=== PATIENT | female | born 1945 | race Caucasian/White ===

== ENCOUNTER 2021-05-04 21:17 | Emergency (ER) | payer OTHER ==
[2021-05-04 22:09] LABS: Urine Blood Negative (Negative); Urine Glucose Negative (Negative); Urine Protein Negative (Negative); Urine Specific Gravity 1.025 (1.005-1.030); Urine pH 5.5 (5.0-7.0)
--- NOTE | 2021-05-04 22:09 | RAD REPORT ---
EXAM DESCRIPTION: RAD - Chest Single View - 05/04/2021 9:58 pm CLINICAL HISTORY: hypotension Chest pain. COMPARISON: Chest Pa And Lat (2 Views) dated 09/18/2018; Chest Pa And Lat (2 Views) dated 12/10/2017; Ch est Pa And Lat (2 Views) dated 11/22/2015; CHEST SINGLE VIEW dated 12/13/2012 FINDINGS: Portable technique limits examination quality. The lungs are grossly clear. The heart is normal in size. Dual lead pacer/ defibrillator device is pr esent.Right axillary surgical clips. IMPRESSION: No acute intrathoracic process suspected.
[2021-05-04] MEDS ORDERED: NA CHLORIDE 0.9% 500 ML ONE (22:11)
[2021-05-04 22:16] LABS: Absolute Lymphocytes (CBC) 0.8 K/uL (0.7-4.9); Basophils % 1.3 % (0-1.3); Hematocrit 36.7 % (36.0-45.0); Lymphocytes % 21.1 % (15.3-44.8); MPV 7.4 fL (7.6-11.3); RBC Red Blood Cell Count 3.63 M/uL (3.86-4.86)
[2021-05-04 22:17] LABS: Protime INR 1.02
[2021-05-04 22:50] LABS: ALT/SGPT 47 U/L (12-78); AST/SGOT 40 U/L (15-37); Albumin 3.5 g/dL (3.4-5.0); Alkaline Phosphatase 71 U/L (45-117); BUN Blood Urea Nitrogen 16 mg/dL (7-18); Bicarbonate 20 mmol/L (21-32); Bilirubin Direct < 0.1 mg/dL (0-0.2); Bilirubin Total 0.2 mg/dL (0.2-1.0); Glucose Level 92 mg/dL (74-106); Magnesium 1.6 mg/dL (1.8-2.4); NT PRO-BNP 124 pg/mL (<450); Potassium 4.6 mmol/L (3.5-5.1); Protein, Total 6.2 g/dL (6.4-8.2); Sodium Level 130 mmol/L (136-145); Troponin (Emerg Dept Use Only) < 0.02 ng/mL (0.0-0.045)
[2021-05-04 22:53] LABS: Urine Bacteria <20 /HPF (<20); Urine RBC NONE SEEN /HPF (NONE SEEN)
[2021-05-05] MEDS ORDERED: MAGNESIUM SULFATE 1 gm IVPB 1 GM/100 ML BAG IV ONE (00:52)
[2021-05-05] MEDS ORDERED: NA CHLORIDE 0.9% 500 ML ONE (00:52)
--- NOTE | 2021-05-05 02:08 | ER ---
Nurse's Notes [facility] Name: Radha Boyer Age: 76 yrs Sex: Female : 1945 Arrival Date: 05/04/2021 Time: 21:24 Bed 18 Private MD: Diagnosis: Volume depletion, unspecified;Fall (on) (from) unspecified stairs and steps Presentation: 05/04 21:20 Chief complaint: Patient states: Arrived via EMS per stretcher; AA\T\Ox4; TREVINO equally; cc4 reports loosing footing on first step of stairs striking posterior head on tile floor; scant bleeding controlled noted of intact deanna x approx 22 deanna to prior laceration of scalp \T\ crown of head x 1 week ago; denies any pain; denies vertigo prior to fall; small abrasions noted right elbow; hypotensive; denies chest pain; reports taking coreg 25mg this am; left pupil distorted in shape/hazy/nonreative to light; 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 21:20 Acuity: JEREMY 3 cc4 21:20 Coronavirus screen: Vaccine status: Patient reports receiving the 2nd dose of the covid cc4 vaccine. At this time, the client does not indicate any symptoms associated with coronavirus-19. Pfizer vaccine Sep-October 2020. Ebola Screen: Patient negative for fever greater than or equal to 101.5 degrees Fahrenheit, and additional compatible Ebola Virus Disease symptoms Patient denies exposure to infectious person. Patient denies travel to an Ebola-affected area in the 21 days before illness onset. No symptoms or risks identified at this time. Initial Sepsis Screen: Does the patient meet any 2 criteria? Systolic BP < 90 mmHg. Mean Arterial Pressure (MAP) < 65. Yes. Risk Assessment: Do you want to hurt yourself or someone else? Patient reports no desire to harm self or others. 21:20 Method Of Arrival: EMS: [facility] cc4 21:20 Onset of symptoms was May 04, 2021 at 21:00. cc4 23:48 Note EMS reports pt fell \T\ approx 2100 \T\ found lying partially on right side on tile cc 4 floor. Triage Assessment: 21:20 General: Appears in no apparent distress. Behavior is calm, cooperative. Pain: Denies cc4 pain. 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 Cardiovascular: Reports h/o pacemaker/defibrillator placement 2018; reports h/o right breast CA with lymph node removal. Respiratory: No deficits noted. GI: No deficits noted. No signs and/or symptoms were reported involving the gastrointestinal system. : No deficits noted. No signs and/or symptoms were reported regarding the genitourinary system. Derm: Approximately 22 deanna noted of prior scalp laceration with scant controlled bleeding noted \T\ crown of head; reports loosing footing 1 week ago with fall causing laceration; small abrasions noted right elbow. Musculoskeletal: No deficits noted. No signs and/or symptoms reported regarding the musculoskeletal system. Injury Description: Abrasion sustained to scalp and right arm Laceration sustained to scalp is Approximately 22 sutures noted intact crown of head scalp laceration with scant controlled bleeding noted; reports prior fall last week. - Immunization history:: Adult Immunizations up to date, Client reports receiving the 2nd dose of the Covid vaccine, Date received: October 04, 2020 x2. - Social history:: Patient/guardian denies using alcohol, street drugs, IV drugs, caffeine, over the counter diet medications, tobacco products, Smoking status: Patient denies any tobacco usage or history of. - Family history:: not pertinent. - Code Status:: Full code. Screenin:20 Abuse screen: Denies threats or abuse. Nutritional screening: No deficits noted. cc4 Tuberculosis screening: No symptoms or risk factors identified. Fall Risk Fall in past 12 months (25 points). Assessment: 22:00 Reassessment: Patient appears in no apparent distress at this time. BP improving; BP cc4 93/44; denies any discomfort.. 23:46 Reassessment: Pt co being very cold even with 3 blankets. Temp check 97.7 , additional dc2 blanket provided to patient. 05/05 01:15 Reassessment: Patient appears in no apparent distress at this time. Patient denies pain cc4 at this time. Awakened from sleep with bld drawn from left wrist saline lock \T\ sent to lab for repeat LA; denies any complaints; ventricular paced rhythm noted of CM with no ectopy; VR 60's; BP improving; BP 109/51.. 02:45 Reassessment: Patient appears in no apparent distress at this time. Discharge order cc4 received; attempted to reach via telephone with no answer; message left; informed of inability to reach at present time \T\ will con't to try \T\ reach with v/u;; voices no complaints.. 04:00 Reassessment: Patient appears in no apparent distress at this time. Sleeping; VSS; cc4 con't to phone 's cell phone with no answer; message left.. 05:27 GI: Awake \T\ vomiting approx. 100 ml pink colored emesis; Dr Duron notified with order cc4 to administer Zofran 4 mg; cleaned with gown changed; Zofran 4 mg given IVP; VSS; repositioned on stretcher; denies any c/o pain; awake/alert/oriented x 3; will con't to monitor; attempted to reach via telephone to no avail; message left. 06:00 Reassessment: Patient appears in no apparent distress at this time. Awakened from cc4 sleep; reports relief of nausea; newell catheter emptied of 1400 ml clear yellow urine; attempted to reach via telephone with no answer; message left on phone recorder.. 07:53 General: pt gave me number to call to pick her up, called [phone] left tc5 message for , to call back.. Vital Signs: 05/04 21:20 BP 85 / 41; Pulse 85; Resp 22; Temp 98.5(O); Pulse Ox 98% on R/A; cc4 22:00 BP 93 / 44; Pulse 79; Resp 18; Pulse Ox 97% on R/A; cc4 22:30 BP 100 / 45; Pulse 50; Resp 18; Pulse Ox 98% on R/A; cc4 23:43 Temp 97.72; dc2 23:56 BP 98 / 47; Pulse 76; Resp 18; Temp 97.2(O); Pulse Ox 99% on R/A; cc4 05/05 02:45 BP 104 / 51; Pulse 70; Resp 18; Pulse Ox 97% on R/A; cc4 04:00 BP 130 / 60; Pulse 73; Resp 18; Pulse Ox 97% on R/A; cc4 05:27 BP 149 / 66; Pulse 75; Resp 22; Temp 98.7(O); Pulse Ox 98% on R/A; cc4 06:00 BP 131 / 66; Pulse 74; Resp 18; Pulse Ox 97% on R/A; cc4 07:47 BP 129 / 52; Pulse 70; Resp 16; Temp 98.8; Pulse Ox 95% ; Pain 0/10; tc5 ED Course: 05/04 21:20 Inserted saline lock: 22 gauge in left wrist, using aseptic technique. cc4 21:20 Arm band placed on. cc4 21:24 Patient arrived in ED. em 21:34 Claire Jasmine, FRAN is Primary Nurse. cc4 21:39 Danilo Morales PA is PHCP. cp 21:39 Nain Duron MD is Attending Physician. cp 21:57 XRAY Chest (1 view) In Process Unspecified. EDMS 22:11 Urine Microscopic Only Sent. kc4 22:20 Labs ordered per protocol. Drawn by ED staff. cc4 22:30 EKG completed in triage. Results shown to MD. cc4 22:31 Lactate Sent. cc4 22:31 Procalcitonin Sent. cc4 22:32 Basic Metabolic Panel Sent. cc4 22:32 LFT's Sent. cc4 22:32 Magnesium Sent. cc4 22:32 NT PRO-BNP Sent. cc4 22:32 Troponin (emerg Dept Use Only) Sent. cc4 22:58 Inserted saline lock: 20 gauge in left antecubital area, using aseptic technique. Blood oe collected. 23:[address] dc2 23:00 Warm blanket given. dc2 23:[address] via stretcher. cc4 23:14 CT Traumagram (Head C Spine CAP W Con) In Process Unspecified. EDMS 23:22 Patient moved back from CT. dc2 23:30 Triage completed. cc4 23:32 Fall risk band placed. Bed in low position. Call light in reach. Side rails up X 1. Red dc2 sleeve placed to right arm. 05/05 01:15 Labs ordered per protocol. Drawn by ED staff. cc4 Administered Medications: 05/04 21:45 Drug: NS 0.9% 500 ml Route: IV; Rate: bolus; Site: left wrist; cc4 05/05 00:21 CANCELLED (Physician Discretion): Magnesium Sulfate 2 grams IVPB once over 2 hrs cp 00:30 Drug: NS 0.9% 500 ml Route: IV; Rate: bolus; Infused Over: 1 hrs; Site: left wrist; dc2 Delivery: Primary tubing; 07:55 Follow up: IV Status: Completed infusion tc5 00:40 Drug: Magnesium Sulfate 1 grams Route: IVPB; Infused Over: 1 hrs; Site: left dc2 antecubital; 02:45 Follow up: Response: No adverse reaction cc4 05:41 Drug: Zofran (Ondansetron) 4 mg Route: IVP; Site: left wrist; cc4 07:55 Follow up: Response: No adverse reaction tc5 Outcome: 05/04 23:48 Condition: Hypotensive. cc4 05/05 02:07 Discharge ordered by . cp 09:08 Patient left the ED. tc5 Signatures: Dispatcher [employer] EDMS Wilfrido Beckman RN RN Danilo Jung PA PA cp Mani Moreno Kourtney kc4 Claire Jasmine RN RN [facility] Lorna Rose RN RN dc2 Shannon Irby RN RN tc5 Corrections: (The following items were deleted from the chart) 05/04 23:26 23:[address] via stretcher. [place] [id number] 05/05 03:26 01:23 LACTATE+C.LAB.BRZ drawn and sent. [facility] EDKY
--- NOTE | 2021-05-05 02:08 | EDPHYS ---
Physician Documentation [facility] Name: Radha Boyer Age: 76 yrs Sex: Female : 1945 Arrival Date: 05/04/2021 Time: 21:24 Bed 18 Private MD: ED Physician Nain Duron HPI: 05/04 21:55 This 76 yrs old Female presents to ER via EMS with complaints of Fall. cp 21:55 Details of fall: The patient fell from an upright position, while walking, and struck a cp tile surface. 21:55 Onset: The symptoms/episode began/occurred just prior to arrival. Associated injuries: cp The patient sustained injury to the head. 21:55 Patient reports she lost her balance while on stairs causing her to strike back of her cp head. No reported LOC. 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 - Immunization history:: Adult Immunizations up to date, Client reports receiving the 2nd dose of the Covid vaccine, Date received: October 04, 2020 x2. - Social history:: Patient/guardian denies using alcohol, street drugs, IV drugs, caffeine, over the counter diet medications, tobacco products, Smoking status: Patient denies any tobacco usage or history of. - Family history:: not pertinent. - Code Status:: Full code. ROS: 22:00 Constitutional: Negative for body aches, chills, fever, poor PO intake. cp 22:00 Cardiovascular: Negative for chest pain. cp 22:00 Respiratory: Negative for cough, shortness of breath, wheezing. 22:00 Abdomen/GI: Negative for abdominal pain, vomiting, diarrhea, constipation, black/tarry stool, rectal bleeding. 22:00 Back: Negative for pain at rest, pain with movement. cp 22:00 MS/extremity: Negative for injury or acute deformity, decreased range of motion. cp 22:00 Neuro: Negative for altered mental status, headache, loss of consciousness, syncope, weakness. 22:00 All other systems are negative. Exam: 22:05 Constitutional: The patient appears in no acute distress, alert, awake, comfortable, cp non-diaphoretic, non-toxic, well developed, well nourished. 22:05 Head/face: Exam is negative for acute changes. cp 22:05 Eyes: Periorbital structures: appear normal, Pupils: equal, round, and reactive to light and accomodation, Extraocular movements: intact throughout, Conjunctiva: normal, no exudate, no injection, Sclera: no appreciated abnormality, Lids and lashes: appear normal, bilaterally. 22:05 ENT: External ear(s): are unremarkable, Ear canal(s): are normal, clear, TM's: dullness, bilaterally, Nose: is normal, Mouth: Lips: dry, Oral mucosa: moist, Posterior pharynx: Airway: no evidence of obstruction, patent. 22:05 Neck: C-spine: vertebral tenderness, is not appreciated, crepitus, is not appreciated, ROM/movement: pain, is not appreciated, limited range of motion, is not appreciated, nuchal rigidity, is not appreciated. 22:05 Chest/axilla: Inspection: normal, Palpation: is normal, no crepitus, no tenderness. 22:05 Cardiovascular: Rate: normal, Rhythm: regular, Edema: is not appreciated, JVD: is not appreciated. 22:05 Respiratory: the patient does not display signs of respiratory distress, Respirations: normal, no use of accessory muscles, no retractions, labored breathing, is not present, Breath sounds: are clear throughout, no decreased breath sounds, no stridor, no wheezing. 22:05 Abdomen/GI: Inspection: abdomen appears normal, Palpation: abdomen is soft and non-tender, in all quadrants. 22:05 Back: pain, is absent, vertebral tenderness, is not appreciated. 22:05 Musculoskeletal/extremity: Exam is negative for decreased range of motion, deformity, injury. 22:05 Skin: Wound recheck: Staple laceration closure: the wound is healing well, the edges are well approximated, no evidence of dehiscence, no drainage, no erythema, no swelling, repaired posterior scalp laceration. 22:05 Neuro: Orientation: to person, place \T\ time. Mentation: is normal, Motor: moves all fours, general weakness with no focal deficits, Sensation: no obvious gross deficits. 22:28 ECG was reviewed by the Attending Physician. cp Vital Signs: 21:20 BP 85 / 41; Pulse 85; Resp 22; Temp 98.5(O); Pulse Ox 98% on R/A; cc4 22:00 BP 93 / 44; Pulse 79; Resp 18; Pulse Ox 97% on R/A; cc4 22:30 BP 100 / 45; Pulse 50; Resp 18; Pulse Ox 98% on R/A; cc4 23:43 Temp 97.72; dc2 23:56 BP 98 / 47; Pulse 76; Resp 18; Temp 97.2(O); Pulse Ox 99% on R/A; cc4 05/05 02:45 BP 104 / 51; Pulse 70; Resp 18; Pulse Ox 97% on R/A; cc4 04:00 BP 130 / 60; Pulse 73; Resp 18; Pulse Ox 97% on R/A; cc4 05:27 BP 149 / 66; Pulse 75; Resp 22; Temp 98.7(O); Pulse Ox 98% on R/A; cc4 06:00 BP 131 / 66; Pulse 74; Resp 18; Pulse Ox 97% on R/A; cc4 07:47 BP 129 / 52; Pulse 70; Resp 16; Temp 98.8; Pulse Ox 95% ; Pain 0/10; tc5 MDM: 05/04 21:44 Patient medically screened. cp 22:00 Differential diagnosis: closed head injury, contusion, fracture, laceration, multiple cp trauma. 05/05 02:05 Data reviewed: vital signs, nurses notes, lab test result(s), EKG, radiologic studies, cp CT scan, plain films. 02:05 Test interpretation: by ED physician or midlevel provider: ECG, plain radiologic cp studies. Counseling: I had a detailed discussion with the patient and/or guardian regarding: the historical points, exam findings, and any diagnostic results supporting the discharge/admit diagnosis, lab results, radiology results, to return to the emergency department if symptoms worsen or persist or if there are any questions or concerns that arise at home. Response to treatment: the patient's symptoms have markedly improved after treatment, patient is well hydrated. and as a result, I will discharge patient. ED course: VSS. Hypotension resolved with IV fluids. Patient reports symptoms improved. Will discharge to home for continued monitoring. 05/04 21:46 Order name: Basic Metabolic Panel; Complete Time: 23:09 cp 05/04 23:09 Interpretation: Normal except: NA 130; CO2 20; GFR 52. cp 05/04 21:46 Order name: CBC with Diff; Complete Time: 22:39 cp 05/04 22:39 Interpretation: Normal except: WBC 3.70; RBC 3.63; MCV 101.0; MCH 33.8; MPV 7.4; MN% cp 14.8. 05/04 21:46 Order name: LFT's; Complete Time: 23:09 05/04 23:10 Interpretation: Normal except: TP 6.2; AST 40. 05/04 21:46 Order name: Magnesium; Complete Time: 23:09 05/04 23:10 Interpretation: Abnormal: MG 1.6. cp 05/04 21:46 Order name: NT PRO-BNP; Complete Time: 23:09 05/04 21:46 Order name: PT-INR; Complete Time: 22:39 05/04 21:46 Order name: Troponin (emerg Dept Use Only); Complete Time: 23:09 05/04 21:46 Order name: Urine Microscopic Only; Complete Time: 23:09 05/04 21:46 Order name: Lactate; Complete Time: 23:09 05/04 21:46 Order name: Procalcitonin; Complete Time: 23:09 05/04 21:46 Order name: Blood Culture Adult (2) 05/04 22:09 Order name: Urine Dipstick-Ancillary; Complete Time: 22:39 EDSC 05/05 01:48 Order name: Lactate Sepsis 2 HR Follow-up; Complete Time: 02:02 EDMS 05/05 02:02 Interpretation: LACTATE SEPSIS 1.9; Reviewed. 05/04 21:46 Order name: XRAY Chest (1 view); Complete Time: 22:39 05/04 22:40 Interpretation: Report review. 05/04 21:46 Order name: EKG; Complete Time: 21:47 05/04 21:46 Order name: Cardiac monitoring; Complete Time: 22:30 05/04 21:46 Order name: EKG - Nurse/Tech; Complete Time: 22:30 05/04 21:46 Order name: IV Saline Lock; Complete Time: 22:32 05/04 21:46 Order name: Labs collected and sent; Complete Time: 22:32 05/04 21:46 Order name: O2 Per Protocol 05/04 21:46 Order name: O2 Sat Monitoring; Complete Time: 22:32 05/04 21:46 Order name: Urine Dipstick-Ancillary (obtain specimen); Complete Time: 22:11 cp 05/04 21:46 Order name: Dennison; Complete Time: 23:33 cp 05/04 21:46 Order name: CT Traumagram (Head C Spine CAP W Con) cp EC/23 22:28 Rate is 75 beats/min. Rhythm is regular, Paced. QRS interval is prolonged at 154 msec. cp QT interval is normal. T waves are Inverted in leads aVR, V2. Interpreted by me. Reviewed by me. Administered Medications: 21:45 Drug: NS 0.9% 500 ml Route: IV; Rate: bolus; Site: left wrist; cc4 05/05 00:21 CANCELLED (Physician Discretion): Magnesium Sulfate 2 grams IVPB once over 2 hrs cp 00:30 Drug: NS 0.9% 500 ml Route: IV; Rate: bolus; Infused Over: 1 hrs; Site: left wrist; dc2 Delivery: Primary tubing; 07:55 Follow up: IV Status: Completed infusion tc5 00:40 Drug: Magnesium Sulfate 1 grams Route: IVPB; Infused Over: 1 hrs; Site: left dc2 antecubital; 02:45 Follow up: Response: No adverse reaction cc4 05:41 Drug: Zofran (Ondansetron) 4 mg Route: IVP; Site: left wrist; cc4 07:55 Follow up: Response: No adverse reaction tc5 Disposition: 02:15 Chart complete. cp 20:23 Co-signature as Attending Physician, Nain Duron MD. 7 Disposition Summary: 05/05/21 02:07 Discharge Ordered Location: Home cp Problem: new cp Symptoms: have improved cp Condition: Stable cp Diagnosis - Volume depletion, unspecified cp - Fall (on) (from) unspecified stairs and steps cp Followup: cp - With: Private Physician - When: 1 - 2 days - Reason: Recheck today's complaints Discharge Instructions: - Discharge Summary Sheet cp - Dehydration, Elderly cp - Fall Prevention in the Home, Adult cp Forms: - Medication Reconciliation Form cp - Thank You Letter cp - Antibiotic Education cp - Prescription Opioid Use cp Signatures: Dispatcher [employer] EDMS Danilo Morales PA PA cp Holmes, Maurice, MD MD 7 Claire Jasmine RN RN 4 Lorna Rose RN RN md2 Shannon Irby RN tc5 Corrections: (The following items were deleted from the chart) 00:21 00:21 Magnesium Sulfate 2 grams IVPB once over 2 hrs ordered. cp cp 03:26 01:17 LACTATE+C.LAB.BRZ ordered. EDMS EDMS
[2021-05-05] MEDS ORDERED: ONDANSETRON 4 MG/2 ML VIAL ONE (05:58)
[2021-05-05 09:48] VITALS: BP 129/52; TEMP 98.8; O2SAT 95
--- NOTE | 2021-05-05 18:05 | RAD REPORT ---
EXAM DESCRIPTION: CT - Head C Spine Cap Tiffanie Henderson - 05/05/2021 6:44 am CLINICAL HISTORY: Fall COMPARISON: 04/26/2021 TECHNIQUE: Axial CT of the head obtained from the skull apex to the skull base without contrast. Axi al CT images of the cervical spine obtained from the skull base through the thoracic inlet. Sagittal and coronal reformatted images available. CT of the chest, abdomen, and pelvis obtained following the uncomplicated intravenous administration of iodinated contrast. This exam was performed according to our departmental dose-optimization program, which includes automated exposure control, adjustment of the mA and/or kV according to patient size and/or use of iterative reconstruction technique. FINDINGS: CT head: No acute intracranial hemorrhage identified. No mass, mass effect, shift of the midline, abnormal ext ra-axial fluid collection or CT evidence of acute ischemic change identified. Was in the ventricular system and sulcal spaces compatible with cerebral atrophy. Scattered areas of hypodensity throughou t the supratentorial white matter are nonspecific and may represent sequela of chronic small vessel i schemic change. The visualized paranasal sinuses and the mastoids are clear. No skull fracture identified. Stable appearance of the globes. Postoperative change of the left globe. Subcutaneous deanna in the superi or scalp soft tissues. Cervical CT: Alignment of the cervical spine is maintained without evidence of subluxation. The atlantoaxial, at lantodental, and occipitoatlantal intervals are preserved. No fracture identified. Vertebral body h eight preserved. Prevertebral soft tissues are unremarkable. Mild to moderate multilevel loss of intervertebral disc height with endplate spondylosis, uncovertebr al spurring, and facet arthropathy. Visualized skull base is intact. No fracture of the visualized facial bones. Visualized mastoid air c ells and paranasal sinuses are well aerated. No cervical lymphadenopathy. No pneumothorax in the visualized lung apices. Chest: Thyroid: No abnormalities of the visualized thyroid. Great Vessels: Great vessels have normal anatomic configuration. Thoracic Aorta: Atherosclerotic calcification of the thoracic aorta. Pulmonary arteries: No central filling defects. Heart: Coronary artery atherosclerosis. No cardiomegaly or significant pericardial effusion. Left von st wall multilead generator. Lymph Nodes: No enlarged mediastinal lymph nodes identified. Esophagus: Small hiatal hernia. Other: In the right breast there is a 3.9 cm fluid collection at the site surgical clips. Postoperati ve change in the right axillary region. Lungs: No confluent airspace consolidation. Minimal bilateral dependent atelectasis. Pleura: No pleural effusion or pneumothorax. Trachea/Airways: No abnormalities of the visualized trachea or airways. Abdomen: Liver: The liver has normal size and decreased density. No intrahepatic mass or biliary dilatation. Gallbladder: No calcified gallstones. Spleen, Pancreas, and Adrenal Glands: The spleen, pancreas, and adrenal glands are unremarkable. Kidneys: The kidneys have normal size and contour without evidence of solid mass or hydronephrosis. Left renal cyst. Vasculature: Aortoiliac atherosclerosis. IVC is unremarkable. The portal vein is patent. The proxim al visceral and renal arteries are patent. Stomach: The stomach and duodenum have normal course. Other: No free intraperitoneal air. No free fluid or lymphadenopathy. Tiny fat-containing umbilic al hernia. Pelvis: Bladder: Dennison catheter in place. Mild wall thickening of the urinary bladder. Bowel: No dilated loops of large or small bowel. Appendix: Normal appendix. Pelvis: Uterus is not enlarged. Bones: Remote healed fractures of the lateral right seventh and 10th ribs. Remote healed fracture of the left posterior 12th rib. Multilevel endplate spondylosis, facet arthropathy, disc height narrowin g throughout the visualized spine. IMPRESSION: 1. No acute intracranial abnormality identified. 2. No acute fracture or subluxation of the cervical spine. 3. In the right breast there is a 3.9 cm fluid collection at the site of surgical clips. This may r epresent a seroma. Correlation for infectious or traumatic changes at this location recommended. 4. Mild wall thickening of the urinary bladder. This could be seen with cystitis. Correlation with urinalysis recommended. 5. Hepatic steatosis. Electronically signed by: Wilfred Zhu 05/04/2021 11:51 PM CDT Due to temporary technical issues with the PACS/Fluency reporting system, reports are being signed by the in house radiologists without review as a courtesy to insure prompt reporting. The interpreting radiologist is fully responsible for the content of the report.
== END 2021-05-05 09:08 | disposition home or self-care (01) ==
LOC: ER 21:17
DX: E86.9 Volume depletion, unspecified (principal); W10.8XXA Fall (on) (from) other stairs and steps, initial encounter; Z95.810 Presence of automatic (implantable) cardiac defibrillator; Z85.3 Personal history of malignant neoplasm of breast
CPT/HCPCS: 93005; 87040 ×2; 85025; 80048; 36415; 83735; 85610; 80076; 83605 ×2; 84484; 84145; 83880; 70450; 72125; 71260; 74177; 71045; 99284; Q9967; J3475; J7040 ×2; J2405; 81003; 81015

== ENCOUNTER 2021-05-07 13:49 | Emergency (ER) | payer OTHER ==
[2021-05-07 14:54] LABS: Absolute Lymphocytes (CBC) 0.5 K/uL (0.7-4.9); Basophils % 1.2 % (0-1.3); Hematocrit 39.7 % (36.0-45.0); Lymphocytes % 11.7 % (15.3-44.8); MPV 7.2 fL (7.6-11.3); RBC Red Blood Cell Count 3.94 M/uL (3.86-4.86)
[2021-05-07] MEDS ORDERED: FENTANYL CITR 100 MCG/2 ML ONE (15:06)
[2021-05-07] MEDS ORDERED: ONDANSETRON 4 MG/2 ML VIAL ONE ×2 (15:06→16:35)
[2021-05-07 15:08] LABS: Potassium 4.6 mmol/L (3.5-5.1)
--- NOTE | 2021-05-07 15:13 | RAD REPORT ---
EXAM DESCRIPTION: CT - Head Brain Wo Cont - 05/07/2021 2:42 pm CLINICAL HISTORY: HEADACHEand nausea following fall 4 days earlier COMPARISON: HEAD BRAIN W O CONTRAST dated 12/13/2012 TECHNIQUE: Axial 5 mm thick images of the head were obtained without IV contrast. All CT scans are performed using dose optimization technique as appropriate and may include automated exposure control or mA/KV adjustment according to patient size. FINDINGS: No intracranial hemorrhage, mass, edema or shift of mid-line structures. No acute cortical based infarction. No cortical edema or sulcal effacement. Atrophy changes are advanced for age. Vent ricles do appear to be in proportion. Chronic ischemic changes are present to a less degree of severi ty. No abnormal extra-axial fluid collections. Arterial tree calcifications are present. Mastoid air cells and visualized portions of the paranasal sinuses are clear. No acute bony findings. Nonfunctioning hyperdense left globe. IMPRESSION: Advanced for age atrophy with ventricles in proportion. No hemorrhage, cerebral edema or other acute intracranial finding.
[2021-05-07] MEDS ORDERED: NA CHLORIDE 0.9% 0 ML ONE (15:18)
[2021-05-07] MEDS ORDERED: NA CHLORIDE 0.9% 500 ML ONE (15:20)
--- NOTE | 2021-05-07 15:42 | ER ---
Nurse's Notes [facility] Name: Radha Boyer Age: 76 yrs Sex: Female : 1945 Arrival Date: 05/07/2021 Time: 13:52 Bed 16 Private MD: Anastacio Spann V Diagnosis: Headache;Nausea with vomiting, unspecified Presentation: 05/07 13:57 Chief complaint: Patient states: Nausea vomiting since last night. Pt stated, "I fell kg and hit my head on 05/03 and came in here and got stitches. Not sure if its related to the fall or not.". Coronavirus screen: Vaccine status: Patient reports receiving the 2nd dose of the covid vaccine. [facility] Patient reports receiving the 1st dose of the Covid vaccine. [facility] nausea, vomiting. Client presents with at least one sign or symptom that may indicate coronavirus-19. Standard/surgical mask placed on the client. Provider contacted for isolation considerations. Coronavirus screen: Vaccine status: Patient reports receiving the 2nd dose of the covid vaccine. Date October 05, 2020 [facility] Patient reports receiving the 1st dose of the Covid vaccine. Date September 14, 2020. Ebola Screen: Patient negative for fever greater than or equal to 101.5 degrees Fahrenheit, and additional compatible Ebola Virus Disease symptoms Patient denies exposure to infectious person. Patient denies travel to an Ebola-affected area in the 21 days before illness onset. Initial Sepsis Screen: Does the patient meet any 2 criteria? No. Patient's initial sepsis screen is negative. Does the patient have a suspected source of infection? No. Patient's initial sepsis screen is negative. Risk Assessment: Do you want to hurt yourself or someone else? Patient reports no desire to harm self or others. Onset of symptoms was May 06, 2021. 13:57 Method Of Arrival: Wheelchair kg 13:57 Acuity: JEREMY 3 kg Triage Assessment: 14:01 General: Appears in no apparent distress. Behavior is calm, cooperative, appropriate kg for age, quiet. Pain: Denies pain. GI: Reports nausea, vomiting. Historical: - Allergies: 14:01 PENICILLINS; kg 14:01 Robaxin; kg - Home Meds: 14:01 carvedilol oral [Active]; letrozole 2.5 mg oral tab [Active]; trazodone Oral [Active]; kg - PMHx: 14:01 Hypertensive disorder; Breast CA; insomnia; kg - PSHx: 14:01 Right mastectomy; Several eye sx; kg - Immunization history:: Adult Immunizations not up to date, Client reports receiving the 2nd dose of the Covid vaccine, Date received: October 05, 2020 [employer] Client reports receiving the 1st dose of the Covid vaccine, September 14, 2020 [employer]. - Social history:: Smoking status: Patient denies any tobacco usage or history of. Screenin:04 Abuse screen: Denies threats or abuse. Denies injuries from another. Nutritional kg screening: No deficits noted. Tuberculosis screening: No symptoms or risk factors identified. Fall Risk Fall in past 12 months (25 points). No secondary diagnosis (0 pts). No IV (0 pts). Ambulatory Aid- Crutches/Cane/Walker (15 pts). Gait- Weak (10 pts.). Mental Status- Oriented to own ability (0 pts). Total Aguilar Fall Scale indicates Low Risk Score (25-44 pts). Fall prevention measures have been instituted. Side Rails Up X 2 Placed close to Nursing Station Frequent Obs/Assesments occuring Family Present and informed to notify staff if they need to leave bedside As available Patient and Family Educated on Fall Prevention Program and strategies. Assessment: 14:14 GI: Abdomen is non-distended, obese. aj2 15:01 Reassessment: Patient appears in no apparent distress at this time. Patient and/or aj2 family updated on plan of care and expected duration. Pain level reassessed. Patient is alert, oriented x 3, equal unlabored respirations, skin warm/dry/pink. 15:17 Reassessment: Patient appears in no apparent distress at this time. Patient and/or aj2 family updated on plan of care and expected duration. Pain level reassessed. Patient is alert, oriented x 3, equal unlabored respirations, skin warm/dry/pink. 16:29 Reassessment: Per Jeremy (CELINE), apply lidocaine 4% patch to back of the neck. Lidocaine aj2 5% patch unavailable. Medication given per verbal order.. Vital Signs: 13:57 BP 152 / 87; Pulse 76; Resp 20; Temp 96.8(TE); Pulse Ox 99% on R/A; Weight 72.57 kg kg (R); Height 5 ft. 3 in. (160.02 cm) (R); Pain 8/10; 14:14 BP 142 / 77; Pulse 77; Resp 18; Temp 96.8; Pulse Ox 100% ; aj2 16:29 BP 159 / 69; Pulse 62; Resp 16; Temp 96.8; Pulse Ox 99% ; aj2 13:57 Body Mass Index 28.34 (72.57 kg, 160.02 cm) kg ED Course: 13:52 Patient arrived in ED. mr 13:52 Anastacio Spann MD is Private Physician. mr 14:01 Triage completed. kg 14:07 Dieudonne Bhakta is Primary Nurse. aj2 14:14 Jeremy Lucas NP is PHCP. pm1 14:14 Savanah Cespedes MD is Attending Physician. pm1 14:14 No apparent distress. Resting quietly. aj2 14:14 Patient has correct armband on for positive identification. aj2 14:14 No provider procedures requiring assistance completed. Patient did not have IV access aj2 during this emergency room visit. 14:42 CT Head Brain wo Cont In Process Unspecified. EDMS 14:47 BMP Sent. aj2 14:47 CBC with Diff Sent. aj2 15:01 No apparent distress. Resting quietly. aj2 15:01 Inserted saline lock: 20 gauge in left antecubital area, using aseptic technique. aj2 15:17 No apparent distress. Appears to be sleeping. aj2 15:17 IV is patent, is intact. aj2 Administered Medications: 14:46 Drug: Zofran (Ondansetron) 4 mg Route: IVP; Site: left antecubital; aj2 14:46 Drug: fentaNYL (PF) 25 mcg Route: IVP; Site: left antecubital; aj2 14:47 Drug: NS 0.9% 500 ml Route: IV; Rate: bolus; Site: left antecubital; aj2 16:27 Drug: Lidoderm Patch 5 % (700 mg/patch) 1 patches Route: Topical; Site: affected area; aj2 16:28 Drug: Zofran (Ondansetron) 4 mg Route: IVP; Site: left antecubital; aj2 Outcome: 15:41 Discharge ordered by . pm1 17:20 Discharged to home via wheelchair. aj2 17:20 Condition: stable 17:20 Discharge instructions given to patient, Instructed on discharge instructions, follow up and referral plans. Demonstrated understanding of instructions, follow-up care, medications, Prescriptions given X 2. 17:21 Patient left the ED. aj2 Signatures: Dispatcher [employer] CHERRI RenatoOrquidea mr Lucas Jeremy, MUSIC LIBRARIAN MUSIC LIBRARIAN pm1 Nany Andrew, RN RN kg Dieudonne Bhakta aj2 Corrections: (The following items were deleted from the chart) 14:03 14:01 Allergies: No Known Allergies; kg kg
--- NOTE | 2021-05-07 15:42 | EDPHYS ---
Physician Documentation [facility] Name: Radha Boyer Age: 76 yrs Sex: Female : 1945 Arrival Date: 05/07/2021 Time: 13:52 Bed 16 Private MD: Anastacio Spann V ED Physician Savanah Cespedes HPI: 05/07 14:39 This 76 yrs old Female presents to ER via Wheelchair with complaints of pm1 Vomiting. 14:39 The patient presents to the emergency department with nausea, vomiting. Onset: The pm1 symptoms/episode began/occurred yesterday. Possible causes: Possibly from fall injury a few days ago. The symptoms are alleviated by nothing. Associated signs and symptoms: Pertinent positives: Headache. Severity of symptoms: in the emergency department the symptoms are unchanged. The patient has been recently seen by a physician: The patient has been recently seen at the [facility] Emergency Department, last week, Fall injury to back of head resulting in multiple deanna from a large laceration. Historical: - Allergies: 14:01 PENICILLINS; kg 14:01 Robaxin; kg - Home Meds: 14:01 carvedilol oral [Active]; letrozole 2.5 mg oral tab [Active]; trazodone Oral [Active]; kg - PMHx: 14:01 Hypertensive disorder; Breast CA; insomnia; kg - PSHx: 14:01 Right mastectomy; Several eye sx; kg - Immunization history:: Adult Immunizations not up to date, Client reports receiving the 2nd dose of the Covid vaccine, Date received: October 05, 2020 [employer] Client reports receiving the 1st dose of the Covid vaccine, September 14, 2020 [employer]. - Social history:: Smoking status: Patient denies any tobacco usage or history of. ROS: 14:39 Constitutional: Negative for fever, chills, and weight loss. pm1 14:39 Cardiovascular: Negative for chest pain, palpitations, and edema, Respiratory: Negative for shortness of breath, cough, wheezing, and pleuritic chest pain. 14:39 Back: Negative for injury and pain, MS/Extremity: Negative for injury and deformity, Skin: Negative for injury, rash, and discoloration. 14:39 Neck: Positive for pain with movement, Negative for bony tenderness. 14:39 Abdomen/GI: Positive for nausea and vomiting, Negative for abdominal pain, diarrhea, constipation. 14:39 Neuro: Positive for headache, Negative for numbness, tingling, weakness. 14:39 All other systems are negative. Exam: 14:39 Constitutional: This is a well developed, well nourished patient who is awake, alert, pm1 and in no acute distress. Head/Face: Normocephalic, atraumatic. 14:39 Back: No spinal tenderness. No costovertebral tenderness. Full range of motion. Skin: Warm, dry with normal turgor. Normal color with no rashes, no lesions, and no evidence of cellulitis. MS/ Extremity: Pulses equal, no cyanosis. Neurovascular intact. Full, normal range of motion. 14:39 Head/face: Noted is no obvious of injury or deformity except tenderness, that is mild, of the Back of scalp. No signs of infection dehiscence drainage or redness from laceration repair. 14:39 Eyes: Exam is negative for acute changes, Extraocular movements: intact throughout. 14:39 ENT: Exam is negative for acute changes, Mouth: Lips: normal, moist, Oral mucosa: normal, pink and intact, moist. 14:39 Neck: C-spine: vertebral tenderness, is not appreciated, Muscle spasm present to trapezius bilaterally at occipital area. 14:39 Cardiovascular: Rate: normal, Rhythm: regular, Pulses: no pulse deficits are appreciated. 14:39 Respiratory: Exam negative for acute changes, respiratory distress, shortness of breath. 14:39 Abdomen/GI: Inspection: abdomen appears normal, Palpation: abdomen is soft and non-tender, in all quadrants. 14:39 Neuro: Orientation: is normal, Mentation: is normal, Motor: is normal, moves all fours, Sensation: is normal, no obvious gross deficits. Vital Signs: 13:57 BP 152 / 87; Pulse 76; Resp 20; Temp 96.8(TE); Pulse Ox 99% on R/A; Weight 72.57 kg kg (R); Height 5 ft. 3 in. (160.02 cm) (R); Pain 8/10; 14:14 BP 142 / 77; Pulse 77; Resp 18; Temp 96.8; Pulse Ox 100% ; aj2 16:29 BP 159 / 69; Pulse 62; Resp 16; Temp 96.8; Pulse Ox 99% ; aj2 13:57 Body Mass Index 28.34 (72.57 kg, 160.02 cm) kg MDM: 14:15 Patient medically screened. pm1 15:41 Data reviewed: vital signs. Data interpreted: Pulse oximetry: on room air is 100 %. pm1 Interpretation: normal. Counseling: I had a detailed discussion with the patient and/or guardian regarding: the historical points, exam findings, and any diagnostic results supporting the discharge/admit diagnosis, lab results, radiology results, the need for outpatient follow up, to return to the emergency department if symptoms worsen or persist or if there are any questions or concerns that arise at home. 17:05 ED course: Patient's with significant improvement in pain with Lidoderm patch applied pm1 to sore area of neck. 05/07 14:26 Order name: CBC with Diff; Complete Time: 15:27 pm1 05/07 14:26 Order name: BMP; Complete Time: 15:27 pm1 05/07 14:26 Order name: CT Head Brain wo Cont; Complete Time: 15:27 pm1 05/07 14:26 Order name: IV Saline Lock; Complete Time: 14:47 pm1 Administered Medications: 14:46 Drug: Zofran (Ondansetron) 4 mg Route: IVP; Site: left antecubital; aj2 14:46 Drug: fentaNYL (PF) 25 mcg Route: IVP; Site: left antecubital; aj2 14:47 Drug: NS 0.9% 500 ml Route: IV; Rate: bolus; Site: left antecubital; aj2 16:27 Drug: Lidoderm Patch 5 % (700 mg/patch) 1 patches Route: Topical; Site: affected area; aj2 16:28 Drug: Zofran (Ondansetron) 4 mg Route: IVP; Site: left antecubital; aj2 Disposition Summary: 05/07/21 15:41 Discharge Ordered Location: Home pm1 Problem: new pm1 Symptoms: have improved pm1 Condition: Stable pm1 Diagnosis - Headache pm1 - Nausea with vomiting, unspecified pm1 Followup: pm1 - With: Emergency Department - When: As needed - Reason: Worsening of condition Followup: pm1 - With: Private Physician - When: 2 - 3 days - Reason: Recheck today's complaints, Continuance of care, Re-evaluation by your physician Discharge Instructions: - Discharge Summary Sheet pm1 - General Headache Without Cause pm1 - Nausea and Vomiting, Adult pm1 - Post-Concussion Syndrome pm1 Forms: - Medication Reconciliation Form pm1 - Thank You Letter pm1 - Antibiotic Education pm1 - Prescription Opioid Use pm1 Prescriptions: - Lidoderm 5 % Topical adhesive patch,medicated - apply 1 patch by TRANSDERMAL route once daily As needed 12 hours on and 12 pm1 hours off in a 24-hour period; 10 patch; Refills: 0, Product Selection Permitted - ondansetron 4 mg Oral tablet,disintegrating - take 1 tablet by ORAL route every 8 hours As needed; 20 tablet; Refills: 0, pm1 Product Selection Permitted Addendum: 05/12/2021 04:36 Co-signature as Attending Physician, Savanah mckinney a2 Signatures: Dispatcher [employer] Jeremy Young NP ANALYST SALES pm1 Savanah Cespedes MD MD ma2 Nany Andrew, RN RN kg Dieudonne Bhakta2 Corrections: (The following items were deleted from the chart) 05/07 14:03 14:01 Allergies: No Known Allergies; kg kg
[2021-05-07] MEDS ORDERED: LIDOCAINE 4% PATCH ONE (16:39)
[2021-05-07 18:19] VITALS: TEMP 96.8
[2021-05-07 18:22] VITALS: BP 159/69; O2SAT 99
== END 2021-05-07 17:21 | disposition home or self-care (01) ==
LOC: ER 13:49
DX: R51.9 Headache, unspecified (principal); I10 Essential (primary) hypertension; Z88.0 Allergy status to penicillin; Z88.8 Allergy status to other drugs, medicaments and biological substances
CPT/HCPCS: 85025; 80048; 36415; 82565; 70450; 96375; 96374; 99284; J3010; J7040; J2405 ×2; J7030

== ENCOUNTER 2021-06-02 14:48 | Emergency (ER) | payer OTHER ==
[2021-06-02 16:05] LABS: Absolute Lymphocytes (CBC) 0.8 K/uL (0.7-4.9); Basophils % 1.2 % (0-1.3); Hematocrit 34.1 % (36.0-45.0); MPV 6.7 fL (7.6-11.3); RBC Red Blood Cell Count 3.41 M/uL (3.86-4.86)
--- NOTE | 2021-06-02 16:19 | RAD REPORT ---
EXAM DESCRIPTION: CT - CTHCSPWOC - 06/02/2021 4:02 pm CLINICAL HISTORY: Trauma, head and neck injury. fall, weakness COMPARISON: CT HEAD CSPINE MPR WO CONTRAST dated 05/10/2015; Head C Spine Cap W Con dated 05/04/2021; Head Brain Wo Cont dated 05/07/2021 TECHNIQUE: Axial 5 mm thick images of the head were obtained. Axial 2 mm thick images of the cervical spine were obtained with sagittal and coronal reconstruction images generated and reviewed. All CT scans are performed using dose optimization technique as appropriate and may include automated exposure control or mA/KV adjustment according to patient size. FINDINGS: CT HEAD WITHOUT CONTRAST: No acute hemorrhage, hydrocephalus or extra-axial collection is identified.Moderate diffuse brain atr ophy is present.No areas of brain edema or midline shift. The paranasal sinuses and mastoids are clear.Vertebral atherosclerosis.The calvarium is intact. Hyper dense left vitreous again seen. CT CERVICAL SPINE WITHOUT CONTRAST: No fracture or subluxation.Mild lower cervical degenerative changes are present.No prevertebral soft tissues swelling is identified. IMPRESSION: No acute intracranial or cervical spine findings. Mild lower cervical degenerative changes.
--- NOTE | 2021-06-02 16:23 | RAD REPORT ---
EXAM DESCRIPTION: RAD - Chest Single View - 06/02/2021 4:15 pm CLINICAL HISTORY: weakness Chest pain. COMPARISON: Chest Single View dated 05/04/2021; Chest Pa And Lat (2 Views) dated 09/18/2018; Chest Pa A nd Lat (2 Views) dated 12/10/2017; Chest Pa And Lat (2 Views) dated 11/22/2015 FINDINGS: Portable technique limits examination quality. The lungs are grossly clear. The heart is normal in size. No displaced fractures.Multi lead pacer/def ibrillator device is present. IMPRESSION: No acute intrathoracic process suspected.
[2021-06-02 17:06] LABS: ALT/SGPT 34 U/L (12-78); AST/SGOT 25 U/L (15-37); Albumin 3.2 g/dL (3.4-5.0); Alkaline Phosphatase 66 U/L (45-117); BUN Blood Urea Nitrogen 9 mg/dL (7-18); Bicarbonate 22 mmol/L (21-32); Bilirubin Direct 0.1 mg/dL (0-0.2); Bilirubin Total 0.4 mg/dL (0.2-1.0); Glucose Level 92 mg/dL (74-106); NT PRO-BNP 291 pg/mL (<450); Potassium 4.6 mmol/L (3.5-5.1); Protein, Total 6.1 g/dL (6.4-8.2); Sodium Level 136 mmol/L (136-145); Troponin (Emerg Dept Use Only) < 0.02 ng/mL (0.0-0.045)
[2021-06-02 17:42] LABS: Urine Blood Negative (Negative); Urine Glucose Negative (Negative); Urine Protein Negative (Negative); Urine pH 5.5 (5.0-7.0)
[2021-06-02 17:47] LABS: Magnesium 1.9 mg/dL (1.8-2.4)
--- NOTE | 2021-06-02 18:19 | ER ---
Nurse's Notes [facility] Name: Radha Boyer Age: 76 yrs Sex: Female : 1945 Arrival Date: 06/02/2021 Time: 14:57 Bed External Waiting Private MD: Diagnosis: Fall on same level from slipping, tripping and stumbling without subsequent striking against object;Weakness-general Presentation: 06/02 14:58 Chief complaint: EMS states: Presents via EMS with c/o Syncope - patient unaware of sl2 falling, denies pain, headache or any injuries. EMS reports that patient was walking to her car in her driveway, saw her on the ground but did not witness the fall, attempted to get her up for approximately 90 minutes but was unsuccessful thus EMS was called. Coronavirus screen: Vaccine status: Patient reports receiving the 2nd dose of the covid vaccine. 14:58 Method Of Arrival: EMS: [place] [id number] 14:58 Ebola Screen: No symptoms or risks identified at this time. sl2 15:00 Initial Sepsis Screen: Does the patient have a suspected source of infection? No. sl2 Patient's initial sepsis screen is negative. Initial Sepsis Screen: Does the patient meet any 2 criteria? No. Patient's initial sepsis screen is negative. Risk Assessment: Do you want to hurt yourself or someone else? Patient reports no desire to harm self or others. Note Patient AAO X 3, denies pain or injury, fell at home, however states unaware of falling - states remember walking to her car in the driveway then woke up to find herself on the ground. Communicates effectively, follows commands. Onset of symptoms was June 02, 2021. Mechanism of Injury: Fall fell on flat pavement while walking. Transition of care: came from home. 15:00 Acuity: JEREMY 2 sl2 Historical: - Allergies: 15:09 PENICILLINS; sl2 15:09 Robaxin; sl2 - PMHx: 15:09 BREAST CA; Hypertensive disorder; insomnia; sl2 - PSHx: 15:09 right mastectomy; Several eye sx; sl2 - Immunization history:: Client reports receiving the 2nd dose of the Covid vaccine, Date received: October 05, 2020 3rd dose 05/12/21. - Social history:: Smoking status: Patient denies any tobacco usage or history of. Screenin:50 Abuse screen: Denies threats or abuse. Nutritional screening: No deficits noted. sl2 Tuberculosis screening: No symptoms or risk factors identified. Fall Risk Fall in past 12 months (25 points). No secondary diagnosis (0 pts). IV access (20 points). Ambulatory Aid- None/Bed Rest/Nurse Assist (0 pts). Gait- Normal/Bed Rest/Wheelchair (0 pts) Mental Status- Oriented to own ability (0 pts). Total Aguilar Fall Scale indicates. Sepsis Screening: . Infection: Patient has no suspected or documented infection. SIRS - Systemic Inflammatory Response Syndrome: 2 or more indicates positive screen:. Assessment: 15:43 General: Appears in no apparent distress. comfortable, Behavior is calm, cooperative, sl2 Denies fever, feeling ill, fatigue. Pain: Denies pain. Neuro: No deficits noted. Cardiovascular: Reports syncope. Cardiovascular: Rhythm is ventricular pacer. Respiratory: No deficits noted. GI: No deficits noted. : No deficits noted. EENT: No deficits noted. Derm: No deficits noted. Musculoskeletal: No deficits noted. 15:55 Reassessment: Patient transported to radiology dept for CAT scan - portable CXR sl2 completed - awaiting results. 17:00 Reassessment: Patient appears in no apparent distress at this time. No changes from ld1 previously documented assessment. Patient and/or family updated on plan of care and expected duration. Pain level reassessed. 17:00 Reassessment: Patient appears in no apparent distress at this time. Patient and/or ld1 family updated on plan of care and expected duration. Pain level reassessed. Patient is alert, oriented x 3, equal unlabored respirations, skin warm/dry/pink. Vital Signs: 15:00 BP 107 / 50; Pulse 102; Resp 20; Temp 98.7; Pulse Ox 98% ; Weight 72.12 kg; Height 5 sl2 ft. 3 in. (160.02 cm); 15:30 BP 110 / 58; Pulse 78; Resp 18; Temp 98.7; Pulse Ox 96% ; sl2 16:30 BP 118 / 64; Pulse 80; Resp 20; Temp 98.6; Pulse Ox 97% ; sl2 17:30 BP 141 / 77; Pulse 78; Resp 18; Temp 98.7; Pulse Ox 100% ; sl2 17:48 BP 135 / 73; Pulse 80; Resp 18; Temp 98.7; Pulse Ox 100% ; sl2 18:30 BP 149 / 75; Pulse 73; Resp 20; Pulse Ox 100% on R/A; ld1 15:00 Body Mass Index 28.17 (72.12 kg, 160.02 cm) sl2 Vitals: 15:30 Cardiac Rhythm Assessment Paced. sl2 ED Course: 14:57 Patient arrived in ED. ds1 14:58 Scarlett Acevedo, RN is Primary Nurse. sl2 15:02 Danilo Morales PA is PHCP. cp 15:02 Danilo Arellano MD is Attending Physician. cp 15:09 Triage completed. sl2 15:16 Arm band placed on right wrist. sl2 15:43 Inserted saline lock: 20 gauge in left antecubital area, using aseptic technique. Blood ld1 collected. 16:02 CT Head C Spine In Process Unspecified. EDMS 16:15 XRAY Chest (1 view) In Process Unspecified. EDMS 18:50 Patient has correct armband on for positive identification. Placed in gown. Bed in low ld1 position. Call light in reach. Side rails up X2. bacteriologist soil on. Pulse ox on. NIBP on. Door closed. Noise minimized. Warm blanket given. 18:50 No provider procedures requiring assistance completed. IV discontinued, intact, ld1 bleeding controlled, No redness/swelling at site. Administered Medications: 18:10 Drug: NS 0.9% 500 ml Route: IV; Rate: 500 bolus; Site: left hand; sl2 18:59 Follow up: IV Status: Completed infusion sl2 Outcome: 18:19 Discharge ordered by . cp 18:50 Discharged to home ambulatory, with family. ld1 18:50 Condition: stable 18:50 Discharge instructions given to patient, family, Instructed on discharge instructions, follow up and referral plans. Demonstrated understanding of instructions, follow-up care, medications. 06/03 00:08 Patient left the ED. sol Signatures: Dispatcher [employer] EDWA Rosalva Tong ds1 Danilo Morales PA PA cp Dibbern, Lauren, FRAN RN ld1 Juan Lopez RN wg Landell, Sophia, FRAN PETERS sl2
--- NOTE | 2021-06-02 18:20 | EDPHYS ---
Physician Documentation [facility] Name: Radha Boyer Age: 76 yrs Sex: Female : 1945 Arrival Date: 06/02/2021 Time: 14:57 Bed External Waiting Private MD: ED Physician Danilo Arellano HPI: 06/02 15:20 This 76 yrs old Female presents to ER via EMS with complaints of Fall Injury. cp 15:20 Details of fall: The patient fell from an upright position, while standing. cp 15:20 Onset: The symptoms/episode began/occurred 1-2 hours ago. cp 15:20 Associated injuries: The patient sustained no obvious injury. Severity of symptoms: in cp the emergency department the symptoms have improved, mildly. Patient reports she was walking to car when her legs became weak causing her to fall to ground. reports to observing fall and attempted for 1 and 1/2 hours to assist patient to her feet. reports he was unable to assist patient up from the ground so he called EMS. Patient and deny LOC and/or syncope. Historical: - Allergies: 15:09 PENICILLINS; sl2 15:09 Robaxin; sl2 - PMHx: 15:09 BREAST CA; Hypertensive disorder; insomnia; sl2 - PSHx: 15:09 right mastectomy; Several eye sx; sl2 - Immunization history:: Client reports receiving the 2nd dose of the Covid vaccine, Date received: October 05, 2020 3rd dose 05/12/21. - Social history:: Smoking status: Patient denies any tobacco usage or history of. ROS: 15:25 Constitutional: Negative for body aches, chills, fever, poor PO intake. cp 15:25 Eyes: Negative for injury, pain, redness, and discharge. cp 15:25 ENT: Negative for ear pain, sore throat, difficulty swallowing, difficulty handling cp secretions. 15:25 Cardiovascular: Negative for chest pain, edema, palpitations. 15:25 Respiratory: Negative for cough, shortness of breath, wheezing. 15:25 Abdomen/GI: Negative for abdominal pain, nausea, vomiting, and diarrhea, constipation, cp black/tarry stool, rectal bleeding. 15:25 Back: Negative for pain at rest, pain with movement. 15:25 Neuro: Positive for weakness, Negative for altered mental status, headache, loss of consciousness, numbness, syncope. 15:25 All other systems are negative. Exam: 15:30 Constitutional: The patient appears in no acute distress, alert, awake, cp non-diaphoretic, non-toxic, well developed, well nourished. 15:30 Head/Face: Normocephalic, atraumatic. cp 15:30 Eyes: Periorbital structures: appear normal, Pupils: equal, round, and reactive to light and accomodation, Extraocular movements: intact throughout, Conjunctiva: normal, no exudate, no injection, Sclera: no appreciated abnormality, Lids and lashes: appear normal, bilaterally. 15:30 ENT: External ear(s): are unremarkable, Nose: is normal, Mouth: Lips: moist, Oral mucosa: moist, Posterior pharynx: Airway: no evidence of obstruction, patent. 15:30 Neck: C-spine: vertebral tenderness, is not appreciated, crepitus, is not appreciated, ROM/movement: is normal, is supple, without pain, no range of motions limitations. 15:30 Chest/axilla: Inspection: normal, Palpation: is normal, no crepitus, no tenderness. 15:30 Cardiovascular: Rate: tachycardic, Rhythm: regular, Edema: is not appreciated, JVD: is not appreciated. 15:30 Respiratory: the patient does not display signs of respiratory distress, Respirations: normal, no use of accessory muscles, no retractions, labored breathing, is not present, Breath sounds: are clear throughout, no decreased breath sounds, no stridor, no wheezing. 15:30 Abdomen/GI: Inspection: abdomen appears normal, Palpation: abdomen is soft and non-tender, in all quadrants. 15:30 Back: pain, is absent, ROM is normal. 15:30 Neuro: Orientation: to person, place \T\ time. Mentation: is normal, Motor: moves all fours, strength is normal, Sensation: is normal. 15:39 ECG was reviewed by the Attending Physician. cp Vital Signs: 15:00 BP 107 / 50; Pulse 102; Resp 20; Temp 98.7; Pulse Ox 98% ; Weight 72.12 kg; Height 5 sl2 ft. 3 in. (160.02 cm); 15:30 BP 110 / 58; Pulse 78; Resp 18; Temp 98.7; Pulse Ox 96% ; sl2 16:30 BP 118 / 64; Pulse 80; Resp 20; Temp 98.6; Pulse Ox 97% ; sl2 17:30 BP 141 / 77; Pulse 78; Resp 18; Temp 98.7; Pulse Ox 100% ; sl2 17:48 BP 135 / 73; Pulse 80; Resp 18; Temp 98.7; Pulse Ox 100% ; sl2 18:30 BP 149 / 75; Pulse 73; Resp 20; Pulse Ox 100% on R/A; ld1 15:00 Body Mass Index 28.17 (72.12 kg, 160.02 cm) sl2 MDM: 15:08 Patient medically screened. brown 18:14 Data reviewed: vital signs, nurses notes, lab test result(s), EKG, radiologic studies. ED course: Vital signs stable. Discussed results of labs EKG and CT result. Reviewed nursing notes reported syncopal episode. Discussed this with patient, who is adamant that she did not lose consciousness or have a syncopal episode. 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 Patient reports she has a walker at home which I recommend she use and she can return here if symptoms worsen.. 06/02 15:15 Order name: Basic Metabolic Panel 06/02 15:15 Order name: CBC with Diff; Complete Time: 16:43 06/02 16:43 Interpretation: Normal except: RBC 3.41; HGB 11.4; HCT 34.1; MPV 6.7; LYM% 14.0. 06/02 15:15 Order name: LFT's; Complete Time: 17:54 06/02 17:14 Interpretation: Normal except: TP 6.1; ALB 3.2. 06/02 15:15 Order name: Magnesium; Complete Time: 17:54 06/02 17:55 Interpretation: Within normal limits: MG 1.9. 06/02 15:15 Order name: NT PRO-BNP; Complete Time: 17:54 06/02 17:55 Interpretation: Within normal limits: NT PRO-BNP 291. 06/02 15:15 Order name: PT-INR; Complete Time: 16:43 06/02 15:15 Order name: Troponin (emerg Dept Use Only); Complete Time: 17:54 cp 06/02 17:54 Interpretation: Reviewed. cp 06/02 15:15 Order name: XRAY Chest (1 view); Complete Time: 16:43 cp 06/02 15:15 Order name: Basic Metabolic Panel; Complete Time: 17:54 EDMS 06/02 17:15 Interpretation: Normal except: GFR 68. cp 06/02 15:32 Order name: CT Head C Spine; Complete Time: 16:43 cp 06/02 17:54 Interpretation: Reviewed report. cp 06/02 17:16 Order name: Urine Microscopic Only cp 06/02 17:42 Order name: Urine Dipstick-Ancillary; Complete Time: 17:54 EDMS 06/02 15:15 Order name: Cardiac monitoring; Complete Time: 15:44 cp 06/02 15:15 Order name: EKG - Nurse/Tech; Complete Time: 15:38 cp 06/02 15:15 Order name: IV Saline Lock; Complete Time: 15:44 cp 06/02 15:15 Order name: Labs collected and sent; Complete Time: 15:44 cp 06/02 15:15 Order name: O2 Per Protocol; Complete Time: 15:44 cp 06/02 15:15 Order name: O2 Sat Monitoring; Complete Time: 15:44 cp 06/02 17:16 Order name: Urine Dipstick-Ancillary (obtain specimen); Complete Time: 17:52 cp 06/02 17:56 Order name: Misc. Order: ambulate patient; Complete Time: 17:58 cp EC:39 Rate is 127 beats/min. NM interval is normal at 136 msec. QRS interval is normal. QT cp interval is normal. Interpreted by me. Reviewed by me. Administered Medications: 18:10 Drug: NS 0.9% 500 ml Route: IV; Rate: 500 bolus; Site: left hand; sl2 18:59 Follow up: IV Status: Completed infusion sl2 Disposition Summary: 06/02/21 18:19 Discharge Ordered Location: Home cp Problem: new cp Symptoms: have improved cp Condition: Stable cp Diagnosis - Fall on same level from slipping, tripping and stumbling without subsequent cp striking against object - Weakness - general cp Followup: cp - With: Emergency Department - When: As needed - Reason: Worsening of condition Discharge Instructions: - Discharge Summary Sheet cp - Fall Prevention in the Home, Adult cp - Weakness cp Forms: - Medication Reconciliation Form cp - Thank You Letter cp - Antibiotic Education cp - Prescription Opioid Use cp Addendum: 06/05/2021 10:28 Co-signature as Attending Physician, Danilo Arellano MD I agree with the assessment and c sousa plan of care. Signatures: Dispatcher [employer] EDDanilo Carlson MD MD cha Page, Corey, PA PA Scarlett Yepez, RN RN sl2 Corrections: (The following items were deleted from the chart) 06/02 18:59 17:16 Jesi ordered. cp sl2
[2021-06-02] MEDS ORDERED: NA CHLORIDE 0.9% 500 ML ONE (18:29)
[2021-06-02 18:50] LABS: Urine Bacteria <20 /HPF (<20); Urine RBC NONE SEEN /HPF (NONE SEEN)
[2021-06-03 00:49] VITALS: TEMP 98.7; O2SAT 100
[2021-06-03 00:51] VITALS: BP 149/75
== END 2021-06-03 00:08 | disposition home or self-care (01) ==
LOC: ER 14:48
DX: R53.1 Weakness (principal); W01.0XXA Fall on same level from slipping, tripping and stumbling without subsequent striking against object, initial encounter; I10 Essential (primary) hypertension; Z85.3 Personal history of malignant neoplasm of breast; Z88.0 Allergy status to penicillin; Z88.8 Allergy status to other drugs, medicaments and biological substances; Z90.11 Acquired absence of right breast and nipple
CPT/HCPCS: 93005; 85025; 80048; 36415; 83735; 85610; 80076; 84484; 83880; 70450; 72125; 71045; 96360; 99284; J7040; 81003; 81015

== ENCOUNTER 2022-05-08 20:24 | Emergency (ER) | payer OTHER ==
--- OUTSIDE RECORDS SUMMARY | 2022-05-08 20:30 | XMS REPORT | Continuity of Care Document ---
:1945 Author Organization [facility] t Address [address] [place] [address] Care Team Providers Name Role Phone Sharpless Primary Care Physician AMMON BROCK Attending Clinician Unavailable Navid Lehman MD Attending Clinician Yessica Landry MA Attending Clinician Unavailable SHIKHA NICHOLOSN Attending Clinician Unavailable Rupinder Delaney Attending Clinician Unavailable KELSIE TORRES Attending Clinician Unavailable SUDHAKAR IBARRA Attending Clinician Unavailable Ammon Brock MD Attending Clinician [phone] Pasquale Nguyen MD Attending Clinician LALO SIDDIQI Attending Clinician Unavailable CARYN CUELLAR Attending Clinician Unavailable Rupinder Delaney Admitting Clinician Unavailable Physician, No Primary or Family Admitting Clinician UnavailLALO Jack Admitting Clinician Unavailable CARYN CUELLAR Admitting Clinician Unavailable Payers Payer Name Policy Type Policy Number Effective Date Expiration Date S rebeca MEDICARE PLAN PPO [id number] - AETNA MEDICARE PART B - [id number] MEDICARE AETNA MEDICARE PPO [id number] 2013 00:00:00 Problems Condition Condition Condition Status Onset Resolution Last Treating Co mments Source Name Details Category Date Date Treatment Clinician Date 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 02-14 due to due to 00:00: Hospita chemothera chemothera 00 l py py ICD ICD Disease Active [facility] 01-04 [facility] le le 00:00: Medical cardiovert cardiovert 00 Ce nter er-defibri er-defibri llator) llator) battery battery depletion depletion No known No known Disease [facility] active active College problems problems of Medicin e Allergies, Adverse Reactions, Alerts Allergy Allergy Status Severity Reaction(s) Onset Inactive Treating Comm ents Source Name Type Date Date Clinician Anastroz Propensi Active [facility] ole ty to 5-10 College adverse 00:00: of reaction 00 Medicin s to e drug Penicill Propensi Active [facility] ins ty to 5-10 College adverse 00:00: of reaction 00 Medicin s to e drug Methocar Propensi Active [facility] bamol ty to 5-10 College adverse 00:00: of reaction 00 Medicin s to e drug Penicill DA Active [facility] BREATHING 01-25 [place] 00:00: d [facility] [place] methocar DA Active [facility] bamol 01-25 [place] 00:00: d [facility] [place] anastroz DA Active [facility] ole 01-25 [place] 00:00: d [facility] [place] Penicill DA Active [facility] ins 01-25 00:00: [place] 00 [facility] methocar DA Active [facility] bamol 01-25 00:00: [place] 00 [facility] anastroz DA Active [facility] ole 01-25 00:00: [place] 00 Medical [place] Anastroz Propensi Active [facility] 12-31 [facility] adverse [facility]: Medical reaction 00 Center s Penicill Propensi Active Anaphylaxis [facility] ins ty to 12-31 [facility] adverse 00:[facility]: Medical reaction 00 Center s Methocar Propensi Active [facility] bamol ty to 12-31 [facility] adverse 00:00: Medical reaction 00 Center s Anastroz Propensi Active [facility] ole ty to 12-31 [facility] adverse 00:00: Hospita reaction 00 l s to drug Methocar Propensi Active Method i bamol ty to 5-22 st adverse 00:00: Hospita reaction 00 l s to drug Anastroz Propensi Active [facility] ole ty to 3-10 [facility] adverse 00:00: reaction 00 s Penicill Propensi Active Anaphylaxis M ethodi ins ty to 2-12 st adverse 00:00: Hospita reaction 00 l s to drug Methocar Propensi Active [facility] bamol ty to 2-12 Health adverse 00:00: reaction 00 s Penicill Propensi Active Anaphylaxis U T ins ty to 2-12 Health adverse 00:00: reaction 00 s ANASTROZ Allergy Active [facility] OLE PENICILL Allergy Active [facility] INS METHOCAR Allergy Active [facility] BAMOL Social History Social Habit Start Date Stop Date Quantity Comments Source Exposure to Not sure [facility] SARS-CoV-2 (event) History SDOH [facility] Alcohol Binge Medical [facility] [facility] History SDOH [facility] Dr[facility] Alcohol intake 2022-03-20 2022-03-20 Current drinker of [facility] 00:00:00 00:00:00 alcohol (finding) Hospita l History SDOH 2019-10-19 2019-10-[address] [facility] Alcohol Frequency 00:00:00 00:00:00 [facility] Alcohol Comment 2017-04-24 2017-04-24 occacionaly Methodis t 00:00:00 00:00:00 Hospital Tobacco use and 2017-01-04 2017-01-[address] [facility] [address] [facility] exposure 00:00:00 00:00:00 [facility] Sex Assigned At [birth year] [facility] 00:00:00 00:00:00 [facility] Smoking Status Start Date Stop Date Source Never smoked tobacco [facility] Medications Ordered Filled Start Stop Current Ordering Indication Dosage Frequency Signature Comments Components Source Medication Medication Date Date Medication? Clinician (SIG) Name Name aspirin 81mg Take 81 mg Met hodi (ECOTRIN) 03-[address] 81 MG 13:56: 00:00 Hospita enteric 50 :00 l coated tablet Folbee Yes TAKE 1 [facility] 2.5-25-1 mg 6-[address] tablet 00:00: MOUTH+ Hospita 00 EVERY DAY. l DULoxetine Yes [id number] TAKE 1 M ethodi (CYMBALTA) 6-[address] 60 MG 00:00: MOUTH Hospita capsule 00 DAILY l gabapentin 2021- No 100mg QD Take 100 M ethodi (NEURONTIN) 08-30-[address] 100 mg 14:09: 00:00 mouth Hospita capsule 25 :00 daily. l Patient states she takes 1-2 tablets in the AM furosemide No 20mg Take 20 mg [facility] (LASIX) 20 08-[address] mg tablet 13:25: 00:00 Hospita 54 :00 l gabapentin Yes 100mg QD Take 1 Meth tory (NEURONTIN) 08-[address] 100 mg 00:00: (100 mg Hospita capsule 00 total) by l mouth daily. Patient states she takes 1-2 tablets in the AM gabapentin Yes [id number] 300mg QD Take 1 [facility] (NEURONTIN) 08-[address] 300 mg 00:00: (300 mg Hospita capsule 00 total) by l mouth nightly. DULoxetine 2022- No [id number] 30mg QD Take 1 [facility] (Cymbalta) 08-30- capsule st 30 MG 00:00: 05:59 (30 mg Hospita capsule 00 :00 total) by l mouth daily. folic 2021- No 1{tbl} QD Take 1 [facility] acid-vit 08-[address] B6-vit B12 00:00: 00:00 mouth Hospi ta (Folbee) 00 :00 daily. l 2.5-25-1 mg tablet DULoxetine No [id number] 60mg QD Take 1 [facility] (CYMBALTA) 08-30- capsule st 60 MG 00:00: 00:00 (60 mg Hospita capsule 00 :00 total) by l mouth daily. aspirin 81 0 Yes 81mg QD Take 81 mg U T MG EC 04-12 by mouth 1 Health tablet 15:42: (one) time 52 each day. aspirin 81 2020-0 Yes 81mg QD Take 81 mg U T MG EC 04-12 by mouth 1 Health tablet 15:42: (one) time 52 each day. Folic Acid 2021-0 Yes Take by UT 0.8 MG 04-12 mouth. Health capsule 15:41: 38 gabapentin 2020-0 Yes Take by [facility] (Neurontin) 04-12 mouth. Health 100 MG 15:41: capsule 38 Folic Acid 2020-0 Yes Take by UT 0.8 MG 04-12 mouth. Health capsule 15:41: 38 gabapentin 2020-0 Yes Take by [facility] (Neurontin) 04-12 mouth. Health 100 MG 15:41: capsule 38 atorvastati 2020-0 Yes UT n (Lipitor) 8-30 Health 10 MG 00:00: tablet 00 atorvastati 2020-0 Yes UT n (Lipitor) 8-30 Health 10 MG 00:00: tablet 00 furosemide Yes TAKE 1 [facility] (Lasix) 20 7-25 TABLET BY Heal th MG tablet 00:00: MOUTH 00 EVERY DAY NEEDED SWELLING furosemide 0 Yes TAKE 1 [facility] (Lasix) 20 7-25 TABLET BY Heal th MG tablet 00:00: MOUTH 00 EVERY DAY NEEDED SWELLING letrozole 0 Yes UT (Femara) 6-30 Health 2.5 MG 00:00: chemo 00 tablet letrozole 2020-0 Yes [facility] (Femara) 6-30 Health 2.5 MG 00:00: chemo 00 tablet carvedilol 0 Yes TAKE 1 UT (Coreg) 25 6-07 TABLET BY Heal th MG tablet 00:00: MOUTH 00 TWICE DAILY. STOP TAKING BYSTOLIC carvedilol 0 Yes TAKE 1 UT (Coreg) 25 6-07 TABLET BY Heal th MG tablet 00:00: MOUTH 00 TWICE DAILY. STOP TAKING BYSTOLIC FOLIC Yes Take by [facility] ACID/MULTIV 5-[address] IT-MIN/LUTE 12:43: Hospit a IN (CENTRUM 46 l SILVER ORAL) carvediloL 2020-0 Yes 25mg Q.5D Take 25 mg M ethodi (COREG) 25 5-[address] MG tablet 12:43: (two) Hospita 46 times a l day with meals. sacubitriL- 2020-0 Yes Q.5D Take by Met hodi valsartan 5-[address] (Entresto) 12:43: (two) Hospit a 24-26 mg 46 times a l tablet per day. tablet DULoxetine 2021- No [id number] 30mg QD Take 1 [facility] (Cymbalta) 12-[address] 30 MG 00:00: 00:00 (30 mg Hospita capsule 00 :00 total) by l mouth daily. DULoxetine 2021- No [id number] 60mg QD Take 1 [facility] (CYMBALTA) 12-[address] 60 MG 00:00: 00:00 (60 mg Hospita capsule 00 :00 total) by l mouth daily. folic 2021- No 1{tbl} QD Take 1 [facility] acid-vit 12-[address] B6-vit B12 00:00: 00:00 mouth Hospi ta (Folbee) 00 :00 daily. l 2.5-25-1 mg tablet gabapentin 2021- No [id number] TAKE 1 [facility] (NEURONTIN) 11-21 CAPSULE(30 s t 300 mg 00:00: 00:00 0 MG) BY Hospit a capsule 00 :00 MOUTH l TWICE DAILY DULoxetine Yes [facility] (Cymbalta) 3-[address] 00:00: capsule 00 DULoxetine Yes [facility] (Cymbalta) 3-[address] 00:00: capsule 00 DULoxetine Yes [facility] (Cymbalta) 3-[address] 00:00: capsule 00 DULoxetine Yes [facility] (Cymbalta) 3-[address] 00:00: capsule 00 levothyroxi 2019-08 Yes TK 1 T PO U T ne 1-20 QAM [facility] (Synthroid, 00:00: Levoxyl) 25 00 MCG tablet levothyroxi 2019-08 Yes TK 1 T PO U T ne 1-20 QAM [facility] (Synthroid, 00:00: Levoxyl) 25 00 MCG tablet aspirin EC Yes 81mg Take 81 mg [facility] 81 MG 9-30 by mouth. College tablet 18:55: of 51 Medicin e furosemide 2019-0 Yes furosemide [facility] (LASIX) 20 9-30 20 mg College MG tablet 18:55: tablet TK of 51 1 T PO QD Medicin PRN e SWELLING triamcinolo Yes triamcinol [facility] ne 05-11 one [place] ([facility]) 18:55: acetonide of 0.1 % cream 51 0.1 % Medicin topical e cream APPLY AA BID FOR 7 TO 14 DAYS PRN RASH Multiple 2020-0 Yes Take by [facility] mouth. [facility] e nerals 18:55: of (CENTRUM 51 Medicin SILVER) e TABS alclomethas 2020-0 Yes alclometas Sou[place] one 05-11 one 0.05 % [place] (ACLOVATE) 18:55: topical of 0.05 % 51 cream Medicin cream e aspirin EC 2020-0 Yes 81mg Take 81 mg [facility] 81 MG 8-31 by mouth. [place] tablet 20:34: of 27 Medicin e furosemide 2020-0 Yes furosemide [facility] (LASIX) 20 8-31 20 mg College MG tablet 20:34: tablet TK of 27 1 T PO QD Medicin PRN e SWELLING triamcinolo 2020-0 Yes triamcinol [facility] ne 04-11 one [place] ([facility]) 20:34: acetonide of 0.1 % cream 27 0.1 % Medicin topical e cream APPLY AA BID FOR 7 TO 14 DAYS PRN RASH Multiple 2020-0 Yes Take by [facility] 8- mouth. Colleg e nerals 20:34: of (CENTRUM 27 Medicin SILVER) e TABS alclomethas 2020-0 Yes alclometas [facility] one 04-11 one 0.05 % [place] (ACLOVATE) 20:34: topical of 0.05 % 27 cream Medicin cream e aspirin EC 2020-0 Yes 81mg Take 81 mg [facility] 81 MG 8- by mouth. [place] tablet 20:34: of 27 Medicin e furosemide 2020-0 Yes furosemide [facility] (LASIX) 20 8-31 20 mg College MG tablet 20:34: tablet TK of 27 1 T PO QD Medicin PRN e SWELLING triamcinolo 2020-0 Yes triamcinol [facility] ne 04-11 one [place] ([facility]) 20:34: acetonide of 0.1 % cream 27 0.1 % Medicin topical e cream APPLY AA BID FOR 7 TO 14 DAYS PRN RASH Multiple 2020-0 Yes Take by [facility] 8- mouth. Colleg e nerals 20:34: of (CENTRUM 27 Medicin SILVER) e TABS alclomethas 2020-0 Yes alclometas [place] one 8-31 one 0.05 % [place] (ACLOVATE) 20:34: topical of 0.05 % 27 cream Medicin cream e aspirin EC 2020-0 Yes 81mg Take 81 mg [facility] 81 MG 7-08 by mouth. College tablet 19:55: of 29 Medicin e furosemide 2020-0 Yes furosemide [facility] (LASIX) 20 7-08 20 mg College MG tablet 19:55: tablet TK of 29 1 T PO QD Medicin PRN e SWELLING triamcinolo 2020-0 Yes triamcinol [facility] ne 7-08 one [place] (KENALOG) 19:55: acetonide of 0.1 % cream 29 0.1 % Medicin topical e cream APPLY AA BID FOR 7 TO 14 DAYS PRN RASH Multiple 2020-0 Yes Take by [facility] Vitamins-Mi 7- mouth. Colleg e nerals 19:55: of (CENTRUM 29 Medicin SILVER) e TABS alclomethas 2020-0 Yes alclometas [place] one 7- one 0.05 % [place] (ACLOVATE) 19:55: topical of 0.05 % 29 cream Medicin cream e aspirin 81 2020-0 2020- No 81mg Take 81 mg [facility] MG tablet 02-16 07-08 by mouth. [facility] 19:53: 00:00 of 34 :00 Medicin e ALPHAGAN P 2020-0 Yes INT 1 GTT Ba ylor 0.1 % 6-30 IN OS BID [place] ophthalmic 00:00: PRN of solution 00 Medicin e ALPHAGAN P 2020-0 Yes INT 1 GTT Ba ylor 0.1 % 6-30 IN OS BID [place] ophthalmic 00:00: PRN of solution 00 Medicin e ALPHAGAN P 2020-0 Yes INT 1 GTT Ba ylor 0.1 % 6-30 IN OS BID [place] ophthalmic 00:00: PRN of solution 00 Medicin e ALPHAGAN P 2020-0 Yes INT 1 GTT Ba ylor 0.1 % 6-30 IN OS BID [place] ophthalmic 00:00: PRN of solution 00 Medicin e timolol 2020-0 Yes INSTILL 1 [facility] maleate 6-02 GTT IN TO [place] (TIMOPTIC) 00:00: LEFT EYE of 0.5 % 00 BID UTD Medicin ophthalmic e solution timolol 2020-0 Yes INSTILL 1 [facility] maleate 6-02 GTT IN TO [place] (TIMOPTIC) 00:00: LEFT EYE of 0.5 % 00 BID UTD Medicin ophthalmic e solution timolol 2020-0 Yes INSTILL 1 [facility] maleate 6-02 GTT IN TO [place] (TIMOPTIC) 00:00: LEFT EYE of 0.5 % 00 BID UTD Medicin ophthalmic e solution timolol 2020-0 Yes INSTILL 1 [facility] maleate 6-02 GTT IN TO [place] (TIMOPTIC) 00:00: LEFT EYE of 0.5 % 00 BID UTD Medicin ophthalmic e solution Levocetiriz 2020-0 Yes TK 1 T PO [facility] 5[facility] 5 MG 00 Medicin TABS e Levocetiriz 2020-0 Yes TK 1 T PO B [facility] ine 5-24 D [facility] 00:00: of ride 5 MG 00 Medicin TABS e Levocetiriz 2020-0 Yes TK 1 T PO B aylor ine 5-24 D [place] [facility]: of ride 5 MG 00 Medicin TABS e Levocetiriz 2020-0 Yes TK 1 T PO [facility] ine 5-24 [facility] 5 MG 00 Medicin TABS e atorvastati 2020-0 Yes TK 1 T PO [facility] n (LIPITOR) 5-20 D [place] 10 MG 00:00: of tablet 00 Medicin e atorvastati 2020-0 Yes TK 1 T PO [facility] n (LIPITOR) 5-20 D College 10 MG 00:00: of tablet 00 Medicin e atorvastati 2020-0 Yes TK 1 T PO [facility] n (LIPITOR) 5-20 D [facility] 10 MG 00:00: of tablet 00 Medicin e atorvastati 2020-0 Yes TK 1 T PO [facility] n (LIPITOR) 5-20 D [place] 10 MG 00:00: of tablet 00 Medicin e FOLBEE 2020-0 Yes TK 1 T PO [place] 2.5-25-1 MG 5-18 D College TABS 00:00: of 00 Medicin e FOLBEE 2020-0 Yes TK 1 T PO [place] 2.5-25-1 MG 5-18 D College TABS 00:00: of 00 Medicin e FOLBEE 2020-0 Yes TK 1 T PO [facility] 2.5-25-1 MG 5-18 D College TABS 00:00: of 00 Medicin e FOLBEE 2020-0 Yes TK 1 T PO [facility] 2.5-25-1 MG 5-18 D College TABS 00:00: of 00 Medicin e moxifloxaci 2020-0 Yes 1[drp] Place 1 [facility] n (VIGAMOX) 4-15 Drop into Col lege 0.5 % 00:00: the left of ophthalmic 00 eye 3 Medicin solution times e daily. PRED FORTE 2020-0 Yes Per [facility] 1 % 4-15 [facility] ophthalmic 00:00: n sheet of suspension 00 Medicin e moxifloxaci 2020-0 Yes 1[drp] Place 1 [facility] n (VIGAMOX) 4-15 Drop into Col lege 0.5 % 00:00: the left of ophthalmic 00 eye 3 Medicin solution times e daily. PRED FORTE 2020-0 Yes Per [facility] 1 % 4-15 [facility] ophthalmic 00:00: n sheet of suspension 00 Medicin e moxifloxaci 2020-0 Yes 1[drp] Place 1 [facility] n (VIGAMOX) 4-15 Drop into Col lege 0.5 % 00:00: the left of ophthalmic 00 eye 3 Medicin solution times e daily. PRED FORTE 2020-0 Yes Per [facility] 1 % 4-15 [facility] ophthalmic 00:00: n sheet of suspension 00 Medicin e moxifloxaci 2020-0 Yes 1[drp] Place 1 [facility] n (VIGAMOX) 4-15 Drop into Col lege 0.5 % 00:00: the left of ophthalmic 00 eye 3 Medicin solution times e daily. PRED FORTE 2020-0 Yes Per [facility] 1 % 4-15 [facility] ophthalmic 00:00: n sheet of suspension 00 Medicin e moxifloxaci 2020-0 Yes 1[drp] Place 1 [facility] n (VIGAMOX) 4-15 Drop into Col lege 0.5 % 00:00: the left of ophthalmic 00 eye 3 Medicin solution times e daily. PRED FORTE 2020-0 Yes Per [facility] 1 % 4-15 [facility] ophthalmic 00:00: n sheet of suspension 00 Medicin e moxifloxaci 2020-0 Yes 1[drp] Place 1 [facility] n (VIGAMOX) 4-15 Drop into Col lege 0.5 % 00:00: the left of ophthalmic 00 eye 3 Medicin solution times e daily. PRED FORTE 2020-0 Yes Per [facility] 1 % 4-15 [facility] ophthalmic 00:00: n sheet of suspension 00 Medicin e trimethopri 2020-0 Yes 1[drp] Place 1 [facility] m-polymyxin 3-11 Drop into Col lege b 00:00: the left of (POLYTRIM) 00 eye 3 Medicin ophthalmic times e solution daily. prednisoLON 2020-0 Yes 1[drp] Place 1 [facility] E acetate 3-11 Drop into Colle ge (PRED 00:00: the left of FORTE) 1 % 00 eye four Medic in ophthalmic times e suspension daily. Shake well before instillati on trimethopri 2020-0 Yes 1[drp] Place 1 [facility] m-polymyxin 3-11 Drop into Col lege b 00:00: the left of (POLYTRIM) 00 eye 3 Medicin ophthalmic times e solution daily. prednisoLON 2020-0 Yes 1[drp] Place 1 [facility] E acetate 3-11 Drop into Colle ge (PRED 00:00: the left of FORTE) 1 % 00 eye four Medic in ophthalmic times e suspension daily. Shake well before instillati on trimethopri 2020-0 Yes 1[drp] Place 1 [facility] m-polymyxin 3-11 Drop into Col lege b 00:00: the left of (POLYTRIM) 00 eye 3 Medicin ophthalmic times e solution daily. prednisoLON 2020-0 Yes 1[drp] Place 1 [facility] E acetate 3-11 Drop into Colle ge (PRED 00:00: the left of FORTE) 1 % 00 eye four Medic in ophthalmic times e suspension daily. Shake well before instillati on trimethopri 2020-0 Yes 1[drp] Place 1 [facility] m-polymyxin 3-11 Drop into Col lege b 00:00: the left of (POLYTRIM) 00 eye 3 Medicin ophthalmic times e solution daily. trimethopri 2020-0 Yes 1[drp] Place 1 [facility] m-polymyxin 3-11 Drop into Col lege b 00:00: the left of (POLYTRIM) 00 eye 3 Medicin ophthalmic times e solution daily. trimethopri 2020-0 Yes 1[drp] Place 1 [facility] m-polymyxin 3-11 Drop into Col lege b 00:00: the left of (POLYTRIM) 00 eye 3 Medicin ophthalmic times e solution daily. trimethopri 2020-0 Yes 1[drp] Place 1 [facility] m-polymyxin 3-11 Drop into Col lege b 00:00: the left of (POLYTRIM) 00 eye 3 Medicin ophthalmic times e solution daily. trimethopri 2020-0 Yes 1[drp] Place 1 [facility] m-polymyxin 3-11 Drop into Col lege b 00:00: the left of (POLYTRIM) 00 eye 3 Medicin ophthalmic times e solution daily. prednisoLON 2020-0 Yes 1[drp] Place 1 [facility] E acetate 3-11 Drop into Colle ge (PRED 00:00: the left of FORTE) 1 % 00 eye four Medic in ophthalmic times e suspension daily. Shake well before instillati on prednisoLON 2020-0 2020- No 1[drp] Place 1 [facility] E acetate 3-11 07-08 Drop into [facility] (PRED 00:00: 00:00 the left of FORTE) 1 % 00 :00 eye four Medic in ophthalmic times e suspension daily. Shake well before instillati on carvedilol 2020-0 Yes 37.5mg Take 37.[address] (COREG) 25 3-10 mg by [facility] MG tablet 14:15: mouth 2 Medic al 34 (two) Center times daily with breakfast and dinner. letrozole 2020-0 Yes 2.5mg QD Take 2.[address] (FEMARA) 3-10 mg by [facility] 2.5 mg 14:15: mouth Medical tablet 34 daily. Center furosemide 2020-0 Yes 20mg Q.5D Take [address] (LASIX) 20 3-10 by mouth 2 [place] es MG tablet 14:15: (two) Medical 34 times Center daily. gabapentin 2020-0 Yes 300mg [id number] Take [address] (NEURONTIN) 3-10 [id number] mg by L ukes 300 MG 14:15: 3D mouth 3 Medical capsule 34 (three) Center times daily. QUINACRINE 2020-0 Yes 100mg Take [address] HCL 3-10 mg by [facility] (QUINACRINE 14:15: mouth Medic al , BULK, 34 once. Center MISC) FOLIC 2020-0 Yes Take by [facility] ACID/MULTIV 3-10 mouth. [facility] IT-MIN/LUTE 14:15: Medica l IN (CENTRUM 34 Center SILVER ORAL) Missing or 2020-[address] Non-Formula 3-10 [facility] ry 14:15: Medical Medication 34 Center Multiple 2020-0 Yes Take by [facility] Vitamins-Mi 3-02 mouth. Colleg e nerals 21:03: of (CENTRUM 37 Medicin SILVER) e TABS alclomethas 2020-0 Yes alclometas [place] one -02 one 0.05 % [place] (ACLOVATE) 21:03: topical of 0.05 % 37 cream Medicin cream e aspirin EC 2020-0 Yes 81mg Take 81 mg [facility] 81 MG 3-02 by mouth. College tablet 21:03: of 37 Medicin e furosemide 2020-0 Yes furosemide [facility] (LASIX) 20 3-02 20 mg College MG tablet 21:03: tablet TK of 37 1 T PO QD Medicin PRN e SWELLING aspirin 81 2020-0 Yes 81mg Take 81 mg [facility] MG tablet 3-02 by mouth. Colle ge 21:03: of 37 Medicin e triamcinolo 2020-0 Yes triamcinol [facility] ne 3-02 one [place] (KENALOG) 21:03: acetonide of 0.1 % cream 37 0.1 % Medicin topical e cream APPLY AA BID FOR 7 TO 14 DAYS PRN RASH Multiple 2020-0 Yes Take by [facility] Vitamins-Mi 3-02 mouth. Colleg e nerals 21:03: of (CENTRUM 37 Medicin SILVER) e TABS alclomethas 2020-0 Yes alclometas [place] one 3-02 one 0.05 % College (ACLOVATE) 21:03: topical of 0.05 % 37 cream Medicin cream e aspirin EC 2020-0 Yes 81mg Take 81 mg [facility] 81 MG 3-02 by mouth. [place] tablet 21:03: of 37 Medicin e furosemide 2020-0 Yes furosemide [facility] (LASIX) 20 3-02 20 mg College MG tablet 21:03: tablet TK of 37 1 T PO QD Medicin PRN e SWELLING aspirin 81 2020-0 Yes 81mg Take 81 mg [facility] MG tablet 3-02 by mouth. Colle ge 21:03: of 37 Medicin e triamcinolo 2020-0 Yes triamcinol [facility] ne 3-02 one [place] ([facility]) 21:03: acetonide of 0.1 % cream 37 0.1 % Medicin topical e cream APPLY AA BID FOR 7 TO 14 DAYS PRN RASH Multiple 2020-0 Yes Take by [facility] Vitamins-Fl 3-02 mouth. Colleg e nerals 21:03: of (CENTRUM 37 Medicin SILVER) e TABS alclomethas 2020-0 Yes alclometas [facility] one 3- one 0.05 % [place] (ACLOVATE) 21:03: topical of 0.05 % 37 cream Medicin cream e aspirin EC 2020-0 Yes 81mg Take 81 mg [facility] 81 MG 3-02 by mouth. [place] tablet 21:03: of 37 Medicin e furosemide 2020-0 Yes furosemide [facility] (LASIX) 20 3-02 20 mg College MG tablet 21:03: tablet TK of 37 1 T PO QD Medicin PRN e SWELLING aspirin 81 2020-0 Yes 81mg Take 81 mg [facility] MG tablet 3-02 by mouth. Colle ge 21:03: of 37 Medicin e triamcinolo 2020-0 Yes triamcinol [facility] ne 3- one [place] ([facility]) 21:03: acetonide of 0.1 % cream 37 0.1 % Medicin topical e cream APPLY AA BID FOR 7 TO 14 DAYS PRN RASH Multiple 2020-0 Yes Take by [facility] Vitamins-Mi 3-02 mouth. Colleg e nerals 21:03: of (CENTRUM 37 Medicin SILVER) e TABS alclomethas 2020-0 Yes alclometas [facility] one 3-02 one 0.05 % [place] (ACLOVATE) 21:03: topical of 0.05 % 37 cream Medicin cream e aspirin EC 2020-0 Yes 81mg Take 81 mg [facility] 81 MG 3-02 by mouth. [place] tablet 21:03: of 37 Medicin e furosemide 2020-0 Yes furosemide [facility] (LASIX) 20 3-02 20 mg College MG tablet 21:03: tablet TK of 37 1 T PO QD Medicin PRN e SWELLING aspirin 81 2020-0 Yes 81mg Take 81 mg [facility] MG tablet 10-11 by mouth. Colle ge 21:03: of 37 Medicin e triamcinolo 2020-0 Yes triamcinol [facility] ne - one [place] (KENALOG) 21:03: acetonide of 0.1 % cream 37 0.1 % Medicin topical e cream APPLY AA BID FOR 7 TO 14 DAYS PRN RASH Multiple 2020-0 Yes Take by [facility] Vitamins-Mi 3- mouth. Colleg e nerals 21:03: of (CENTRUM 37 Medicin SILVER) e TABS alclomethas 2020-0 Yes alclometas [facility] 10-11 one 0.05 % [place] (ACLOVATE) 21:03: topical of 0.05 % 37 cream Medicin cream e aspirin EC 2020-0 Yes 81mg Take 81 mg [facility] 81 MG 10-11 by mouth. College tablet 21:03: of 37 Medicin e furosemide 2020-0 Yes furosemide [facility] (LASIX) 20 - 20 mg College MG tablet 21:03: tablet TK of 37 1 T PO QD Medicin PRN e SWELLING aspirin 81 2020-0 Yes 81mg Take 81 mg [facility] MG tablet 10-11 by mouth. Colle ge 21:03: of 37 Medicin e triamcinolo 2020-0 Yes triamcinol [facility] ne 10-11 one [place] (KENALOG) 21:03: acetonide of 0.1 % cream 37 0.1 % Medicin topical e cream APPLY AA BID FOR 7 TO 14 DAYS PRN RASH gabapentin 2018-08 Yes TK 1 C PO [facility] (NEURONTIN) 08-25 [facility] 300 MG 00:00: of capsule 00 Medicin e gabapentin 2018-08 Yes TK 1 C PO [facility] (NEURONTIN) 08-25 [facility] 300 MG 00:00: of capsule 00 Medicin e gabapentin 2018-08 Yes TK 1 C PO [facility] (NEURONTIN) 08-25 [facility] 300 MG 00:00: of capsule 00 Medicin e gabapentin 2018-08 Yes TK 1 C PO [facility] (NEURONTIN) 08-25 [facility] 300 MG 00:00: of capsule 00 Medicin e gabapentin 2018-08 Yes TK 1 C PO [facility] (NEURONTIN) 1-14 [facility] 300 MG 00:00: of capsule 00 Medicin e gabapentin 2018-08 Yes TK 1 C PO [facility] (NEURONTIN) 1-14 [facility] 300 MG 00:00: of capsule 00 Medicin e gabapentin 2018-08 Yes TK 1 C PO [facility] (NEURONTIN) 1-14 [facility] 300 MG 00:00: of capsule 00 Medicin e gabapentin 2018-08 Yes TK 1 C PO [facility] (NEURONTIN) 1-14 [facility] 300 MG 00:00: of capsule 00 Medicin e gabapentin 2018-08 Yes TK 1 C PO [facility] (NEURONTIN) 1-14 [facility] 300 MG 00:00: of capsule 00 Medicin e ENTRESTO 2018-08 Yes TK 1 T PO [facility] 24-26 MG 1-13 BID [facility] TABS 00:00: of 00 Medicin e ENTRESTO 2018-08 Yes TK 1 T PO [facility] 24-26 MG 1-13 BID [facility] TABS 00:00: of 00 Medicin e ENTRESTO 2018-08 Yes TK 1 T PO [facility] 24-26 MG 1-13 BID [facility] TABS 00:00: of 00 Medicin e ENTRESTO 2018-08 Yes TK 1 T PO [facility] 24-26 MG 1-13 BID [facility] TABS 00:00: of 00 Medicin e ENTRESTO 2018-08 Yes TK 1 T PO [facility] 24-26 MG 1-13 BID [facility] TABS 00:00: of 00 Medicin e ENTRESTO 2018-08 Yes TK 1 T PO [facility] 24-26 MG 1-13 BID [facility] TABS 00:00: of 00 Medicin e ENTRESTO 2018-08 Yes TK 1 T PO [facility] 24-26 MG 1-13 BID [facility] TABS 00:00: of 00 Medicin e ENTRESTO 2018-08 Yes TK 1 T PO [facility] 24-26 MG 1-13 BID [facility] TABS 00:00: of 00 Medicin e ENTRESTO 2018-08 Yes TK 1 T PO [facility] 24-26 MG 1-13 BID College TABS 00:00: of 00 Medicin e carvedilol 2018-08 Yes TK 1 T PO [facility] (COREG) 25 1-11 BID. STOP [facility] MG tablet 00:00: TAKING of 00 BYSTOLIC Medicin e carvedilol 2018-08 Yes TK 1 T PO [facility] (COREG) 25 08-22 BID. STOP [facility] MG tablet 00:00: TAKING of 00 BYSTOLIC Medicin e carvedilol 2018-08 Yes TK 1 T PO [facility] (COREG) 25 08-22 BID. STOP [facility] MG tablet 00:00: TAKING of BYSTOLIC Medicin e carvedilol 2018-08 Yes TK 1 T PO [facility] (COREG) 25 08-22 BID. STOP [facility] MG tablet 00:00: TAKING of 00 BYSTOLIC Medicin e carvedilol 2018-08 Yes TK 1 T PO [facility] (COREG) 25 08-22 BID. STOP [facility] MG tablet 00:00: TAKING of BYSTOLIC Medicin e carvedilol 2018-08 Yes TK 1 T PO [facility] (COREG) 25 08-22 BID. STOP [facility] MG tablet 00:00: TAKING of BYSTOLIC Medicin e carvedilol 2018-08 Yes TK 1 T PO [facility] (COREG) 25 08-22 BID. STOP [facility] MG tablet 00:00: TAKING of BYSTOLIC Medicin e carvedilol 2018-08 Yes TK 1 T PO [facility] (COREG) 25 08-22 BID. STOP [facility] MG tablet 00:00: TAKING of BYSTOLIC Medicin e carvedilol 2018-08 Yes TK 1 T PO [facility] (COREG) 25 08-22 BID. STOP [facility] MG tablet 00:00: TAKING of 00 BYSTOLIC Medicin e mometasone 2018-08 Yes APPLY AA [facility] (ELOCON) 0-30 BID PRN College 0.1 % cream 00:00: of 00 Medicin e mometasone 2018-08 Yes APPLY AA [facility] (ELOCON) 0-30 BID PRN College 0.1 % cream 00:00: of 00 Medicin e mometasone 2018-08 Yes APPLY AA [facility] (ELOCON) 0-30 BID PRN College 0.1 % cream 00:00: of 00 Medicin e mometasone 2018-08 Yes APPLY AA [facility] (ELOCON) 0-30 BID PRN [facility] 0.1 % cream 00:00: of 00 Medicin e mometasone 2018-08 Yes APPLY AA [facility] (ELOCON) 0-30 BID PRN [facility] 0.1 % cream 00:00: of 00 Medicin e mometasone 2018-08 Yes APPLY AA [facility] (ELOCON) 0-30 BID PRN [facility] 0.1 % cream 00:00: of Medicin e mometasone 2018-08 Yes APPLY AA [facility] (ELOCON) 0-30 BID PRN College 0.1 % cream 00:00: of Medicin e mometasone 2018-08 Yes APPLY AA [facility] (ELOCON) 0-30 BID PRN [facility] 0.1 % cream 00:00: of Medicin e mometasone 2018-08 Yes APPLY AA [facility] (ELOCON) 0-30 BID PRN College 0.1 % cream 00:00: of Medicin e clobetasol 2018-08 Yes GENNY TO [facility] (TEMOVATE) 0-02 SCALP BID [facility] 0.05 % 00:00: PRF RASH of external 00 Medicin solution e clobetasol 2018-08 Yes GENNY TO [facility] (TEMOVATE) 0-02 SCALP BID [facility] 0.05 % 00:00: PRF RASH of external 00 Medicin solution e clobetasol 2018-08 Yes GENNY TO [facility] (TEMOVATE) 0-02 SCALP BID [facility] 0.05 % 00:00: PRF RASH of external 00 Medicin solution e clobetasol 2018-08 Yes GENNY TO [facility] (TEMOVATE) 0-02 SCALP BID [facility] 0.05 % 00:00: PRF RASH of external 00 Medicin solution e clobetasol 2018-08 Yes GENNY TO [facility] (TEMOVATE) 0-02 SCALP BID [facility] 0.05 % 00:00: PRF RASH of external 00 Medicin solution e clobetasol 2018-08 Yes GENNY TO [facility] (TEMOVATE) 0-02 SCALP BID [facility] 0.05 % 00:00: PRF RASH of external 00 Medicin solution e clobetasol 2018-08 Yes GENNY TO [facility] (TEMOVATE) 0-02 SCALP BID [facility] 0.05 % 00:00: PRF RASH of external 00 Medicin solution e clobetasol 2018-08 Yes GENNY TO [facility] (TEMOVATE) 0-02 SCALP BID [facility] 0.05 % 00:00: PRF RASH of external 00 Medicin solution e clobetasol 2019- Yes GENNY TO [facility] (TEMOVATE) 0-02 SCALP BID [facility] 0.05 % 00:00: PRF RASH of external 00 Medicin solution e duloxetine 2018- Yes TK ONE C [facility] (CYMBALTA) 9-29 PO QD. TK [facility] 30 MG 00:00: WITH of capsule 00 CYMBALTA Medicin 60 MG QD e duloxetine 2018-0 Yes TK ONE C [facility] (CYMBALTA) 9-29 PO QD. TK [facility] 30 MG 00:00: WITH of capsule 00 CYMBALTA Medicin 60 MG QD e duloxetine 2018-0 Yes TK ONE C [facility] (CYMBALTA) 9-29 PO QD. TK [facility] 30 MG 00:00: WITH of capsule 00 CYMBALTA Medicin 60 MG QD e duloxetine 2018-0 Yes TK ONE C [facility] (CYMBALTA) 9-29 PO QD. TK [facility] 30 MG 00:00: WITH of capsule 00 CYMBALTA Medicin 60 MG QD e duloxetine 2018-0 Yes TK ONE C [facility] (CYMBALTA) 9-29 PO QD. TK [facility] 30 MG 00:00: WITH of capsule 00 CYMBALTA Medicin 60 MG QD e duloxetine 2018-0 Yes TK ONE C [facility] (CYMBALTA) 9-29 PO QD. TK [facility] 30 MG 00:00: WITH of capsule 00 CYMBALTA Medicin 60 MG QD e duloxetine 2019-0 Yes TK ONE C [facility] (CYMBALTA) 9-29 PO QD. TK [facility] 30 MG 00:00: WITH of capsule 00 CYMBALTA Medicin 60 MG QD e duloxetine 2019-0 Yes TK ONE C [facility] (CYMBALTA) 9-29 PO QD. TK [facility] 30 MG 00:00: WITH of capsule 00 CYMBALTA Medicin 60 MG QD e duloxetine 2018-0 Yes TK ONE C [facility] (CYMBALTA) 9-29 PO QD. TK [facility] 30 MG 00:00: WITH of capsule 00 CYMBALTA Medicin 60 MG QD e diflupredna 2019-0 Yes 1[drp] Place 1 [facility] 5-29 [facility] (DUREZOL) 00:00: the left of 0.05 % 00 eye four Medicin ophthalmic times e emulsion daily. diflupredna 2018-0 Yes 1[drp] Place 1 [facility] 5-29 [facility] (DUREZOL) 00:00: the left of 0.05 % 00 eye four Medicin ophthalmic times e emulsion daily. diflupredna Yes 1[drp] Place 1 B [facility] 5-29 [facility] (DUREZOL) 00:00: the left of 0.05 % 00 eye four Medicin ophthalmic times e emulsion daily. diflupredna 2018-0 Yes 1[drp] Place 1 B [facility] 5-29 [facility] (DUREZOL) 00:00: the left of 0.05 % 00 eye four Medicin ophthalmic times e emulsion daily. diflupredna 2018- Yes 1[drp] Place 1 B [facility] 5-29 [facility] (DUREZOL) 00:00: the left of 0.05 % 00 eye four Medicin ophthalmic times e emulsion daily. diflupredna 2018-0 Yes 1[drp] Place 1 B [facility] 5-29 [facility] (DUREZOL) 00:00: the left of 0.05 % 00 eye four Medicin ophthalmic times e emulsion daily. diflupredna 2018-0 Yes 1[drp] Place 1 B [facility] 5-29 [facility] (DUREZOL) 00:00: the left of 0.05 % 00 eye four Medicin ophthalmic times e emulsion daily. diflupredna Yes 1[drp] Place 1 B [facility] 5-29 [facility] (DUREZOL) 00:00: the left of 0.05 % 00 eye four Medicin ophthalmic times e emulsion daily. diflupredna 2018-0 Yes 1[drp] Place 1 B [facility] te 5-29 [facility] (DUREZOL) 00:00: the left of 0.05 % 00 eye four Medicin ophthalmic times e emulsion daily. losartan Yes [facility] (COZAAR) 12-18 [facility] 100 MG 00:00: of tablet 00 Medicin e furosemide Yes [facility] (LASIX) 20 5-09 College MG tablet 00:00: of 00 Medicin e losartan 2019-0 Yes [facility] (COZAAR) 5-09 [facility] 100 MG 00:00: of tablet 00 Medicin e furosemide 2019-0 Yes [facility] (LASIX) 20 5-09 College MG tablet 00:00: of 00 Medicin e losartan 2019-0 Yes [facility] (COZAAR) 5-09 [facility] 100 MG 00:00: of tablet 00 Medicin e furosemide 2019-0 Yes [facility] (LASIX) 20 5-09 College MG tablet 00:00: of 00 Medicin e losartan 2019-0 Yes [facility] (COZAAR) 5-09 [facility] 100 MG 00:00: of tablet 00 Medicin e losartan 2019-0 Yes [facility] (COZAAR) 5-09 [facility] 100 MG 00:00: of tablet 00 Medicin e losartan 2019-0 Yes [facility] (COZAAR) 5-09 [facility] 100 MG 00:00: of tablet 00 Medicin e losartan 2019-0 Yes [facility] (COZAAR) 5-09 [facility] 100 MG 00:00: of tablet 00 Medicin e losartan 2019-0 Yes [facility] (COZAAR) 5-09 [facility] 100 MG 00:00: of tablet 00 Medicin e furosemide 2019-0 Yes [facility] (LASIX) 20 5-09 College MG tablet 00:00: of 00 Medicin e losartan 2019-0 Yes [facility] (COZAAR) 5-09 [facility] 100 MG 00:00: of tablet 00 Medicin e furosemide 2019-0 Yes [facility] (LASIX) 20 5-09 College MG tablet 00:00: of 00 Medicin e furosemide 2019-0 2020- No [facility] (LASIX) 20 5-09 07-08 College MG tablet 00:00: 00:00 of 00 :00 Medicin e levothyroxi 2019-0 Yes TK 1 T [facility] [place] [facility] [place]:[facility]: of 25 MCG 00 Medicin tablet e levothyroxi 2019-0 Yes TK 1 T PO [facility] [place] [facility] [place] 00:00: of 25 MCG 00 Medicin tablet e levothyroxi 2019-0 Yes TK 1 T PO [facility] [facility] [place] [facility] [place] 00:00: of 25 MCG 00 Medicin tablet e levothyroxi 2019-0 Yes TK 1 T PO [place] 11-13 [facility] 00:00: of 25 MCG 00 Medicin tablet e levothyroxi 2019- Yes TK 1 T PO [facility] [place] [place] 11-13 [facility] [place] 00:00: of 25 MCG 00 Medicin tablet e levothyroxi 2019- 2020- No TK 1 T PO [facility] [place] 11-13 07- [facility] 00:00: 00:00 of 25 MCG 00 :00 Medicin tablet e BYSTOLIC 10 Yes TK 1 T PO [facility] MG TABS 3-14 QD College 00:00: of 00 Medicin e BYSTOLIC 10 Yes TK 1 T PO [facility] MG TABS 3-14 QD College 00:00: of 00 Medicin e BYSTOLIC 10 Yes TK 1 T PO [facility] MG TABS 3-14 QD College 00:00: of 00 Medicin e BYSTOLIC 10 Yes TK 1 T PO [facility] MG TABS 3-14 QD College 00:00: of 00 Medicin e BYSTOLIC 10 0 Yes TK 1 T PO [facility] MG TABS 3-14 QD College 00:00: of 00 Medicin e BYSTOLIC 10 Yes TK 1 T PO [facility] MG TABS 3-14 QD College 00:00: of 00 Medicin e BYSTOLIC 10 2018-0 Yes TK 1 T PO [facility] MG TABS 3-14 QD College 00:00: of 00 Medicin e BYSTOLIC 10 2018-0 Yes TK 1 T PO [facility] MG TABS 3-14 QD College 00:00: of 00 Medicin e BYSTOLIC 10 0 Yes TK 1 T PO [facility] MG TABS 3-14 QD College 00:00: of 00 Medicin e Letrozole 2019-0 Yes [facility] 2.5 MG TABS 3-05 College 00:00: of 00 Medicin e Letrozole 2019-0 Yes [facility] 2.5 MG TABS 3-05 College 00:00: of 00 Medicin e Letrozole 2019-0 Yes [facility] 2.5 MG TABS 3-05 College 00:00: of 00 Medicin e Letrozole 2019-0 Yes [facility] 2.5 MG TABS 3-05 College 00:00: of 00 Medicin e Letrozole 2019-0 Yes [facility] 2.5 MG TABS 3-05 College 00:00: of Medicin e Letrozole 2019-0 2020- No [facility] 2.5 MG TABS 3-05 - [place] 00:00: 00:00 of 00 :00 Medicin e L-Methylfol 2019-0 Yes TK 1 C PO B [facility] ate-Algae-B -18 [facility] College 12-B6 00:00: of (METANX) 00 Medicin 3-90.314-2- e 35 MG CAPS L-Methylfol 2019-0 Yes TK 1 C PO B [facility] ate-Algae-B 18 BID College 12-B6 00:00: of (METANX) 00 Medicin 3-90.314-2- e 35 MG CAPS L-Methylfol 2019-0 Yes TK 1 C PO [facility] ate-Algae-B -18 [facility] College 12-B6 00:00: of (METANX) 00 Medicin 3-90.314-2- e 35 MG CAPS L-Methylfol 2019-0 Yes TK 1 C PO B [facility] ate-Algae-B -18 BID College 12-B6 00:00: of (METANX) 00 Medicin 3-90.314-2- e 35 MG CAPS L-Methylfol 2019-0 Yes TK 1 C PO [facility] ate-Algae-B -18 BID [facility] 12-B6 00:00: of (METANX) 00 Medicin 3-90.314-2- e 35 MG CAPS L-Methylfol 2019-0 Yes TK 1 C PO [facility] ate-Algae-B 1-18 BID [facility] 12-B6 00:00: of (METANX) 00 Medicin 3-90.314-2- e 35 MG CAPS L-Methylfol 2019-0 Yes TK 1 C PO B [facility] ate-Algae-B -18 BID [facility] 12-B6 00:00: of (METANX) 00 Medicin 3-90.314-2- e 35 MG CAPS L-Methylfol 2019-0 Yes TK 1 C PO B [facility] ate-Algae-B 1-18 BID [facility] 12-B6 00:00: of (METANX) 00 Medicin 3-90.314-2- e 35 MG CAPS L-Methylfol 2019-0 Yes TK 1 C PO [facility] ate-Algae-B 1-18 BID [facility] 12-B6 00:00: of (METANX) 00 Medicin 3-90.314-2- e 35 MG CAPS duloxetine 2017-0 Yes duloxetine [facility] (CYMBALTA) 9-17 60 mg College 60 MG 00:00: capsule,de of capsule 00 layed Medicin release TK e 1 C PO D WF duloxetine 2017-0 Yes duloxetine [facility] (CYMBALTA) 9-17 60 mg College 60 MG 00:00: capsule,de of capsule 00 layed Medicin release TK e 1 C PO D WF duloxetine 2017-0 Yes duloxetine [facility] (CYMBALTA) 9-17 60 mg College 60 MG 00:00: capsule,de of capsule 00 layed Medicin release TK e 1 C PO D WF duloxetine 2017-0 Yes duloxetine [facility] (CYMBALTA) 9-17 60 mg College 60 MG 00:00: capsule,de of capsule 00 layed Medicin release TK e 1 C PO D WF duloxetine 2017-0 Yes duloxetine [facility] (CYMBALTA) 9-17 60 mg College 60 MG 00:00: capsule,de of capsule 00 layed Medicin release TK e 1 C PO D WF duloxetine 2017-0 Yes duloxetine [facility] (CYMBALTA) 9-17 60 mg [facility] 60 MG 00:00: capsule,de of capsule 00 layed Medicin release TK e 1 C PO D WF duloxetine 2017-0 Yes duloxetine [facility] (CYMBALTA) 9-17 60 mg College 60 MG 00:00: capsule,de of capsule 00 layed Medicin release TK e 1 C PO D WF duloxetine 2017-0 Yes duloxetine [facility] (CYMBALTA) 9-17 60 mg College 60 MG 00:00: capsule,de of capsule 00 layed Medicin release TK e 1 C PO D WF duloxetine 2017-0 Yes duloxetine [facility] (CYMBALTA) 9-17 60 mg College 60 MG 00:00: capsule,de of capsule 00 layed Medicin release TK e 1 C PO D WF levothyroxi 2017-0 Yes levothyrox [facility] 7-20 ine 25 mcg College (SYNTHROID) 00:00: tablet of 25 MCG 00 Medicin tablet e levothyroxi 2018-0 Yes levothyrox [facility] 7-20 ine 25 mcg [place] (SYNTHROID) 00:00: tablet of 25 MCG 00 Medicin tablet e levothyroxi 2018-0 Yes levothyrox [facility] ne 7-20 ine 25 mcg [place] (SYNTHROID) 00:00: tablet of 25 MCG 00 Medicin tablet e levothyroxi 2018-0 Yes levothyrox [facility] ne 7-20 ine 25 mcg [place] (SYNTHROID) 00:00: tablet of 25 MCG 00 Medicin tablet e levothyroxi 2018-0 Yes levothyrox [facility] ne 7-20 ine 25 mcg [place] (SYNTHROID) 00:00: tablet of 25 MCG 00 Medicin tablet e levothyroxi 2018-0 Yes levothyrox [facility] 7-20 ine 25 mcg [place] (SYNTHROID) 00:00: tablet of 25 MCG 00 Medicin tablet e levothyroxi 2018-0 Yes levothyrox [facility] ne 7-20 ine 25 mcg [place] (SYNTHROID) 00:00: tablet of 25 MCG 00 Medicin tablet e levothyroxi 2018-0 Yes levothyrox [facility] 7-20 ine 25 mcg [place] (SYNTHROID) 00:00: tablet of 25 MCG 00 Medicin tablet e levothyroxi 2018-0 Yes levothyrox [facility] 7-20 ine 25 mcg [place] (SYNTHROID) 00:00: tablet of 25 MCG 00 Medicin tablet e levothyroxi 2018-0 Yes [facility] (SYNTHROID, [facility]:00: Hospit a LEVOXYL) 25 00 l mcg tablet Letrozole Yes letrozole [facility] 2.5 MG TABS 1-28 2.5 mg Colleg e 00:00: tablet of 00 Medicin e Letrozole Yes letrozole [facility] 2.5 MG TABS 1-28 2.5 mg Colleg e 00:00: tablet of 00 Medicin e Letrozole 2014- Yes letrozole [facility] 2.5 MG TABS 1-28 2.5 mg Colleg e 00:00: tablet of 00 Medicin e Letrozole 2014- Yes letrozole [facility] 2.5 MG TABS 1-28 2.5 mg Colleg e 00:00: tablet of 00 Medicin e Letrozole Yes letrozole [facility] 2.5 MG TABS 1-28 2.5 mg [facility] e 00:00: tablet of 00 Medicin e Letrozole 2014- Yes letrozole [facility] 2.5 MG TABS 1-28 2.5 mg [facility] e 00:00: tablet of 00 Medicin e Letrozole 2014- Yes letrozole [facility] 2.5 MG TABS 1-28 2.5 mg [facility] e 00:00: tablet of 00 Medicin e Letrozole Yes letrozole [facility] 2.5 MG TABS 1-28 2.5 mg [facility] e 00:00: tablet of 00 Medicin e Letrozole Yes letrozole [facility] 2.5 MG TABS 1-28 2.5 mg Colleg e 00:00: tablet of 00 Medicin e letrozole Yes 1{tbl} QD Take 1 Meth tory (FEMARA) 1-[address] 2.5 mg 00:00[facility] 00 daily. l tablet Immunizations Ordered Immunization Filled Immunization Date Status Commen ts Source Name Name Impressto COVID-19 MRNA 2021-05-12 Completed [facility] VACCINATION 00:00:00 [facility] PFIZER COVID-19 MRNA 2020-10-05 Completed [facility] VACCINATION 00:00:00 [facility] PFIZER COVID-19 MRNA 2020-09-14 Completed [facility] VACCINATION 00:00:00 [facility] Vital Signs Vital Name Observation Time Observation Value Comments Source Systolic blood 2022-03-20 18:28:00 118 mm[Hg] [facility] pressure Diastolic blood 2022-03-20 18:28:00 78 mm[Hg] [facility] pressure Heart rate 2022-03-20 18:28:00 77 /min [facility] Body height 2022-03-20 18:28:00 160 cm [facility] Body weight 2022-03-20 18:28:00 70.308 kg [facility] BMI 2022-03-20 18:28:00 27.46 kg/m2 [facility] Body temperature 2021-08-30 19:26:00 35.94 Lexie Meth odist [facility] Procedures Procedure Date / Time Performed Performing Clinician Sour e ZAMUDIO VISUAL FIELD 2022-01-10 13:20:20 [facility] [employer] [facility] - OU - BOTH EYES Medicine AUTOMATED VISUAL 2021-04-12 16:42:57 [facility], EXTENDED - OU - BOTH EYES AUTOMATED VISUAL 2021-04-12 16:42:57 [facility], EXTENDED - OU - BOTH EYES Plan of Care Planned Activity Planned Date Details Comments Source Future Scheduled 2022-04-27 HEPATITIS B VACCINES Met [facility] Test 00:29:28 (1 of 3 - 3-dose series) [code = HEPATITIS B VACCINES (1 of 3 - 3-dose series)] Future Scheduled 2022-04-27 Hepatitis C screening [facility] [place] [place] Test 00:29:28 (procedure) [code = [id number]] Future Scheduled 2022-04-27 SHINGLES VACCINES (1 Met [facility] Test 00:29:28 of 2) [code = SHINGLES VACCINES (1 of 2)] Future Scheduled 2022-04-27 65+ [facility]AL [facility] 00:29:28 VACCINE (1 - PCV) [code = 65+ PNEUMOCOCCAL VACCINE (1 - PCV)] Future Scheduled 2022-04-27 COVID-19 VACCINE (4 - [facility] [place] [place] Test 00:29:28 Booster for Pfizer series) [code = COVID-19 VACCINE (4 - Booster for Pfizer series)] Future Scheduled 2022-04-27 INFLUENZA VACCINE Method [facility] Test 00:29:28 [code = INFLUENZA VACCINE] Future Scheduled 2022-04-12 INFLUENZA VACCINE (#1) [facility] Test 00:00:00 [code = INFLUENZA Medical Ce nter VACCINE (#1)] Future Scheduled 2021-08-[address] [facility] Test 00:00:00 (12+) [code = Medical Center DEPRESSION SCREENING (12+)] Future Scheduled 2021-08-12 FALLS RISK SCREENING [facility] Test 00:00:00 [code = FALLS RISK Medical C enter SCREENING] Future Scheduled 2017-08-[address] [facility] Test 00:00:00 WELLNESS (YEAR 2 or Medical Center FIRST YEAR if no IPPE) [code = MEDICARE ANNUAL WELLNESS (YEAR 2 or FIRST YEAR if no IPPE)] Future Scheduled 2010 PNEUMOCOCCAL 65+ YRS [facility] Test 00:00:00 (1 - PCV) [code = Medical Ce nter PNEUMOCOCCAL 65+ YRS (1 - PCV)] Future Scheduled 1995 SHINGLES VACCINES ([address] [facility] Test 00:00:00 of 2) [code = SHINGLES Medic al Center VACCINES (1 of 2)] Future Scheduled 1964 DTAP/TDAP/TD VACCINES [facility] Test 00:00:00 (1 - Tdap) [code = Medical C enter DTAP/TDAP/TD VACCINES (1 - Tdap)] Future Scheduled 1963 HEPATITIS C SCREENING [facility] Test 00:00:00 [code = HEPATITIS C Medical Center SCREENING] Future Scheduled 1945 COVID-19 VACCINE (#1) [facility] Test 00:00:00 [code = COVID-[address] VACCINE (#1)] Future Scheduled 1945 DXA SCAN [code = DXA [facility] Test 00:00:00 SCAN] [facility] Future Scheduled COLON CANCER [facility] ege of Test SCREENING: COLONOSCOPY Medic ine [code = COLON CANCER SCREENING: COLONOSCOPY] Future Scheduled MAMMOGRAM ANNUAL [facility] Test = MAMMOGRAM ANNUAL] Medicine Future Scheduled TETANUS SHOT (ADULT) [facility] of Test [code = TETANUS SHOT Medicin e (ADULT)] Future Scheduled HEPATITIS C SCREENING [facility] [employer] [facility] Test [code = HEPATITIS C Medicine SCREENING] Future Scheduled FALL SCREEN [code = [facility] of Test FALL SCREEN] Medicine Future Scheduled OSTEOPOROSIS SCREENING B [facility] of Test [code = OSTEOPOROSIS Medicin e SCREENING] Future Scheduled PNEUMOVAX >=65 [facility] of Test (PPSV23) [code = Medicine PNEUMOVAX >=65 (PPSV23)] Future Scheduled PREVNAR >= 65 (PCV13) [facility] [employer] [facility] Test [code = PREVNAR >= 65 Medici ne (PCV13)] Future Scheduled [facility]ICARE AWV (Initial) [facility] Test [code = MEDICARE AWV Medicin e (Initial)] Future Scheduled FLU VACCINE > 6 MONTHS [facility] Test [code = FLU VACCINE > Medici ne 6 MONTHS] Future Scheduled COLON CANCER [facility] ege of Test SCREENING: COLONOSCOPY Medic ine [code = COLON CANCER SCREENING: COLONOSCOPY] Future Scheduled MAMMOGRAM ANNUAL [code [facility] Test = MAMMOGRAM ANNUAL] Medicine Future Scheduled TETANUS SHOT (ADULT) [facility] of Test [code = TETANUS SHOT Medicin e (ADULT)] Future Scheduled HEPATITIS C SCREENING [facility] of Test [code = HEPATITIS C Medicine SCREENING] Future Scheduled FALL SCREEN [code = [facility] Test FALL SCREEN] Medicine Future Scheduled OSTEOPOROSIS SCREENING B [facility] of Test [code = OSTEOPOROSIS Medicin e SCREENING] Future Scheduled PNEUMOVAX >=65 [facility] Test (PPSV23) [code = Medicine PNEUMOVAX >=65 (PPSV23)] Future Scheduled PREVNAR >= 65 (PCV13) Ba [facility] of Test [code = PREVNAR >= 65 Medici ne (PCV13)] Future Scheduled MEDICARE AWV (Initial) [facility] Test [code = MEDICARE AWV Medicin e (Initial)] Future Scheduled FLU VACCINE > 6 MONTHS B [facility] of Test [code = FLU VACCINE > Medici ne 6 MONTHS] Future Scheduled COLON CANCER [facility] [employer] [employer] [facility] [employer] SCREENING: COLONOSCOPY Medic ine [code = COLON CANCER SCREENING: COLONOSCOPY] Future Scheduled MAMMOGRAM ANNUAL [code B [facility] [employer] = MAMMOGRAM ANNUAL] Medicine Future Scheduled TETANUS SHOT (ADULT) [facility] [employer] [code = TETANUS SHOT Medicin e (ADULT)] Future Scheduled HEPATITIS C SCREENING [facility] [employer] [facility] [employer] [code = HEPATITIS C Medicine SCREENING] Future Scheduled FALL SCREEN [code = [facility] FALL SCREEN] Medicine Future Scheduled OSTEOPOROSIS SCREENING B [facility] [code = OSTEOPOROSIS Medicin e SCREENING] Future Scheduled PNEUMOVAX >=65 [facility] (PPSV23) [code = Medicine PNEUMOVAX >=65 (PPSV23)] Future Scheduled PREVNAR >= 65 (PCV13) [facility] [employer] [facility] [employer] [code = PREVNAR >= 65 Medici ne (PCV13)] Future Scheduled [facility] AWV (Initial[facility] [code = MEDICARE AWV Medicin e (Initial)] Future Scheduled FLU VACCINE > 6 MONTHS B [facility] [code = FLU VACCINE > Medici ne 6 MONTHS] Future Scheduled COLON CANCER [facility] [employer] [facility] [employer] SCREENING: COLONOSCOPY Medic ine [code = COLON CANCER SCREENING: COLONOSCOPY] Future Scheduled MAMMOGRAM ANNUAL [facility] = MAMMOGRAM ANNUAL] Medicine Future Scheduled TETANUS SHOT (ADULT) [facility] [employer] [code = TETANUS SHOT Medicin e (ADULT)] Future Scheduled HEPATITIS C SCREENING Ba [facility] of Test [code = HEPATITIS C Medicine SCREENING] Future Scheduled FALL SCREEN [code = [facility] FALL SCREEN] Medicine Future Scheduled OSTEOPOROSIS SCREENING B [facility] [code = OSTEOPOROSIS Medicin e SCREENING] Future Scheduled PNEUMOVAX >=65 [facility] (PPSV23) [code = Medicine PNEUMOVAX >=65 (PPSV23)] Future Scheduled MEDICARE AWV (Initial) B [facility] [code = MEDICARE AWV Medicin e (Initial)] Future Scheduled FLU VACCINE > 6 MONTHS B [facility] [code = FLU VACCINE > Medici ne 6 MONTHS] Future Scheduled COLON CANCER [facility] of Test SCREENING: COLONOSCOPY Medic ine [code = COLON CANCER SCREENING: COLONOSCOPY] Future Scheduled MAMMOGRAM ANNUAL [code B [facility] = MAMMOGRAM ANNUAL] Medicine Future Scheduled TETANUS SHOT (ADULT) [facility] Test [code = TETANUS SHOT Medicin e (ADULT)] Future Scheduled HEPATITIS C SCREENING [facility] Test [code = HEPATITIS C Medicine SCREENING] Future Scheduled ZOSTER VACCINE (1 of [facility] of Test 2) [code = ZOSTER Medicine VACCINE (1 of 2)] Future Scheduled OSTEOPOROSIS SCREENING B [facility] [code = OSTEOPOROSIS Medicin e SCREENING] Future Scheduled PNEUMOVAX >=65 [facility] (PPSV23) [code = Medicine PNEUMOVAX >=65 (PPSV23)] Future Scheduled MEDICARE AWV (Initial) B [facility] [code = MEDICARE AWV Medicin e (Initial)] Future Scheduled FLU VACCINE > 6 MONTHS B [facility] [code = FLU VACCINE > Medici ne 6 MONTHS] Future Scheduled FALL SCREEN [code = [facility] FALL SCREEN] Medicine Future Scheduled COLON CANCER [facility] of Test SCREENING: COLONOSCOPY Medic ine [code = COLON CANCER SCREENING: COLONOSCOPY] Future Scheduled MAMMOGRAM ANNUAL [code B [facility] = MAMMOGRAM ANNUAL] Medicine Future Scheduled TETANUS SHOT (ADULT) [facility] Test [code = TETANUS SHOT Medicin e (ADULT)] Future Scheduled HEPATITIS C SCREENING [facility] [code = HEPATITIS C Medicine SCREENING] Future Scheduled ZOSTER VACCINE (1 of [facility] Test 2) [code = ZOSTER Medicine VACCINE (1 of 2)] Future Scheduled OSTEOPOROSIS SCREENING B [facility] [code = OSTEOPOROSIS Medicin e SCREENING] Future Scheduled PNEUMOVAX >=65 [facility] (PPSV23) [code = Medicine PNEUMOVAX >=65 (PPSV23)] Future Scheduled MEDICARE AWV (Initial) B [facility] [code = MEDICARE AWV Medicin e (Initial)] Future Scheduled FLU VACCINE > 6 MONTHS B [facility] [code = FLU VACCINE > Medici ne 6 MONTHS] Future Scheduled FALL SCREEN [code = [facility] [employer] FALL SCREEN] Medicine Future Scheduled COLON CANCER [facility] of Test SCREENING: COLONOSCOPY Medic ine [code = COLON CANCER SCREENING: COLONOSCOPY] Future Scheduled COLON CANCER [facility] of Test SCREENING: COLONOSCOPY Medic ine [code = COLON CANCER SCREENING: COLONOSCOPY] Future Scheduled MAMMOGRAM ANNUAL [code B [facility] = MAMMOGRAM ANNUAL] Medicine Future Scheduled TETANUS SHOT (ADULT) [facility] [code = TETANUS SHOT Medicin e (ADULT)] Future Scheduled HEPATITIS C SCREENING [facility] [code = HEPATITIS C Medicine SCREENING] Future Scheduled ZOSTER VACCINE (1 of [facility] [employer] 2) [code = ZOSTER Medicine VACCINE (1 of 2)] Future Scheduled OSTEOPOROSIS SCREENING B [facility] [code = OSTEOPOROSIS Medicin e SCREENING] Future Scheduled PNEUMOVAX >=65 [facility] (PPSV23) [code = Medicine PNEUMOVAX >=65 (PPSV23)] Future Scheduled MEDICARE AWV (Initial) B [facility] [code = MEDICARE AWV Medicin e (Initial)] Future Scheduled FLU VACCINE > 6 MONTHS B [facility] [code = FLU VACCINE > Medici ne 6 MONTHS] Future Scheduled FALL SCREEN [code = [employer] FALL SCREEN] Medicine Future Scheduled MAMMOGRAM ANNUAL [code B [facility] [employer] = MAMMOGRAM ANNUAL] Medicine Future Scheduled TETANUS SHOT (ADULT) [facility] [code = TETANUS SHOT Medicin e (ADULT)] Future Scheduled HEPATITIS C SCREENING [facility] [code = HEPATITIS C Medicine SCREENING] Future Scheduled FALL SCREEN [code = [facility] [employer] FALL SCREEN] Medicine Future Scheduled OSTEOPOROSIS SCREENING B [facility] [code = OSTEOPOROSIS Medicin e SCREENING] Future Scheduled PNEUMOVAX >=65 [facility] (PPSV23) [code = Medicine PNEUMOVAX >=65 (PPSV23)] Future Scheduled PREVNAR >= 65 (PCV13) Ba [facility] Test [code = PREVNAR >= 65 Medici ne (PCV13)] Future Scheduled MEDICARE AWV (Initial) B [facility] [code = MEDICARE AWV Medicin e (Initial)] Future Scheduled FLU VACCINE > 6 MONTHS B [facility] [code = FLU VACCINE > Medici ne 6 MONTHS] Future Scheduled COLON CANCER [facility] of Test SCREENING: COLONOSCOPY Medic ine [code = COLON CANCER SCREENING: COLONOSCOPY] Future Scheduled [facility]AMMOGRAM ANNUAL [facility]] Medicine Future Scheduled TETANUS SHOT (ADULT) [facility] [code = TETANUS SHOT Medicin e (ADULT)] Future Scheduled HEPATITIS C SCREENING Ba [facility] [code = HEPATITIS C Medicine SCREENING] Future Scheduled FALL SCREEN [code = [facility] [employer] FALL SCREEN] Medicine Future Scheduled OSTEOPOROSIS SCREENING B [facility] [code = OSTEOPOROSIS Medicin e SCREENING] Future Scheduled PNEUMOVAX >=65 [facility] (PPSV23) [code = Medicine PNEUMOVAX >=65 (PPSV23)] Future Scheduled PREVNAR >= 65 (PCV13) Ba [facility] Test [code = PREVNAR >= 65 Medici ne (PCV13)] Future Scheduled MEDICARE AWV (Initial) B [facility] [code = MEDICARE AWV Medicin e (Initial)] Future Scheduled FLU VACCINE > 6 MONTHS B [facility] [code = FLU VACCINE > Medici ne 6 MONTHS] Encounters Start End Encounter Admission Attending Care Care Encounter Source Date/Time Date/Time Type Type Clinicians Facility Department ID 2021-12-14 Outpatient [facility] [id number] Common 09:27:02 [facility] 2022-03-21 2022-03-21 Outpatient JJ BROCK Sundar [id number] [facility] 08:56:39 10:31:50 AMMON Whitaker e of Medicin e 2022-03-20 2022-03-20 Office Navid Lehman 1.2.840.1 [id number] Methodi 13:45:00 14:14:[address] 3.430.2.7 Hospit a .3.018732 l .8 2022-03-20 2022-03-20 Outpatient NAVID LEHMAN [facility] [id number] [place] 00:00:00 00:00:[address] 2022-03-20 2022-03-20 Travel 1.2.840.1 1.2.632.013 0633 [id number] [facility] 00:00:00 00:00:[address] 3.430.2.7 0.2.7.3.698 Ho spita .3.554433 084.8 l .8 2022-02-04 2022-02-04 Refill Navid Lehman 1.2.840.1 [id number] 21 [id number] [facility] 00:00:00 00:00:[address] 3.430.2.7 Hospit a .3.817806 l .8 2022-01-22 2022-01-22 Outpatient DELMY [facility] [id number] [facility] 13:09:28 14:31:30 AMMON mckinnon of Medicin e 2022-01-15 2022-01-15 Refill Navid Lehman 1.2.840.1 [id number] 21 [id number] [facility] 00:00:00 00:00:[address] 3.430.2.7 Hospit a .3.310162 l .8 2022-01-12 2022-01-12 Jim Landry 1.2.840.1 [id number] [facility] 00:00:00 00:00:[address] 3.430.2.7 Hospit a .3.817718 l .8 2022-01-12 2022-01-12 Orders Fratnz 1.2.840.1 [id number] [facility]i 00:00:00 00:00:[address]1.[address] 3.430.2.7 Hospit a .3.059072 l .8 2022-01-10 2022-01-10 Outpatient LYN, [facility] [id number] [facility] 12:59:46 14:31:29 [facility] [employer] [facility] 2021-12-06 2021-12-06 Outpatient DELMY, [facility] [id number] [facility] 15:36:16 16:35:47 AMMON [employer] 2021-11-08 2021-11-08 Outpatient DELMY, [facility] [id number] [facility] 12:32:23 13:58:40 AMMON [employer] 2021-10-16 2021-10-16 Outpatient [facility] [place]0 [id number] [facility] 12:00:00 12:00:[address] [place] [address] 2021-09-25 2021-09-25 Outpatient DELMY [facility] [id number] [facility] 12:55:29 13:36:59 AMMON [employer] 2021-09-20 2021-09-20 Procedure Navdi Lehman 1.2.840.1 [id number] [facility] 15:00:00 15:45:[address] 3.430.2.7 Hospit a .3.069631 l .8 2021-09-20 2021-09-20 Outpatient NAVID LEHMAN [facility] [id number] [place] 00:00:00 00:00:[address] 2021-09-20 2021-09-20 Travel 1.2.840.1 1.2.291.067 0637 [id number] [facility] 00:00:00 00:00:[address] 3.430.2.7 0.2.7.3.698 spita .3.960814 084.8 l .8 2021-09-08 2021-09-08 Outpatient DELMY [facility] [id number] [facility] 14:42:14 15:43:42 AMMON [employer] 2021-09-06 2021-09-06 Outpatient LYN [facility] [id number] [facility] 13:51:24 16:54:19 [facility]IKHA [employer] 2021-08-30 2021-08-30 Office Navid Lehman 1.2.840.1 [id number] [facility] 12:55:00 15:06:[address] 3.430.2.7 Hospit a .3.932570 l .8 2021-08-30 2021-08-30 Outpatient NAVID LEHMAN [facility] [id number] [place] 00:00:00 00:00:[address] 2021-08-30 2021-08-30 Travel 1.2.840.1 1.2.505.776 0908 316790 [facility] 00:00:00 00:00:[address] 3.430.2.7 0.2.7.3.698 Ho spita .3.410486 084.8 l .8 2021-05-12 2021-05-12 Clinical 1.2.840.1 [id number] 26604 [facility] 11:25:00 12:19:[address] 3.430.2.7 Hospit a .3.261365 l .8 2021-05-12 2021-05-12 Outpatient [facility] [id number] [place] 00:00:00 00:00:[address] 2021-05-12 2021-05-12 Travel 1.2.840.1 1.2.475.156 6735 384512 [facility] 00:00:00 00:00:[address] 3.430.2.7 0.2.7.3.698 Ho spita .3.725523 084.8 l .8 2021-05-03 2021-05-03 Outpatient DELMY [facility] [id number] [facility] 13:51:15 15:35:54 AMMON [employer] 2021-05-03 2021-05-03 Outpatient LYN [facility] [id number] [facility] 12:42:15 15:25:35 SHIKHA [employer] 2021-04-12 2021-04-12 Office ENDER TORRES 6400 1.2.840.114 [id number] 0529 [place] 09:50:15 10:50:[address] 350.1.13.58 Health 9.2.7.2.686 701.8940662 4 2021-04-12 2021-04-12 Office ENDER Torres 6400 1.2.840.114 [id number] 0529 [place] 09:50:15 10:50:[address] 350.1.13.58 Health 9.2.7.2.686 [id number] 4 2021-02-08 2021-02-08 Outpatient DELMY, [facility] [id number] [facility] 13:21:26 14:12:33 AMMON [employer] 2021-02-08 2021-02-08 Outpatient LYN [facility] [id number] [facility] 10:53:28 13:16:24 SHIKHA [employer] 2020-12-27 2020-12-27 Outpatient NAVID LEHMAN [facility] [id number] [place] 00:00:00 00:00:00 621 Method i 2020-10-05 2020-10-05 Outpatient FRED [facility] [id number] [place] 00:00:00 00:00:00 SUDHAKAR 901 Dc thodi 2020-09-14 2020-09-14 Outpatient [facility] [id number] 499 [place] 00:00:00 00:00:[address] 2020-08-23 2020-08-23 Outpatient [facility] DEVON F45 [id number] [facility] 12:00:00 12:00:00 Rupinder [id number] [facility] 2020-05-11 2020-05-11 Office JJ Brock 1.2.840.114 [id number] 13:16:34 14:28:34 Visit Ammon S. AMBULATOR 350.1.13.21 Y 0.2.7.2.686 [id number] 300 2020-05-11 2020-05-11 Office Delmy, BCM 1.2.840.114 77 [id number] [facility] 13:16:34 14:28:34 Visit Ammon S. AMBULATOR 350.1.13.21 College Y 0.2.7.2.686 of 617.3529356 Medi yuliana 300 e 2020-04-20 2020-04-20 Office Delmy, BCM 1.2.840.114 77 [id number] 10:32:24 11:49:24 Visit Ammon S. AMBULATOR 350.1.13.21 Y 0.2.7.2.686 [id number] 300 2020-04-20 2020-04-20 Office Delmy, BCM 1.2.840.114 77 [id number] [facility] 10:32:24 11:49:24 Visit Ammon S. AMBULATOR 350.1.13.21 College Y 0.2.7.2.686 of [id number] Medi yuliana 300 e 2020-04-11 2020-04-11 Office Delmy, BCM 1.2.840.114 77 [id number] 15:14:36 15:44:36 Visit Ammon S. AMBULATOR 350.1.13.21 Y 0.2.7.2.686 [id number] 300 2020-04-11 2020-04-11 Office Delmy, BCM 1.2.840.114 77 [id number] [facility] 15:14:36 15:44:36 Visit Ammon S. AMBULATOR 350.1.13.21 College Y 0.2.7.2.686 of 514.5981146 Medi yuliana 300 e 2020-02-17 2020-02-17 Office Delmy, BCM 1.2.840.114 75 [id number] 14:27:49 15:39:40 Visit Ammon S. AMBULATOR 350.1.13.21 Y 0.2.7.2.686 [id number] 300 2020-02-17 2020-02-17 Office Delmy, BCM 1.2.840.114 75 [id number] [facility] 14:27:49 15:39:40 Visit Ammon S. AMBULATOR 350.1.13.21 College Y 0.2.7.2.686 of [id number] Medi yuliana 300 e 2019-12-28 2019-12-28 Outpatient NAVID LEHMAN [facility] [id number] [place] 00:00:00 00:00:[address] 2019-12-18 2019-12-18 Office JJ Brock 1.2.840.114 75 [id number] 09:24:19 09:57:43 Visit Ammon S. AMBULATOR 350.1.13.21 Y 0.2.7.2.686 [id number] [facility] 2019-12-18 2019-12-18 Office JJ Brock 1.2.840.114 75 [id number] [facility] 09:24:19 09:57:43 Visit Ammon S. AMBULATOR 350.1.13.21 College Y 0.2.7.2.686 of [id number] Medi yuliana 300 e 2019-11-25 2019-11-25 Office JJ Nguyen 1.2.840.114 [id number] 23 12:45:00 13:45:37 Visit Pasquale AMBULATOR 350.1.13.21 Y 0.2.7.2.686 602.1273589 300 2019-11-25 2019-11-25 Office JJ Nguyen 1.2.840.114 [id number] 23 [facility] 12:45:00 13:45:37 Visit Pasquale AMBULATOR 350.1.13.21 College Y 0.2.7.2.686 of [id number] Medi yuliana 300 e 2019-11-09 2019-11-09 Outpatient [facility] [id number] 781 [place] 00:00:00 00:00:00 LALO [address] 2019-10-28 2019-10-28 Office JJ Brock 1.2.840.114 74 [id number] 10:31:04 11:54:28 Visit Ammon S. AMBULATOR 350.1.13.21 Y 0.2.7.2.686 [id number] 300 2019-10-28 2019-10-28 Office JJ Brock 1.2.840.114 74 [id number] [facility] 10:31:04 11:54:28 Visit Ammon S. AMBULATOR 350.1.13.21 College Y 0.2.7.2.686 of 768.8432977 Medi yuliana 300 e 2019-10-21 2019-10-21 Office DelmyJJ 1.2.840.114 74 [id number] 09:10:20 11:15:40 Visit Ammon S. AMBULATOR 350.1.13.21 Y 0.2.7.2.686 [id number] 300 2019-10-21 2019-10-21 Office DelmyJJ 1.2.840.[id number] [place] [address] 09:10:20 11:15:40 Visit Ammon S. AMBULATOR 350.1.13.21 College Y 0.2.7.2.686 of [id number] [facility] yuliana 300 e 2019-10-20 2019-10-20 Outpatient [facility] [id number] 3-2 [facility] 09:55:00 09:55:00 [id number] 2019-10-19 2019-10-19 Outpatient [facility] [id number] 3-2 [facility] 00:00:00 00:00:00 [id number] 2019-10-12 2019-10-12 Office DelmyJJ 1.2.840.114 74 [id number] 14:44:27 16:45:19 Visit Ammon S. AMBULATOR 350.1.13.21 Y 0.2.7.2.686 [id number] 300 2019-10-12 2019-10-12 Office JJ Brock 1.2.840.114 [id number] [facility] 14:44:27 16:45:19 Visit Ammon S. AMBULATOR 350.1.13.21 College Y 0.2.7.2.686 of [id number] Medi yuliana 300 e 2019-07-28 2019-07-28 Outpatient [facility] DEVON F45 [id number] [facility] 12:00:00 12:00:00 Rupinder [id number] [facility] Results Test Description Test Time Test Comments Results Result Sour e Comments Automated Visual 2021-04-12 OD: fullOS: [facility] Extended - 16:42:57 generalized OU - Both Eyes constriction of peripheral field Adequate for driving Automated Visual 2021-04-12 OD: fullOS: [facility], Extended - 16:42:57 generalized OU - Both Eyes constriction of peripheral field Adequate for driving OVARY W/WO 2019-01-13 TUBE,NEOPLASTIC 13:10:00 ----RUN DATE: 01/15/19 [facility] PAGE 1 RUN TIME: 1227 Specimen Inquiry RUN USER: INTERFACE ----PATIENT: JEANNETTE BOYER [facility] #: [id number] AGE/SX: 73/F ROOM: [facility] RE01/08/19REG DR: Adrienne Andrade MD : 45 BED: A DIS: 01/09/19 STATUS: DIS Vira TLOC: ---- SPEC #: [id number] RECD: 01/08/19 STATUS: AUGUSTA SIMON #: [id number] CHUN: 01/08/19- SUBM DR: Adrienne Andrade MD ENTERED: 01/08/19 SP TYPE: OVAWWOTNEO OTHR DR: Lesly Rose MD ORDERED: LEVEL V SURGICA/2, FROZEN SECTION CODES: [id number] - OVARY, NOS COPIES TO: Lesly Rose MD [address] [place] [address] [email or web address] Adrienne Andrade MD [address] [place], [place] [id number] PROCEDURES: LEVEL V SURGICA (Incomplete) FROZEN SECTION (Incomplete) TISSUES: OVARY, NOS - LEFT AND RIGHT TUBE AND OVARY CLINICAL HISTORY 73 year old, breast cancer, vaginal prolapse, cystocele, rectocele, stress urinary incontinence (kr) FINAL DIAGNOSIS Left fallopian tube and ovary, salpingo-oophorectomy: - 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 for an expert opinion, see results in addendum report - ovary and fallopian tube with fibrous adhesions COMMENTS: A minute focus of mucinous-type glands are present in the right ovary. The significance of these glands is not certain. Therefore, the case will be sent to Mj Cisse M.D., at [facility] for an expert opinion, see results in Addendum Report. Permanent sections correlate with frozen section diagnosis. However, some of CONTINUED ON NEXT PAGE ----RUN DATE: 01/15/19 [facility] PAGE 2 RUN TIME: 1227 Specimen Inquiry RUN USER: INTERFACE ----SPEC #: [id number] PATIENT: JEANNETTE BOYER #[id number] (Continued) FINAL DIAGNOSIS (Continued) the cysts are lined by serous epithelium with tubal metaplasia. The following technical components [email or web address], [address] [place] [address], [address], [place] [address]. The interpretation is provided by [facility], [address] [place] [address]. Positive and/or negative controls [email or web address] stained appropriately. RESULTS: Cytokeratin 7 (block A4) - strongly and diffusely positive. Cytokeratin 20 (block A4) - negative. The results of the immunostains support ovarian origin. ADDENDUM PENDING, SPECIMEN IS BEING SENT TO DR. CISSE AT [facility] Tissue code 1 CPT code(s): 39160, 67187, 86094 pkg/kr dt: 01/13/19 pkg/gustavo 01/14/19 GROSS DESCRIPTION ANATOMIC SOURCE OF TISSUE (per Requisition): 1. Left tube and ovary (frozen) 2. Right tube and ovary Each specimen is labeled with the patient's name and medical record number. Specimen #1 received without fixative in a container labeled with the patient's name is designated "left tube and ovary". The specimen consists of a 4 x 3 x 2.7 cm multicystic ovary with an adhesed 4 x 0.5 x 0.6 cm segment of fallopian tube with fimbria. The ovary contains cysts ranging from 0.5 to 2.5 cm with off-white smooth and glistening internal linings, containing clear, thin and clear and slightly viscid fluid. Perinatal Instructor sections are submitted labeled FS and the remaining tissue is submitted in toto labeled A1 through A7. Specimen #2 is designated "right tube and ovary" and consists of a 1.7 x 1.0 x 0.8 cm ovary with an attached 5 x 0.4 x 0.4 cm segment of fallopian tube with fimbria. No gross lesions are noted. It is sectioned and submitted in toto labeled B1 through B3. delvin/alex 01/09/19 @ 0944 CONTINUED ON NEXT PAGE ----RUN DATE: 01/15/19 [facility] PAGE 3 RUN TIME: 1227 Specimen Inquiry RUN USER: INTERFACE ----SPEC #: [id number] PATIENT: OJJEANNETTEBRENTON GALLAGHER #[id number] (Continued) MICROSCOPIC DESCRIPTION Specimen #1 consists of multiloculated cystic ovarian parenchyma containing numerous cysts lined by intestinal-type mucinous and serous epithelium. The serous epithelium has areas of tubal metaplasia and minimal epithelial proliferation is present. No borderline tumor or malignancy is identified. Specimen #2 consists of an ovary containing a small focus of minute glands with mucinous features and luminal secretions. Fibrous adhesions are present between the ovary and fallopian tube. aureliano dt: 01/13/19 Signed Deanna New 01/13/19 1310 ---- END OF REPORT OVARY W/WO 2019-01-13 TUBE,NEOPLASTIC 13:10:00 ----RUN DATE: 01/20/19 [facility] PAGE 1 RUN TIME: 1529 Specimen Inquiry RUN USER: INTERFACE ----PATIENT: JEANNETTE BOYER [facility] [id number] AGE/SX: 73/F ROOM: [facility] RE01/08/19REG DR: Adrienne Andrade MD : 45 BED: A DIS: 01/09/19 STATUS: DIS Vira TLOC: ---- SPEC #: [id number] RECD: 01/08/19 STATUS: AUGUSTA RE #: [id number] CHUN: 01/08/19- SUBM DR: Adrienne Andrade MD ENTERED: 01/08/19 SP TYPE: OVAWWOTNEO BRAD DR: Lesly Rose MD ORDERED: LEVEL V SURGICA/2, FROZEN SECTION ADDENDUM FINDINGS Addendum #1 Entered: 01/20/191306 The following is the final extradepartmental consultation diagnosis received from Mj Cisse M.D., at [facility], [place], [place], on January 19, 2019. ADDENDUM FINAL DIAGNOSIS: Fourteen outside slides ([id number] FS, A1 - A7, IHC x 2, B1 L1 - L4, B2-B3) designated as follows: Left tube and ovary: - ovarian seromucinous cystadenoma - fallopian tube, no significant pathologic changes Right tube and ovary: - ovary and fallopian tube, no tumor present COMMENT: According to the gross description, the left ovary was multicystic and measures 4 x 3 x 2.7 cm. The cysts ranged from 0.5 to 2.5 cm with off-white, smooth and glistening internal linings. The right ovary measures 1.7 x 1.0 x 0.8 cm and no gross lesions were noted. The left ovarian cyst has a cuboidal to columnar epithelial lining with occasional cilia admixed with focal mucinous differentiation. There is mild epithelial proliferation, not diagnostic of a borderline tumor. In submitted slides, there is diffuse staining for CK7 and CK20 is negative. The right ovary contains mesonephric remnants (focally with luminal secretion), corpora albicantia, and serosal adhesions. I acknowledge the above findings. Deanna New M.D., Pathologist/wpd January 20, 2019 @ 1200 CONTINUED ON NEXT PAGE ----RUN DATE: 01/20/19 [facility] PAGE 2 RUN TIME: 1529 Specimen Inquiry RUN USER: INTERFACE ----SPEC #: [id number] PATIENT: JEANNETTE BOYER #[id number] (Continued) ADDENDUM FINDINGS (Continued) Addendum Signed VirgenDeanna 01/20/19 1529 (prelim) VirgenDeanna 01/20/19 1529 ---- CODES: [id number] - OVARY, NOS COPIES TO: Lesly Rose MD [address] [facility] [address] [place] [address] [email or web address] Adrienne Andrade MD [address] [place], [place] [id number] PROCEDURES: LEVEL V SURGICA (Incomplete) FROZEN SECTION (Incomplete) TISSUES: OVARY, NOS - LEFT AND RIGHT TUBE AND OVARY CLINICAL HISTORY 73 year old, breast cancer, vaginal prolapse, cystocele, rectocele, stress urinary incontinence (kr) FINAL DIAGNOSIS Left fallopian tube and ovary, salpingo-oophorectomy: - 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 for an expert opinion, see results in addendum report - ovary and fallopian tube with fibrous adhesions COMMENTS: A minute focus of mucinous-type glands are present in the right ovary. The significance of these glands is not certain. Therefore, the case will be sent to Mj Cisse M.D., at [facility] for an expert opinion, see results in Addendum Report. Permanent sections correlate with frozen section diagnosis. However, some of CONTINUED ON NEXT PAGE ----RUN DATE: 01/20/19 [facility] PAGE 3 RUN TIME: 1529 Specimen Inquiry RUN USER: INTERFACE ----SPEC #: [id number] PATIENT: JEANNETTE BOYER #[id number] (Continued) FINAL DIAGNOSIS (Continued) the cysts are lined by serous epithelium with tubal metaplasia. The following technical components were performed at [facility] [place], [address], [address], [place] [address]. The interpretation is provided by [facility], [address] [place] [address], [place] [address]. Positive and/or negative controls received from [facility] stained appropriately. RESULTS: Cytokeratin 7 (block A4) - strongly and diffusely positive. Cytokeratin 20 (block A4) - negative. The results of the immunostains support ovarian origin. ADDENDUM PENDING, SPECIMEN IS BEING SENT TO DR. CISSE AT [facility] Tissue code 1 CPT code(s): 31115, 74264, 95021 pkmorena/alex dt: 01/13/19 moni/gustavo 01/14/19 GROSS DESCRIPTION ANATOMIC SOURCE OF TISSUE (per Requisition): 1. Left tube and ovary (frozen) 2. Right tube and ovary Each specimen is labeled with the patient's name and medical record number. Specimen #1 received without fixative in a container labeled with the patient's name is designated "left tube and ovary". The specimen consists of a 4 x 3 x 2.7 cm multicystic ovary with an adhesed 4 x 0.5 x 0.6 cm segment of fallopian tube with fimbria. The ovary contains cysts ranging from 0.5 to 2.5 cm with off-white smooth and glistening internal linings, containing clear, thin and clear and slightly viscid fluid. Perinatal Instructor sections are submitted labeled FS and the remaining tissue is submitted in toto labeled A1 through A7. Specimen #2 is designated "right tube and ovary" and consists of a 1.7 x 1.0 x 0.8 cm ovary with an attached 5 x 0.4 x 0.4 cm segment of fallopian tube with fimbria. No gross lesions are noted. It is sectioned and submitted in toto labeled B1 through B3. delvin/alex 01/09/19 @ 0944 CONTINUED ON NEXT PAGE ----RUN DATE: 01/20/19 [facility] PAGE 4 RUN TIME: 1529 Specimen Inquiry RUN USER: INTERFACE ----SPEC #: [id number] PATIENT: JEANNETTE BOYER #[id number] (Continued) MICROSCOPIC DESCRIPTION Specimen #1 consists of multiloculated cystic ovarian parenchyma containing numerous cysts lined by intestinal-type mucinous and serous epithelium. The serous epithelium has areas of tubal metaplasia and minimal epithelial proliferation is present. No borderline tumor or malignancy is identified. Specimen #2 consists of an ovary containing a small focus of minute glands with mucinous features and luminal secretions. Fibrous adhesions are present between the ovary and fallopian tube. aureliano dt: 01/13/19 Signed Deanna New 01/13/19 1310 ---- END OF REPORT PELVIC WASHING 2019-01-13 12:51:00 ----RUN DATE: 01/13/19 [facility] PAGE 1 RUN TIME: 1707 Specimen Inquiry RUN USER: INTERFACE ----PATIENT: JEANNETTE BOYER LOC: [facility] U #: [id number] AGE/SX: 73/F ROOM: [facility] RE01/08/19REG DR: Adrienne Andrade MD : 45 BED: A DIS: 01/09/19 STATUS: DIS Vira TLOC: ---- SPEC #: [id number] RECD: 01/09/19-0 STATUS: AUGUSTA REFallon #: [id number] CHUN: 01/09/19- SUBM DR: Adrienne Andrade MD ENTERED: 01/09/19-1110 SP TYPE: PELVIC WAS OTHR DR: ORDERED: CYTOLOGY/SACCOM CODES: [id number] - PELVIC GENITAL PROCEDURES: CYTOLOGY/SACCOM (Incomplete) TISSUES: PELVIC GENITAL STRUCTURES, NOS - PELVIC WASHINGS CLINICAL HISTORY 73 year old, breast cancer, vaginal prolapse, cystocele, rectocele, stress urinary incontinence (kr) FINAL DIAGNOSIS Pelvic washings (cytospins): - no malignant cells identified Tissue code 1 CPT code(s): 84022 pkg/kr dt: 01/13/19 GROSS DESCRIPTION The specimen is received in a container, labeled with the patient's name and designated "pelvic washings" and consists of [id number] cc of light red fluid. Two cytospins are made. No cell block is prepared. hj/kr 01/09/19 @ 1127 MICROSCOPIC DESCRIPTION The specimen consists of a few sheets of reactive mesothelial cells and unremarkable hematopoietic cells. 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 for an expert opinion, see results in CONTINUED ON NEXT PAGE ----RUN DATE: 01/13/19 [facility] PAGE 2 RUN TIME: 1707 Specimen Inquiry RUN USER: INTERFACE ----SPEC #: [id number] PATIENT: JEANNETTE BOYER #[id number] (Continued) MICROSCOPIC DESCRIPTION (Continued) Addendum Report - ovary and fallopian tube with fibrous adhesion pkg/alex dt: 01/13/19 Signed Deanna New 01/13/19 1251 ---- END OF REPORT HGB HCT 2019-01-09 06:06:00 Test Item Value Reference Range Interpretation Comme nts HEMOGLOBIN (test code = HGB) 10.8 g/dL 10.7-13.9 N HEMATOCRIT (test code = HCT) 33.3 % 32.1-42.1 N URINALYSIS [id number] 16:40:00 Test Item Value Reference Range Interpretation Comments UA COLOR (test code = YELLOW YELLOW COLU) UA APPEARANCE (test code Slightly-Cloudy CLEAR = APPU) UA GLUCOSE DIPSTICK (test NEGATIVE NEG code = DGLUU) UA BILIRUBIN DIPSTICK NEGATIVE NEG (test code = BILU) UA KETONE DIPSTICK (test NEGATIVE NEG code = KETU) UA SPECIFIC GRAVITY (test 1.017 1.001-1.035 N code = SGU) UA BLOOD DIPSTICK (test 1+ NEG A code = LESLY) UA PH DIPSTICK (test code 6.0 5-9 = HERMANN) UA PROTEIN DIPSTICK (test 1+ NEG A code = PROU) UA UROBILINIOGEN DIPSTICK NEGATIVE mg/dL NEG (test code = URO) UA NITRITE DIPSTICK (test NEG NEG code = BROCK) UA LEUKOCYTE ESTERASE 3+ NEG A DIPSTICK (test code = LEUU) UA WBC (test code = WBCU) TOO NUMEROUS TO CNT NONE SEEN A #/hpf UA RBC (test code = RBCU) 3-5 #/hpf NONE SEEN A UA EPITHELIAL CELLS (test RARE #/HPF RARE-FEW code = EPIU) UA HYALINE CAST (test 3-5 #/hpf A code = HYALU) UA MUCUS (test code = RARE NONE SEEN MUCU) URINE SAMPLE: CLEAN CATCHCOMPREHENSIVE METABOLIC [id number] 16:15:00 Test Item Value Reference Range Interpretation Comments SODIUM (test code = NA) 132 mEq/L 135-145 L POTASSIUM (test code = K) 5.0 mEq/L 3.5-5.0 N CHLORIDE (test code = CL) 97 mEq/L 100-115 L CARBON DIOXIDE (test code = CO2) 26 mEq/L 22-31 N ANION GAP (test code = GAP) 14.20 10-20 N GLUCOSE (test code = GLU) 89 mg/dL 65-110 N BLOOD UREA NITROGEN (test code = 17 mg/dL 7-18 N BUN) GLOMERULAR FILTRATION RATE (test 70 ml/min >60 N code = GFR) CREATININE (test code = CREAT) 0.8 mg/dL 0.5-1.0 N TOTAL PROTEIN (test code = PROT) 6.1 gm/dL 6.3-8.2 L ALBUMIN (test code = ALB) 3.9 gm/dL 3.4-4.8 N CALCIUM (test code = CA) 9.0 mg/dL 8.4-10.2 N BILIRUBIN TOTAL (test code = BILT) 0.8 mg/dL 0.2-1.0 N SGOT/AST (test code = AST) 29 units/L 15-37 N SGPT/ALT (test code = ALT) 28 units/L 12-78 N ALKALINE PHOSPHATASE TOTAL (test 88 units/L 46-116 N code = ALKP) URINALYSIS [id number] 16:09:00 Test Item Value Reference Range Interpretation Comments UA COLOR (test code = YELLOW YELLOW COLU) UA APPEARANCE (test code Slightly-Cloudy CLEAR = APPU) UA GLUCOSE DIPSTICK (test NEGATIVE NEG code = DGLUU) UA BILIRUBIN DIPSTICK NEGATIVE NEG (test code = BILU) UA KETONE DIPSTICK (test NEGATIVE NEG code = KETU) UA SPECIFIC GRAVITY (test 1.017 1.001-1.035 N code = SGU) UA BLOOD DIPSTICK (test 1+ NEG A code = LESLY) UA PH DIPSTICK (test code 6.0 5-9 = HERMANN) UA PROTEIN DIPSTICK (test 1+ NEG A code = PROU) UA UROBILINIOGEN DIPSTICK NEGATIVE mg/dL NEG (test code = URO) UA NITRITE DIPSTICK (test NEG NEG code = BROCK) UA LEUKOCYTE ESTERASE 3+ NEG A DIPSTICK (test code = LEUU) UA WBC (test code = WBCU) TOO NUMEROUS TO CNT NONE SEEN A #/hpf UA RBC (test code = RBCU) 3-5 #/hpf NONE SEEN A UA EPITHELIAL CELLS (test RARE #/HPF RARE-FEW code = EPIU) UA HYALINE CAST (test 3-5 #/hpf A code = HYALU) UA MUCUS (test code = RARE NONE SEEN MUCU) UA YEAST (test code = #/hpf NONE SEEN YEASTU) URINE SAMPLE: CLEAN CATCHCBC W/AUTO [id number] 15:49:00 Test Item Value Reference Range Interpretation Comments WHITE BLOOD CELL (test code = WBC) 3.9 K/mm3 6.6-12.1 L RED BLOOD CELL (test code = RBC) 3.55 M/mm3 3.45-5.01 N HEMOGLOBIN (test code = HGB) 11.7 g/dL 10.7-13.9 N HEMATOCRIT (test code = HCT) 35.5 % 32.1-42.1 N MEAN CELL VOLUME (test code = MCV) 100 fL 84.1-94.8 H MEAN CELL HGB (test code = MCH) 33.0 pg 27-35 N MEAN CELL HGB CONCETRATION (test 33.0 gm/dL 32.2-34.1 N code = MCHC) RED CELL DISTRIBUTION WIDTH (test 12.4 % 12.4-16.5 N code = RDW) PLATELET COUNT (test code = PLT) 258 K/mm3 133-385 N IMMATURE PLATELET FRACTION (test 0.0 % 0.0-10.8 N code = IPF) MEAN PLATELET VOLUME (test code = 8.5 fl 9.1-12.7 L MPV) NEUTROPHIL % (test code = NT%) 63.4 % 56.5-79.4 N LYMPHOCYTE % (test code = LY%) 17.9 % 14.3-34.3 N MONOCYTE % (test code = MO%) 14.3 % 5.1-10.4 H EOSINOPHIL % (test code = EO%) 2.8 % 0.1-3.0 N BASOPHIL % (test code = BA%) 1.3 % 0.1-1.0 H NEUTROPHIL # (test code = NT#) 2.5 K/mm3 LYMPHOCYTE # (test code = LY#) 0.7 K/mm3 MONOCYTE # (test code = MO#) 0.6 K/mm3 EOSINOPHIL # (test code = EO#) 0.11 K/mm3 BASOPHIL # (test code = BA#) 0.1 K/mm3 RBC MORPHOLOGY REQUIRED (test code NORMAL NORMAL = RBCM) PLATELET MORPHOLOGY REQUIRED (test NORMAL NORMAL code = PLTMR) - US TRANSVAGINAL [id number] 16:09:00 Patient Name: JEANNETTE BOYER Unit No: [id number] EXAMS: CPT CODE: [id number] US TRANSVAGINALW/PELVIS 11570 PELVIC ULTRASOUND, 10/13/2018: COMPARISON: None CLINICAL HISTORY: PAIN TECHNIQUE: Transabdominal and endovaginal scanning was performed. FINDINGS: The uterus is surgically absent. The right ovary was not visualized. The left ovary measures 4.5 x 3.7 x 3.7 cm and contains a 4.2 x 3.4 x 4.0cm cyst which contains a small solid mural nodule and a small septation. The mural nodule is not vasc ular. Findings are consistent with a nonspecific small complex ovarian cyst. No free fluid is evident. CONCLUSION: 4.2 cm complex left ovarian cyst. Neoplastic process cannot be excluded. Nonvisualization of the right ovary. Prior hysterectomy. at 1609 Reported and signed by: Al Eisenberg MD CC: Wm Velasco MD Technologist: Millicent Watson [facility] Probe: [id number] Trnscrbd D/ (1609) [email or web address] Orig Print D/T: S: 10/13/2018 (1612) [facility] NAME[facility] Radiology Department PHYS: AZCURTIS Piaz KristaWm Hair Sundar [address] : 1945 AGE: 73 SEX: F [place] [address] LOC: RuslanRAD PHONE #: [phone] EXAM DATE: 10/13/2018 STATUS: REG CLI FAX #: [phone] RAD NO: [id number] Page 1 Signed Report Patient Name: JEANNETTE BOYER Unit No: [id number] EXAMS: CPT CODE: [id number] US TRANSVAGINAL W/PELVIS 95626 (Continued) [facility] NAME: JEANNETTE BOYER [facility] Radiology Department PHYS: CORuthieCALVIN Paiz Wm Velasco [address] : 1945 AGE: 73 SEX: F [place] [address] LOC: RuslanRAD PHONE #: [phone] EXAM DATE: 0 10/13/2018 STATUS: REG CLI FAX #: [phone] RAD NO: [id number] Page 2 Signed Report- US PELVIS [id number] 16:09:00 Patient Name: JEANNETTE BOYER Unit No: [id number] EXAMS: CPT CODE: [id number] US PELVIS COMPLETE 98108 PELVIC ULTRASOUND, 10/13/2018: COMPARISON: None CLINICAL HISTORY: PAIN TECHNIQUE: Transabdominal and endovaginal scanning was performed. FINDINGS: The uterus is surgically absent. The right ovarywas not visualized. The left ovary measures 4.5 x 3.7 x 3.7 cm and contains a 4.2 x 3.4 x 4.0 cm cyst which contains a small solid mural nodule and a small septation. The mural nodule is not vascular. F indings are consistent with a nonspecific small complex ovarian cyst. No free fluid is evident. CONCLUSION: 4.2 cm complex left ovarian cyst. Neoplastic process cannot be excluded. Nonvisualization of the right ovary. Prior hysterectomy. at 1609 Reported and signed by: Al Eisenberg MD CC: Wm Velasco MD Technologist: Millicent Watson RDMS Probe: Trnscrbd D/ (1609) [email or web address] Orig Print D/T: S: 10/13/2018 (1612) [facility] NAME: JEANNETTE BOYER Radiology Department PHYS: CYDNEYBangWm Amor [address] : 1945 AGE: 73 SEX: F [place] [address] LOC: Aleksandr.RAD PHONE #: [phone] EXAM DATE: 10/13/2018 STATUS: REG CLI FAX #: [phone] RAD NO: [id number] Page 1 Signed Report Patient Name: JEANNETTE BOYER Unit No: [id number] EXAMS: CPT CODE: [id number] US PELVIS COMPLETE 72947 (Continued) [facility] NAME: JEANNETTE BOYER ELLIOTT Radiology Department PHYS: Wm Smith [address] : 1945 AGE: 73 SEX: F [place] [address] LOC: F.RAD PHONE #: [phone] EXAM DATE: 10/13/2018 STATUS: REG CLI FAX #: [phone] RAD NO: [id number] Page 2 Signed ReportBASI METABOLIC [id number] 06:23:00 Test Item Value Reference Range Interpretation Comments SODIUM (BEAKER) 131 meq/L 136-145 L (test code = 381) POTASSIUM (BEAKER) 4.2 meq/L 3.5-5.1 (test code = 379) CHLORIDE (BEAKER) 97 meq/L 98-107 L (test code = 382) CO2 (BEAKER) (test 25 meq/L 22-29 code = 355) BLOOD UREA NITROGEN 15 mg/dL 7-21 (BEAKER) (test code = 354) CREATININE (BEAKER) 0.86 mg/dL 0.57-1.25 (test code = 358) GLUCOSE RANDOM 72 mg/dL 70-105 (BEAKER) (test code = 652) CALCIUM (BEAKER) 8.9 mg/dL 8.4-10.2 (test code = 697) EGFR (BEAKER) (test 65 mL/min/1.73 ESTIMA CORAL GFR IS code = 1092) sq m NOT ACCURATE CREATININE CLEARANCE IN PREDICTING GLOMERULAR FILTRATION RATE . ESTIMATED GFR I S NOT APPLICABLE FOR DIALYSIS PATIEN TS. PROTHROMBIN [id number] 06:05:00 Test Item Value Reference Range Interpretation Comments PROTIME (BEAKER) (test code = 13.0 seconds 11.7-14.7 759) INR (BEAKER) (test code = 370) 1.0 <=5.9 RECOMMENDED COUMADIN/WARFARIN INR THERAPY RANGESSTANDARD DOSE: 2.0 - 3.0 Includes: PROPHYLAXIS for venous thrombosis, systemic embolization; TREATMENT for venous thrombosis and/or pulmonary embolus.HIGH RISK: Target INR is 2.5-3.5 for patients with mechanical heart valves.CBC W/PLT COUNT & AUTO [id number] 05:56:00 Test Item Value Reference Range Interpretation Comments WHITE BLOOD CELL COUNT (BEAKER) 2.5 K/ L 4.0-10.0 L (test code = 775) RED BLOOD CELL COUNT (BEAKER) 3.73 M/ L 4.00-5.00 L (test code = 761) HEMOGLOBIN (BEAKER) (test code = 12.9 GM/DL 12.0-15.0 410) HEMATOCRIT (BEAKER) (test code = 38.5 % 36.0-45.0 411) MEAN CORPUSCULAR VOLUME (BEAKER) 103.0 fL 82.0-99.0 H (test code = 753) MEAN CORPUSCULAR HEMOGLOBIN 34.6 pg 27.0-33.0 H (BEAKER) (test code = 751) MEAN CORPUSCULAR HEMOGLOBIN CONC 33.5 GM/DL 32.0-36.0 (BEAKER) (test code = 752) RED CELL DISTRIBUTION WIDTH 13.1 % 10.3-14.2 (BEAKER) (test code = 412) PLATELET COUNT (BEAKER) (test 211 K/CU MM 150-430 code = 756) MEAN PLATELET VOLUME (BEAKER) 5.7 fL 6.5-10.5 L (test code = 754) NUCLEATED RED BLOOD CELLS 0 /100 WBC 0-0 (BEAKER) (test code = 413) NEUTROPHILS RELATIVE PERCENT 53 % (BEAKER) (test code = 429) LYMPHOCYTES RELATIVE PERCENT 26 % (BEAKER) (test code = 430) MONOCYTES RELATIVE PERCENT 18 % (BEAKER) (test code = 431) EOSINOPHILS RELATIVE PERCENT 3 % (BEAKER) (test code = 432) BASOPHILS RELATIVE PERCENT 0 % (BEAKER) (test code = 437) NEUTROPHILS ABSOLUTE COUNT 1.30 K/ L 1.80-8.00 L (BEAKER) (test code = 670) LYMPHOCYTES ABSOLUTE COUNT 0.64 K/ L 1.48-4.50 L (BEAKER) (test code = 414) MONOCYTES ABSOLUTE COUNT (BEAKER) 0.45 K/ L 0.00-1.30 (test code = 415) EOSINOPHILS ABSOLUTE COUNT 0.06 K/ L 0.00-0.50 (BEAKER) (test code = 416) BASOPHILS ABSOLUTE COUNT (BEAKER) 0.00 K/ L 0.00-0.20 (test code = 417) 0.00
--- NOTE | 2022-05-08 22:05 | RAD REPORT ---
EXAM DESCRIPTION: CT - Head C Spine Mpr Wo Con - 05/08/2022 9:43 pm CLINICAL HISTORY: Head and neck injury status post fall. Head and neck pain COMPARISON: None. TECHNIQUE: Computed axial tomography of the head and cervical spine was obtained. Sagittal and coronal reconstruction was performed. All CT scans are performed using dose optimization technique as appropriate and may include automated exposure control or mA/KV adjustment according to patient size. FINDINGS: An intracranial bleed is not seen. The ventricles are normal in caliber. An extra-axial fl uid collection is not noted.Fluid within the visualized sinuses and mastoids is not seen. Mild cerebr al atrophy A cervical fracture is not visualized. No dislocation is noted. IMPRESSION: No acute intracranial abnormality is seen. A cervical fracture is not visualized. If the patient continues to have symptoms to suggest intracra nial /spinal cord pathology then MRI would be recommended
--- NOTE | 2022-05-08 22:12 | RAD REPORT ---
EXAM DESCRIPTION: Mukesh Single View05/08/2022 9:27 pm CLINICAL HISTORY: Chest pain COMPARISON: 2020 FINDINGS: The lungs appear clear of acute infiltrate. The heart is mildly enlarged. Pacemaker leads are in place. IMPRESSION: No acute abnormalities displayed
[2022-05-08 22:33] LABS: Absolute Lymphocytes (CBC) 1.1 K/uL (0.7-4.9); Hematocrit 35.3 % (36.0-45.0); Lymphocytes % 23.3 % (15.3-44.8); MCV 102.1 fL (80-100); MPV 6.7 fL (7.6-11.3); RBC Red Blood Cell Count 3.46 M/uL (3.86-4.86)
[2022-05-08 22:41] LABS: Potassium 3.5 mmol/L (3.5-5.1); Troponin High Sensitivity 5.5 pg/mL (<58.9)
--- NOTE | 2022-05-08 23:09 | EDPHYS ---
Physician Documentation [facility] Name: Radha Boyer Age: 77 yrs Sex: Female : 1945 Arrival Date: 05/08/2022 Time: 20:32 Bed 20 Private MD: ED Physician Kristel Brock HPI: 05/08 20:46 This 77 yrs old Female presents to ER via Unassigned with complaints of ground level sp3 fall. 20:46 77-year-old female with a history of hypertension and prior breast cancer currently not sp3 on any chemotherapy presents via EMS for ground-level fall she sustained approximately 1 hour prior to arrival where she states "her legs gave out" and she slowly came to the ground. Her found her and activated EMS. EMS arrived to find patient still on the ground but also covered in feces secondary to her not being able to make it to the bathroom. Patient denies LOC or any pain related complaints whatsoever. She also denies that she passed out. Systems, there is no headache, neck pain, chest pain, shortness of breath, back pain, abdominal pain, joint pain, rash, bleeding, or any other findings at this time.. Historical: - Allergies: 21:17 PENICILLINS; kl 21:17 Robaxin; kl 21:17 Methocarbamol; kl - PMHx: 21:17 BREAST CA; Hypertensive disorder; insomnia; kl - PSHx: 21:17 right mastectomy; Several eye sx; kl 23:14 pacemaker; kl - Immunization history:: Adult Immunizations up to date. - Social history:: Smoking status: Patient denies any tobacco usage or history of. ROS: 20:48 Constitutional: Negative for fever, chills, and weight loss, Eyes: Negative for injury, sp3 pain, redness, and discharge, ENT: Negative for injury, pain, and discharge, Neck: Negative for injury, pain, and swelling, Cardiovascular: Negative for chest pain, palpitations, and edema, Respiratory: Negative for shortness of breath, cough, wheezing, and pleuritic chest pain, Abdomen/GI: Negative for abdominal pain, nausea, vomiting, diarrhea, and constipation, Back: Negative for injury and pain, MS/Extremity: Negative for injury and deformity, Skin: Negative for injury, rash, and discoloration, Neuro: Negative for headache, weakness, numbness, tingling, and seizure, Psych: Negative for depression, anxiety, suicide ideation, homicidal ideation, and hallucinations, Allergy/Immunology: Negative for hives, rash, and allergies, Endocrine: Negative for neck swelling, polydipsia, polyuria, polyphagia, and marked weight changes, Hematologic/Lymphatic: Negative for swollen nodes, abnormal bleeding, and unusual bruising. 20:48 All other systems are negative. Exam: 20:48 Constitutional: This is a well developed, well nourished patient who is awake, alert, sp3 and in no acute distress. Head/Face: Normocephalic, atraumatic. Eyes: Pupils equal round and reactive to light, extra-ocular motions intact. Lids and lashes normal. Conjunctiva and sclera are non-icteric and not injected. Cornea within normal limits. Periorbital areas with no swelling, redness, or edema. ENT: Nares patent. No nasal discharge, no septal abnormalities noted. External auditory canals are clear. Oropharynx with no redness, swelling, or masses, exudates, or evidence of obstruction, uvula midline. Mucous membranes moist. Neck: Trachea midline, no thyromegaly or masses palpated, and no cervical lymphadenopathy. Supple, full range of motion without nuchal rigidity, or vertebral point tenderness. No Meningismus. Chest/axilla: Normal chest wall appearance and motion. Nontender with no deformity. No lesions are appreciated. Cardiovascular: Regular rate and rhythm with a normal S1 and S2. No gallops, murmurs, or rubs. Normal PMI, no JVD. No pulse deficits. Respiratory: Lungs have equal breath sounds bilaterally, clear to auscultation and percussion. No rales, rhonchi or wheezes noted. No increased work of breathing, no retractions or nasal flaring. Abdomen/GI: Soft, non-tender, with normal bowel sounds. No distension or tympany. No guarding or rebound. No evidence of tenderness throughout. Back: No spinal tenderness. No costovertebral tenderness. Full range of motion. Skin: Warm, dry with normal turgor. Normal color with no rashes, no lesions, and no evidence of cellulitis. MS/ Extremity: Pulses equal, no cyanosis. Neurovascular intact. Full, normal range of motion. Neuro: Awake and alert, GCS 15, oriented to person, place, time, and situation. Cranial nerves II-XII grossly intact. Motor strength 5/5 in all extremities. Sensory grossly intact. Cerebellar exam normal. Normal gait. Psych: Awake, alert, with orientation to person, place and time. Behavior, mood, and affect are within normal limits. Vital Signs: 21:15 BP 132 / 70; Pulse 66; Resp 18; Temp 98.5(O); Pulse Ox 96% on R/A; Pain 0/10; kl 23:15 BP 130 / 75; Pulse 82; Resp 18; Pulse Ox 96% on R/A; kl 23:38 BP 116 / 47; Pulse 72; Resp 18; Pulse Ox 98% ; Pain 0/10; kl MDM: 20:35 Patient medically screened. sp3 20:48 Data reviewed: vital signs, nurses notes. ED course: 37-year-old female with apparent sp3 mechanical ground-level fall. Patient cannot provide a sound reason for falling other than generalized weakness and "her legs giving out". Will obtain work-up which will include laboratory values, EKG, chest x-ray, CT scan of the head and C-spine. If work-up is negative, will discharge home to PCP follow-up. Patient had a similar episode approximately 1 year ago and presented the exact same way.. 23:07 ED course: Workup negative including scans -- will d/c home. . 05/08 20:35 Order name: Basic Metabolic Panel; Complete Time: 23:07 05/08 20:35 Order name: CBC with Diff; Complete Time: 23:07 05/08 20:35 Order name: Troponin HS; Complete Time: 23:07 05/08 20:35 Order name: XRAY Chest (1 view); Complete Time: 22:26 05/08 20:35 Order name: EKG; Complete Time: 20:36 05/08 20:35 Order name: EKG - Nurse/Tech; Complete Time: 22:51 05/08 20:35 Order name: IV Saline Lock; Complete Time: 22:51 05/08 20:35 Order name: Labs collected and sent; Complete Time: 22:51 05/08 20:59 Order name: Head C Spine Mpr Wo Con; Complete Time: 22:26 EDMS Administered Medications: No medications were administered Disposition Summary: 05/08/22 23:08 Discharge Ordered Location: Home sp3 Condition: Stable sp3 Diagnosis - Fall on same level, unspecified sp3 Followup: sp3 - With: Private Physician - When: As needed - Reason: Recheck today's complaints, Continuance of care Discharge Instructions: - Discharge Summary Sheet sp3 - Fall Prevention in the Home, Adult sp3 Forms: - Medication Reconciliation Form sp3 - Thank You Letter sp3 - Antibiotic Education sp3 - Prescription Opioid Use sp3 Signatures: Dispatcher [employer] EDMS Khushi Cooney RN RN kl Patel, Setul, MD MD sp3 Corrections: (The following items were deleted from the chart) 20:58 20:57 Head Brain Wo Cont ordered. EDMS EDMS
--- NOTE | 2022-05-08 23:09 | ER ---
Nurse's Notes [facility] Name: Radha Boyer Age: 77 yrs Sex: Female : 1945 Arrival Date: 05/08/2022 Time: 20:32 Bed 20 Private MD: Diagnosis: Fall on same level, unspecified Presentation: 05/08 21:15 Chief complaint: EMS states: same level fall this afternoon has been unable to get up kl denies pain at this time. Coronavirus screen: Vaccine status: Patient reports receiving the 2nd dose of the covid vaccine. Ebola Screen: Patient negative for fever greater than or equal to 101.5 degrees Fahrenheit, and additional compatible Ebola Virus Disease symptoms. Initial Sepsis Screen: Does the patient meet any 2 criteria? No. Patient's initial sepsis screen is negative. Does the patient have a suspected source of infection? No. Patient's initial sepsis screen is negative. Risk Assessment: Do you want to hurt yourself or someone else? Patient reports no desire to harm self or others. Onset of symptoms was May 08, 2022 at 13:00. 21:15 Method Of Arrival: EMS: [facility] kl 21:15 Acuity: JEREMY 3 kl 21:19 Note pt cleaned of incontinence tolerated well. Triage Assessment: 21:17 General: Appears distressed, incontinent of stool and urine dried feced to bilateral kl upper and lower exrtremities and torso. Behavior is calm. 23:39 Pain: Denies pain. Historical: - Allergies: 21:17 PENICILLINS; kl 21:17 Robaxin; kl 21:17 Methocarbamol; kl - PMHx: 21:17 BREAST CA; Hypertensive disorder; insomnia; kl - PSHx: 21:17 right mastectomy; Several eye sx; kl 23:14 pacemaker; kl - Immunization history:: Adult Immunizations up to date. - Social history:: Smoking status: Patient denies any tobacco usage or history of. Screenin:16 Abuse screen: Denies threats or abuse. Nutritional screening: No deficits noted. Tuberculosis screening: No symptoms or risk factors identified. Fall Risk Fall in past 12 months (25 points). No secondary diagnosis (0 pts). IV access (20 points). Ambulatory Aid- None/Bed Rest/Nurse Assist (0 pts). Gait- Weak (10 pts.). Mental Status- Oriented to own ability (0 pts). Total Aguilar Fall Scale indicates High Risk Score (45 or more points). Fall prevention measures have been instituted. Side Rails Up X 2 Placed Close to Nursing Station Family Present and informed to notify staff if the need to leave the bedside. Assessment: 21:19 Musculoskeletal: Swelling present in right [place] hematoma noted abrasions noted to right kl elbow area cleaned with antimicrobial solution. Vital Signs: 21:15 BP 132 / 70; Pulse 66; Resp 18; Temp 98.5(O); Pulse Ox 96% on R/A; Pain 0/10; kl 23:15 BP 130 / 75; Pulse 82; Resp 18; Pulse Ox 96% on R/A; kl 23:38 BP 116 / 47; Pulse 72; Resp 18; Pulse Ox 98% ; Pain 0/10; kl ED Course: 20:32 Patient arrived in ED. mw2 20:34 Kristel Brock MD is Attending Physician. sp3 21:17 Triage completed. kl 21:28 XRAY Chest (1 view) In Process Unspecified. EDMS 21:45 Head C Spine Mpr Wo Con In Process Unspecified. EDMS 22:19 Inserted saline lock: 20 gauge in left antecubital area, using aseptic technique. Blood oe collected. 23:16 Patient has correct armband on for positive identification. kl 23:39 No provider procedures requiring assistance completed. IV discontinued, intact, kl bleeding controlled, No redness/swelling at site. Pressure dressing applied. 23:39 EKG completed in triage. Results shown to . marcia Administered Medications: No medications were administered Medication: 23:15 VIS not applicable for this client. Outcome: 23:08 Discharge ordered by . sp3 23:39 Discharged to home via wheelchair, with family. kl 23:39 Condition: stable 23:39 Discharge instructions given to patient, family, Instructed on discharge instructions, follow up and referral plans. Demonstrated understanding of instructions, follow-up care. 23:40 Patient left the ED. Signatures: Dispatcher [employer] Khushi Lundberg, FRAN RN Mani Smith MyKena mw2 Kristel Brock MD MD sp3
--- NOTE | 2022-05-09 13:05 | EKG ---
Test Date: 2022-05-08 Test Time: 22:17:41 Nuisance Wildlife Trapper: DAVID MEASUREMENT RESULTS: Intervals: Rate: 0 [place]: QRSD: 0 QT: 0 QTc: 0 [place]: P: [place]: QRS: 0 T: 0 INTERPRETIVE STATEMENTS: No QRS complexes found, no ECG analysis possible Electronically Signed On 05-09-22 13:04:31 CDT by Kyrie José
--- NOTE | 2022-05-09 13:05 | EKG ---
Test Date: 2022-05-08 Test Time: 22:19:51 Clinical Support Manager: DAVID MEASUREMENT RESULTS: Intervals: Rate: 66 [place]: 120 QRSD: 214 QT: 532 QTc: 557 [place]: P: 111 [place]: 120 QRS: -23 T: 137 INTERPRETIVE STATEMENTS: Electronic ventricular pacemaker Compared to ECG 05/08/2022 22:17:41 No significant changes Electronically Signed On 05-09-22 13:04:20 CDT by Kyrie José
== END 2022-05-08 23:40 | disposition home or self-care (01) ==
LOC: ER 20:24
DX: Z04.3 Encounter for examination and observation following other accident (principal); W18.30XA Fall on same level, unspecified, initial encounter; I10 Essential (primary) hypertension; Z90.11 Acquired absence of right breast and nipple; Z95.0 Presence of cardiac pacemaker; Z88.0 Allergy status to penicillin; Z88.8 Allergy status to other drugs, medicaments and biological substances
CPT/HCPCS: 36415; 70450; 71045; 72125; 80048; 84484; 85025; 93005; 99284

== ENCOUNTER 2022-07-04 20:29 | Emergency (ER) | payer OTHER ==
--- OUTSIDE RECORDS SUMMARY | 2022-07-04 20:37 | XMS REPORT | Continuity of Care Document ---
:1945 Author Organization [facility] t Address [address] [place] [address] Care Team Providers Name Role Phone Sharpless Primary Care Physician AMMON BROCK Attending Clinician Unavailable Navid Lehman MD Attending Clinician Yessica Landry MA Attending Clinician Unavailable SHIKHA NICHOLSON Attending Clinician Unavailable Rupinder Delaney Attending Clinician Unavailable Kelsie Torres OD Attending Clinician SUDHAKAR IBARRA Attending Clinician Unavailable Ammon Brock MD Attending Clinician [phone] Aj Nguyen MD, [facility] Attending Clinician LALO SIDDIQI Attending Clinician Unavailable CARYN CUELLAR Attending Clinician Unavailable Rupinder Delaney Admitting Clinician Unavailable Physician, No Primary or Family Admitting Clinician UnavailLALO Jack Admitting Clinician Unavailable CARYN CUELLAR Admitting Clinician Unavailable Payers Payer Name Policy Type Policy Number Effective Date Expiration Date Carisa jose MEDICARE PLAN PPO - [id number] [employer]ET[employer] MEDICARE PART B - [id number] MEDICARE Problems Condition Condition Condition Status Onset Resolution [...] depletion depletion No known No known Disease [facility] active active [place] problems problems of Medicin e Allergies, Adverse Reactions, Alerts Allergy Allergy Status Severity Reaction(s) Onset Inactive Treating Comm ents Source Name Type Date Date Clinician Anastroz Propensi Active [facility] ole ty to 510 College adverse 00:00: of reaction 00 Medicin s to e drug Penicill Propensi Active [facility] ins ty to 510 College adverse 00:00: of reaction 00 Medicin s to e drug Methocar Propensi Active [facility] bamol ty to 5 College adverse 00:00: of reaction 00 Medicin s to e drug Penicill DA Active [facility] ins BREATHING 01-25 [place] 00:00: d 00 [facility] [place] methocar DA Active [facility] bamol 01-25 [place] 00:00: d [facility] [place] anastroz DA Active [facility] 01-25 [place] [facility] Penicill DA Active [facility] ins 01-25 [facility]: [address] methocar DA Active [facility] bamol 01-25 00:00: [place] 00 [facility] anastroz DA Active [facility] ole 01-25 00:00: [place] 00 [facility] Anastroz Propensi Active [facility] ole ty [...] Propensi Active Method [facility] bamol ty to 12-31 st adverse 00:00: Hospita reaction 00 l s to drug Anastroz Propensi Active [facility] ole ty to 3-10 [facility] adverse 00:00: reaction 00 s Methocar Propensi Active [facility] bamol ty to 2-12 Health adverse 00:00: reaction 00 s Penicill Propensi Active Anaphylaxis [facility] ins ty to 2-12 Health adverse 00:00: reaction 00 s Penicill Propensi Active Anaphylaxis M ethodi ins ty to 2-12 st adverse 00:00: Hospita reaction 00 l s to drug ANASTROZ Allergy Active [facility] PENICILL Allergy Active [facility] METHOCAR Allergy Active [facility] Social History Social Habit Start Date Stop Date Quantity Comments Source Exposure to Not sure [facility] SARS-CoV-2 (event) History SDOH [facility] Alcohol Binge Medical [facility] History SDOH [facility] Dr[facility] Alcohol intake 2022-03-20 2022-03-20 Current drinker of [facility] 00:00:00 00:00:00 alcohol (finding) Hospita l History SDOH 2019-10-19 2019-10-[address] [facility] Alcohol Frequency 00:00:00 00:00:00 [facility] Alcohol Comment 2017-04-24 2017-04-24 occacionaly [facility] t 00:00:00 00:00:00 Hospital Tobacco use and 2017-01-04 2017-01-[address] [facility] [address] [facility] k[facility] exposure 00:00:00 00:00:00 [facility] Sex Ass[birth year] At [birth year] Y[facility]ani 00:00:00 00:00:00 Hospital Smoking Status Start Date Stop Date Source Never smoked tobacco [facility] Medications Ordered Filled Start Stop Current Ordering Indication Dosage Frequency Signature Comments Components Source Medication Medication Date Date Medication? Clinician (SIG) Name Name aspirin 2021- No 81mg Take 81 mg [facility] (ECOTRIN) 03-[address] 81 MG 13:56: 00:00 Hospita enteric 50 :00 l coated tablet aspirin No 81mg Take 81 mg [facility] (ECOTRIN) 03-[address] 81 MG 13:56: 00:00 Hospita enteric 50 :00 l coated tablet [place] Yes TAKE 1 [facility] 2.5-25-1 mg 6-[address] tablet 00:00: MOUTH+ Hospita 00 EVERY DAY. l [place] Yes TAKE 1 [facility] 2.5-25-1 mg 6-[address] tablet 00:00: MOUTH+ Hospita 00 EVERY DAY. l DULoxetine 2021- Yes [id number] TAKE 1 M ethodi (CYMBALTA) 6-[address] 60 MG 00:00: MOUTH Hospita capsule 00 DAILY l DULoxetine 2021- Yes [id number] TAKE 1 M [facility]i (CYMBALTA) 6-[address] 60 MG 00:00: MOUTH Hospita capsule 00 DAILY l gabapentin 2021-2021- No 100mg QD Take 100 M [facility]i (NEURONTIN) - 01-[address] 100 mg 14:09: 00:00 mouth Hospita capsule 25 :00 daily. l Patient states she takes 1-2 tablets in the AM gabapentin 2021-2021- No 100mg QD Take 100 M [facility]i (NEURONTIN) -19 01-[address] 100 mg 14:09: 00:00 mouth Hospita capsule 25 :00 daily. l Patient states she takes 1-2 tablets in the AM furosemide 2021-2021- No 20mg Take 20 mg [facility] (LASIX) 20 08-[address] mg tablet 13:25: 00:00 Hospita 54 :00 l furosemide 2021-2021- No 20mg Take 20 mg [facility] (LASIX) 20 08-[address] mg tablet 13:25: 00:00 Hospita 54 :00 l gabapentin 2021-0 Yes 100mg QD Take 1 Meth tory (NEURONTIN) 1-[address] 100 mg 00:00: (100 mg Hospita capsule 00 total) by l mouth daily. Patient states she takes 1-2 tablets in the AM gabapentin 2021-0 Yes [id number] 300mg QD Take 1 [facility] (NEURONTIN) 1-[address] 300 mg 00:00: (300 mg Hospita capsule 00 total) by l mouth nightly. gabapentin 2022-0 Yes 100mg QD Take 1 Meth tory (NEURONTIN) 08-[address] 100 mg 00:00: (100 mg Hospita capsule 00 total) by l mouth daily. Patient states she takes 1-2 tablets in the AM gabapentin Yes [id number] 300mg QD Take 1 [facility] (NEURONTIN) 08-[address] 300 mg 00:00: (300 mg Hospita capsule 00 total) by l mouth nightly. DULoxetine 2022- No [id number] 30mg QD Take 1 [facility] (Cymbalta) 08-[address] 30 MG 00:00: 05:59 (30 mg Hospita capsule 00 :00 total) by l mouth daily. DULoxetine 2022- No [id number] 30mg QD Take 1 [facility] (Cymbalta) 08-[address] 30 MG 00:00: 05:59 (30 mg Hospita capsule 00 :00 total) by l mouth daily. folic 2021- No 1{tbl} QD Take 1 [facility] acid-vit 08-[address] B6-vit B12 00:00: 00:00 mouth Hospi ta (Folbee) 00 :00 daily. l 2.5-25-1 mg tablet folic 2021- No 1{tbl} QD Take 1 [facility] acid-vit 08-[address] B6-vit B12 00:00: 00:00 mouth Hospi ta (Folbee) 00 :00 daily. l 2.5-25-1 mg tablet DULoxetine 2021- No [id number] 60mg QD Take 1 [facility] (CYMBALTA) 08-[address] 60 MG 00:00: 00:00 (60 mg Hospita capsule 00 :00 total) by l mouth daily. DULoxetine 2021- No [id number] 60mg QD Take 1 [facility] (CYMBALTA) 08-[address] 60 MG 00:00: 00:00 (60 mg Hospita capsule 00 :00 total) by l mouth daily. aspirin 81 Yes 81mg QD Take 81 mg U T MG EC 04-12 by mouth 1 Health tablet 15:42: (one) time 52 each day. aspirin 81 2021-0 Yes 81mg QD Take 81 mg U T MG EC 04-12 by mouth 1 Health tablet 15:42: (one) time 52 each day. Folic Acid 2020-0 Yes Take by UT 0.8 MG 04-12 mouth. Health capsule 15:41: 38 gabapentin 0 Yes Take by UT (Neurontin) 04-12 mouth. Health 100 MG 15:41: capsule 38 Folic Acid 0 Yes Take by UT 0.8 MG 04-12 mouth. Health capsule 15:41: 38 gabapentin 2020-0 Yes Take by [facility] (Neurontin) 04-12 mouth. Health 100 MG 15:41: capsule 38 atorvastati 0 Yes UT n (Lipitor) 8-30 Health 10 MG 00:00: tablet 00 atorvastati 2020-0 Yes UT n (Lipitor) 8-30 Health 10 MG 00:00: tablet 00 furosemide 2020-0 Yes TAKE 1 UT (Lasix) 20 7-25 TABLET BY Heal th MG tablet 00:00: MOUTH 00 EVERY DAY NEEDED SWELLING furosemide 0 Yes TAKE 1 UT (Lasix) 20 7-25 TABLET BY Heal th MG tablet 00:00: MOUTH 00 EVERY DAY NEEDED SWELLING letrozole 2020-0 Yes UT (Femara) 6-30 Health 2.5 MG 00:00: chemo 00 tablet letrozole 2020-0 Yes UT (Femara) 6-30 Health 2.5 MG 00:00: chemo 00 tablet carvedilol 2020-0 Yes TAKE 1 UT (Coreg) 25 6-07 TABLET BY Heal th MG tablet 00:00: MOUTH 00 TWICE DAILY. STOP TAKING BYSTOLIC carvedilol 2020-0 Yes TAKE 1 UT (Coreg) 25 6-07 TABLET BY Heal th MG tablet 00:00: MOUTH 00 TWICE DAILY. STOP TAKING BYSTOLIC FOLIC 2020-0 Yes Take by [facility] ACID/MULTIV 5-18 mouth. [...] times a l tablet per day. tablet FOLIC Yes Take by [facility] ACID/MULTIV 5-[address] IT-MIN/LUTE 12:43: Hospit a IN (CENTRUM 46 l SILVER ORAL) carvediloL Yes 25mg Q.5D Take 25 mg M ethodi (COREG) 25 5-[address] MG tablet 12:43: (two) Hospita 46 times a l day with meals. sacubitriL- 0 Yes Q.5D Take by Met hodi valsartan 5-[address] (Entresto) 12:43: (two) Hospit a 24-26 mg 46 times a l tablet per day. tablet DULoxetine 2021- No [id number] 30mg QD Take 1 [facility] (Cymbalta) 12-[address] 30 MG 00:00: 00:00 (30 mg Hospita capsule 00 :00 total) by l mouth daily. DULoxetine 2021- No [id number] 60mg QD Take 1 [facility] (CYMBALTA) 12-[address] 60 MG 00:00: 00:00 (60 mg Hospita capsule 00 :00 total) by l mouth daily. folic 2021- No 1{tbl} QD Take 1 [facility] acid-vit 12-[address] B6-vit B12 00:00: 00:00 mouth Hospi ta (Folbee) 00 :00 daily. l 2.5-25-1 mg tablet DULoxetine 2021- No [id number] 30mg QD Take 1 [facility] (Cymbalta) 12-[address] 30 MG 00:00: 00:00 (30 mg Hospita capsule 00 :00 total) by l mouth daily. DULoxetine 2021- No [id number] 60mg QD Take 1 [facility] (CYMBALTA) 12-[address] 60 MG 00:00: 00:00 (60 mg Hospita capsule 00 :00 total) by l mouth daily. folic 2021-0 2022- No 1{tbl} QD Take 1 [facility] acid-vit 5-18 08-[address] B6-vit B12 00:00: 00:00 mouth Hospi ta (F[place]bee) 00 :00 daily. l 2.5-25-1 mg tablet gabapentin 2021- No [id number] TAKE 1 [facility] (NEURONTIN) 11-21 CAPSULE(30 s t 300 mg 00:00: 00:00 0 MG) BY Hospit a capsule 00 :00 MOUTH l TWICE DAILY gabapentin 2021- No [id number] TAKE 1 [facility] (NEURONTIN) 11-21 CAPSULE(30 s [...] 1 T PO U T ne 1[facility] (Synthroid, 00:00: Levoxyl) 25 00 MCG tablet levothyroxi 2019-08 Yes TK 1 T PO U T ne 1-20 QA OES Health (Synthroid, 00:00: Levoxyl) 25 00 MCG tablet aspirin EC Yes 81mg Take 81 mg [facility] 81 MG 30 by mouth. College tablet 18:55: of 51 Medicin e furosemide 2019- Yes furosemide [facility] (LASIX) 20 30 20 mg College MG tablet 18:55: tablet TK of 51 1 T PO QD Medicin PRN e SWELLING triamcinolo Yes triamcinol [facility] ne 05-11 one College (KENALOG) 18:55: acetonide of 0.1 % cream 51 0.1 % Medicin topical e cream APPLY AA BID FOR 7 TO 14 DAYS PRN RASH Multiple 2019- Yes Take by [facility] Vitamins-Mi 05-11 mouth. Colleg e nerals 18:55: of (CENTRUM 51 Medicin SILVER) e TABS alclomethas 2020-0 Yes alclometas [place] one 9-30 one 0.05 % [place] (ACLOVATE) 18:55: topical of 0.05 % 51 cream Medicin cream e aspirin EC 2020-0 Yes 81mg Take 81 mg [facility] 81 MG 8-31 by mouth. [place] tablet 20:34: of 27 Medicin e furosemide 2020-0 Yes furosemide [facility] (LASIX) 20 8-31 20 mg College MG tablet 20:34: tablet TK of 27 1 T PO QD Medicin PRN e SWELLING triamcinolo 2020-0 Yes triamcinol [facility] ne 8 [facility] ([facility]) 20:34: acetonide of 0.1 % cream 27 0.1 % Medicin topical e cream APPLY AA BID FOR 7 TO 14 DAYS PRN RASH Multiple 2020-0 Yes Take by [facility] Vitamins-Ms 8- mouth. Colleg e nerals 20:34: of (CENTRUM 27 Medicin SILVER) e TABS alclomethas 2020-0 Yes alclometas [facility] one 8- one 0.05 % [place] (ACLOVATE) 20:34: topical of 0.05 % 27 cream Medicin cream e aspirin EC 2020-0 Yes 81mg Take 81 mg [facility] 81 MG 831 by mouth. [place] tablet 20:34: of 27 Medicin e furosemide 2020-0 Yes furosemide [facility] (LASIX) 20 8-31 20 mg College MG tablet 20:34: tablet TK of 27 1 T PO QD Medicin PRN e SWELLING triamcinolo 2020-0 Yes triamcinol [facility] ne 8 one [place] ([facility]) 20:34: acetonide of 0.1 % cream 27 0.1 % Medicin topical e cream APPLY AA BID FOR 7 TO 14 DAYS PRN RASH Multiple 2020-0 Yes Take by [facility] Vitamins-Mi 8-31 mouth. Colleg e nerals 20:34: of (CENTRUM 27 Medicin SILVER) e TABS alclomethas 2020-0 Yes alclometas [place] one 8-31 one 0.05 % [place] (ACLOVATE) 20:34: topical of 0.05 % 27 cream Medicin cream e aspirin EC 2020-0 Yes 81mg Take 81 mg [facility] 81 MG 7-08 by mouth. [place] tablet 19:55: of 29 Medicin e furosemide 2020-0 Yes furosemide [facility] (LASIX) 20 - 20 mg College MG tablet 19:55: tablet TK of 29 1 T PO QD Medicin PRN e SWELLING triamcinolo 2020-0 Yes triamcinol [facility] ne 02-16 one [place] (KENALOG) 19:55: acetonide of 0.1 % cream 29 0.1 % Medicin topical e cream APPLY AA BID FOR 7 TO 14 DAYS PRN RASH Multiple 2020-0 Yes Take by [facility] Vitamins-Mi 02-16 mouth. Colleg e nerals 19:55: of (CENTRUM 29 Medicin SILVER) e TABS alclomethas 2020-0 Yes alclometas [facility] one 02-16 one 0.05 % [place] (ACLOVATE) 19:55: topical of 0.05 % 29 cream Medicin cream e aspirin 81 2020-0 2020- No 81mg Take 81 mg [facility] MG tablet 02-16 by mouth. [place] 19:53: 00:00 of 34 :00 Medicin e ALPHAGAN P 2020-0 Yes INT 1 GTT [facility] 0.1 % 6-30 IN OS BID [place] ophthalmic 00:00: PRN of solution 00 Medicin e ALPHAGAN P 2020-0 Yes INT 1 GTT [facility] 0.1 % 6-30 IN OS BID [place] ophthalmic 00:00: PRN of solution 00 Medicin e ALPHAGAN P 2020-0 Yes INT 1 GTT [facility] 0.1 % 6-30 IN OS BID [place] ophthalmic 00:00: PRN of solution 00 Medicin e ALPHAGAN P 2020-0 Yes INT 1 GTT [facility] 0.1 % 6-30 IN OS BID [place] ophthalmic 00:00: PRN of solution 00 Medicin e timolol 2020-0 Yes INSTILL 1 [facility] maleate 6-02 GTT IN TO [place] (TIMOPTIC) 00:00: LEFT EYE of 0.5 % 00 BID UTD Medicin ophthalmic e solution timolol 2020-0 Yes INSTILL 1 [facility] maleate 6-02 GTT IN TO [place] (TIMOPTIC) 00:00: LEFT EYE of 0.5 % 00 BID UTD Medicin ophthalmic e solution timolol 2020-0 Yes INSTILL 1 [facility] maleate 6-02 GTT IN TO [place] (TIMOPTIC) 00:00: LEFT EYE of 0.5 % 00 BID UTD Medicin ophthalmic e solution timolol 2020-0 Yes INSTILL 1 Lydia r maleate 6- GTT IN TO [place] (TIMOPTIC) 00:00: LEFT EYE of 0.5 % 00 BID UTD Medicin ophthalmic e solution Levocetiriz 2020-0 Yes TK 1 T PO [facility] ine 5-24 D [place] Dihydrochlo 00:00: of ride 5 MG 00 Medicin TABS e Levocetiriz 2020-0 Yes TK 1 T PO [facility] ine 5-24 D [place] Dihydrochlo 00:00: of ride 5 MG 00 Medicin TABS e Levocetiriz 2020-0 Yes TK 1 T PO [facility] ine 5-24 D [place] Dihydrochlo 00:00: of ride 5 MG 00 Medicin TABS e Levocetiriz 2020-0 Yes TK 1 T PO [place] ine 5-24 D [place] Dihydrochlo 00:00: of ride 5 MG 00 Medicin [...] FOLBEE 2020-0 Yes TK 1 T PO [facility] 2.5-25-1 MG 5-18 D College TABS 00:00: of 00 Medicin e FOLBEE 2020-0 Yes TK 1 T PO [facility] 2.5-25-1 MG 5-18 D College TABS 00:00: of 00 Medicin e FOLBEE 2020-0 Yes TK 1 T PO [facility] 2.5-25-1 MG 5-18 D College TABS 00:00: of 00 Medicin e moxifloxaci 2020-0 Yes 1[drp] Place 1 [facility] (VIGAMOX) 4-15 Drop into Col lege 0.5 % 00:00: the left of ophthalmic 00 eye 3 Medicin solution times e daily. PRED FORTE 2020-0 Yes Per [facility] 1 % 4-15 [facility] ophthalmic 00:00: n sheet of suspension 00 Medicin e moxifloxaci 2020-0 Yes 1[drp] Place 1 [facility] n (VIGAMOX) 4-15 Drop into Col lege 0.5 % 00:00: the left of ophthalmic 00 eye 3 Medicin solution times e daily. PRED FORTE 2020-0 Yes Per [facility] 1 % 4-15 [facility] ophthalmic 00:00: n sheet of suspension 00 Medicin e moxifloxaci 2020-0 Yes 1[drp] Place 1 [facility] n (VIGAMOX) 4-15 Drop into Col lege 0.5 % 00:00: the left of ophthalmic 00 eye 3 Medicin solution times e daily. PRED FORTE 2020-0 Yes Per [facility] 1 % 4-15 [facility] ophthalmic 00:00: n sheet of suspension 00 Medicin e moxifloxaci 2020-0 Yes 1[drp] Place 1 [facility] n (VIGAMOX) 4-15 Drop into Col lege 0.5 % 00:00: the left of ophthalmic 00 eye 3 Medicin solution times e daily. PRED FORTE 2020-0 Yes Per [facility] 1 % 4-15 [facility] ophthalmic 00:00: n sheet of suspension 00 Medicin e moxifloxaci 2020-0 Yes 1[drp] Place 1 [facility] n (VIGAMOX) 4-15 Drop into Col lege 0.5 % 00:00: the left of ophthalmic 00 eye 3 Medicin solution times e daily. PRED FORTE 2020-0 Yes Per [facility] 1 % 4-15 [facility] ophthalmic 00:00: n sheet of suspension 00 Medicin e moxifloxaci 2020-0 Yes 1[drp] Place 1 [facility] n (VIGAMOX) 4-15 Drop into Col lege 0.5 % 00:00: the left of ophthalmic 00 eye 3 Medicin solution times e daily. PRED FORTE 2020-0 Yes Per [place] 1 % 4-15 [facility] ophthalmic 00:00: n sheet of suspension 00 [...] prednisoLON 2020-0 2020- No 1[drp] Place 1 [facility] E acetate 3-11 07-08 Drop into [...] times Center daily. gabapentin 2020-0 Yes 300mg [id number] Take [address] (NEURONTIN) 3-10 [id number] mg by L ukes 300 MG 14:15: 3D mouth 3 Medical capsule 34 (three) Center times daily. QUINACRINE 2020-0 Yes 100mg Take [address] HCL 3-10 mg by [facility] (QUINACRINE 14:15: mouth Medic al , BULK, 34 once. [facility]) FOLIC 2020-0 Yes Take by [facility] ACID/MULTIV 3-10 mouth. [facility] IT-MIN/LUTE 14:15: Medica l IN ([facility] 34 Center SILVER ORAL) Missing or 2020-[address] [facility] Non-Formula 3-10 [facility] ry 14:15: Medical Medication 34 [place] carvedilol 2020-0 Yes 37.5mg Take 37.5 [facility] [...] times Center daily. gabapentin 2020-0 Yes 300mg [id number] Take [address] (NEURONTIN) 3-10 [id number] mg by L ukes 300 MG 14:15: 3D mouth 3 Medical capsule 34 (three) Center times daily. QUINACRINE 2020-0 Yes 100mg Take [address] HCL 3-10 mg by [facility] (QUINACRINE 14:15: mouth Medic al , BULK, 34 once. [facility]) FOLIC 2020-0 Yes Take by [facility] ACID/MULTIV 3-10 mouth. [facility] IT-MIN/LUTE 14:15: Medica l IN ([facility] 34 Center SILVER ORAL) Missing or 2020-[address] [facility] Non-Formula 3-10 [facility] ry 14:15: Medical Medication [address] [place] [address] Multiple 2020-0 Yes Take by [facility] Vitamins-Mi 3-02 mouth. Colleg e nerals 21:03: of (CENTRUM 37 Medicin SILVER) e TABS alclomethas 2020-0 Yes alclometas [facility] one 3-02 one 0.05 % College (ACLOVATE) [...] 37 Medicin e triamcinolo 2020-0 Yes triamcinol [facility] ne 3- one [place] ([facility]) 21:03: acetonide of 0.1 % cream 37 0.1 % Medicin topical e cream APPLY AA BID FOR 7 TO 14 DAYS PRN RASH Multiple 2020-0 Yes Take by [facility] Vitamins-Ms 3-02 mouth. Colleg e nerals 21:03: of (CENTRUM 37 Medicin SILVER) e TABS alclomethas 2020-0 Yes alclometas [facility] one 3-02 one 0.05 % [place] (ACLOVATE) 21:03: topical of 0.05 % 37 cream Medicin cream e aspirin EC 2020-0 Yes 81mg Take 81 mg [facility] 81 MG 3- by mouth. [place] tablet 21:03: of 37 Medicin e furosemide 2020-0 Yes furosemide [facility] (LASIX) 20 3-02 20 mg College MG tablet 21:03: tablet TK of 37 1 T PO QD Medicin PRN e SWELLING aspirin 81 2020-0 Yes 81mg Take 81 mg [facility] MG tablet 3-02 by mouth. Colle ge 21:03: of 37 Medicin e triamcinolo 2020-0 Yes triamcinol [facility] ne 3- one [place] ([facility]) 21:03: acetonide of 0.1 % cream 37 0.1 % Medicin topical e cream APPLY AA BID FOR 7 TO 14 DAYS PRN RASH Multiple 2020-0 Yes Take by [facility] Vitamins-Mi 3-02 mouth. Colleg e nerals 21:03: of (CENTRUM 37 Medicin SILVER) e TABS alclomethas 2020-0 Yes alclometas [facility] one 3-02 one 0.05 % [place] (ACLOVATE) 21:03: topical of 0.05 % 37 cream Medicin cream e aspirin EC 2020-0 Yes 81mg Take 81 mg [facility] 81 MG 3-02 by mouth. [place] tablet 21:03: of 37 Medicin e furosemide 2020-0 Yes furosemide [facility] (LASIX) 20 3-02 20 mg College MG tablet 21:03: tablet TK of 37 1 T PO QD Medicin PRN e SWELLING aspirin 81 2020-0 Yes 81mg Take 81 mg [facility] MG tablet 3-02 by mouth. Colle ge 21:03: of 37 Medicin e triamcinolo 2020-0 Yes triamcinol [facility] ne 3-02 one [place] (KENALOG) 21:03: acetonide of 0.1 % cream 37 0.1 % Medicin topical e cream APPLY AA BID FOR 7 TO 14 DAYS PRN RASH Multiple 2020-0 Yes Take by [facility] Vitamins-Ms 3-02 mouth. Colleg e nerals 21:03: of (CENTRUM 37 Medicin SILVER) e TABS alclomethas 2020-0 Yes alclometas [facility] one 3-02 one 0.05 % [place] (ACLOVATE) 21:03: topical of 0.05 % 37 cream Medicin cream e aspirin EC 2020-0 Yes 81mg Take 81 mg [facility] 81 MG 3-02 by mouth. [place] tablet 21:03: of 37 Medicin e furosemide 2020-0 Yes furosemide [facility] (LASIX) 20 3-02 20 mg College MG tablet 21:03: tablet TK of 37 1 T PO QD Medicin PRN e SWELLING aspirin 81 2020-0 Yes 81mg Take 81 mg [facility] MG tablet 3-02 by mouth. Colle ge 21:03: of 37 Medicin e triamcinolo 2020-0 Yes triamcinol [facility] ne 3- one [place] (KENALOG) 21:03: acetonide of 0.1 % cream 37 0.1 % Medicin topical e cream APPLY AA BID FOR 7 TO 14 DAYS PRN RASH Multiple 2020-0 Yes Take by [facility]-Mi 3-02 mouth. Colleg e nerals 21:03: of (CENTRUM 37 Medicin SILVER) e TABS alclomethas 2020-0 Yes alclometas [facility] one 3-02 one 0.05 % [place] (ACLOVATE) 21:03: topical of 0.05 % 37 cream Medicin cream e aspirin EC 2020-0 Yes 81mg Take 81 mg [facility] 81 MG 3-02 by mouth. [place] tablet 21:03: of 37 Medicin e furosemide 2020-0 Yes furosemide [facility] (LASIX) 20 3-02 20 mg College MG tablet 21:03: tablet TK of 37 1 T PO QD Medicin PRN e SWELLING aspirin 81 2020-0 Yes 81mg Take 81 mg [facility] MG tablet 10-11 by mouth. Colle ge 21:03: of 37 Medicin e triamcinolo 2019- Yes triamcinol [facility] ne 3 one [facility] (KENALOG) 21:03: acetonide of 0.1 % cream 37 0.1 % Medicin topical e cream APPLY AA BID FOR 7 TO 14 DAYS PRN RASH gabapentin 2018-08 Yes TK 1 C PO [facility] (NEURONTIN) -14 [facility] 300 MG 00:00: of capsule 00 Medicin e gabapentin 2018-08 Yes TK 1 C PO [facility] (NEURONTIN) 14 [facility] 300 MG 00:00: of capsule 00 Medicin e gabapentin 2018-08 Yes TK 1 C PO [facility] (NEURONTIN) 14 [facility] 300 MG 00:00: of capsule 00 Medicin e gabapentin 2018-08 Yes TK 1 C PO [facility] (NEURONTIN) -14 [facility] 300 MG 00:00: of capsule 00 Medicin e gabapentin 2018-08 Yes TK 1 C PO [facility] (NEURONTIN) -14 [facility] 300 MG 00:00: of capsule 00 Medicin e gabapentin 2018-08 Yes TK 1 C PO [facility] (NEURONTIN) -14 [facility] 300 MG 00:00: of capsule 00 Medicin e gabapentin 2018-08 Yes TK 1 C PO [facility] (NEURONTIN) -14 [facility] 300 MG 00:00: of capsule 00 Medicin e gabapentin 2018- Yes TK 1 C PO [facility] (NEURONTIN) -14 [facility] 300 MG 00:00: of capsule 00 Medicin e gabapentin 2018- Yes TK 1 C PO [facility] (NEURONTIN) -14 [facility] 300 MG 00:00: of capsule 00 Medicin [...] 1 T PO [facility] (COREG) 25 - BID. STOP [facility] MG tablet 00:00: TAKING of BYSTOLIC Medicin e carvedilol 2018-08 Yes TK 1 T PO [facility] (COREG) 25 08-22 BID. STOP [facility] MG tablet 00:00: TAKING of 00 BYSTOLIC Medicin e mometasone 2018-08 Yes APPLY AA [place] [facility] (ELOCON) 0-30 BID PRN College 0.1 % cream 00:00: of 00 Medicin e mometasone 2018-08 Yes APPLY AA [place] [facility] (ELOCON) 0-30 BID PRN College 0.1 % cream 00:00: of 00 Medicin e mometasone 2018-08 Yes APPLY AA [place] [facility] (ELOCON) 0-30 BID PRN College 0.1 % cream 00:00: of 00 Medicin e mometasone 2018-08 Yes APPLY AA [place] [facility] (ELOCON) 0-30 BID PRN College 0.1 % cream 00:00: of 00 Medicin e mometasone 2018-08 Yes APPLY AA [place] [facility] (ELOCON) 0-30 BID PRN College 0.1 % cream 00:00: of 00 Medicin e mometasone 2018-08 Yes APPLY AA [place] [facility] (ELOCON) 0-30 BID PRN College 0.1 % cream 00:00: of 00 Medicin e mometasone 2018-08 Yes APPLY AA [place] [facility] (ELOCON) 0-30 BID PRN College 0.1 % cream 00:00: of 00 Medicin e mometasone 2018-08 Yes APPLY AA [place] [facility] (ELOCON) 0-30 BID PRN College 0.1 % cream 00:00: of 00 Medicin e mometasone 2018-08 Yes APPLY AA [place] [facility] (ELOCON) 0-30 BID PRN College 0.1 % cream 00:00: of 00 Medicin e clobetasol 2018-08 Yes GENNY TO [...] solution e clobetasol 2018-08 Yes GENNY TO [place] (TEMOVATE) 0-02 SCALP BID [facility] 0.05 % 00:00: PRF RASH of external 00 Medicin solution e clobetasol 2018-08 Yes GENNY TO [place] [facility] (TEMOVATE) 0-02 SCALP BID [facility] 0.05 % 00:00: PRF RASH of external 00 Medicin solution e clobetasol 2018-08 Yes GENNY TO [place] (TEMOVATE) 0-02 SCALP BID [facility] 0.05 % 00:00: PRF RASH of external 00 Medicin solution e duloxetine Yes TK ONE C [place] [facility] (CYMBALTA) 9-29 PO QD. TK [facility] 30 MG 00:00: WITH of capsule 00 CYMBALTA Medicin 60 MG QD e duloxetine Yes TK ONE C [place] [facility] (CYMBALTA) 9-29 PO QD. TK [facility] 30 MG 00:00: WITH of capsule 00 CYMBALTA Medicin 60 MG QD e duloxetine Yes TK ONE C [place] [facility] (CYMBALTA) 9-29 PO QD. TK [facility] 30 MG 00:00: WITH of capsule 00 CYMBALTA Medicin 60 MG QD e duloxetine Yes TK ONE C [place] [facility] (CYMBALTA) 9-29 PO QD. TK [facility] 30 MG 00:00: WITH of capsule 00 CYMBALTA Medicin 60 MG QD e duloxetine Yes TK ONE C [place] [facility] (CYMBALTA) 9-29 PO QD. TK [facility] 30 MG 00:00: WITH of capsule 00 CYMBALTA Medicin 60 MG QD e duloxetine 2019-0 Yes TK ONE C [place] [facility] (CYMBALTA) 9-29 PO QD. TK [facility] 30 MG 00:00: WITH of capsule 00 CYMBALTA Medicin 60 MG QD e duloxetine 2019-0 Yes TK ONE C [place] [facility] (CYMBALTA) 9-29 PO QD. TK [facility] 30 MG 00:00: WITH of capsule 00 CYMBALTA Medicin 60 MG QD e duloxetine 2018-0 Yes TK ONE C [place] [facility] (CYMBALTA) 9-29 PO QD. TK [facility] 30 MG 00:00: WITH of capsule 00 CYMBALTA Medicin 60 MG QD e duloxetine 2018-0 Yes TK ONE C [place] [facility] (CYMBALTA) 9-29 PO QD. TK [facility] 30 MG 00:00: WITH of capsule 00 CYMBALTA Medicin 60 MG QD e diflupredna 2019-0 Yes 1[drp] Place 1 B [facility] 5-29 [facility] (DUREZOL) 00:00: the left of 0.05 % 00 eye four Medicin ophthalmic times e emulsion daily. diflupredna 2019-0 Yes 1[drp] Place 1 B [facility] 5-29 [facility] (DUREZOL) 00:00: the left of 0.05 % 00 eye four Medicin ophthalmic times e emulsion daily. diflupredna 2019-0 Yes 1[drp] Place 1 B [facility] 5-29 [facility] into [facility] (DUREZOL) 00:00: the left of 0.05 % 00 eye four Medicin ophthalmic times e emulsion daily. diflupredna 2019-0 Yes 1[drp] Place 1 B [facility] 5-29 [facility] into [facility] (DUREZOL) 00:00: the left of 0.05 % 00 eye four Medicin ophthalmic times e emulsion daily. diflupredna 2019-0 Yes 1[drp] Place 1 B [facility] 5-29 [facility] into [facility] (DUREZOL) 00:00: the left of 0.05 % 00 eye four Medicin ophthalmic times e emulsion daily. diflupredna 2019-0 Yes 1[drp] Place 1 B [facility] 5-29 Drop into [place] (DUREZOL) 00:00: the left of 0.05 % 00 eye four Medicin ophthalmic times e emulsion daily. diflupredna 2019-0 Yes 1[drp] Place 1 B [facility] 5-29 [facility] (DUREZOL) 00:00: the left of 0.05 % 00 eye four Medicin ophthalmic times e emulsion daily. diflupredna 2019-0 Yes 1[drp] Place 1 B [facility] 5-29 [facility] into [facility] (DUREZOL) 00:00: the left of 0.05 % 00 eye four Medicin ophthalmic times e emulsion daily. diflupredna 2019-0 Yes 1[drp] Place 1 B [facility] 5-29 [facility] (DUREZOL) 00:00: the left of 0.05 % 00 eye four Medicin ophthalmic times e emulsion daily. losartan 2019-0 Yes [facility] (COZAAR) 5-09 College 100 MG 00:00: of tablet 00 Medicin e furosemide 2019-0 Yes [facility] (LASIX) 20 5-09 College MG tablet 00:00: of 00 Medicin e losartan 2019-0 Yes [facility] (COZAAR) 12-18 College 100 MG 00:00: of tablet 00 Medicin e furosemide 2019-0 Yes [facility] (LASIX) 20 5-09 College MG tablet 00:00: of 00 Medicin e losartan 2019-0 Yes [facility] (COZAAR) 12-18 College 100 MG 00:00: of tablet 00 Medicin e furosemide 2019-0 Yes [facility] (LASIX) 20 5-09 College MG tablet 00:00: of 00 Medicin e losartan 2019-0 Yes [facility] (COZAAR) 5-09 College 100 MG 00:00: of tablet 00 Medicin e losartan 2019-0 Yes [facility] (COZAAR) 509 College 100 MG 00:00: of tablet 00 Medicin e losartan 2019-0 Yes [facility] (COZAAR) 509 College 100 MG 00:00: of tablet 00 Medicin e losartan 2019-0 Yes [facility] (COZAAR) 5-09 College 100 MG 00:00: of tablet 00 Medicin e losartan 2019-0 Yes [facility] (COZAAR) 509 College 100 MG 00:00: of tablet 00 Medicin e furosemide 2019-0 Yes [facility] (LASIX) 20 5-09 College MG tablet 00:00: of 00 Medicin e losartan 2019-0 Yes [facility] (COZAAR) 5-09 College 100 MG 00:00: of tablet 00 Medicin e furosemide 2019-0 Yes [facility] (LASIX) 20 5-09 College MG tablet 00:00: of 00 Medicin e furosemide 2019-0 2020- No [facility] (LASIX) 20 5-09 07-08 College MG tablet 00:00: 00:00 of 00 :00 Medicin e levothyroxi 2019-0 Yes TK 1 T PO B [facility] [place] 11-13 [facility] (SYNTHROID) 00:00: of 25 MCG 00 Medicin tablet e levothyroxi 2019-0 Yes TK 1 T PO B [facility] [place] 11-13 [facility] (SYNTHROID) 00:00: of 25 MCG 00 Medicin tablet e levothyroxi 2019-0 Yes TK 1 T PO B [facility] 11-13 [facility] (SYNTHROID) 00:00: of 25 MCG 00 Medicin tablet e levothyroxi 2019-0 Yes TK 1 T PO B [facility] 11-13 [facility] (SYNTHROID) 00:00: of 25 MCG 00 Medicin tablet e levothyroxi 2019-0 Yes TK 1 T PO B [facility] 11-13 [facility] (SYNTHROID) 00:00: of 25 MCG 00 Medicin tablet e levothyroxi 2019-0 2020- No TK 1 T PO [facility] ne 11-13 [facility] (SYNTHROID) 00:00: 00:00 of 25 MCG 00 :00 Medicin tablet e BYSTOLIC Yes TK 1 T PO B [facility] MG TABS 3-14 QD College 00:00: of 00 Medicin e BYSTOLIC 10 Yes TK 1 T PO B [facility] MG TABS 3-14 QD College 00:00: of 00 Medicin e BYSTOLIC Yes TK 1 T PO [facility] MG TABS 3-14 QD College 00:00: of 00 Medicin e BYSTOLIC 10 Yes TK 1 T PO B [facility] MG TABS 3-14 QD College 00:00: of 00 Medicin e BYSTOLIC 10 Yes TK 1 T PO [facility] MG TABS 3-14 QD College 00:00: of 00 Medicin e BYSTOLIC 10 2019-0 Yes TK 1 T PO B [facility] MG TABS 3-14 QD College 00:00: of 00 Medicin e BYSTOLIC 10 2019-0 Yes TK 1 T PO B [facility] MG TABS 3-14 QD College 00:00: of 00 Medicin e BYSTOLIC 10 2019-0 Yes TK 1 T PO B [facility] MG TABS 3-14 QD College 00:00: of 00 Medicin e BYSTOLIC 10 2019-0 Yes TK 1 T PO B [facility] MG TABS 3-14 QD College 00:00: of 00 Medicin e Letrozole 2019-0 Yes [facility] 2.5 MG TABS 3-05 College 00:00: of 00 Medicin e Letrozole 2019-0 Yes [facility] 2.5 MG TABS 3-05 College 00:00: of 00 Medicin e Letrozole 2019-0 Yes [facility] 2.5 MG TABS 3-05 College 00:00: of 00 Medicin e Letrozole 2019-0 Yes [facility] 2.5 MG TABS 3-05 College 00:00: of 00 Medicin e Letrozole 2019-0 Yes [facility] 2.5 MG TABS 3-05 College 00:00: of 00 Medicin e Letrozole 2019-0 2020- No [facility] 2.5 MG TABS 3-05 -[address] [place] [address] 00:00: 00:00 of 00 :00 Medicin e [...] -18 BID College 12-B6 00:00: of (METANX) Medicin 3-90.314-2- e 35 MG CAPS L-Methylfol 2019-0 Yes TK 1 C PO B [facility] ate-Algae-B -18 BID College 12-B6 00:00: of (METANX) Medicin 3-90.314-2- e 35 MG CAPS L-Methylfol 2019-0 Yes TK 1 C PO B [facility] ate-Algae-B -18 BID College 12-B6 00:00: of (METANX) Medicin 3-90.314-2- e 35 MG CAPS L-Methylfol 2019-0 Yes TK 1 C PO B [facility] ate-Algae-B -18 BID College 12-B6 00:00: of (METANX) Medicin 3-90.314-2- e 35 MG CAPS duloxetine 2018-0 Yes duloxetine B [facility] (CYMBALTA) 9-17 60 mg College 60 MG 00:00: capsule,de of capsule 00 layed Medicin release TK e 1 C PO D WF duloxetine 2018-0 Yes duloxetine [facility] (CYMBALTA) 9-17 60 mg College 60 MG 00:00: capsule,de of capsule 00 layed Medicin release TK e 1 C PO D WF duloxetine 2018-0 Yes duloxetine [facility] (CYMBALTA) 9-17 60 mg College 60 MG 00:00: capsule,de of capsule 00 layed Medicin release TK e 1 C PO D WF duloxetine 2018-0 Yes duloxetine [facility] (CYMBALTA) 9-17 60 mg College 60 MG 00:00: capsule,de of capsule 00 layed Medicin release TK e 1 C PO D WF duloxetine 2018-0 Yes duloxetine [facility] (CYMBALTA) 9-17 60 [...] e 1 C PO D WF levothyroxi 2017- Yes [facility] (SYNTHROID, 00:00: Hospit a LEVOXYL) 25 00 l mcg tablet levothyroxi 0 Yes levothyrox [facility] ne 7-20 ine 25 mcg [place] (SYNTHROID) 00:00: tablet of 25 MCG 00 Medicin tablet e levothyroxi 0 Yes levothyrox [facility] ne 7-20 ine 25 mcg [place] (SYNTHROID) 00:00: tablet of 25 MCG 00 Medicin tablet e levothyroxi 2017-0 Yes levothyrox [facility] ne 7-20 ine 25 mcg [place] (SYNTHROID) 00:00: tablet of 25 MCG 00 Medicin tablet e levothyroxi 2017-0 Yes levothyrox [facility] ne 7-20 ine 25 mcg [place] (SYNTHROID) 00:00: tablet of 25 MCG 00 Medicin tablet e levothyroxi 2017-0 Yes levothyrox [facility] ne 7-20 ine 25 mcg [place] (SYNTHROID) 00:00: tablet of 25 MCG 00 Medicin tablet e levothyroxi 2017-0 Yes levothyrox [facility] ne 7-20 ine 25 mcg [place] (SYNTHROID) 00:00: tablet of 25 MCG 00 Medicin tablet e levothyroxi 2017-0 Yes levothyrox [facility] ne 7-20 ine 25 mcg [place] (SYNTHROID) 00:00: tablet of 25 MCG 00 Medicin tablet e levothyroxi 2017- Yes levothyrox [facility] ne 7-20 ine 25 mcg [place] (SYNTHROID) 00:00: tablet of 25 MCG 00 Medicin tablet e levothyroxi Yes levothyrox [facility] ne 7-20 ine 25 mcg [place] (SYNTHROID) 00:00: tablet of 25 MCG 00 Medicin tablet e levothyroxi Yes [facility] (SYNTHROID, 00:00: Hospit a LEVOXYL) 25 00 l mcg tablet letrozole Yes 1{tbl} QD Take 1 [facility] (FEMARA) 1-[address] 2.5 mg 00:00: [facility] chemo 00 daily. l tablet Letrozole Yes letrozole [place] [facility] 2.5 MG TABS 1-28 2.5 mg Colleg e 00:00: tablet of 00 Medicin e Letrozole 2014-0 Yes letrozole [place] [facility] 2.5 MG TABS 1-28 2.5 mg Colleg e 00:00: tablet of 00 Medicin e Letrozole 2014-0 Yes letrozole [place] [facility] 2.5 MG TABS 1-28 2.5 mg Colleg e 00:00: tablet of 00 Medicin e Letrozole 2014-0 Yes letrozole [place] [facility] 2.5 MG TABS 1-28 2.5 mg Colleg e 00:00: tablet of 00 Medicin e Letrozole 2014-0 Yes letrozole [place] [facility] 2.5 MG TABS 1-28 2.5 mg Colleg e 00:00: tablet of 00 Medicin e Letrozole 2014-0 Yes letrozole [place] [facility] 2.5 MG TABS 1-28 2.5 mg Colleg e 00:00: tablet of 00 Medicin e Letrozole 2014-0 Yes letrozole [place] [facility] 2.5 MG TABS 1-28 2.5 mg Colleg e 00:00: tablet of 00 Medicin e Letrozole 2014-0 Yes letrozole [place] [facility] 2.5 MG TABS 1-28 2.5 mg Colleg e 00:00: tablet of 00 Medicin e Letrozole 2014-0 Yes letrozole [place] [facility] 2.5 MG TABS 1-28 2.5 mg Colleg e 00:00: tablet of 00 Medicin e letrozole 2014-0 Yes 1{tbl} QD Take 1 [facility] (FEMARA) 1-[address] 2.5 mg 00:00: mouth [facility] chemo 00 daily. l tablet Immunizations Ordered Immunization Filled Immunization Date Status Commen ts Source Name Name ELIEL COVID-19 MRNA 2021-05-12 Completed [facility] VACCINATION 00:00:00 [facility] PFIZER COVID-19 MRNA 2021-05-12 Completed [facility] VACCINATION 00:00:00 [facility] PFIZER COVID-19 MRNA 2020-10-05 Completed [facility] VACCINATION 00:00:00 [facility] PFIZER COVID-19 MRNA 2020-10-05 Completed [facility] VACCINATION 00:00:00 [facility] PFIZER COVID-19 MRNA 2020-09-14 Completed [facility] VACCINATION 00:00:00 [facility] PFIZER COVID-19 MRNA 2020-09-14 Completed [facility] VACCINATION 00:00:00 Hospital Vital Signs Vital Name Observation Time Observation Value Comments Source Systolic blood 2022-03-20 18:28:00 118 mm[Hg] [facility] pressure Diastolic blood 2022-03-20 18:28:00 78 mm[Hg] [facility] pressure Heart rate 2022-03-20 18:28:00 77 /min [facility] Body height 2022-03-20 18:28:00 160 cm [facility] Body weight 2022-03-20 18:28:00 70.308 kg [facility] BMI 2022-03-20 18:28:00 27.46 kg/m2 [facility] Body temperature 2021-08-30 19:26:00 35.94 [facility] Procedures Procedure Date / Time Performed Performing Clinician [facility] e ZAMUDIO VISUAL FIELD 2022-01-10 13:20:20 [facility] OU - BOTH EYES Medicine AUTOMATED VISUAL 2021-04-12 16:42:57 Melissa Kelsie [facility], EXTENDED - OU - BOTH EYES AUTOMATED VISUAL 2021-04-12 16:42:57 Melissa Kelsie [facility], EXTENDED - OU - BOTH EYES Plan of Care Planned Activity Planned Date Details Comments Source Future Scheduled 2022-06-15 HEPATITIS B VACCINES Met [facility] Test 06:52:47 (1 of 3 - 3-dose series) [code = HEPATITIS B VACCINES (1 of 3 - 3-dose series)] Future Scheduled 2022-06-15 Hepatitis C screening Me [facility] Test 06:52:47 (procedure) [code = [id number]] Future Scheduled 2022-06-15 SHINGLES VACCINES (1 Met [facility] Test 06:52:47 of 2) [code = SHINGLES VACCINES (1 of 2)] Future Scheduled 2022-06-15 65+ [facility]OCOCCAL [facility] 06:52:47 VACCINE (1 - PCV) [code = 65+ PNEUMOCOCCAL VACCINE (1 - PCV)] Future Scheduled 2022-06-15 COVID-19 VACCINE (4 - [facility] Test 06:52:47 Booster for Pfizer series) [code = COVID-19 VACCINE (4 - Booster for Pfizer series)] Future Scheduled 2022-06-15 INFLUENZA VACCINE [facility] Test 06:52:47 [code = INFLUENZA VACCINE] Future Scheduled 2022-04-27 HEPATITIS B VACCINES Met [facility] Test 00:29:28 (1 of 3 - 3-dose series) [code = HEPATITIS B VACCINES (1 of 3 - 3-dose series)] Future Scheduled 2022-04-27 Hepatitis C screening [facility] Test 00:29:28 (procedure) [code = [id number]] Future Scheduled 2022-04-27 SHINGLES VACCINES (1 Met [facility] Test 00:29:28 of 2) [code = SHINGLES VACCINES (1 of 2)] Future Scheduled 2022-04-27 65+ [facility]OCOCCAL [facility] Test 00:29:28 VACCINE (1 - PCV) [code = 65+ PNEUMOCOCCAL VACCINE (1 - PCV)] Future Scheduled 2022-04-27 COVID-19 [facility]ACCINE ([facility] 00:29:28 Booster for Pfizer series) [code = COVID-19 VACCINE (4 - Booster for Pfizer series)] Future Scheduled 2022-04-27 INFLUENZA VACCINE [facility] Test 00:29:28 [code = INFLUENZA VACCINE] Future Scheduled 2022-04-12 INFLUENZA VACCINE (#1) [facility] Test 00:[facility]00 [code = INFLUENZA Medical Ce nter VACCINE (#1)] Future Scheduled 2022-04-12 INFLUENZA VACCINE (#1) [facility] Test 00:00:00 [code = INFLUENZA Medical Ce nter VACCINE (#1)] Future Scheduled 2021-08-[address] [facility] Test 00:00:00 (12+) [code = Medical Center DEPRESSION SCREENING (12+)] Future Scheduled 2021-08-12 FALLS RISK SCREENING [facility] Test 00:00:00 [code = FALLS RISK Medical C enter SCREENING] Future Scheduled 2021-08-[address] [...] FIRST YEAR if no IPPE)] Future Scheduled 2017-08-[address] [facility] Test 00:00:00 WELLNESS (YEAR 2 or Medical Center FIRST YEAR if no IPPE) [code = MEDICARE ANNUAL WELLNESS (YEAR 2 or FIRST YEAR if no IPPE)] Future Scheduled 2010 PNEUMOCOCCAL 65+ YRS [facility] Test 00:00:00 (1 - PCV) [code = Medical Ce nter PNEUMOCOCCAL 65+ YRS (1 - PCV)] Future Scheduled 2010 PNEUMOCOCCAL 65+ YRS [facility] Test 00:00:00 (1 - PCV) [code = Medical Ce nter PNEUMOCOCCAL 65+ YRS (1 - PCV)] Future Scheduled 1995 SHINGLES VACCINES ([address] [facility] Test 00:00:00 of 2) [code = SHINGLES Medic al Center VACCINES (1 of 2)] Future Scheduled 1995 SHINGLES VACCINES ([address] [facility] Test 00:00:00 of 2) [code = SHINGLES Medic al Center VACCINES (1 of 2)] Future Scheduled 1964 DTAP/TDAP/TD [facility]ACCINES [facility] Test 00:00:00 (1 - Tdap) [code = Medical C enter DTAP/TDAP/TD VACCINES (1 - Tdap)] Future Scheduled 1964 DTAP/TDAP/TD [facility]ACCINES [facility] Test 00:00:00 (1 - Tdap) [code = Medical C enter DTAP/TDAP/TD VACCINES (1 - Tdap)] Future Scheduled 1963 HE[facility]ITIS C [facility]CRE[facility] [code = HEPATITIS C Medical Center SCREENING] Future Scheduled 1963 [facility]ITIS C [facility] [code = HEPATITIS C Medical Center SCREENING] Future Scheduled [address] [facility] Test 00:00:00 Counseling and Medical Cente r Screening (12+) [code = Tobacco Cessation Counseling and Screening (12+)] Future Scheduled 1945 COVID-19 VACCINE (#1[facility] 00:[facility]:00 [code = COVID-[address] VACCINE (#1)] Future Scheduled 1945 COVID-19 VACCINE (#1[facility] 00:00:00 [code = COVID-[address] VACCINE (#1)] Future Scheduled 1945 DXA SCAN [code = DXA [facility] Test 00:00:00 SCAN] Medical Center Future Scheduled 1945 DXA SCAN [code = DXA [facility] Test 00:00:00 SCAN] Medical Center Future Scheduled [facility] SCREENING: COLONOSCOPY Medic ine [code = COLON CANCER SCREENING: COLONOSCOPY] Future Scheduled MAMMOGRAM ANNUAL [code B [facility] of Test = MAMMOGRAM ANNUAL] Medicine Future Scheduled TETANUS SHOT (ADULT) [facility] of Test [code = TETANUS SHOT Medicin e (ADULT)] Future Scheduled HEPATITIS C SCREENING [facility] of Test [code = HEPATITIS C Medicine SCREENING] Future Scheduled FALL SCREEN [code = [facility] of Test FALL SCREEN] Medicine Future Scheduled OSTEOPOROSIS SCREENING B [facility] of Test [code = OSTEOPOROSIS Medicin e SCREENING] Future Scheduled PNEUMOVAX >=65 [facility] of Test (PPSV23) [code = Medicine PNEUMOVAX >=65 (PPSV23)] Future Scheduled PREVNAR >= 65 (PCV13) Ba [facility] of Test [code = PREVNAR >= 65 Medici ne (PCV13)] Future Scheduled MEDICARE AWV (Initial) B [facility] of Test [code = MEDICARE AWV Medicin e (Initial)] Future Scheduled FLU VACCINE > 6 MONTHS B [facility] of Test [code = FLU VACCINE > Medici ne 6 MONTHS] Future Scheduled COLON CANCER [facility] ege of Test SCREENING: COLONOSCOPY Medic ine [code = COLON CANCER SCREENING: COLONOSCOPY] Future Scheduled MAMMOGRAM ANNUAL [code B [facility] of Test = MAMMOGRAM ANNUAL] Medicine Future Scheduled TETANUS SHOT (ADULT) [facility] of Test [code = TETANUS SHOT Medicin e (ADULT)] Future Scheduled HEPATITIS C SCREENING Ba [facility] of Test [code = HEPATITIS C Medicine SCREENING] Future Scheduled FALL SCREEN [code = [facility] of Test FALL SCREEN] Medicine Future Scheduled OSTEOPOROSIS SCREENING B [facility] of Test [code = OSTEOPOROSIS Medicin e SCREENING] Future Scheduled PNEUMOVAX >=65 [facility] l[facility] of Test (PPSV23) [code = Medicine PNEUMOVAX >=65 (PPSV23)] Future Scheduled PREVNAR >= 65 (PCV13) Ba [facility] of Test [code = PREVNAR >= 65 Medici ne (PCV13)] Future Scheduled MEDICARE AWV (Initial) B [facility] of Test [code = MEDICARE AWV Medicin e (Initial)] Future Scheduled FLU VACCINE > 6 MONTHS B [facility] of Test [code = FLU VACCINE > Medici ne 6 MONTHS] Future Scheduled COLON CANCER [facility] ege of Test SCREENING: COLONOSCOPY Medic ine [code = COLON CANCER SCREENING: COLONOSCOPY] Future Scheduled MAMMOGRAM ANNUAL [code B [facility] of Test = MAMMOGRAM ANNUAL] Medicine Future Scheduled TETANUS SHOT (ADULT) [facility] of Test [code = TETANUS SHOT Medicin e (ADULT)] Future Scheduled HEPATITIS C SCREENING Ba [facility] of Test [code = HEPATITIS C Medicine SCREENING] Future Scheduled FALL SCREEN [code = [facility] of Test FALL SCREEN] Medicine Future Scheduled OSTEOPOROSIS SCREENING B [facility] of Test [code = OSTEOPOROSIS Medicin e SCREENING] Future Scheduled PNEUMOVAX >=65 [facility] of Test (PPSV23) [code = Medicine PNEUMOVAX >=65 (PPSV23)] Future Scheduled PREVNAR >= 65 (PCV13) [facility] [employer] of Test [code = PREVNAR >= 65 Medici ne (PCV13)] Future Scheduled [facility]Initial[facility] [[facility] = [facility] AWV Medicin e (Initial)] Future Scheduled FLU VACCINE > 6 MONTHS B [facility] of Test [code = FLU VACCINE > Medici ne 6 MONTHS] Future Scheduled COLON CANCER [facility] of Test SCREENING: COLONOSCOPY Medic ine [code = COLON CANCER SCREENING: COLONOSCOPY] Future Scheduled [facility]] Medicine Future Scheduled TETANUS SHOT (ADULT) [place] [facility] of Test [code = TETANUS SHOT Medicin e (ADULT)] Future Scheduled HEPATITIS C SCREENING Ba [facility] of Test [code = HEPATITIS C Medicine SCREENING] Future Scheduled FALL SCREEN [code = [employer] of Test FALL SCREEN] Medicine Future Scheduled OSTEOPOROSIS SCREENING B [facility] of Test [code = OSTEOPOROSIS Medicin e SCREENING] Future Scheduled PNEUMOVAX >=65 [facility] of Test (PPSV23) [code = Medicine PNEUMOVAX >=65 (PPSV23)] Future Scheduled MEDICARE AWV (Initial) B [facility] of Test [code = MEDICARE AWV Medicin e (Initial)] Future Scheduled FLU VACCINE > 6 MONTHS B [facility] of Test [code = FLU VACCINE > Medici ne 6 MONTHS] Future Scheduled COLON CANCER [facility] of Test SCREENING: COLONOSCOPY Medic ine [code = COLON CANCER SCREENING: COLONOSCOPY] Future Scheduled MAMMOGRAM ANNUAL [code B [facility] of Test = MAMMOGRAM ANNUAL] Medicine Future Scheduled TETANUS SHOT (ADULT) [facility] of Test [code = TETANUS SHOT Medicin e (ADULT)] Future Scheduled HEPATITIS C SCREENING Ba [facility] of Test [code = HEPATITIS C Medicine SCREENING] Future Scheduled ZOSTER VACCINE (1 of [facility] of Test 2) [code = ZOSTER Medicine VACCINE (1 of 2)] Future Scheduled OSTEOPOROSIS SCREENING B [facility] of Test [code = OSTEOPOROSIS Medicin e SCREENING] Future Scheduled PNEUMOVAX >=65 [facility] of Test (PPSV23) [code = Medicine PNEUMOVAX >=65 (PPSV23)] Future Scheduled [facility] [code = MEDICARE AWV Medicin e (Initial)] Future Scheduled FLU VACCINE > 6 MONTHS B [facility] of Test [code = FLU VACCINE > Medici ne 6 MONTHS] Future Scheduled FALL SCREEN [code = [employer] of Test FALL SCREEN] Medicine Future Scheduled COLON CANCER [facility] of Test SCREENING: COLONOSCOPY Medic ine [code = COLON CANCER SCREENING: COLONOSCOPY] Future Scheduled MAMMOGRAM ANNUAL [code B [facility] of Test = MAMMOGRAM ANNUAL] Medicine Future Scheduled TETANUS SHOT (ADULT) [facility] of Test [code = TETANUS SHOT Medicin e (ADULT)] Future Scheduled HEPATITIS C SCREENING Ba [facility] of Test [code = HEPATITIS C Medicine SCREENING] Future Scheduled ZOSTER VACCINE (1 of [facility] of Test 2) [code = ZOSTER Medicine VACCINE (1 of 2)] Future Scheduled OSTEOPOROSIS SCREENING B [facility] of Test [code = OSTEOPOROSIS Medicin e SCREENING] Future Scheduled PNEUMOVAX >=65 [facility] l[facility] of Test (PPSV23) [code = Medicine PNEUMOVAX >=65 (PPSV23)] Future Scheduled MEDICARE AWV (Initial) B [facility] of Test [code = MEDICARE AWV Medicin e (Initial)] Future Scheduled FLU VACCINE > 6 MONTHS B [facility] of Test [code = FLU VACCINE > Medici ne 6 MONTHS] Future Scheduled FALL SCREEN [code = [facility] of Test FALL SCREEN] Medicine Future Scheduled COLON CANCER [facility] of Test SCREENING: COLONOSCOPY Medic ine [code = COLON CANCER SCREENING: COLONOSCOPY] Future Scheduled COLON CANCER [facility] of Test SCREENING: COLONOSCOPY Medic ine [code = COLON CANCER SCREENING: COLONOSCOPY] Future Scheduled MAMMOGRAM ANNUAL [code B [facility] of Test = MAMMOGRAM ANNUAL] Medicine Future Scheduled TETANUS SHOT (ADULT) [facility] of Test [code = TETANUS SHOT Medicin e (ADULT)] Future Scheduled HEPATITIS C SCREENING [facility] of Test [code = HEPATITIS C Medicine SCREENING] Future Scheduled ZOSTER VACCINE (1 of [facility] 2) [code = ZOSTER Medicine VACCINE (1 of 2)] Future Scheduled OSTEOPOROSIS SCREENING B [facility] [code = OSTEOPOROSIS Medicin e SCREENING] Future Scheduled PNEUMOVAX >=65 [facility] (PPSV23) [code = Medicine PNEUMOVAX >=65 (PPSV23)] Future Scheduled MEDICARE AWV (Initial) B [facility] [code = MEDICARE AWV Medicin e (Initial)] Future Scheduled FLU VACCINE > 6 MONTHS B [facility] [code = FLU VACCINE > Medici ne 6 MONTHS] Future Scheduled FALL SCREEN [code = [facility] [place] of Test FALL SCREEN] Medicine Future Scheduled MAMMOGRAM ANNUAL [code B [facility] = MAMMOGRAM ANNUAL] Medicine Future Scheduled TETANUS SHOT (ADULT) [facility] [code = TETANUS SHOT Medicin e (ADULT)] Future Scheduled HEPATITIS C SCREENING [facility] Test [code = HEPATITIS C Medicine SCREENING] Future Scheduled FALL SCREEN [code = [facility] of Test FALL SCREEN] Medicine Future Scheduled OSTEOPOROSIS SCREENING B [facility] [code = OSTEOPOROSIS Medicin e SCREENING] Future Scheduled PNEUMOVAX >=65 [facility] (PPSV23) [code = Medicine PNEUMOVAX >=65 (PPSV23)] Future Scheduled PREVNAR >= 65 (PCV13) Ba [facility] Test [code = PREVNAR >= 65 Medici ne (PCV13)] Future Scheduled MEDICARE AWV (Initial) B [facility] [code = MEDICARE AWV Medicin e (Initial)] Future Scheduled FLU VACCINE > 6 MONTHS B [facility] [code = FLU VACCINE > Medici ne 6 MONTHS] Future Scheduled COLON CANCER [facility] of Test SCREENING: COLONOSCOPY Medic ine [code = COLON CANCER SCREENING: COLONOSCOPY] Future Scheduled MAMMOGRAM ANNUAL [facility]] Medicine Future Scheduled TETANUS SHOT (ADULT) [facility] [code = TETANUS SHOT Medicin e (ADULT)] Future Scheduled HEPATITIS C SCREENING [facility] Test [code = HEPATITIS C Medicine SCREENING] Future Scheduled FALL SCREEN [code = [facility] of Test FALL SCREEN] Medicine Future Scheduled OSTEOPOROSIS SCREENING B [facility] [code = OSTEOPOROSIS Medicin e SCREENING] Future Scheduled PNEUMOVAX >=65 [facility] Test (PPSV23) [code = Medicine PNEUMOVAX >=65 (PPSV23)] Future Scheduled PREVNAR >= 65 (PCV13) Ba [facility] Test [code = PREVNAR >= 65 Medici ne (PCV13)] Future Scheduled MEDICARE AWV (Initial) B [facility] [code = MEDICARE AWV Medicin e (Initial)] Future Scheduled FLU VACCINE > 6 MONTHS B [facility] [code = FLU VACCINE > Medici ne 6 MONTHS] Encounters Start End Encounter Admission Attending Care Care Encounter Source Date/Time Date/Time Type Type Clinicians Facility Department ID 2021-12-14 Outpatient [facility] [id number] Common 09:27:02 [facility] 2022-03-21 2022-03-21 Outpatient JJ BROCK [facility] [id number] [facility] 08:56:39 10:31:50 [facility] Medicin e 2022-03-20 2022-03-20 Office Navid Lehman 1.2.840.1 [id number] Methodi 13:45:00 14:14:[address] 3.430.2.7 Hospit a .3.348660 l .8 2022-03-20 2022-03-20 Office Navid Lehman 1.2.840.1 [id number] [facility]i 13:45:00 14:14:[address] 3.430.2.7 Hospit a .3.560849 l .8 2022-03-20 2022-03-20 Travel 1.2.840.1 1.2.692.926 5912 [id number] [facility]i 00:00:00 00:00:[address] 3.430.2.7 0.2.7.3.698 Ho spita .3.389125 084.8 l .8 2022-03-20 2022-03-20 Travel 1.2.840.1 1.2.364.756 0119 214397 [facility] 00:00:00 00:00:[address] 3.430.2.7 0.2.7.3.698 Ho spita .3.726424 084.8 l .8 2022-02-04 2022-02-04 Refill Spencer Lehmany 1.2.840.1 [id number] 21 [id number] [facility]i 00:00:00 00:00:[address] 3.430.2.7 Hospit a .3.727388 l .8 2022-02-04 2022-02-04 Refill Spencer Lehmany 1.2.840.1 [id number] 21 [id number] [facility]i 00:00:00 00:00:[address] 3.430.2.7 Hospit a .3.104185 l .8 2022-01-22 2022-01-22 Outpatient DELMY [facility] 970 [id number] [facility] 13:09:28 14:31:30 [facility] Medicin e 2022-01-15 2022-01-15 Refill DiNavid duffy 1.2.840.1 [id number] Methodi 00:00:00 00:00:[address] 3.430.2.7 Hospit a .3.955075 l .8 2022-01-15 2022-01-15 Refill Navid Lehman 1.2.840.1 [id number] 21 [id number] Methodi 00:00:00 00:00:[address] 3.430.2.7 Hospit a .3.536579 l .8 2022-01-12 2022-01-12 Telephone Frantz, 1.2.840.1 [id number] 084 [id number] Methodi 00:00:00 00:00:[address] 3.430.2.7 Hospit a .3.446617 l .8 2022-01-12 2022-01-12 Orders Frantz, 1.2.840.1 75900 [facility]i 00:00:00 00:00:00 [address]643.1.[address] 3.430.2.7 Hospit a .3.759511 l .8 2022-01-12 2022-01-12 Telephone Frantz, 1.2.840.1 [id number] Methodi 00:00:00 00:00:[address] 3.430.2.7 Hospit a .3.345713 l .8 2022-01-12 2022-01-12 Orders Frantz, 1.2.840.1 55571 [facility]i 00:00:00 00:00:00 [address] [place] 32667.1.[address] 3.430.2.7 Hospit a .3.961917 l .8 2022-01-10 2022-01-10 Outpatient LYN [facility] [id number] [id number] [facility] 12:59:46 14:31:29 [facility] [employer] [facility] 2021-12-06 2021-12-06 Outpatient DELMY, [facility] 962 [id number] [facility] 15:36:16 16:35:47 AMMON [facility] [employer] [facility] 2021-11-08 2021-11-08 Outpatient DELMY [facility] 951 [id number] [facility] 12:32:23 13:58:40 AMMON [employer] [facility] 2021-10-16 2021-10-16 Outpatient [facility], [facility] [place] LA0 [id number] [facility] 12:00:00 12:00:[address] [place] [address] 2021-09-25 2021-09-25 Outpatient DELMY, [facility] 948 [id number] [facility] 12:55:29 13:36:59 AMMON [facility] [employer] [facility] 2021-09-20 2021-09-20 Procedure Navid Lehman 1.2.840.1 [id number] Methodi 15:00:00 15:45:[address] 3.430.2.7 Hospit a .3.194213 l .8 2021-09-20 2021-09-20 Procedure Spencer Lehmany 1.2.840.1 [id number] [facility]i 15:00:00 15:45:[address] 3.430.2.7 Hospit a .3.752672 l .8 2021-09-20 2021-09-20 Travel 1.2.840.1 1.2.259.702 6116 532504 [facility] 00:00:00 00:00:[address] 3.430.2.7 0.2.7.3.698 Ho spita .3.526519 084.8 l .8 2021-09-20 2021-09-20 Travel 1.2.840.1 1.2.510.114 3338 855371 [facility] 00:00:00 00:00:[address] 3.430.2.7 0.2.7.3.698 Ho spita .3.745807 084.8 l .8 2021-09-08 2021-09-08 Outpatient DELMY [facility] 947 [id number] [facility] 14:42:14 15:43:42 AMMON [employer] [facility] [employer] [facility] 2021-09-06 2021-09-06 Outpatient LYN [facility] [id number] [facility] 13:51:24 16:54:19 [facility] [employer] [facility] 2021-08-30 2021-08-30 Office Navid Lehman 1.2.840.1 [id number] 21 [id number] Methodi 12:55:00 15:06:[address] 3.430.2.7 Hospit a .3.669996 l .8 2021-08-30 2021-08-30 Office Navid Lehman 1.2.840.1 [id number] 21 [id number] [facility]i 12:55:00 15:06:[address] 3.430.2.7 Hospit a .3.097305 l .8 2021-08-30 2021-08-30 Travel 1.2.840.1 1.2.145.001 0066 268874 [facility]i 00:00:00 00:00:[address] 3.430.2.7 0.2.7.3.698 Ho spita .3.956343 084.8 l .8 2021-08-30 2021-08-30 Travel 1.2.840.1 1.2.000.597 7515 694378 [facility] 00:00:00 00:00:[address] 3.430.2.7 0.2.7.3.698 Ho spita .3.339117 084.8 l .8 2021-05-12 2021-05-12 Clinical 1.2.840.1 [id number] 46508 [facility] 11:25:00 12:19:[address] 3.430.2.7 Hospit a .3.986379 l .8 2021-05-12 2021-05-12 Travel 1.2.840.1 1.2.778.530 8338 535855 [facility] 00:00:00 00:00:[address] 3.430.2.7 0.2.7.3.698 Ho spita .3.205953 084.8 l .8 2021-05-03 2021-05-03 Outpatient DELMY [facility] 848 [id number] [facility] 13:51:15 15:35:54 AMMON [employer] [facility] 2021-05-03 2021-05-03 Outpatient LYN [facility] 8488 [id number] [facility] 12:42:15 15:25:35 [facility] [employer] [facility] 2021-04-12 2021-04-12 Office Melissa [facility] 6400 1.2.840.114 54767 0529 [place] 09:50:15 10:50:[address] 350.1.13.58 Health 9.2.7.2.686 434.2915467 4 2021-04-12 2021-04-12 Office ENDER TORRES 6400 1.2.840.114 50635 0529 [place] 09:50:15 10:50:[address] 350.1.13.58 Health 9.2.7.2.686 755.1990412 4 2021-02-08 2021-02-08 Outpatient DELMY [facility] 824 [id number] [facility] 13:21:26 14:12:33 AMMON [facility] 2021-02-08 2021-02-08 Outpatient LYN [facility] 8245 [id number] [facility] 10:53:28 13:16:24 [facility] [employer] [facility] 2020-12-27 2020-12-27 Outpatient NAVID LEHMAN [facility] [id number] [place] 00:00:00 00:00:[address] 2020-10-05 2020-10-05 Outpatient ROSETTAHomar, [facility] [id number] 501 [place] 00:00:00 00:00:00 SUDHAKAR [address] 2020-09-14 2020-09-14 Outpatient [facility] [id number] 499 [place] 00:00:00 00:00:[address] 2020-08-23 2020-08-23 Outpatient [facility] F45 7247-20 [facility] 12:00:00 12:00:00 Rupinder [id number] [facility] 2020-05-11 2020-05-11 Office JJ Brock 1.2.840.114 77 [id number] 13:16:34 14:28:34 Visit Ammon S. AMBULATOR 350.1.13.21 Y 0.2.7.2.686 707.8080809 300 2020-05-11 2020-05-11 Office JJ Brock 1.2.840.114 77 [id number] [facility] 13:16:34 14:28:34 Visit Ammon S. AMBULATOR 350.1.13.21 College Y 0.2.7.2.686 of 561.0857426 [facility] [place] 300 e 2020-04-20 2020-04-20 Office Delmy BCM 1.2.840.114 77 [id number] 10:32:24 11:49:24 Visit Ammon S. AMBULATOR 350.1.13.21 Y 0.2.7.2.686 437.9431922 300 2020-04-20 2020-04-20 Office Delmy BCSundar 1.2.840.114 77 [id number] [facility] 10:32:24 11:49:24 Visit Ammon S. AMBULATOR 350.1.13.21 College Y 0.2.7.2.686 of 722.6832408 [facility] [place] 300 e 2020-04-11 2020-04-11 Office Delmy BCSundar 1.2.840.114 77 [id number] 15:14:36 15:44:36 Visit Ammon S. AMBULATOR 350.1.13.21 Y 0.2.7.2.686 173.2926980 300 2020-04-11 2020-04-11 Office JJ Brock 1.2.840.114 77 [id number] [facility] 15:14:36 15:44:36 Visit Ammon S. AMBULATOR 350.1.13.21 College Y 0.2.7.2.686 of 273.5080845 Medi [place] 300 e 2020-02-17 2020-02-17 Office JJ Brock 1.2.840.114 75 [id number] 14:27:49 15:39:40 Visit Ammon S. AMBULATOR 350.1.13.21 Y 0.2.7.2.686 961.0009585 300 2020-02-17 2020-02-17 Office JJ Brock 1.2.840.114 75 [id number] [facility] 14:27:49 15:39:40 Visit Ammon S. AMBULATOR 350.1.13.21 College Y 0.2.7.2.686 of 319.1176584 Medi [place] 300 e 2019-12-28 2019-12-28 Outpatient NAVID LEHMAN [facility] 550 [id number] [place] 00:00:00 00:00:[address] 2019-12-18 2019-12-18 Office JJ Brock 1.2.840.114 75 [id number] 09:24:19 09:57:43 Visit Ammon S. AMBULATOR 350.1.13.21 Y 0.2.7.2.686 291.7902366 300 2019-12-18 2019-12-18 Office JJ Brock 1.2.840.114 75 [id number] [facility] 09:24:19 09:57:43 Visit Ammon S. AMBULATOR 350.1.13.21 College Y 0.2.7.2.686 of 733.1957271 Medi [place] 300 e 2019-11-25 2019-11-25 Office JJ Nguyen 1.2.840.114 [id number] 23 12:45:00 13:45:37 Visit Pasquale AMBULATOR 350.1.13.21 Y 0.2.7.2.686 821.3771302 300 2019-11-25 2019-11-25 Office Wendy, BCM 1.2.840.114 [id number] 23 [facility] 12:45:00 13:45:37 Visit Pasquale AMBULATOR 350.1.13.21 College Y 0.2.7.2.686 of 166.9935510 Medi [place] 300 e 2019-11-09 2019-11-09 Outpatient [facility], [facility] 944 [id number] 781 [place] 00:00:00 00:00:00 LALO Marcelo i 2019-10-28 2019-10-28 Office JJ Brock 1.2.840.114 74 [id number] 10:31:04 11:54:28 Visit Ammon S. AMBULATOR 350.1.13.21 Y 0.2.7.2.[address] [facility] 2019-10-28 2019-10-28 Office JJ Brock 1.2.840.114 74 [id number] [facility] 10:31:04 11:54:28 Visit Ammon S. AMBULATOR 350.1.13.21 College Y 0.2.7.2.686 of 022.2978621 Medi [place] 300 e 2019-10-21 2019-10-21 Office JJ Brock 1.2.840.114 74 [id number] 09:10:20 11:15:40 Visit Ammon S. AMBULATOR 350.1.13.21 Y 0.2.7.2.[id number] [facility] 2019-10-21 2019-10-21 Office JJ Brock 1.2.840.114 74 [id number] [facility] 09:10:20 11:15:40 Visit Ammon S. AMBULATOR 350.1.13.21 College Y 0.2.7.2.686 of 195.6553068 Medi [place] 300 e 2019-10-20 2019-10-20 Outpatient [facility] [id number] 3-2 [facility] 09:55:00 09:55:00 [id number] 2019-10-19 2019-10-19 Outpatient [facility] [id number] 3-2 [facility] 00:00:00 00:00:00 [id number] 2019-10-12 2019-10-12 Office JJ Brock 1.2.840.114 74 [id number] 14:44:27 16:45:19 Visit Ammon S. AMBULATOR 350.1.13.21 Y 0.2.7.2.686 [id number] 300 2019-10-12 2019-10-12 Office JJ Brock 1.2.840.114 74 [id number] [facility] 14:44:27 16:45:19 Visit Ammon S. AMBULATOR 350.1.13.21 College Y 0.2.7.2.686 of [id number] [facility] [place] 300 e 2019-07-28 2019-07-28 Outpatient [facility], [facility] F45 7247-20 [facility] 12:00:00 12:00:[id number] [facility] Results Test Description Test Time Test Comments Results Result Sour e Comments Automated Visual 2021-04-12 OD: fullOS: [place] [facility], Extended - 16:42:57 generalized OU - [...] RUN USER: INTERFACE ----PATIENT: JEANNETTE BOYER [facility] #: [id number] AGE/SX: 73/F ROOM: [facility] RE01/08/19REG DR: Adrienne Andrade MD : 45 BED: A DIS: 01/09/19 STATUS: DIS Vira TLOC: ---- SPEC #: [id number] RECD: 01/08/19 STATUS: SOUTiara REQ #: [id number] CHUN: 01/08/19- SUBM DR: Adrienne Andrade MD ENTERED: 01/08/19 SP TYPE: OVAWWOTNEO OTHR DR: Lesly Rose MD ORDERED: LEVEL V SURGICA/2, FROZEN SECTION CODES: [id number] - OVARY, NOS COPIES TO: Lesly Rose MD [address] [place] [address] [email or web address] Adrienne Andrade MD [address] [place] [address] PROCEDURES: LEVEL V SURGICA (Incomplete) FROZEN SECTION [...] [facility] for an expert opinion, see results in Addendum Report. Permanent sections correlate with frozen section diagnosis. However, some of CONTINUED ON NEXT PAGE ----RUN DATE: 01/15/19 [facility] PAGE 2 RUN TIME: 1227 Specimen Inquiry RUN USER: INTERFACE ----SPEC #: [id number] PATIENT: JEANNETTE BOYER #[id number] (Continued) FINAL DIAGNOSIS (Continued) the cysts are lined by serous epithelium with tubal metaplasia. The following technical components were performed at [facility] [place], [address] [facility], [address], [place] [address]. The interpretation is provided by [place] [facility], [address] [place] [address], [place] [address]. Positive and/or negative controls received from [facility] stained appropriately. RESULTS: Cytokeratin 7 (block A4) - strongly and diffusely positive. Cytokeratin 20 (block A4) - negative. The results of the immunostains support ovarian origin. ADDENDUM PENDING, SPECIMEN IS BEING SENT TO DR. CISSE AT [facility] Tissue code 1 CPT code(s): 45643, 26950, 53465 pkg/kr dt: 01/13/19 pkg/wpd 01/14/19 GROSS DESCRIPTION ANATOMIC SOURCE OF TISSUE [...] thin and clear and slightly viscid fluid. [employer] De[employer] sections are submitted labeled FS and the [...] Specimen Inquiry RUN USER: INTERFACE ----SPEC #: [id number] PATIENT: JEANNETTE BOYER #[id number] (Continued) MICROSCOPIC DESCRIPTION Specimen #1 consists of [...] ---- END OF REPORT OVARY W/WO 2019-01-13 TUBE,ALEKSANDRA 13:10:00 ----RUN DATE: 01/20/19 [facility] PAGE 1 RUN TIME: 1529 Specimen Inquiry RUN USER: INTERFACE ----PATIENT: JEANNETTE BOYER LOC: U #: [id number] AGE/SX: 73/F ROOM: [facility] RE01/08/19REG DR: Adrienne Andrade MD : 45 BED: A DIS: 01/09/19 STATUS: DIS Vira TLOC: ---- SPEC #: [id number] RECD: 01/08/19 STATUS: AUGUSTA SIMON #: [id number] CHUN: 01/08/19- SUBM DR: Adrienne Andrade MD ENTERED: 01/08/19 SP TYPE: TIANA SALINAS DR: Lesly Rose MD ORDERED: LEVEL V SURGICA/2, FROZEN SECTION ADDENDUM FINDINGS Addendum #1 Entered: 01/20/19-8287 The following is the final extradepartmental consultation diagnosis received from Mj Cisse M.D., at [facility], [place], [place], on January 19, 2019. ADDENDUM FINAL DIAGNOSIS: Fourteen outside slides ([id number] FS, A1 - A7, IHC x 2, [...] Specimen Inquiry RUN USER: INTERFACE ----SPEC #: [id number] PATIENT: OJJEANNETTE GALLAGHER #[id number] (Continued) ADDENDUM FINDINGS (Continued) Addendum Signed Deanna New 01/20/19 152 (prelim) Deanna Muñoz 01/20/199 ---- CODES: [id number] - OVARY, NOS COPIES TO: Lesly Rose MD [address] [place] [address] [email or web address] Adrienne Andrade MD [address] [place] [address] PROCEDURES: LEVEL V SURGICA (Incomplete) FROZEN SECTION [...] [facility] for an expert opinion, see results in Addendum Report. Permanent sections correlate with frozen section diagnosis. However, some of CONTINUED ON NEXT PAGE ----RUN DATE: 01/20/19 [facility] PAGE 3 RUN TIME: 1529 Specimen Inquiry RUN USER: INTERFACE ----SPEC #: [id number] PATIENT: JEANNETTE BOYER #[id number] (Continued) FINAL DIAGNOSIS (Continued) the cysts are lined by serous epithelium with tubal metaplasia. The following technical components were performed at [facility] [place], [address] [facility] [address] [facility] [address] [facility] [address] [facility], [address], [place] [address]. The interpretation is provided by [place] [facility], [facility], [place] [address]. Positive and/or negative controls received from [employer] [facility] stained appropriately. RESULTS: Cytokeratin 7 (block A4) - strongly and diffusely positive. Cytokeratin 20 (block A4) - negative. The results of the immunostains support ovarian origin. ADDENDUM PENDING, SPECIMEN IS BEING SENT TO DR. CISSE AT [facility] Tissue code 1 CPT code(s): 61350, 16744, 93942 pkg/kr dt: 01/13/19 moni/wpd 01/14/19 GROSS DESCRIPTION ANATOMIC SOURCE OF TISSUE [...] thin and clear and slightly viscid fluid. [employer] sections are submitted labeled FS and the [...] Specimen Inquiry RUN USER: INTERFACE ----SPEC #: [id number] PATIENT: JEANNETTE BOYER #[id number] (Continued) MICROSCOPIC DESCRIPTION Specimen #1 consists of [...] present between the ovary and fallopian tube. moni/alex dt: 01/13/19 Signed VirgenDeanna 01/13/19 1310 ---- END OF REPORT PELVIC WASHING 2019-01-13 12:51:00 ----RUN DATE: 01/13/19 [facility] PAGE 1 RUN TIME: 1707 Specimen Inquiry RUN USER: INTERFACE ----PATIENT: JEANNETTE BOYER LOC: U U #: [id number] AGE/SX: 73/F ROOM: [facility] RE01/08/19REG DR: Adrienne Andrade MD : 45 BED: A DIS: 01/09/19 STATUS: DIS Vira TLOC: ---- SPEC #: [id number] RECD: 01/09/19-1110 STATUS: AUGUSTA SIMON #: [id number] CHUN: 01/09/19- SUBM DR: Adrienne Andrade MD ENTERED: 01/09/19-1111 SP TYPE: PELVIC WAS OTHR DR: ORDERED: CYTOLOGY/SACCOM CODES: [id number] - PELVIC GENITAL PROCEDURES: CYTOLOGY/SACCOM (Incomplete) TISSUES: PELVIC GENITAL STRUCTURES, NOS - PELVIC WASHINGS CLINICAL HISTORY 73 year old, breast cancer, vaginal prolapse, cystocele, rectocele, stress urinary incontinence (kr) FINAL DIAGNOSIS Pelvic washings (cytospins): - no malignant cells identified Tissue code 1 CPT code(s): 32030 pkg/kr dt: 01/13/19 GROSS DESCRIPTION The specimen is received in a container, labeled with the patient's name and designated "pelvic washings" and consists of [id number] cc of light red fluid. Two cytospins are made. No cell block is prepared. hj/kr 01/09/19 @ 1127 MICROSCOPIC DESCRIPTION The specimen consists of a few sheets of reactive mesothelial cells and unremarkable hematopoietic cells. cds/kr dt: 01/13/19 COMMENT: The corresponding surgical pathology [id number] showed: Left fallopian tube and ovary, salpingo-oophorectomy: [...] Specimen Inquiry RUN USER: INTERFACE ----SPEC #: [id number] PATIENT: JEANNETTE BOYER #[id number] (Continued) MICROSCOPIC DESCRIPTION (Continued) Addendum Report - ovary and fallopian tube with fibrous adhesion moni/alex dt: 01/13/19 Signed Deanna New 01/13/19 1251 ---- END OF REPORT HGB HCT 2019-01-09 06:06:00 Test Item Value Reference Range Interpretation Comme nts HEMOGLOBIN (test code = HGB) 10.8 g/dL 10.7-13.9 N HEMATOCRIT (test code = HCT) 33.3 % 32.1-42.1 N URINALYSIS [id number] 16:40:00 Test Item Value Reference Range Interpretation [...] SEEN MUCU) URINE SAMPLE: CLEAN CATCHCOMPREHENSIVE METABOLIC [id number] 16:15:00 Test Item Value Reference Range Interpretation [...] units/L 46-116 N code = ALKP) URINALYSIS [id number] 16:09:00 Test Item Value Reference Range Interpretation [...] SEEN YEASTU) URINE SAMPLE: CLEAN CATCHCBC W/AUTO [id number] 15:49:00 Test Item Value Reference Range Interpretation [...] NORMAL code = PLTMR) - US TRANSVAGINAL [id number] 16:09:00 Patient Name: JEANNETTE BOYER Unit No: [id number] EXAMS: CPT CODE: [id number] US TRANSVAGINAL W/PELVIS 55381 PELVIC ULTRASOUND, 10/13/2018: COMPARISON: None CLINICAL HISTORY: PAIN TECHNIQUE: Transabdominal and endovaginal scanning was performed. FINDINGS: The uterus is surgically absent. The rightovary was not visualized. The left ovary measures 4.5 x 3.7 x 3.7 cm and contains a 4.2 x 3.4 x 4.0 cm cyst which contains a small solid mural nodule and a small septation. The mural nodule is not vascular. Findings are consistent with a nonspecific small complex ovarian cyst. No free fluid is evident. CONCLUSION: 4.2 cm complex left ovarian cyst. Neoplastic process cannot be excluded. Nonvisualization of the right ovary. Prior hysterectomy. at 1609 Reported and signed by: Al Eisenberg MD CC: Wm Velasco MD Technologist: Millicent Watson RDMS Probe: [id number] Trnscrbd D/ (7041) [id number] Orig Print D/T: S: 10/13/2018 (8709) [facility] NAME: BOYERJEANNETTEBRENTON GALLAGHER Radiology Department PHYS: Wm Smith [address] : 1945 AGE: 73 SEX: F [place] [id number] LOC: [email or web address] PHONE #: [phone] EXAM DATE: 10/13/2018 STATUS: REG CLI FAX #: [phone] RAD NO: [id number] Page 1 Signed Report Patient Name: JEANNETTE BOYER Unit No: [id number] EXAMS: CPT CODE: [id number] US TRANSVAGINAL W/PELVIS 04465 (Continued) [facility] NAME: JEANNETTE BOYER Radiology Department PHYS: Wm Smith [address] : 1945 AGE: 73 SEX: F [place] [address] LOC: F.RAD PHONE #: [phone] EXAM DATE: 10/13/2018 STATUS: REG CLI FAX #: [phone] RAD NO: [id number] Page 2 Signed Report- US PELVIS COMPLETE 2018-10-13 16:09:00 Patient Name: JEANNETTE BOYER Unit No: [id number] EXAMS: CPT CODE: [id number] US PELVIS COMPLETE 34902 PELVIC ULTRASOUND, 10/13/2018: COMPARISON: None CLINICAL HISTORY: PAIN TECHNIQUE: Transabdominal and endovaginal scanning was performed. FINDINGS: The uterus is surgically absent. The right ovary was not visualized. The left ovary measures 4.5 x 3.7 x 3.7 cm and contains a 4.2 x 3.4 x 4.0 cm cyst which contains a small solid mural nodule and a small septation. The mural nodule is not vascular.Findings are consistent with a nonspecific small complex ovarian cyst. No free fluid is evident. CONC LUSION: 4.2 cm complex left ovarian cyst. Neoplastic process cannot be excluded. Nonvisualization ofthe right ovary. Prior hysterectomy. at 1609 Reported and signed by: Al Eisenberg MD CC: Wm Velasco MD Technologist: Millicent Watson RDMS Probe: Trnscrbd D/ (1609) [id number] Orig Print D/T: S: 10/13/2018 (1612) [facility] NAME: JEANNETTE BOYER Radiology Department PHYS: [email or web address] - Wm Velasco AM [address] : 1945 AGE: 73 SEX: F [place], [place] [address] LOC: F.RAD PHONE #: [phone] EXAM DATE: 10/13/2018 STATUS: REG CLI FAX #: [phone] RAD NO: [id number] Page 1 S igned Report Patient Name: JEANNETTE BOYER Unit No: [id number] EXAMS: CPT CODE: [id number] US PELVIS COMPLETE 55125 (Continued) [facility] NAME: JEANNETTE BOYER Radiology Department PHYS: CYDNEYWm Todd [address] : 1945 AGE: 73 SEX: F [place], [place] [address] LOC: VALENTE PHONE #: [phone] EXAM DATE: 10/13/2018 STATUS: REG CLI FAX #: [phone] RAD NO: [id number] Page 2 Signed ReportBASIC METABOLIC [id number] 06:23:00 Test Item Value Reference Range Interpretation [...] NOT APPLICABLE FOR DIALYSIS PATIEN TS. PROTHROMBIN [id number] 06:05:00 Test Item Value Reference Range Interpretation Comments PROTIME (BEAKER) (test code = 13.0 seconds 11.7-14.7 759) INR (BEAKER) (test code = 370) 1.0 <=5.9 RECOMMENDED COUMADIN/WARFARIN INR THERAPY RANGESSTANDARD DOSE: 2.0 - 3.0 Includes: PROPHYLAXIS for venous thrombosis, systemic embolization; TREATMENT for venous thrombosis and/or pulmonary embolus.HIGH RISK: Target INR is 2.5-3.5 for patients with mechanical heart valves.CBC W/PLT COUNT & AUTO [id number] 05:56:00 Test Item Value Reference Range Interpretation [...]
[2022-07-04 21:02] LABS: Absolute Lymphocytes (CBC) 1.2 K/uL (0.7-4.9); Hematocrit 33.4 % (36.0-45.0); Lymphocytes % 22.4 % (15.3-44.8); MCV 101.1 fL (80-100); MPV 6.8 fL (7.6-11.3)
[2022-07-04 21:14] LABS: Protime INR 0.94
--- NOTE | 2022-07-04 21:53 | ER ---
Nurse's Notes [facility] Name: Radha Boyer Age: 77 yrs Sex: Female : 1945 Arrival Date: 07/04/2022 Time: 20:36 Bed 2 Private MD: Diagnosis: Fracture of base of skull, unspecified side, initial encounter for open fracture;Traumatic subdural hemorrhage;Cerebellar Hemorrhage;Multiple fractures of ribs, left side Presentation: 07/04 20:56 Chief complaint: Chief complaint: EMS states: toned out for a 75 Y F, fell down aa9 approximately 5-10 stairs, found her in a pool of blood, bleeding noted in the ear, posterior head lac,packed with Kerlix, no spinal fluid drainage observed, reports pt as altered, unknown if on blood thinners. 21:03 Coronavirus screen:. Ebola Screen: No symptoms or risks identified at this time. aa9 Initial Sepsis Screen: Does the patient meet any 2 criteria? No. Patient's initial sepsis screen is negative. Does the patient have a suspected source of infection? No. Patient's initial sepsis screen is negative. Risk Assessment: Do you want to hurt yourself or someone else? Patient reports no desire to harm self or others. Onset of symptoms was July 04, 2022. 21:03 Method Of Arrival: EMS: [facility] aa9 21:03 Acuity: JEREMY 2 aa9 21:05 Care prior to arrival: Bleeding of injury controlled. Injury dressed. Cervical collar aa9 in place. Placed on backboard. IV initiated. 20 GA, in the right antecubital area, Glucose check: 104. Mechanism of Injury: Fall down steps. Triage Assessment: 20:58 General: Appears uncomfortable, Behavior is anxious. EENT: Ear canal w/ bleeding noted aa9 from left ear. Neuro: Level of Consciousness is confused, Oriented to person, C D Stripper are equal bilaterally Speech is normal, Facial symmetry appears normal. Cardiovascular: Capillary refill < 3 seconds Rhythm is Respiratory: Airway is patent Respiratory effort is even, unlabored. GI: No signs and/or symptoms were reported involving the gastrointestinal system. : No signs and/or symptoms were reported regarding the genitourinary system. Derm: Skin with poor turgor Skin is pale, Skin temperature is cool Wound noted scalp Wound is dressed with gauze and kerlix. Musculoskeletal: No signs and/or symptoms reported regarding the musculoskeletal system. Historical: - Allergies: 21:06 Methocarbamol; aa9 21:06 PENICILLINS; aa9 21:06 Robaxin; aa9 - Home Meds: 22:10 nystatin 100,000 unit/gram Topical crea [Active]; durezol [Active]; moxifloxacin 0.5 aa9 [Active]; Acetaminophen-Codeine Oral [Active]; promethazine 25 mg Oral tab [Active]; liothyronine 5 mcg oral tab [Active]; gabapentin 100 mg oral tab [Active]; levothyroxine oral [Active]; atorvastatin 10 mg oral tab [Active]; carvedilol 25 mg oral tab [Active]; - PMHx: 21:06 BREAST CA; Hypertensive disorder; insomnia; aa9 22:10 Lupus erythematosus; detached L retina; neuropathy; aa9 - PSHx: 21:06 pacemaker; right mastectomy; Several eye sx; aa9 - Immunization history:: Client reports receiving the 2nd dose of the Covid vaccine. - Social history:: Smoking status: unknown. - Family history:: not pertinent. - Hospitalizations: : No recent hospitalization is reported. - History obtained from: EMS. Screenin:07 Abuse screen: Denies threats or abuse. Denies injuries from another. Nutritional aa9 screening: No deficits noted. Tuberculosis screening: No symptoms or risk factors identified. Fall Risk Fall in past 12 months (25 points). Assessment: 21:46 Reassessment: No changes from previously documented assessment. Patient and/or family vc1 updated on plan of care and expected duration. Pain level reassessed. 22:45 Reassessment: report called to FRAN Cruz, signed consent to be transferred. aa9 23:03 Reassessment: No changes from previously documented assessment. Patient and/or family vc1 updated on plan of care and expected duration. Pain level reassessed. 23:17 Reassessment: Pt leaving via ground AMS, IV patent with maintenance fluids infusing. vc1 Vital Signs: 20:58 BP 138 / 80; Pulse 83; Resp 22 S; Temp 96.8(A); Pulse Ox 93% on R/A; aa9 21:09 BP 102 / 62; Pulse 80; Resp 18; Pulse Ox 94% on R/A; aa9 21:47 BP 126 / 75; Pulse 88; Resp 20; Pulse Ox 96% on R/A; vc1 21:53 Weight 72.12 kg; vc1 23:02 BP 135 / 69; Pulse 78; Resp 15; Pulse Ox 97% on R/A; vc1 York Coma Score: 20:38 Eye Response: spontaneous(4). Verbal Response: confused(4). Motor Response: obeys rn commands(6). Total: 14. 21:50 Eye Response: spontaneous(4). Verbal Response: confused(4). Motor Response: obeys rn commands(6). Total: 14. ED Course: 20:36 Patient arrived in ED. rn 20:36 Guille Guthrie MD is Attending Physician. rn 20:53 Mary Sheth, FRAN is Primary Nurse. aa9 21:00 Maintain EMS IV. Dressing intact. Good blood return noted. Site clean \T\ dry. Gauge \T\ aa 9 site: 20 G R AC. 21:05 Triage completed. aa9 21:05 Arm band placed on. aa9 21:07 Patient has correct armband on for positive identification. Placed in gown. Bed in low aa9 position. Call light in reach. Side rails up X2. Client placed on continuous cardiac and pulse oximetry monitoring. NIBP monitoring applied. Warm blanket given. 21:08 Protime (+inr) Sent. aa9 21:08 Ptt, Activated Sent. aa9 21:08 Basic Metabolic Panel Sent. aa9 21:39 Head C Spine Cap W Con In Process Unspecified. EDMS 22:24 Inititated transfer to [facility] for Trauma. wm 22:34 Pt accepted for transfer by Dr. Mike Schaffer's per Clarissa Hurt. wm 23:03 No provider procedures requiring assistance completed. Patient transferred, IV remains vc1 in place. Administered Medications: 22:08 Drug: Keppra (levETIRAcetam) 1000 mg Route: IV; Rate: calculated rate; Site: right aa9 antecubital; 22:23 Follow up: IV Status: Completed infusion; IV Intake: 100ml vc1 22:58 Drug: Clindamycin 600 mg Route: IVPB; Infused Over: 30 mins; Site: right antecubital; aa9 23:04 Follow up: Response: Medication continued upon transfer vc1 23:04 Follow up: IV Status: Infusion continued upon transfer vc1 23:04 Drug: D5-1/2 NS with KCl 20 mEq/L 1000 ml Route: IV; Rate: 75 ml/hr; Site: right vc1 antecubital; 23:05 Follow up: IV Status: Infusion continued upon transfer vc1 Medication: 21:08 VIS not applicable for this client. aa9 Intake: 22:23 IV: 100ml; Total: 100ml. vc1 Outcome: 21:53 ER care complete, transfer ordered by . rn 23:03 Transferred by ground EMS to [facility], Transfer form completed. X-rays sent vc1 w/ patient. 23:03 Condition: stable 23:03 Instructed on the need for transfer. 23:17 Patient left the ED. vc1 Signatures: Dispatcher [employer] EDGuille Vaqzuez MD MD rn Marsh, Wendy wm Calcote, Vanessa, RN RN vc1 Mary Sheth RN RN aa9 Corrections: (The following items were deleted from the chart) 21:05 20:56 Chief complaint: aa9 aa9
--- NOTE | 2022-07-04 21:53 | EDPHYS ---
Physician Documentation [facility] Name: Radha Boyer Age: 77 yrs Sex: Female : 1945 Arrival Date: 07/04/2022 Time: 20:36 Bed 2 Private MD: ED Physician Guille Guthrie HPI: 07/04 20:38 This 77 yrs old Female presents to ER via Unassigned with complaints of head injury, rn fall down stairs. 20:38 The patient or guardian reports injury. The complaints affect the back of head. Context rn of injury: The problem was sustained at home, resulted from a fall, down stairs. Onset: The symptoms/episode began/occurred just prior to arrival. Associated signs and symptoms: Loss of consciousness: This patient did not experience any loss of consciousness. Pertinent positives: dazed, headache, Pertinent negatives: the patient has not experienced a loss of conciousness, seizure, vomiting, weakness in extremities. Severity of symptoms: At their worst the symptoms were moderate, in the emergency department the symptoms are unchanged. The patient has not experienced similar symptoms in the past. The patient has not recently seen a physician. EMS reports fall backwards from stairs, believe 2 steps, hit head, family reported altered after head injury, not at baseline. UNknown if on anticoagulants. Reports only pain to head. EMS reported blood at scene but stopped bleeding with dressing and pressure to back of head. . Historical: - Allergies: 21:06 Methocarbamol; aa9 21:06 PENICILLINS; aa9 21:06 Robaxin; aa9 - Home Meds: 22:10 nystatin 100,000 unit/gram Topical crea [Active]; durezol [Active]; moxifloxacin 0.5 aa9 [Active]; Acetaminophen-Codeine Oral [Active]; promethazine 25 mg Oral tab [Active]; liothyronine 5 mcg oral tab [Active]; gabapentin 100 mg oral tab [Active]; levothyroxine oral [Active]; atorvastatin 10 mg oral tab [Active]; carvedilol 25 mg oral tab [Active]; - PMHx: 21:06 BREAST CA; Hypertensive disorder; insomnia; aa9 22:10 Lupus erythematosus; detached L retina; neuropathy; aa9 - PSHx: 21:06 pacemaker; right mastectomy; Several eye sx; aa9 - Immunization history:: Client reports receiving the 2nd dose of the Covid vaccine. - Social history:: Smoking status: unknown. - Family history:: not pertinent. - Hospitalizations: : No recent hospitalization is reported. - History obtained from: EMS. ROS: 20:38 Constitutional: Negative for fever, chills, and weight loss, Eyes: Negative for injury, rn pain, redness, and discharge, Neck: Negative for injury, pain, and swelling, Cardiovascular: Negative for chest pain, palpitations, and edema, Respiratory: Negative for shortness of breath, cough, wheezing, and pleuritic chest pain, Abdomen/GI: Negative for abdominal pain, nausea, vomiting, diarrhea, and constipation, Back: Negative for injury and pain, MS/Extremity: Negative for injury and deformity, Skin: + possible laceration to back of head Neuro: + head injury and headache Exam: 20:38 Constitutional: This is a well developed, well nourished patient who is awake, alert, rn seems confused and slow to respond Head/Face: + dry blood back of scalp/head, no active bleeding Eyes: 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 Periorbital areas with no swelling, redness, or edema. ENT: No intraoral injury or bleeding, + blood from left ear. Neck: In ccollar, no midline tenderness Chest/axilla: Normal chest wall appearance and motion. Nontender with no deformity. No lesions are appreciated. Cardiovascular: Regular rate and rhythm. No pulse deficits. Respiratory: No increased work of breathing, no retractions or nasal flaring. Abdomen/GI: soft, non-tender Skin: Warm, dry MS/ Extremity: Pulses equal, no cyanosis. Neuro: Awake and alert, GCS 14, oriented to person, not place or time. Motor strength 5/5 in all extremities. Sensory grossly intact. Vital Signs: 20:58 BP 138 / 80; Pulse 83; Resp 22 S; Temp 96.8(A); Pulse Ox 93% on R/A; aa9 21:09 BP 102 / 62; Pulse 80; Resp 18; Pulse Ox 94% on R/A; aa9 21:47 BP 126 / 75; Pulse 88; Resp 20; Pulse Ox 96% on R/A; vc1 21:53 Weight 72.12 kg; vc1 23:02 BP 135 / 69; Pulse 78; Resp 15; Pulse Ox 97% on R/A; vc1 [place] Coma Score: 20:38 Eye Response: spontaneous(4). Verbal Response: confused(4). Motor Response: obeys rn commands(6). Total: 14. 21:50 Eye Response: spontaneous(4). Verbal Response: confused(4). Motor Response: obeys rn commands(6). Total: 14. MDM: 20:36 Patient medically screened. rn 21:50 Differential diagnosis: Contusion of Hematoma on Laceration of Intracranial bleed- rn Concussion cerebral contusion. Data reviewed: vital signs, nurses notes, lab test result(s), radiologic studies, CT scan, and as a result, I will admit patient. Counseling: I had a detailed discussion with the patient and/or guardian regarding: the historical points, exam findings, and any diagnostic results supporting the discharge/admit diagnosis, lab results, radiology results, the need for further work-up and treatment in the hospital, the need to transfer to another facility, for higher level of care, [facility] does not immediately have the required specialist. ED course: Dr. Mederos called, reports subarachnoid hemorrhage, intraparenchymal cerebellar hemorrhage, and skull fracture. Will transfer to trauma center.. 21:54 ED course: Family confirms not on blood thinners. . rn 22:47 ED course: [facility] requested, not flying due to weather. John Santos called for rn ground transport. . 07/04 20:37 Order name: Basic Metabolic Panel; Complete Time: 21:54 rn 07/04 20:37 Order name: CBC with Diff; Complete Time: 21:54 rn 07/04 20:37 Order name: Protime (+inr); Complete Time: 21:54 rn 07/04 20:37 Order name: Ptt, Activated; Complete Time: 21:54 rn 07/04 21:48 Order name: SARS RAPID vc1 07/04 21:48 Order name: SARS-COV-2 Antigen Rapid wm 07/04 20:37 Order name: CT Traumagram (Head C Spine CAP W Con) rn 07/04 20:37 Order name: Labs collected and sent; Complete Time: 21:08 rn 07/04 20:41 Order name: Head C Spine Cap W Con; Complete Time: 22:33 EDMS 07/04 21:53 Order name: CREATININE WHOLE BLOOD; Complete Time: 21:54 EDNY 07/04 22:23 Order name: NPO; Complete Time: 22:46 rn Administered Medications: 22:08 Drug: Keppra (levETIRAcetam) 1000 mg Route: IV; Rate: calculated rate; Site: right aa9 antecubital; 22:23 Follow up: IV Status: Completed infusion; IV Intake: 100ml vc1 22:58 Drug: Clindamycin 600 mg Route: IVPB; Infused Over: 30 mins; Site: right antecubital; aa9 23:04 Follow up: Response: Medication continued upon transfer vc1 23:04 Follow up: IV Status: Infusion continued upon transfer vc1 23:04 Drug: D5-1/2 NS with KCl 20 mEq/L 1000 ml Route: IV; Rate: 75 ml/hr; Site: right vc1 antecubital; 23:05 Follow up: IV Status: Infusion continued upon transfer vc1 Disposition Summary: 07/04/22 21:53 Transfer Ordered Transfer Location: [facility] rn Reason: Higher level of care rn Condition: Stable rn Problem: new rn Symptoms: have improved rn Accepting Physician: (07/04/22 23:17) vc1 Diagnosis - Fracture of base of skull, unspecified side, initial encounter for open fracture rn - Traumatic subdural hemorrhage rn - Cerebellar Hemorrhage rn - Multiple fractures of ribs, left side rn Forms: - Medication Reconciliation Form rn - 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 Periorbital areas with no swelling, redness, or edema. ENT: No intraoral injury or bleeding Neck: In ccollar, no midline tenderness Cardiovascular: Regular rate and rhythm. No pulse deficits. Respiratory: No increased work of breathing, no retractions or nasal flaring. Abdomen/GI: soft, non-tender Skin: Warm, dry MS/ Extremity: Pulses equal, no cyanosis. Neuro: Awake and alert, GCS 14, oriented to person, not place or time. Motor strength 5/5 in all extremities. Sensory grossly intact. 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 Periorbital areas with no swelling, redness, or edema. ENT: No intraoral injury or bleeding Neck: In ccollar, no midline tenderness Chest/axilla: Normal chest wall appearance and motion. Nontender with no deformity. No lesions are appreciated. Cardiovascular: Regular rate and rhythm. No pulse deficits. Respiratory: No increased work of breathing, no retractions or nasal flaring. Abdomen/GI: soft, non-tender Skin: Warm, dry MS/ Extremity: Pulses equal, no cyanosis. Neuro: Awake and alert, GCS 14, oriented to person, not place or time. Motor strength 5/5 in all extremities. Sensory grossly intact. rn 22:23 21:53 Dr. merino rn 23:17 22:23 Dr. merino vc1
[2022-07-04] MEDS ORDERED: LEVETIRACETAM 500 MG/5 ML VIAL IV ONE ×2 (21:55→22:03)
[2022-07-04] MEDS ORDERED: NA CHLORIDE 0.9% 50 ML IV ONE ×2 (21:58→22:07)
--- NOTE | 2022-07-04 22:00 | RAD REPORT ---
EXAM DESCRIPTION: CT - Head C Spine Cap W Con - 07/04/2022 9:37 pm CLINICAL HISTORY: Trauma, head and neck injury. Chest, abdomen and pelvis pain. fall from stairs, head injury, altered COMPARISON: Head C Spine Cap W Con dated 05/04/2021 TECHNIQUE: CT head without contrast. CT cervical spine without contrast with coronal and sagittal reformatted images. CT chest, abdomen and pelvis with coronal and sagittal reformatted images of the spine. All CT scans are performed using dose optimization technique as appropriate and may include automated exposure control or mA/KV adjustment according to patient size. FINDINGS: CT HEAD WITHOUT CONTRAST: Nondisplaced, nondepressed right occipital skull fracture. The occipital skull fracture extends acros s midline into the left temporal bone were there is a transverse temporal bone fracture. This is like ly non otic violating. Left mastoid effusion present. Bifrontal lobe subarachnoid hemorrhage with some mixed subdural hemorrhage. Small volume of extra-axi al hemorrhage along the left temporal lobe. Right cerebellar intraparenchymal hemorrhage measuring 2. 9 cm. Cerebral atrophy. Chronic small vessel ischemic changes. Hyperdense contents within the sphenoi d sinuses likely inspissated secretions. Trace pneumocephalus. A left mastoid effusion is present. No midline shift. No hydrocephalus. Procedural changes at the left globe. CT CERVICAL SPINE WITHOUT CONTRAST: No fracture or subluxation. The prevertebral soft tissues are normal in thickness.Multilevel cervical spondylosis with mild neura l foraminal narrowing noted. CT CHEST, ABDOMEN, PELVIS: Thorax: Chest Wall: 4.8 cm fluid collection of the right breast is again noted. This may be postoperative. Le ft upper chest wall pacemaker. Lungs: No acute abnormality. Pleura: No effusions or pneumothorax. Rosa Maria/Mediastinum: No lymphadenopathy. Aorta/Pulmonary Arteries: Unremarkable Heart: Normal size. Multi-vessel coronary artery disease. Abdomen/Pelvis: Liver: No acute abnormality or suspicious lesions. Biliary: No biliary ductal dilatation. Stomach: No significant focal abnormality. Duodenum: No significant focal abnormality. Pancreas: No significant abnormality. Spleen: No significant abnormality. Adrenal: No suspicious lesions. Kidney/ureter: No hydronephrosis. No renal calculi. Left upper pole renal cyst. Too small to characte rize and/or benign appearing renal lesions are noted. Retroperitoneum: No retroperitoneal adenopathy. Vascular: No aneurysm. Bowel: No significant focal abnormality. Peritoneum: No ascites or free air. Bladder: Grossly unremarkable. Reproductive: No adnexal masses. Hysterectomy. Bones: Left anterior fifth and sixth rib fractures. Chronic and subacute right-sided rib fractures. Other: n/a IMPRESSION: 1. Bifrontal lobe subdural and subarachnoid hemorrhage and intraparenchymal hemorrhage a t the right cerebellar hemisphere consistent with coup- contrecoup injuries. Right occipital skull fr acture which is nondepressed which extends into the left temporal bone consistent with a transverse f racture. Left mastoid effusion and a small volume of pneumocephalus. 2. Nondisplaced acute left anterior fifth and sixth rib fractures. No underlying pneumothorax. 3. Presumed right breast seroma that was identified on the prior CT from 05/04/2021. Correlate clinic ally. Regarding intracranial hemorrhage, discussed with Dr. Guthrie by Dr. Mederos at 2821 on 07/04/22
[2022-07-04] MEDS ORDERED: CLINDAMYCIN 600MG/D5W 600 MG/50 ML BAG IV ONE (22:49)
[2022-07-04] MEDS ORDERED: D5.45NS W/KCL 20MEQ 1,000 ML IV ONE (22:50)
[2022-07-04 23:22] VITALS: TEMP 96.8
[2022-07-04 23:25] VITALS: BP 135/69; O2SAT 97
[2022-07-04 23:31] LABS: SARS-CoV-2 Antigen Rapid Res Negative (Negative)
== END 2022-07-04 23:17 | disposition short-term general hospital (02) ==
LOC: ER 20:29
DX: S02.102 Fracture of base of skull, left side (principal); S06.5X0A Traumatic subdural hemorrhage without loss of consciousness, initial encounter; S22.42XA Multiple fractures of ribs, left side, initial encounter for closed fracture; W10.9XXA Fall (on) (from) unspecified stairs and steps, initial encounter; Z20.822 Contact with and (suspected) exposure to COVID-19; I10 Essential (primary) hypertension; Z95.0 Presence of cardiac pacemaker; Z90.11 Acquired absence of right breast and nipple; Z85.3 Personal history of malignant neoplasm of breast; Z88.0 Allergy status to penicillin; Z88.8 Allergy status to other drugs, medicaments and biological substances
CPT/HCPCS: 85025; 80048; 36415; 85610; 82565; 85730; 70450; 72125; 71260; 74177; 96375; 96374; 99285; 87811; Q9967; J1953 ×2

== ENCOUNTER 2022-07-12 11:21 | Inpatient (IN) | payer OTHER ==
--- OUTSIDE RECORDS SUMMARY | 2022-07-13 13:47 | XMS REPORT | Continuity of Care Document ---
:1945 Author Organization [facility] t Address [address] [place] [address] Care Team Providers Name Role Phone Sharpless Primary Care Physician AMMON BROCK Attending Clinician Unavailable Navid Lehman MD Attending Clinician Yessica Landry MA Attending Clinician Unavailable SHIKHA NICHOLSON Attending Clinician Unavailable Rupinder Delaney Attending Clinician Unavailable Kelsie Torres OD Attending Clinician SUDHAKAR IBARRA Attending Clinician Unavailable Ammon Brock MD Attending Clinician [phone] Aj Nguyen MD, [facility] Attending Clinician LALO SIDDIQI Attending Clinician Unavailable CARYN CUELLAR Attending Clinician Unavailable Rupinder Delaney Admitting Clinician Unavailable Physician, No Primary or Family Admitting Clinician UnavailLALO Jack Admitting Clinician Unavailable CARYN CUELLAR Admitting Clinician Unavailable Payers Payer Name Policy Type Policy Number Effective Date Expiration Date Carisa jose MEDICARE PLAN PPO - [id number] [id number] MEDICARE PART B - [id number] MEDICARE Problems Condition Condition Condition Status Onset [...] depletion depletion No known No known Disease [facility] active active [place] problems problems of Medicin e Allergies, Adverse Reactions, Alerts Allergy Allergy Status Severity Reaction(s) Onset Inactive Treating Comm ents Source Name Type Date Date Clinician Anastroz Propensi Active [facility] ole ty to 510 College adverse 00:00: of reaction 00 Medicin s to e drug Penicill Propensi Active [facility] ins ty to 510 [facility] adverse 00:00: of reaction 00 Medicin s to e drug Methocar Propensi Active [facility] bamol ty to 5 [facility] adverse 00:00: of reaction 00 Medicin s to e drug Penicill DA Active [facility] BREATHING 01-25 [place] 00:00: d 00 [facility] Penicill DA Active [facility] ins 01-25 00:00: [facility] 00 [facility] methocar DA Active [facility] bamol 01-25 [place] 00:00: Brave 00 [facility] anastroz DA Active [facility] 01-25 [place] 00:00: Brave 00 [facility] methocar DA Active [facility] bamol 01-25 [place] 00:00: d 00 [facility] anastroz DA Active [facility] 01-25 [place] 00:[facility]: d [facility] Anastroz Propensi Active [facility] [...] Hospita reaction 00 l s to drug Penicill Propensi Active [facility]axis [facility] reaction [facility] s Anastroz Propensi Active [facility] ty [...] Start Date Stop Date Quantity Comments Source History SDOH [facility] Alcohol Binge [facility] History SDOH [facility] Dr[facility] Exposure to Not sure [facility] SARS-CoV-2 (event) Alcohol intake 2022-03-20 2022-03-20 [facility] of [facility] 00:[facility]:00 00:00:00 alcohol (finding) Hospita l History SDOH 2019-10-19 2019-10-[address] [facility] Alcohol Frequency 00:00:00 00:00:00 [facility] Alcohol Comment 2017-04-24 2017-04-24 occ[facility] 00:[facility] 00:00:00 Hospital Tobacco use and 2017-01-04 2017-01-[address] [facility] exposure 00:00:00 00:00:00 [facility] Sex [birth year] [facility] 00:[facility] Smoking Status Start Date Stop Date Source Never smoked tobacco [facility] Medications Ordered Filled Start Stop Current Ordering Indication Dosage Frequency Signature Comments Components Source Medication Medication Date Date Medication? Clinician (SIG) Name Name aspirin 2021- No 81mg Take 81 mg [facility] (ECOTRIN) 03-[address] 81 MG 13:56: 00:00 [facility] :00 l coated tablet aspirin 2022-0 2022- No 81mg Take 81 mg [facility] (ECOTRIN) 03-[address] 81 MG 13:56: 00:00 [facility] 50 :00 l coated tablet aspirin 2022-0 2022- No 81mg Take 81 mg [facility] (ECOTRIN) 03-[address] 81 MG 13:56: 00:00 [facility] 50 :00 l coated tablet aspirin 2022-0 2022- No 81mg Take 81 mg [facility] (ECOTRIN) 03-[address] 81 MG 13:56: 00:00 [facility] enter[facility] 50 :00 l coated tablet aspirin 2022-0 2022- No 81mg Take 81 mg [facility] (ECOTRIN) 03-[address] 81 MG 13:56: 00:00 [facility] 50 :00 l coated tablet aspirin 2022-0 2022- No 81mg Take 81 mg [facility] (ECOTRIN) 03-[address] 81 MG 13:56: 00:00 [facility] 50 :00 l coated tablet aspirin 2022-0 2022- No 81mg Take 81 mg [facility] (ECOTRIN) 03-[address] 81 MG 13:56: 00:00 [facility] enter[facility] 50 :00 l coated tablet aspirin 2022-0 2022- No 81mg Take 81 mg [facility] (ECOTRIN) 03-[address] 81 MG 13:56: 00:00 [facility] enter[facility] 50 :00 l coated tablet aspirin 2022-0 2022- No 81mg Take 81 mg [facility] (ECOTRIN) 03-[address] 81 MG 13:56: 00:00 [facility] enter[facility] 50 :00 l coated tablet aspirin 2022-0 2022- No 81mg Take 81 mg [facility] (ECOTRIN) 03-[address] 81 MG 13:56: 00:00 [facility] enter[facility] 50 :00 l coated tablet aspirin 2022-0 2022- No 81mg Take 81 mg [facility] (ECOTRIN) 03-[address] 81 MG 13:56: 00:00 [facility]ita enter[facility] 50 :00 l coated tablet aspirin 2022-0 2022- No 81mg Take 81 mg [facility] (ECOTRIN) 03-[address] 81 MG 13:56: 00:00 [facility]ita enter[facility] 50 :00 l coated tablet aspirin 2-0 2- No 81mg Take 81 mg [facility] (ECOTRIN) 03-[address] 81 MG 13:56: 00:00 [facility] 50 :00 l coated tablet aspirin 2-0 2022- No 81mg Take 81 mg [facility] (ECOTRIN) 03-[address] 81 MG 13:56: 00:00 [facility] enter[facility] 50 :00 l coated tablet aspirin 2021-0 2- No 81mg Take 81 mg [facility] (ECOTRIN) 03-[address] 81 MG 13:56: 00:00 [facility] enter[facility] 50 :00 l coated tablet aspirin 2021-0 2022- No 81mg Take 81 mg [facility] (ECOTRIN) 03-[address] 81 MG 13:56: 00:00 [facility] enter[facility] 50 :00 l coated tablet aspirin 2021-0 2- No 81mg Take 81 mg [facility] (ECOTRIN) 03-[address] 81 MG 13:56: 00:00 [facility]ospita enteric 50 :00 l coated tablet [place] 2021-0 Yes TAKE 1 [facility] 2.5-25-1 mg 6-[address] tablet 00:00: MOUTH+ Hospita 00 EVERY DAY. l [place] 2021-0 Yes TAKE 1 [facility] 2.5-25-1 mg 6-[address] tablet 00:00: MOUTH+ [facility]ospita 00 EVERY DAY. l [place] 2-0 Yes TAKE 1 [facility] 2.5-25-1 mg 6-[address] tablet 00:00: MOUTH+ [facility]ospita 00 EVERY DAY. l [place] 2-0 Yes TAKE 1 [facility] 2.5-25-1 mg 6-[address] tablet 00:00: MOUTH+ [facility]ospita 00 EVERY DAY. l [place] 2022-0 Yes TAKE 1 [facility] 2.5-25-1 mg 6-[address] tablet 00:00: MOUTH+ [facility]ospita 00 EVERY DAY. l [place] 2022-0 Yes TAKE 1 [facility] 2.5-25-1 mg 6-[address] tablet 00:00: MOUTH+ [facility]ospita 00 EVERY DAY. l [place] 2021-0 Yes TAKE 1 [facility] 2.5-25-1 mg 6-[address] tablet 00:00: MOUTH+ [facility]ospita 00 EVERY DAY. l [place] 2021-0 Yes TAKE 1 [facility] 2.5-25-1 mg 6-[address] tablet 00:00: MOUTH+ [facility]osp[facility] 00 EVERY DAY. l [place] 2021-0 Yes TAKE 1 [facility] 2.5-25-1 mg 6-[address] tablet 00:00: MOUTH+ [facility]ospita 00 EVERY DAY. l [place] 2021-0 Yes TAKE 1 [facility] 2.5-25-1 mg 6-[address] tablet 00:00: MOUTH+ [facility]ospita 00 EVERY DAY. l [place] 2021-0 Yes TAKE 1 [facility] 2.5-25-1 mg 6-[address] tablet 00:00: MOUTH+ [facility]ospita 00 EVERY DAY. l [place] 2021-0 Yes TAKE 1 [facility] 2.5-25-1 mg 6-[address] tablet 00:00: MOUTH+ [facility]ospita 00 EVERY DAY. l [place] 2021-0 Yes TAKE 1 [facility] 2.5-25-1 mg 6-[address] tablet 00:00: MOUTH+ [facility]ospita 00 EVERY DAY. l [place] 2021-0 Yes TAKE 1 [facility] 2.5-25-1 mg 6-[address] tablet 00:00: MOUTH+ [facility]ospita 00 EVERY DAY. l [place] 2021-0 Yes TAKE 1 [facility] 2.5-25-1 mg 6-[address] tablet 00:00: MOUTH+ [facility]ospita 00 EVERY DAY. l [place] 2021-0 Yes TAKE 1 [facility] 2.5-25-1 mg 6-[address] tablet 00:00: MOUTH+ [facility]ospita 00 EVERY DAY. l [place] 2021-0 Yes TAKE 1 [facility] 2.5-25-1 mg 6-[address] tablet 00:00: MOUTH+ [facility]ospita 00 EVERY DAY. l DULoxetine 2021-0 Yes [id number] TAKE 1 M [facility] (CYMBALTA) 6-[address] 60 MG 00:00: MOUTH [facility]ospita capsule 00 DAILY l DULoxetine 2021-0 Yes [id number] TAKE 1 M [facility] (CYMBALTA) 6-[address] 60 MG 00:00: MOUTH [facility]ospita capsule 00 DAILY l DULoxetine 2021-0 Yes [id number] TAKE 1 M [facility] (CYMBALTA) 6-[address] 60 MG 00:00: MOUTH [facility]ospita capsule 00 DAILY l DULoxetine 2021-0 Yes [id number] TAKE 1 [facility] (CYMBALTA) 6-[address] 60 MG 00:00: MOUTH [facility]ospita capsule 00 DAILY l DULoxetine 2021-0 Yes [id number] TAKE 1 [facility] (CYMBALTA) 6-[address] 60 MG 00:00: MOUTH [facility]ospita capsule 00 DAILY l DULoxetine 2021-0 Yes [id number] TAKE 1 [facility] (CYMBALTA) 6-[address] 60 MG 00:00: MOUTH [facility]ospita capsule 00 DAILY l DULoxetine 2021-0 Yes [id number] TAKE 1 [facility] (CYMBALTA) 6-[address] 60 MG 00:00: MOUTH [facility]osp[facility] capsule 00 DAILY l DULoxetine 2021-0 Yes [id number] TAKE 1 [facility] (CYMBALTA) 6-[address] 60 MG 00:00: MOUTH [facility]osp[facility] capsule 00 DAILY l DULoxetine 2021-0 Yes [id number] TAKE 1 [facility] (CYMBALTA) 6-[address] 60 MG 00:00: MOUTH [facility]osp[facility] capsule 00 DAILY l DULoxetine 2021-0 Yes [id number] TAKE 1 [facility] (CYMBALTA) 6-[address] 60 MG 00:00: MOUTH [facility]ospita capsule 00 DAILY l DULoxetine 2021-0 Yes [id number] TAKE 1 [facility] (CYMBALTA) 6-[address] 60 MG 00:00: MOUTH [facility]ospita capsule 00 DAILY l DULoxetine 2021-0 Yes [id number] TAKE 1 [facility] (CYMBALTA) 6-[address] 60 MG 00:00: MOUTH [facility]ospita capsule 00 DAILY l DULoxetine 2-0 Yes [id number] TAKE 1 [facility] (CYMBALTA) 6-[address] 60 MG 00:00: MOUTH [facility]ospita capsule 00 DAILY l DULoxetine 2021-0 Yes [id number] TAKE 1 [facility] (CYMBALTA) 6-[address] 60 MG 00:00: MOUTH [facility] capsule 00 DAILY l DULoxetine 2-0 Yes [id number] TAKE 1 [facility] (CYMBALTA) 6-[address] 60 MG 00:00: MOUTH [facility]ospita capsule 00 DAILY l DULoxetine 2-0 Yes [id number] TAKE 1 [facility] (CYMBALTA) 6-[address] 60 MG 00:00: MOUTH [facility]ospita capsule 00 DAILY l DULoxetine 2-0 Yes [id number] TAKE 1 [facility] (CYMBALTA) 6-[address] 60 MG 00:00: MOUTH [facility]ospita capsule 00 DAILY l gabapentin 2021- 2022- No 100mg QD Take 100 [facility] (NEURONTIN) 1-19 01-[address] 100 mg 14:09: 00:00 mouth [facility]ospita capsule 25 :00 daily. l Patient states she takes 1-2 tablets in the AM gabapentin 2021- 2022- No 100mg QD Take 100 [facility] (NEURONTIN) 1-19 01-[address] 100 mg 14:09: 00:00 mouth [facility]ospita capsule 25 :00 daily. l Patient states she takes 1-2 tablets in the AM gabapentin 2021- 2022- No 100mg QD Take 100 [facility] (NEURONTIN) 1-19 01-[address] 100 mg 14:09: 00:00 mouth [facility]ospita capsule 25 :00 daily. l Patient states she takes 1-2 tablets in the AM gabapentin 2021- 2022- No 100mg QD Take 100 [facility] (NEURONTIN) 1-19 01-[address] 100 mg 14:09: 00:00 mouth [facility]ospita capsule 25 :00 daily. l Patient states she takes 1-2 tablets in the AM gabapentin 2021-0 2022- No 100mg QD Take 100 [facility] (NEURONTIN) 1-19 01-[address] 100 mg 14:09: 00:00 mouth [facility]ospita capsule 25 :00 daily. l Patient states she takes 1-2 tablets in the AM gabapentin 2-0 2022- No 100mg QD Take 100 [facility] (NEURONTIN) 1-19 01-[address] 100 mg 14:09: 00:00 mouth [facility]ospita capsule 25 :00 daily. l Patient states she takes 1-2 tablets in the AM gabapentin 2022-0 2022- No 100mg QD Take 100 [facility] (NEURONTIN) 1-19 01-[address] 100 mg 14:09: 00:00 mouth [facility]ospita capsule 25 :00 daily. l Patient states she takes 1-2 tablets in the AM gabapentin 2021-2021- No 100mg QD Take 100 [facility] (NEURONTIN) 1-19 01-[address] 100 mg 14:09: 00:00 mouth Hospita capsule 25 :00 daily. l Patient states she takes 1-2 tablets in the AM gabapentin 2021- No 100mg QD Take 100 M [facility] (NEURONTIN) 1-19 01-[address] 100 mg 14:09: 00:00 mouth Hospita capsule 25 :00 daily. l Patient states she takes 1-2 tablets in the AM gabapentin 2021- No 100mg QD Take 100 [facility] (NEURONTIN) 1-19 01-[address] 100 mg 14:09: 00:00 mouth [facility]ospita capsule 25 :00 daily. l Patient states she takes 1-2 tablets in the AM gabapentin 2021- No 100mg QD Take 100 [facility] (NEURONTIN) 1-19 01-[address] 100 mg 14:09: 00:00 mouth [facility]ospita capsule 25 :00 daily. l Patient states she takes 1-2 tablets in the AM gabapentin 2021-2021- No 100mg QD Take 100 [facility] (NEURONTIN) 1-19 01-[address] 100 mg 14:09: 00:00 mouth [facility]ospita capsule 25 :00 daily. l Patient states she takes 1-2 tablets in the AM gabapentin 2021- No 100mg QD Take 100 [facility] (NEURONTIN) 1-19 01-[address] 100 mg 14:09: 00:00 mouth [facility]ospita capsule 25 :00 daily. l Patient states she takes 1-2 tablets in the AM gabapentin 2021-2021- No 100mg QD Take 100 [facility] (NEURONTIN) 1-19 01-[address] 100 mg 14:09: 00:00 mouth [facility]ospita capsule 25 :00 daily. l Patient states she takes 1-2 tablets in the AM gabapentin 2021- No 100mg QD Take 100 [facility] (NEURONTIN) 1-19 01-[address] 100 mg 14:09: 00:00 mouth [facility]ospita capsule 25 :00 daily. l Patient states she takes 1-2 tablets in the AM gabapentin 2021-0 2022- No 100mg QD Take 100 [facility] (NEURONTIN) 08-[address] 100 mg 14:09: 00:00 mouth [facility]ospita capsule 25 :00 daily. l Patient states she takes 1-2 tablets in the AM gabapentin 2021-0 202- No 100mg QD Take 100 [facility] (NEURONTIN) 08-[address] 100 mg 14:09: 00:00 mouth [facility]ospita capsule 25 :00 daily. l Patient states she takes 1-2 tablets in the AM furosemide 2021-0 2021- No 20mg Take 20 mg [facility] (LASIX) 20 08-[address] mg tablet 13:25: 00:00 Hospita 54 :00 l furosemide 2021-0 2- No 20mg Take 20 mg [facility] (LASIX) 20 08-[address] mg tablet 13:25: 00:00 Hospita 54 :00 l furosemide 2021-0 2- No 20mg Take 20 mg [facility] (LASIX) 20 08-[address] mg tablet 13:25: 00:00 Hospita 54 :00 l furosemide 2-0 2- No 20mg Take 20 mg [facility] (LASIX) 20 08-[address] mg tablet 13:25: 00:00 Hospita 54 :00 l furosemide 2-0 2022- No 20mg Take 20 mg [facility] (LASIX) 20 08-[address] mg tablet 13:25: 00:00 Hospita 54 :00 l furosemide 2-0 2022- No 20mg Take 20 mg [facility] (LASIX) 20 08-[address] mg tablet 13:25: 00:00 Hospita 54 :00 l furosemide 2-0 2022- No 20mg Take 20 mg [facility] (LASIX) 20 08-[address] mg tablet 13:25: 00:00 Hospita 54 :00 l furosemide 2022-0 2022- No 20mg Take 20 mg [facility] (LASIX) 20 08-[address] mg tablet 13:25: 00:00 Hospita 54 :00 l furosemide 2022-0 2022- No 20mg Take 20 mg [facility] (LASIX) 20 08-[address] mg tablet 13:25: 00:00 Hospita 54 :00 l furosemide 2022-0 2022- No 20mg Take 20 mg [facility] (LASIX) 20 08-[address] mg tablet 13:25: 00:00 Hospita 54 :00 l furosemide 2022-0 2022- No 20mg Take 20 mg [facility] (LASIX) 20 08-[address] mg tablet 13:25: 00:00 Hospita 54 :00 l furosemide 2022-0 2022- No 20mg Take 20 mg [facility] (LASIX) 20 08-[address] mg tablet 13:25: 00:00 Hospita 54 :00 l furosemide 2022-0 2022- No 20mg Take 20 mg [facility] (LASIX) 20 08-[address] mg tablet 13:25: 00:00 Hospita 54 :00 l furosemide 2022-0 2022- No 20mg Take 20 mg [facility] (LASIX) 20 08-[address] mg tablet 13:25: 00:00 Hospita 54 :00 l furosemide 2022-0 2022- No 20mg Take 20 mg [facility] (LASIX) 20 08-[address] mg tablet 13:25: 00:00 Hospita 54 :00 l furosemide 2022-0 2022- No 20mg Take 20 mg [facility] (LASIX) 20 08-[address] mg tablet 13:25: 00:00 Hospita 54 :00 l furosemide 2022-0 2022- No 20mg Take 20 mg [facility] (LASIX) 20 08-[address] mg tablet 13:25: 00:00 Hospita 54 :00 l gabapentin 2022-0 Yes 100mg QD Take 1 Meth t[facility] (NEURONTIN) 08-[address] 100 mg 00:00: (100 mg Hospita capsule 00 total) by l mouth daily. Patient states she takes 1-2 tablets in the AM gabapentin 2021-0 Yes [id number] 300mg QD Take 1 [facility] (NEURONTIN) 1-[address] 300 mg 00:00: (300 mg Hospita capsule 00 total) by l mouth nightly. gabapentin 2-0 Yes 100mg QD Take 1 [facility] t[facility] (NEURONTIN) 1-[address] 100 mg 00:00: (100 mg Hospita capsule 00 total) by l mouth daily. Patient states she takes 1-2 tablets in the AM gabapentin 2021-0 Yes [id number] 300mg QD Take 1 [facility] (NEURONTIN) 1-[address] 300 mg 00:00: (300 mg Hospita capsule 00 total) by l mouth nightly. gabapentin 2-0 Yes 100mg QD Take 1 [facility] t[facility] (NEURONTIN) 1-[address] 100 mg 00:00: (100 mg Hospita capsule 00 total) by l mouth daily. Patient states she takes 1-2 tablets in the AM gabapentin 2021-0 Yes [id number] 300mg QD Take 1 [facility] (NEURONTIN) 1-[address] 300 mg 00:00: (300 mg Hospita capsule 00 total) by l mouth nightly. gabapentin 2021-0 Yes 100mg QD Take 1 [facility] t[facility] (NEURONTIN) 1-[address] 100 mg 00:00: (100 mg Hospita capsule 00 total) by l mouth daily. Patient states she takes 1-2 tablets in the AM gabapentin 2021-0 Yes [id number] 300mg QD Take 1 [facility] (NEURONTIN) 1-[address] 300 mg 00:00: (300 mg Hospita capsule 00 total) by l mouth nightly. gabapentin 2-0 Yes 100mg QD Take 1 Meth t[facility] (NEURONTIN) 1-[address] 100 mg 00:00: (100 mg Hospita capsule 00 total) by l mouth daily. Patient states she takes 1-2 tablets in the AM gabapentin 2-0 Yes [id number] 300mg QD Take 1 [facility] (NEURONTIN) 1-[address] 300 mg 00:00: (300 mg Hospita capsule 00 total) by l mouth nightly. gabapentin 2022-0 Yes 100mg QD Take 1 Meth t[facility] (NEURONTIN) 1-[address] 100 mg 00:00: (100 mg Hospita capsule 00 total) by l mouth daily. Patient states she takes 1-2 tablets in the AM gabapentin 2-0 Yes [id number] 300mg QD Take 1 [facility] (NEURONTIN) 1-[address] 300 mg 00:00: (300 mg Hospita capsule 00 total) by l mouth nightly. gabapentin 2-0 Yes 100mg QD Take 1 Meth tory (NEURONTIN) 1-[address] 100 mg 00:00: (100 mg Hospita capsule 00 total) by l mouth daily. Patient states she takes 1-2 tablets in the AM gabapentin 2021-0 Yes [id number] 300mg QD Take 1 [facility] (NEURONTIN) 1-[address] 300 mg 00:00: (300 mg Hospita capsule 00 total) by l mouth nightly. gabapentin 2-0 Yes 100mg QD Take 1 Meth tory (NEURONTIN) 1-[address] 100 mg 00:00: (100 mg Hospita capsule 00 total) by l mouth daily. Patient states she takes 1-2 tablets in the AM gabapentin 2021-0 Yes [id number] 300mg QD Take 1 [facility] (NEURONTIN) 1-[address] 300 mg 00:00: (300 mg Hospita capsule 00 total) by l mouth nightly. gabapentin 2021-0 Yes 100mg QD Take 1 Meth tory (NEURONTIN) 1-[address] 100 mg 00:00: (100 mg Hospita capsule 00 total) by l mouth daily. Patient states she takes 1-2 tablets in the AM gabapentin 2021-0 Yes [id number] 300mg QD Take 1 [facility] (NEURONTIN) 1-[address] 300 mg 00:00: (300 mg Hospita capsule 00 total) by l mouth nightly. gabapentin 2-0 Yes 100mg QD Take 1 Meth t[facility] (NEURONTIN) 1-[address] 100 mg 00:00: (100 mg Hospita capsule 00 total) by l mouth daily. Patient states she takes 1-2 tablets in the AM gabapentin 2-0 Yes [id number] 300mg QD Take 1 [facility] (NEURONTIN) 1-[address] 300 mg 00:00: (300 mg Hospita capsule 00 total) by l mouth nightly. gabapentin 2022-0 Yes 100mg QD Take 1 [facility] t[facility] (NEURONTIN) 1-[address] 100 mg 00:00: (100 mg Hospita capsule 00 total) by l mouth daily. Patient states she takes 1-2 tablets in the AM gabapentin 2-0 Yes [id number] 300mg QD Take 1 [facility] (NEURONTIN) 1-[address] 300 mg 00:00: (300 mg Hospita capsule 00 total) by l mouth nightly. gabapentin 2-0 Yes 100mg QD Take 1 Meth t[facility] (NEURONTIN) 1-[address] 100 mg 00:00: (100 mg Hospita capsule 00 total) by l mouth daily. Patient states she takes 1-2 tablets in the AM gabapentin 2021-0 Yes [id number] 300mg QD Take 1 [facility] (NEURONTIN) 1-[address] 300 mg 00:00: (300 mg Hospita capsule 00 total) by l mouth nightly. gabapentin 2-0 Yes 100mg QD Take 1 [facility] t[facility] (NEURONTIN) 1-[address] 100 mg 00:00: (100 mg Hospita capsule 00 total) by l mouth daily. Patient states she takes 1-2 tablets in the AM gabapentin 2021-0 Yes [id number] 300mg QD Take 1 [facility] (NEURONTIN) 1-[address] 300 mg 00:00: (300 mg Hospita capsule 00 total) by l mouth nightly. gabapentin 2021-0 Yes 100mg QD Take 1 [facility] t[facility] (NEURONTIN) 1-[address] 100 mg 00:00: (100 mg Hospita capsule 00 total) by l mouth daily. Patient states she takes 1-2 tablets in the AM gabapentin 2021-0 Yes [id number] 300mg QD Take 1 [facility] (NEURONTIN) 1-[address] 300 mg 00:00: (300 mg Hospita capsule 00 total) by l mouth nightly. gabapentin 2-0 Yes 100mg QD Take 1 [facility] t[facility] (NEURONTIN) 1-[address] 100 mg 00:00: (100 mg Hospita capsule 00 total) by l mouth daily. Patient states she takes 1-2 tablets in the AM gabapentin 2-0 Yes [id number] 300mg QD Take 1 [facility] (NEURONTIN) 1-[address] 300 mg 00:00: (300 mg Hospita capsule 00 total) by l mouth nightly. gabapentin 2022-0 Yes 100mg QD Take 1 [facility] t[facility] (NEURONTIN) 1-[address] 100 mg 00:00: (100 mg Hospita capsule 00 total) by l mouth daily. Patient states she takes 1-2 tablets in the AM gabapentin 2-0 Yes [id number] 300mg QD Take 1 [facility] (NEURONTIN) -[address] 300 mg 00:00: (300 mg Hospita capsule 00 total) by l mouth nightly. gabapentin 2021- Yes 100mg QD Take 1 [facility] t[facility] (NEURONTIN) 1-[address] 100 mg 00:00: (100 mg Hospita capsule 00 total) by l mouth daily. Patient states she takes 1-2 tablets in the AM gabapentin 2021- Yes [id number] 300mg QD Take 1 [facility] (NEURONTIN) - capsule st 300 mg 00:00: (300 mg Hospita capsule 00 total) by l mouth nightly. DULoxetine 2022- No [id number] 30mg QD Take 1 [facility] (Cymbalta) 08-[address] 30 MG 00:00: 05:59 (30 mg Hospita capsule 00 :00 total) by l mouth daily. DULoxetine 2022- No [id number] 30mg QD Take 1 [facility] (Cymbalta) 08-[address] 30 MG 00:00: 05:59 (30 mg Hospita capsule 00 :00 total) by l mouth daily. DULoxetine 2022- No [id number] 30mg QD Take 1 [facility] (Cymbalta) 08-[address] 30 MG 00:00: 05:59 (30 mg Hospita capsule 00 :00 total) by l mouth daily. DULoxetine 2022- No [id number] 30mg QD Take 1 [facility] (Cymbalta) 08-[address] 30 MG 00:00: 05:59 (30 mg Hospita capsule 00 :00 total) by l mouth daily. DULoxetine 2022- No [id number] 30mg QD Take 1 [facility] (Cymbalta) 08-[address] 30 MG 00:00: 05:59 (30 mg Hospita capsule 00 :00 total) by l mouth daily. DULoxetine 2022- No [id number] 30mg QD Take 1 [facility] (Cymbalta) 08-[address] 30 MG 00:00: 05:59 (30 mg Hospita capsule 00 :00 total) by l mouth daily. DULoxetine 2022- No [id number] 30mg QD Take 1 [facility] (Cymbalta) 08-[address] 30 MG 00:00: 05:59 (30 mg Hospita capsule 00 :00 total) by l mouth daily. DULoxetine 2022- No [id number] 30mg QD Take 1 [facility] (Cymbalta) 08-[address] 30 MG 00:00: 05:59 (30 mg Hospita capsule 00 :00 total) by l mouth daily. DULoxetine No [id number] 30mg QD Take 1 [facility] (Cymbalta) 08-[address] 30 MG 00:00: 05:59 (30 mg Hospita capsule 00 :00 total) by l mouth daily. DULoxetine 2022- No [id number] 30mg QD Take 1 [facility] (Cymbalta) 08-[address] 30 MG 00:00: 05:59 (30 mg Hospita capsule 00 :00 total) by l mouth daily. DULoxetine No [id number] 30mg QD Take 1 [facility] (Cymbalta) 08-[address] 30 MG 00:00: 05:59 (30 mg Hospita capsule 00 :00 total) by l mouth daily. DULoxetine No [id number] 30mg QD Take 1 [facility] (Cymbalta) 08-[address] 30 MG 00:00: 05:59 (30 mg Hospita capsule 00 :00 total) by l mouth daily. DULoxetine No [id number] 30mg QD Take 1 [facility] (Cymbalta) 08-[address] 30 MG 00:00: 05:59 (30 mg Hospita capsule 00 :00 total) by l mouth daily. DULoxetine 2022- No [id number] 30mg QD Take 1 [facility] (Cymbalta) 08-[address] 30 MG 00:00: 05:59 (30 mg Hospita capsule 00 :00 total) by l mouth daily. DULoxetine 2022- No [id number] 30mg QD Take 1 [facility] (Cymbalta) 1-19 01-[address] 30 MG 00:00: 05:59 (30 mg Hospita capsule 00 :00 total) by l mouth daily. DULoxetine 2022- No [id number] 30mg QD Take 1 [facility] (Cymbalta) 08-[address] 30 MG 00:00: 05:59 (30 mg Hospita capsule 00 :00 total) by l mouth daily. DULoxetine 2022- No [id number] 30mg QD Take 1 [facility] (Cymbalta) 08-30 [...] No 1{tbl} QD Take 1 [facility] acid-vit 102-[address] B6-vit B12 00:00: 00:00 [facility] ([facility]) 00 :00 daily. l 2.5-25-1 mg tablet folic 2021- No 1{tbl} QD Take 1 [facility] acid-vit 102-[address] B6-vit B12 00:00: 00:00 [facility] ([facility]) 00 :00 daily. l 2.5-25-1 mg tablet folic 2021-0 2022- No 1{tbl} QD Take 1 [facility] acid-vit 08-[address] B6-vit B12 00:00: 00:00 [facility] ([facility]) 00 :00 daily. l 2.5-25-1 mg tablet folic 2021-0 2022- No 1{tbl} QD Take 1 [facility] acid-vit 08-[address] B6-vit B12 00:00: 00:00 [facility] ([facility]) 00 :00 daily. l 2.5-25-1 mg tablet folic 2021-0 2- No 1{tbl} QD Take 1 [facility] acid-vit 08-[address] B6-vit B12 00:00: 00:00 [facility] ([facility] 00 :00 daily. l 2.5-25-1 mg tablet folic 2021-0 2022- No 1{tbl} QD Take 1 [facility]-[address] B6-vit B12 00:00: 00:00 [facility] ([facility]) 00 :00 daily. l 2.5-25-1 mg tablet folic 2021-0 2022- No 1{tbl} QD Take 1 [facility]-[address] B6-vit B12 00:00: 00:00 [facility] ([facility]) 00 :00 daily. l 2.5-25-1 mg tablet folic 2021-0 2022- No 1{tbl} QD Take 1 [facility]-[address] B6-vit B12 00:00: 00:00 [facility] ([facility]) 00 :00 daily. l 2.5-25-1 mg tablet folic 2021-0 2022- No 1{tbl} QD Take [...] l 2.5-25-1 mg tablet DULoxetine 2021- No [id number] 60mg QD Take 1 [facility] (CYMBALTA) 08-[address] 60 MG 00:00: 00:00 (60 mg [facility] capsule 00 :00 total) by l mouth daily. DULoxetine 2021- No [id number] 60mg QD Take 1 [facility] (CYMBALTA) 08-[address] 60 MG 00:00: 00:00 (60 mg [facility] capsule 00 :00 total) by l mouth daily. DULoxetine 2021- No [id number] 60mg QD Take 1 [facility] (CYMBALTA) 08-30- capsule st 60 MG 00:00: 00:00 (60 mg [facility] capsule 00 :00 total) by l mouth daily. DULoxetine 2021- No [id number] 60mg QD Take 1 [facility] (CYMBALTA) 08-30- capsule st 60 MG 00:00: 00:00 (60 mg [facility] capsule 00 :00 total) by l mouth daily. DULoxetine No [id number] 60mg QD Take 1 [facility] (CYMBALTA) 08-[address] 60 MG 00:00: 00:00 (60 mg [facility] capsule 00 :00 total) by l mouth daily. DULoxetine No [id number] 60mg QD Take 1 [facility] (CYMBALTA) 08-[address] 60 MG 00:00: 00:00 (60 mg [facility] capsule 00 :00 total) by l mouth daily. DULoxetine No [id number] 60mg QD Take 1 [facility] (CYMBALTA) 08-[address] 60 MG 00:00: 00:00 (60 mg [facility] capsule 00 :00 total) by l mouth daily. DULoxetine [id number] 60mg QD Take 1 [facility] (CYMBALTA) 08-[address] 60 MG 00:00: 00:00 (60 mg [facility] capsule 00 :00 total) by l mouth daily. DULoxetine No [id number] 60mg QD Take 1 [facility] (CYMBALTA) 08-[address] 60 MG 00:00: 00:00 (60 mg [facility] capsule 00 :00 total) by l mouth daily. DULoxetine No [id number] 60mg QD Take 1 [facility] (CYMBALTA) 08-[address] 60 MG 00:00: 00:00 (60 mg [facility] capsule 00 :00 total) by l mouth daily. DULoxetine No [id number] 60mg QD Take 1 [facility] (CYMBALTA) 08-[address] 60 MG 00:00: 00:00 (60 mg [facility] capsule 00 :00 total) by l mouth daily. DULoxetine No [id number] 60mg QD Take 1 [facility] (CYMBALTA) 08-[address] 60 MG 00:00: 00:00 (60 mg [facility] capsule 00 :00 total) by l mouth daily. DULoxetine No [id number] 60mg QD Take 1 [facility] (CYMBALTA) 08-[address] 60 MG 00:00: 00:00 (60 mg [facility] capsule 00 :00 total) by l mouth daily. DULoxetine 2021- No [id number] 60mg QD Take 1 [facility] (CYMBALTA) 08-[address] 60 MG 00:00: 00:00 (60 mg [facility] capsule 00 :00 total) by l mouth daily. DULoxetine 2021- No [id number] 60mg QD Take 1 [facility] (CYMBALTA) 08-[address] 60 MG 00:00: 00:00 (60 mg [facility] capsule 00 :00 total) by l mouth daily. DULoxetine 2021- No [id number] 60mg QD Take 1 [facility] (CYMBALTA) 08-[address] 60 MG 00:00: 00:00 (60 mg [facility] capsule 00 :00 total) by l mouth daily. DULoxetine 2021- No [id number] 60mg QD Take 1 [facility] (CYMBALTA) 08-[address] 60 MG 00:00: 00:00 (60 mg [facility] capsule 00 :00 total) by l mouth daily. aspirin 81 0 Yes 81mg QD Take 81 mg U T MG EC 9-01 by mouth 1 [facility] tablet 15:42: (one) time 52 each day. aspirin 81 2020-0 Yes 81mg QD Take 81 mg U T MG EC 9-01 by mouth 1 [facility] tablet 15:42: (one) time 52 each day. Folic Acid Yes Take by [facility] 0.8 MG 9- mouth. [facility] capsule 15:41: 38 gabapentin 2020-0 Yes Take by [facility] (Neurontin) 9- mouth. Health 100 MG 15:41: capsule 38 Folic Acid 0 Yes Take by [facility] 0.8 MG 9-01 mouth. Health capsule 15:41: 38 gabapentin 2020-0 Yes Take by [facility] (Neurontin) - mouth. Health 100 MG 15:41: capsule 38 atorvastati 2020-0 Yes [facility] (Lipitor) 8-30 [facility] 10 MG 00:00: tablet 00 atorvastati 2020-0 Yes [facility] (Lipitor) 8-30 [facility] 10 MG 00:00: tablet 00 furosemide 2020-0 Yes TAKE 1 [facility] (Lasix) 20 7-25 TABLET BY [facility] th MG tablet 00:00: MOUTH 00 EVERY DAY NEEDED SWELLING furosemide 2020-0 Yes TAKE 1 [facility] (Lasix) [...] times a l day with meals. sacubitriL- 1-0 Yes Q.5D Take by [facility] valsartan 5-[address] (Entresto) 12:43: (two) [facility] 24-26 mg 46 times a l tablet per day. tablet FOLIC 2020-0 Yes Take by [facility] ACID/MULTIV 5-[address] IT-MIN/LUTE 12:43: Hospit a IN (CENTRUM 46 l SILVER ORAL) carvediloL 2020-0 Yes 25mg Q.5D Take 25 mg [facility] (COREG) 25 5-[address] MG tablet 12:43: (two) [facility]ospita 46 times a l day with meals. sacubitriL- 2021-0 Yes Q.5D Take by [facility] valsartan 5-[address] (Entresto) 12:43: (two) Hospit [facility] 24-26 mg 46 times a l tablet per day. tablet FOLIC 2020-0 Yes Take by [facility] ACID/MULTIV 5-[address] IT-MIN/LUTE 12:43: Hospit a IN (CENTRUM 46 l SILVER ORAL) carvediloL 2021-0 Yes 25mg Q.5D Take 25 mg [facility] (COREG) 25 5-[address] MG tablet 12:43: (two) [facility]ospita 46 times a l day with meals. sacubitriL- 2021-0 Yes Q.5D Take by [facility] valsartan 5-[address] (Entresto) 12:43: (two) Hospit [facility] 24-26 mg 46 times a l tablet per day. tablet FOLIC 1-0 Yes Take by [facility] ACID/MULTIV 5-[address] IT-MIN/LUTE 12:43: Hospit [facility] IN (CENTRUM 46 l SILVER ORAL) carvediloL 2021-0 Yes 25mg Q.5D Take 25 mg [facility] (COREG) 25 5-[address] MG tablet 12:43: (two) [facility]ospita 46 times a l day with meals. sacubitriL- 2021-0 Yes Q.5D Take by [facility] valsartan 5-[address] (Entresto) 12:43: (two) Hospit [facility] 24-26 mg 46 times a l tablet per day. tablet FOLIC 1-0 Yes Take by [facility] ACID/MULTIV 5-[address] IT-MIN/LUTE 12:43: Hospit [facility] IN (CENTRUM 46 l SILVER ORAL) carvediloL 2021-0 Yes 25mg Q.5D Take 25 mg [facility] (COREG) 25 5-[address] MG tablet 12:43: (two) [facility]ospita 46 times a l day with meals. sacubitriL- 2021-0 Yes Q.5D Take by [facility] valsartan 5-[address] (Entresto) 12:43: (two) Hospit [facility] 24-26 mg 46 times a l tablet per day. tablet FOLIC 1-0 Yes Take by [facility] ACID/MULTIV 5-[address] IT-MIN/LUTE 12:43: Hospit [facility] IN (CENTRUM 46 l SILVER ORAL) carvediloL 2021-0 Yes 25mg Q.5D Take 25 mg [facility] (COREG) 25 5-[address] MG tablet 12:43: (two) [facility]osp[facility] 46 times a l day with meals. sacubitriL- 2021-0 Yes Q.5D Take by [facility] valsartan 5-[address] (Entresto) 12:43: (two) Hospit [facility] 24-26 mg 46 times a l tablet per day. tablet FOLIC 2021-0 Yes Take by [facility] ACID/MULTIV 5-[address] IT-MIN/LUTE 12:43: Hospit a IN (CENTRUM 46 l SILVER ORAL) carvediloL 2021-0 Yes 25mg Q.5D Take 25 mg [facility] (COREG) 25 5-[address] MG tablet 12:43: (two) [facility]ospita 46 times a l day with meals. sacubitriL- 2021-0 Yes Q.5D Take by [facility] valsartan 5-[address] (Entresto) 12:43: (two) Hospit [facility] 24-26 mg 46 times a l tablet per day. tablet FOLIC 2021-0 Yes Take by [facility] ACID/MULTIV 5-[address] IT-MIN/LUTE 12:43: Hospit [facility] IN (CENTRUM 46 l SILVER ORAL) carvediloL 2021-0 Yes 25mg Q.5D Take 25 mg [facility] (COREG) 25 5-[address] MG tablet 12:43: (two) [facility]ospita 46 times a l day with meals. sacubitriL- 2021-0 Yes Q.5D Take by [facility] valsartan 5-[address] (Entresto) 12:43: (two) Hospit [facility] 24-26 mg 46 times a l tablet per day. tablet FOLIC 2021-0 Yes Take by [facility] ACID/MULTIV 5-[address] IT-MIN/LUTE 12:43: Hospit [facility] IN (CENTRUM 46 l SILVER ORAL) carvediloL 2021-0 Yes 25mg Q.5D Take 25 mg [facility] (COREG) 25 5-[address] MG tablet 12:43: (two) [facility]osp[facility] 46 times a l day with meals. sacubitriL- 2021-0 Yes Q.5D Take by [facility] valsartan 5-[address] (Entresto) 12:43: (two) Hospit [facility] 24-26 mg 46 times a l tablet per day. tablet FOLIC 2021-0 Yes Take by [facility] ACID/MULTIV 5-[address] IT-MIN/LUTE 12:43: [facility] IN (CENTRUM 46 l SILVER ORAL) carvediloL 2021-0 Yes 25mg Q.5D Take 25 mg [facility] (COREG) 25 5-[address] MG tablet 12:43: (two) [facility]osp[facility] 46 times a l day with meals. sacubitriL- 2021-0 Yes Q.5D Take by [facility] valsartan 5-[address] (Entresto) 12:43: (two) Hospit [facility] 24-26 mg 46 times a l tablet per day. tablet FOLIC 2021-0 Yes Take by [facility] ACID/MULTIV 5-[address] IT-MIN/LUTE 12:43: Hospit a IN (CENTRUM 46 l SILVER ORAL) carvediloL 2021-0 Yes 25mg Q.5D Take 25 mg [facility] (COREG) 25 5-[address] MG tablet 12:43: (two) [facility]ospita 46 times a l day with meals. sacubitriL- 2021-0 Yes Q.5D Take by [facility] valsartan 5-[address] (Entresto) 12:43: (two) Hospit [facility] 24-26 mg 46 times a l tablet per day. tablet FOLIC 1-0 Yes Take by [facility] ACID/MULTIV 5-[address] IT-MIN/LUTE 12:43: Hospit a IN (CENTRUM 46 l SILVER ORAL) carvediloL 2021-0 Yes 25mg Q.5D Take 25 mg [facility] (COREG) 25 5-[address] MG tablet 12:43: (two) [facility]ospita 46 times a l day with meals. sacubitriL- 2021-0 Yes Q.5D Take by [facility] valsartan 5-[address] (Entresto) 12:43: (two) Hospit [facility] 24-26 mg 46 times a l tablet per day. tablet FOLIC 2021-0 Yes Take by [facility] ACID/MULTIV 5-[address] IT-MIN/LUTE 12:43: [facility] IN (CENTRUM 46 l SILVER ORAL) carvediloL 2021-0 Yes 25mg Q.5D Take 25 mg [facility] (COREG) 25 5-[address] MG tablet 12:43: (two) [facility]ospita 46 times a l day with meals. sacubitriL- 2021-0 Yes Q.5D Take by [facility] valsartan 5-[address] (Entresto) 12:43: (two) Hospit a 24-26 mg 46 times a l tablet per day. tablet FOLIC 2021-0 Yes Take by [facility] ACID/MULTIV 5-[address] IT-MIN/LUTE 12:43: [facility] IN (CENTRUM 46 l SILVER ORAL) carvediloL 2021-0 Yes 25mg Q.5D Take 25 mg [facility] (COREG) 25 5-[address] MG tablet 12:43: (two) [facility]osp[facility] 46 times a l day with meals. sacubitriL- 2021-0 Yes Q.5D Take by [facility] valsartan 5-[address] (Entresto) 12:43: (two) Hospit [facility] 24-26 mg 46 times a l tablet per day. tablet FOLIC 1-0 Yes Take by [facility] ACID/MULTIV 5-[address] IT-MIN/LUTE 12:43: [facility] IN (CENTRUM 46 l SILVER ORAL) carvediloL 2021-0 Yes 25mg Q.5D Take 25 mg [facility] (COREG) 25 5-[address] MG tablet 12:43: (two) [facility]osp[facility] 46 times a l day with meals. sacubitriL- 2021-0 Yes Q.5D Take by [facility] valsartan 5-[address] (Entresto) 12:43: (two) Hospit [facility] 24-26 mg 46 times a l tablet per day. tablet FOLIC 2021-0 Yes Take by [facility] ACID/MULTIV 5-[address] IT-MIN/LUTE 12:43: [facility] IN (CENTRUM 46 l SILVER ORAL) carvediloL 2021-0 Yes 25mg Q.5D Take 25 mg [facility] (COREG) 25 5-[address] MG tablet 12:43: (two) [facility]osp[facility] 46 times a l day with meals. sacubitriL- 2021-0 Yes Q.5D Take by [facility] valsartan 5-[address] (Entresto) 12:43: (two) [facility] 24-26 mg 46 times a l tablet per day. tablet FOLIC Yes Take by [facility] ACID/MULTIV 5-[address] IT-MIN/LUTE 12:43: [facility] IN (CENTRUM 46 l SILVER ORAL) carvediloL 0 Yes 25mg Q.5D Take 25 mg [facility] (COREG) 25 5-[address] MG tablet 12:43: (two) [facility]osp[facility] 46 times a l day with meals. sacubitriL- 2020-0 Yes Q.5D Take by [facility] valsartan 5-[address] (Entresto) 12:43: (two) Hospit [facility] 24-26 mg 46 times a l tablet per day. tablet DULoxetine 2021- No [id number] 30mg QD Take 1 [facility] (Cymbalta) 12-[address] 30 MG 00:00: 00:00 (30 mg [facility] capsule 00 :00 total) by l mouth daily. DULoxetine 2021- No [id number] 60mg QD Take 1 [facility] (CYMBALTA) 12-[address] 60 MG 00:00: 00:00 (60 mg [facility] capsule 00 :00 total) by l mouth daily. folic 2021- No 1{tbl} QD Take 1 [facility] -18 08-[address] B6-vit B12 00:00: 00:00 [facility] ([facility]) 00 :00 daily. l 2.5-25-1 mg tablet DULoxetine 2021- No [id number] 30mg QD Take 1 [facility] (Cymbalta) 12-[address] 30 MG 00:00: 00:00 (30 mg [facility] capsule 00 :00 total) by l mouth daily. DULoxetine 2021- No [id number] 60mg QD Take 1 [facility] (CYMBALTA) 5-29 08- capsule st 60 MG 00:00: 00:00 (60 mg [facility] capsule 00 :00 total) by l mouth daily. folic 2021- No 1{tbl} QD Take 1 [facility] 5-18 01-[address] B6-vit B12 00:00: 00:00 [facility] ([facility]) 00 :00 daily. l 2.5-25-1 mg tablet DULoxetine 2021- No [id number] 30mg QD Take 1 [facility] (Cymbalta) 12-[address] 30 MG 00:00: 00:00 (30 mg [facility] capsule 00 :00 total) by l mouth daily. DULoxetine 2021- No [id number] 60mg QD Take 1 [facility] (CYMBALTA) 12-[address] 60 MG 00:00: 00:00 (60 mg [facility] capsule 00 :00 total) by l mouth daily. folic 2021- No 1{tbl} QD Take 1 [facility]-[address] B6-vit B12 00:00: 00:00 [facility] ([facility]) 00 :00 daily. l 2.5-25-1 mg tablet DULoxetine 2021- No [id number] 30mg QD Take 1 [facility] (Cymbalta) 12-[address] 30 MG 00:00: 00:00 (30 mg [facility] capsule 00 :00 total) by l mouth daily. DULoxetine 2021- No [id number] 60mg QD Take 1 [facility] (CYMBALTA) 12-[address] 60 MG 00:00: 00:00 (60 mg [facility] capsule 00 :00 total) by l mouth daily. folic 2021- No 1{tbl} QD Take 1 [facility]-[address] B6-vit B12 00:00: 00:00 [facility] ([facility]) 00 :00 daily. l 2.5-25-1 mg tablet DULoxetine 2021- No [id number] 30mg QD Take 1 [facility] (Cymbalta) 12-[address] 30 MG 00:00: 00:00 (30 mg [facility] capsule 00 :00 total) by l mouth daily. DULoxetine 2021- No [id number] 60mg QD Take 1 [facility] (CYMBALTA) 12-[address] 60 MG 00:00: 00:00 (60 mg [facility] capsule 00 :00 total) by l mouth daily. folic 2021- No 1{tbl} QD Take 1 [facility]-[address] B6-vit B12 00:00: 00:00 [facility] ([facility]) 00 :00 daily. l 2.5-25-1 mg tablet DULoxetine No [id number] 30mg QD Take 1 [facility] (Cymbalta) 12-[address] 30 MG 00:00: 00:00 (30 mg [facility] capsule 00 :00 total) by l mouth daily. DULoxetine No [id number] 60mg QD Take 1 [facility] (CYMBALTA) 12-[address] 60 MG 00:00: 00:00 (60 mg [facility] capsule 00 :00 total) by l mouth daily. folic 2021- No 1{tbl} QD Take 1 [facility]-[address] B6-vit B12 00:00: 00:00 [facility] ([facility]) 00 :00 daily. l 2.5-25-1 mg tablet DULoxetine No [id number] 30mg QD Take 1 [facility] (Cymbalta) 12-[address] 30 MG 00:00: 00:00 (30 mg [facility] capsule 00 :00 total) by l mouth daily. DULoxetine No [id number] 60mg QD Take 1 [facility] (CYMBALTA) 12-[address] 60 MG 00:00: 00:00 (60 mg [facility] capsule 00 :00 total) by l mouth daily. folic 2021- No 1{tbl} QD Take 1 [facility]-[address] B6-vit B12 00:00: 00:00 [facility] ([facility]) 00 :00 daily. l 2.5-25-1 mg tablet DULoxetine 2021- No [id number] 30mg QD Take 1 [facility] (Cymbalta) 12-[address] 30 MG 00:00: 00:00 (30 mg [facility] capsule 00 :00 total) by l mouth daily. DULoxetine No [id number] 60mg QD Take 1 [facility] (CYMBALTA) 12-[address] 60 MG 00:00: 00:00 (60 mg [facility] capsule 00 :00 total) by l mouth daily. folic 2021- No 1{tbl} QD Take 1 [facility] B6-vit B12 00:00: 00:00 [facility] ([facility]) 00 :00 daily. l 2.5-25-1 mg tablet DULoxetine No [id number] 30mg QD Take 1 [facility] (Cymbalta) 12-[address] 30 MG 00:00: 00:00 (30 mg [facility] capsule 00 :00 total) by l mouth daily. DULoxetine 2021- No [id number] 60mg QD Take 1 [facility] (CYMBALTA) 12-[address] 60 MG 00:00: 00:00 (60 mg [facility] capsule 00 :00 total) by l mouth daily. folic 2021- No 1{tbl} QD Take 1 [facility] B6-vit B12 00:00: 00:00 [facility] ([facility]) 00 :00 daily. l 2.5-25-1 mg tablet DULoxetine 2021- No [id number] 30mg QD Take 1 [facility] (Cymbalta) 12-[address] 30 MG 00:00: 00:00 (30 mg [facility] capsule 00 :00 total) by l mouth daily. DULoxetine 2021- No [id number] 60mg QD Take 1 [facility] (CYMBALTA) 12-[address] 60 MG 00:00: 00:00 (60 mg [facility] capsule 00 :00 total) by l mouth daily. folic 2021- No 1{tbl} QD Take 1 [facility] B6-vit B12 00:00: 00:00 [facility] ([facility]) 00 :00 daily. l 2.5-25-1 mg tablet DULoxetine 2021- No [id number] 30mg QD Take 1 [facility] (Cymbalta) 12-[address] 30 MG 00:00: 00:00 (30 mg [facility] capsule 00 :00 total) by l mouth daily. DULoxetine 2021- No [id number] 60mg QD Take 1 [facility] (CYMBALTA) 12-[address] 60 MG 00:00: 00:00 (60 mg [facility] capsule 00 :00 total) by l mouth daily. folic 2021- No 1{tbl} QD Take 1 [facility]-[address] B6-vit B12 00:00: 00:00 [facility] ([facility]) 00 :00 daily. l 2.5-25-1 mg tablet DULoxetine 2021- No [id number] 30mg QD Take 1 [facility] (Cymbalta) 12-[address] 30 MG 00:00: 00:00 (30 mg [facility] capsule 00 :00 total) by l mouth daily. DULoxetine 2021- No [id number] 60mg QD Take 1 [facility] (CYMBALTA) 12-[address] 60 MG 00:00: 00:00 (60 mg [facility] capsule 00 :00 total) by l mouth daily. folic 2021- No 1{tbl} QD Take 1 [facility] B6-vit B12 00:00: 00:00 [facility] ([facility]) 00 :00 daily. l 2.5-25-1 mg tablet DULoxetine 2021- No [id number] 30mg QD Take 1 [facility] (Cymbalta) 12-[address] 30 MG 00:00: 00:00 (30 mg [facility] capsule 00 :00 total) by l mouth daily. DULoxetine 2021- No [id number] 60mg QD Take 1 [facility] (CYMBALTA) 5-08-[address] 60 MG 00:00: 00:00 (60 mg [facility] capsule 00 :00 total) by l mouth daily. folic 2021- No 1{tbl} QD Take 1 [facility] B6-vit B12 00:00: 00:00 [facility] ([facility]) 00 :00 daily. l 2.5-25-1 mg tablet DULoxetine 2021- No [id number] 30mg QD Take 1 [facility] (Cymbalta) 12-[address] 30 MG 00:00: 00:00 (30 mg [facility] capsule 00 :00 total) by l mouth daily. DULoxetine 2021- No [id number] 60mg QD Take 1 [facility] (CYMBALTA) 12-[address] 60 MG 00:00: 00:00 (60 mg [facility] capsule 00 :00 total) by l mouth daily. folic 2021- No 1{tbl} QD Take 1 [facility] B6-vit B12 00:00: 00:00 [facility] ([facility]) 00 :00 daily. l 2.5-25-1 mg tablet DULoxetine 2021- No [id number] 30mg QD Take 1 [facility] (Cymbalta) 12-[address] 30 MG 00:00: 00:00 (30 mg [facility] capsule 00 :00 total) by l mouth daily. DULoxetine 2021- No [id number] 60mg QD Take 1 [facility] (CYMBALTA) 12-[address] 60 MG 00:00: 00:00 (60 mg [facility] capsule 00 :00 total) by l mouth daily. folic 2021- No 1{tbl} QD Take 1 [facility] B6-vit B12 00:00: 00:00 [facility] ([facility]) 00 :00 daily. l 2.5-25-1 mg tablet DULoxetine 2021- No [id number] 30mg QD Take 1 [facility] (Cymbalta) 5-08-[address] 30 MG 00:00: 00:00 (30 mg [facility] capsule 00 :00 total) by l mouth daily. DULoxetine 2021- No [id number] 60mg QD Take 1 [facility] (CYMBALTA) 12-[address] 60 MG 00:00: 00:00 (60 mg [facility] capsule 00 :00 total) by l mouth daily. folic 2021- No 1{tbl} QD Take 1 [facility] B6-vit B12 00:00: 00:00 [facility] ([facility]) 00 :00 daily. l 2.5-25-1 mg tablet DULoxetine 2021- No [id number] 30mg QD Take 1 [facility] (Cymbalta) 12-[address] 30 MG 00:00: 00:00 (30 mg [facility] capsule 00 :00 total) by l mouth daily. DULoxetine 2021- No [id number] 60mg QD Take 1 [facility] (CYMBALTA) 12-[address] 60 MG 00:00: 00:00 (60 mg [facility] capsule 00 :00 total) by l mouth daily. folic 2021- No 1{tbl} QD Take 1 [facility] B6-vit B12 00:00: 00:00 [facility] ([facility]) 00 :00 daily. l 2.5-25-1 mg tablet gabapentin 2021- No [id number] TAKE 1 [facility] (NEURONTIN) 11-21 CAPSULE(30 s t 300 mg 00:00: 00:00 0 MG) BY Hospit a capsule 00 :00 MOUTH l TWICE DAILY gabapentin 2021- No [id number] TAKE 1 [facility] (NEURONTIN) 11-21 CAPSULE(30 s t 300 mg 00:00: 00:00 0 MG) BY Hospit a capsule 00 :00 MOUTH l TWICE DAILY gabapentin 2021- No [id number] TAKE 1 [facility] (NEURONTIN) 11-21 CAPSULE(30 s t 300 mg 00:00: 00:00 0 MG) BY [facility] capsule 00 :00 MOUTH l TWICE DAILY gabapentin 2021- No [id number] TAKE 1 [facility] (NEURONTIN) 11-21 CAPSULE(30 s t 300 mg 00:00: 00:00 0 MG) BY Hospit [facility] capsule 00 :00 MOUTH l TWICE DAILY gabapentin 2021- No [id number] TAKE 1 [facility] (NEURONTIN) 11-21 CAPSULE(30 s t 300 mg 00:00: 00:00 0 MG) BY [facility] capsule 00 :00 MOUTH l TWICE DAILY gabapentin 2021- No [id number] TAKE 1 [facility] (NEURONTIN) 11-21 CAPSULE(30 s t 300 mg 00:00: 00:00 0 MG) BY [facility] a capsule 00 :00 MOUTH l TWICE DAILY gabapentin 2021- No [id number] TAKE 1 [facility] (NEURONTIN) 11-21 CAPSULE(30 s t 300 mg 00:00: 00:00 0 MG) BY Hospit a capsule 00 :00 MOUTH l TWICE DAILY gabapentin 2021- No [id number] TAKE 1 [facility] (NEURONTIN) 11-21 CAPSULE(30 s t 300 mg 00:00: 00:00 0 MG) BY Hospit a capsule 00 :00 MOUTH l TWICE DAILY gabapentin 2021- No [id number] TAKE 1 [facility] (NEURONTIN) 11-21 CAPSULE(30 s t 300 mg 00:00: 00:00 0 MG) BY Hospit a capsule 00 :00 MOUTH l TWICE DAILY gabapentin 2021- No [id number] TAKE 1 [facility] (NEURONTIN) 11-21 CAPSULE(30 s t 300 mg 00:00: 00:00 0 MG) BY Hospit a capsule 00 :00 MOUTH l TWICE DAILY gabapentin 2021- No [id number] TAKE 1 [facility] (NEURONTIN) 11-21 CAPSULE(30 s t 300 mg 00:00: 00:00 0 MG) BY Hospit a capsule 00 :00 MOUTH l TWICE DAILY gabapentin 2021- No [id number] TAKE 1 [facility] (NEURONTIN) 11-21 CAPSULE(30 s t 300 mg 00:00: 00:00 0 MG) BY Hospit a capsule 00 :00 MOUTH l TWICE DAILY gabapentin 2021- No [id number] TAKE 1 [facility] (NEURONTIN) 11-21 CAPSULE(30 s t 300 mg 00:00: 00:00 0 MG) BY Hospit a capsule 00 :00 MOUTH l TWICE DAILY gabapentin 2- No [id number] TAKE 1 [facility] (NEURONTIN) 11-21 CAPSULE(30 s t 300 mg 00:00: 00:00 0 MG) BY Hospit a capsule 00 :00 MOUTH l TWICE DAILY gabapentin 0 2- No [id number] TAKE 1 [facility] (NEURONTIN) 11-21 CAPSULE(30 s t 300 mg 00:00: 00:00 0 MG) BY Hospit a capsule 00 :00 MOUTH l TWICE DAILY gabapentin 2021- No [id number] TAKE 1 [facility] (NEURONTIN) 11-21 CAPSULE(30 s t 300 mg 00:00: 00:00 0 MG) BY Hospit a capsule 00 :00 MOUTH l TWICE DAILY gabapentin 2- No [id number] TAKE 1 [facility] (NEURONTIN) 11-21 CAPSULE(30 s [...] 1 T PO U T ne 1-20 [facility] (Synthroid, 00:00: Levoxyl) 25 00 MCG tablet levothyroxi 2019-08 Yes TK 1 T PO U T ne 1-20 [facility] (Synthroid, 00:00: Levoxyl) 25 00 MCG tablet aspirin EC Yes 81mg Take 81 mg [facility] 81 MG 9-30 by mouth. College tablet 18:55: of 51 Medicin e furosemide 2019-0 Yes furosemide [facility] (LASIX) 20 9-30 20 mg [facility] MG tablet 18:55: tablet TK of 51 1 T PO QD Medicin PRN e SWELLING triamcinolo 2019-0 Yes triamcinol [facility] ne 9- one [place] ([facility]) 18:55: acetonide of 0.1 % cream 51 0.1 % Medicin topical e cream APPLY AA BID FOR 7 TO 14 DAYS PRN RASH Multiple 2020-0 Yes Take by [facility] 9 mouth. [employer] e nerals 18:55: of (CENTRUM 51 Medicin SILVER) e TABS alclomethas 2020-0 Yes alclometas [facility] one 05-11 one 0.05 % [place] (ACLOV[facility]) 18:55: topical of 0.05 % 51 cream Medicin cream e aspirin EC 2020-0 Yes 81mg Take 81 mg B ayl[facility] 81 MG 8-31 by mouth. [place] tablet 20:34: of 27 Medicin e furosemide 2020-0 Yes furosemide [facility] (LASIX) 20 8-31 20 mg [employer] MG tablet 20:34: tablet TK of 27 1 T PO QD Medicin PRN e SWELLING [facility]cinolo 2020-0 [facility] 04-11 one [place] ([facility]) 20:34: acetonide of 0.1 % cream 27 0.1 % Medicin topical e cream APPLY AA BID FOR 7 TO 14 DAYS PRN RASH Multiple 2020-0 Yes Take by [facility] - mouth. [employer] [facility] 20:34: of (CENTRUM 27 Medicin SILVER) e TABS alclomethas 2020-0 Yes alclometas [facility] one 04-11 one 0.05 % [place] (ACLOV[facility]) 20:34: topical of 0.05 % 27 cream Medicin cream e aspirin EC 2020-0 Yes 81mg Take 81 mg [facility] 81 MG 8-31 by mouth. [place] tablet 20:34: of 27 Medicin e furosemide 2020-0 Yes furosemide [facility] (LASIX) 20 8-31 20 mg [employer] MG tablet 20:34: tablet TK of 27 1 T PO QD Medicin PRN e SWELLING triamcinolo 2020-0 Yes triamcinol [facility] ne - [facility] ([facility]) 20:34: acetonide of 0.1 % cream 27 0.1 % Medicin topical e cream APPLY AA BID FOR 7 TO 14 DAYS PRN RASH Multiple 2020-0 Yes Take by [facility] 04-11 mouth. [employer] e [employer] 20:34: of (CENTRUM 27 Medicin SILVER) e TABS alclomethas 2020-0 Yes alclometas [facility] one 04-11 one 0.05 % [place] (ACLOVATE) 20:34: topical of 0.05 % 27 cream Medicin cream e aspirin EC 2020-0 Yes 81mg Take 81 mg [facility] 81 MG -08 by mouth. [place] tablet 19:55: of 29 Medicin e furosemide 2020-0 Yes furosemide [facility] (LASIX) 20 -08 20 mg [employer] MG tablet 19:55: tablet TK of 29 1 T PO QD Medicin PRN e SWELLING triamcinolo 2020-0 Yes triamcinol [facility] ne - one [place] (KENALOG) 19:55: acetonide of 0.1 % cream 29 0.1 % Medicin topical e cream APPLY AA BID FOR 7 TO 14 DAYS PRN RASH Multiple 2020-0 Yes Take by [facility] Vitamins-Mi 02-16 mouth. [employer] e [employer] 19:55: of (CENTRUM 29 Medicin SILVER) e TABS alclomethas 2020-0 Yes alclometas [facility] one 02-16 one 0.05 % [facility] (ACLOVATE) 19:55: topical of 0.05 % 29 cream Medicin cream e aspirin 81 2020-0 2020- No 81mg Take 81 mg Sourav MG tablet 02-16 by mouth. [facility] 19:53: 00:00 of 34 :00 Medicin e ALPHAGAN P 2020-0 Yes INT 1 GTT Ba ylor 0.1 % 6-30 IN OS BID [facility] ophthal[facility] 00:00: PRN of solution 00 Medicin e ALPHAGAN P 2020-0 Yes INT 1 GTT Ba y[facility] 0.1 % 6-30 IN OS BID [facility] 00:00: PRN of solution 00 Medicin e ALPHAGAN P 2020-0 Yes INT 1 GTT Ba ylor 0.1 % 6-30 IN OS BID [facility] 00:00: PRN of solution 00 Medicin e ALPHAGAN P 2020-0 Yes INT 1 GTT Ba [facility] 0.1 % 6-30 IN OS BID [facility] ophthal[facility] 00:00: PRN of solution 00 Medicin e timolol 2020-0 Yes INSTILL 1 [facility] maleate 6-02 GTT IN TO [facility] (TIMOPTIC) 00:00: LEFT EYE of 0.5 % 00 BID UTD Medicin ophthalmic e solution timolol 2020-0 Yes INSTILL 1 [facility] maleate 6-02 GTT IN TO [facility] (TIMOPTIC) 00:00: LEFT EYE of 0.5 % 00 BID UTD Medicin ophthalmic e solution timolol 2020-0 Yes INSTILL 1 [facility] maleate 6-02 GTT IN TO [facility] (TIMOPTIC) 00:00: LEFT EYE of 0.5 % 00 BID UTD Medicin ophthalmic e solution timolol 2020-0 Yes INSTILL 1 [facility] maleate 6-02 GTT IN TO [facility] (TIMOPTIC) 00:00: LEFT EYE of 0.5 % 00 BID UTD Medicin ophthalmic e solution Levocetiriz 2020-0 Yes TK 1 T PO B aylor ine 5-24 D [facility] 00:00: of ride 5 MG 00 Medicin TABS e Levocetiriz 2020-0 Yes TK 1 T PO B aylor ine 5-24 D [facility] 00:00: of ride 5 MG 00 Medicin TABS e Levocetiriz 2020-0 Yes TK 1 T PO B aylor ine 5-24 D [facility] 00:00: of ride 5 MG 00 Medicin TABS e Levocetiriz 2020-0 Yes TK 1 T PO B aylor ine 5-24 D [facility] 00:00: of ride 5 MG 00 Medicin TABS e atorvastati 2020-0 Yes TK 1 T PO B aylor n (LIPITOR) 5-20 D [facility] 10 MG 00:00: of tablet 00 Medicin e atorvastati 2020-0 Yes TK 1 T PO B aylor n (LIPITOR) 5-20 D [facility] 10 MG 00:00: of tablet 00 Medicin e atorvastati 2020-0 Yes TK 1 T PO B [facility] n (LIPITOR) 5-20 D [facility] 10 MG 00:00: of tablet 00 Medicin e atorvastati 2020-0 Yes TK 1 T PO B aylor n (LIPITOR) 5-20 D [facility] 10 MG 00:00: of tablet 00 Medicin [...] e daily. PRED FORTE 2020-0 Yes Per [facility] 1 % 4-15 [facility] ophthalmic 00:00: n sheet of suspension 00 Medicin e moxifloxaci 2020-0 Yes 1[drp] Place 1 B [facility] n (VIGAMOX) 4-15 Drop into [facility] 0.5 % 00:00: the left of ophthalmic 00 eye 3 Medicin solution times e daily. PRED FORTE 2020-0 Yes Per [facility] 1 % 4-15 [facility] ophthalmic 00:00: n sheet of suspension 00 Medicin e moxifloxaci 2020-0 Yes 1[drp] Place 1 [facility] n (VIGAMOX) 4-15 Drop into [facility] 0.5 % 00:00: the left of ophthalmic 00 eye 3 Medicin solution times e daily. PRED FORTE 2020-0 Yes Per [facility] 1 % 4-15 [facility] ophthalmic 00:00: n sheet of suspension 00 Medicin e moxifloxaci 2020-0 Yes 1[drp] Place 1 [facility] n (VIGAMOX) 4-15 Drop into [facility] 0.5 % 00:00: the left of ophthalmic 00 eye 3 Medicin solution times e daily. PRED FORTE 2020-0 Yes Per [facility] 1 % 4-15 [facility] ophthalmic 00:00: n sheet of suspension 00 Medicin e moxifloxaci 2020-0 Yes 1[drp] Place 1 [facility] n (VIGAMOX) 4-15 Drop into [facility] 0.5 % 00:00: the left of ophthalmic 00 eye 3 Medicin solution times e daily. PRED FORTE 2020-0 Yes Per [facility] 1 % 4-15 [facility] ophthalmic 00:00: n sheet of suspension 00 Medicin e moxifloxaci 2020-0 Yes 1[drp] Place 1 [facility] n (VIGAMOX) 4-15 Drop into [facility] 0.5 % 00:00: the left of ophthalmic 00 eye 3 Medicin solution times e daily. PRED FORTE 2020-0 Yes Per [facility] 1 % 4-15 [facility] ophthalmic 00:00: n sheet of suspension [...] prednisoLON 2020-0 2020- No 1[drp] Place 1 [facility] E acetate 3-11 07-08 Drop into [facility] (PRED 00:00: 00:00 the left of FORTE) 1 % 00 :00 eye four Medic in ophthalmic times e suspension daily. Shake well before instillati on FOLIC 2019-0 Yes Take by [facility] AC[facility]/MULTIV 3-10 [facility]. [facility] 14:15: Medica l IN ([facility]UM 34 Center SILVER ORAL) Missing or 2020-[address] [facility] Non-Formula 3-10 [facility] 14:15: Medical Medication 34 Center carvedilol 2020-0 Yes 37.5mg Take 37.5 [facility] [...] times Center daily. gabapentin 2020-0 Yes 300mg Q.[id number] Take [address] [facility] (NEURONTIN) 3-10 [id number] mg by L ukes 300 MG 14:15: 3D mouth 3 Medical capsule 34 (three) Center times daily. QUINACRINE 2020-0 Yes 100mg Take [address] HCL 3-10 mg by [facility] (QUINACRINE 14:15: mouth Medic al , BULK, 34 once. [facility]) FOLIC 2020-0 Yes Take by [facility] ACID/MULTIV 3-10 mouth. [facility] 14:15: Medica l IN ([address] SILVER ORAL) Missing or 2020-[address] [facility] Non-Formula 3-10 [facility] 14:15: Medical Medication [address] [place] [address] carvedilol 2020-0 Yes 37.5mg Take 37.[address] [facility] (COREG) 25 3-10 mg by [facility] MG tablet 14:15: mouth 2 Medic al 34 (two) Center times daily with breakfast and dinner. letrozole 2020-0 Yes 2.5mg QD Take 2.[address] [facility] (FEMARA) 3-10 mg by [facility] 2.5 mg 14:15: mouth Medical tablet 34 daily. [facility] furosemide 2020-0 Yes 20mg Q.5D Take [address] (LASIX) 20 3-10 by mouth 2 [facility] MG tablet 14:15: (two) Medical 34 times Center daily. gabapentin 2020-0 Yes 300mg Q.[id number] Take [address] [facility] [facility] (NEURONTIN) 3-10 [id number] mg by L ukes 300 MG 14:15: 3D mouth 3 Medical capsule 34 (three) Center times daily. QUINACRINE 2020-0 Yes 100mg Take [address] HCL 3-10 mg by [facility] (QUINACRINE 14:15: mouth Medic al , BULK, 34 once. [facility]) FOLIC 2020-0 Yes Take by [facility] ACID/MULTIV 3-10 mouth. [facility]LUTE 14:15: Medica l IN ([facility] SILVER ORAL) Missing or 2020-[address] [facility] Non-Formula 3-10 [facility] 14:15: Medical Medication 34 [facility] carvedilol 2020-0 Yes 37.5mg Take 37.5 [facility] [...] times Center daily. gabapentin 2020-0 Yes 300mg Q.[id number] Take [address] (NEURONTIN) 3-10 [id number] mg by L ukes 300 MG 14:15: 3D mouth 3 Medical capsule 34 (three) Center times daily. QUINACRINE 2020-0 Yes 100mg Take [address] HCL 3-10 mg by [facility] (QUINACRINE 14:15: mouth Medic al , BULK, 34 once. [facility]) FOLIC 2020-0 Yes Take by [facility] ACID/MULTIV 3-10 mouth. [facility] 14:15: Medica l IN (CENTRUM 34 Center SILVER ORAL) Missing or 2020-[address] [facility] Non-Formula 3-10 [facility] 14:15: Medical Medication 34 [place] carvedilol 2020-0 Yes 37.5mg Take 37.5 [facility] [...] times Center daily. gabapentin 2020-0 Yes 300mg Q.[id number] Take [address] [facility] [facility] (NEURONTIN) 3-10 [id number] mg by L ukes 300 MG 14:15: 3D mouth 3 Medical capsule 34 (three) Center times daily. QUINACRINE 2020-0 Yes 100mg Take [address] HCL 3-10 mg by [facility] (QUINACRINE 14:15: mouth Medic al , BULK, 34 once. [facility]) FOLIC 2020-0 Yes Take by [facility] ACID/MULTIV 3-10 mouth. [facility] 14:15: Medica l IN ([address] SILVER ORAL) Missing or 2020-[address] [facility] Non-Formula 3-10 [facility] 14:15: Medical Medication [address] [place] [address] carvedilol 2020-0 Yes 37.5mg Take 37.[address] (COREG) 25 3-10 mg by [facility] MG tablet 14:15: mouth 2 Medic al 34 (two) Center times daily with breakfast and dinner. letrozole 2020-0 Yes 2.5mg QD Take 2.[address] [facility] [facility] (FEMARA) 3-10 mg by [facility] 2.5 mg 14:15: mouth Medical tablet 34 daily. [facility] furosemide 2020-0 Yes 20mg Q.5D Take [address] (LASIX) 20 3-10 by mouth 2 [facility] MG tablet 14:15: (two) Medical 34 times Center daily. gabapentin 2020-0 Yes 300mg Q.[id number] Take [address] (NEURONTIN) 3-10 [id number] mg by L ukes 300 MG 14:15: 3D mouth 3 Medical capsule 34 (three) Center times daily. QUINACRINE 2020-0 Yes 100mg Take [address] HCL 3-10 mg by [facility] (QUINACRINE 14:15: mouth Medic al , BULK, 34 once. [facility]) FOLIC 2020-0 Yes Take by [facility] ACID/MULTIV 3-10 mouth. [facility] 14:15: Medica l IN ([address] SILVER ORAL) Missing or 2020-[address] [facility] Non-Formula 3-10 [facility] 14:15: Medical Medication [address] [place] [address] carvedilol 2020-0 Yes 37.5mg Take 37.5 [facility] [...] times Center daily. gabapentin 2020-0 Yes 300mg Q.[id number] Take [address] (NEURONTIN) 3-10 [id number] mg by L ukes 300 MG 14:15: 3D mouth 3 Medical capsule 34 (three) Center times daily. QUINACRINE 2020-0 Yes 100mg Take [address] HCL 3-10 mg by [facility] (QUINACRINE 14:15: mouth Medic al , BULK, 34 once. [facility]) FOLIC 2020-0 Yes Take by [facility] ACID/MULTIV 3-10 mouth. [facility]/LUTE 14:15: Medica l IN (CENTRUM Center SILVER ORAL) Missing or 2020-[address] [facility] Non-Formula 3-10 [facility] 14:15: Medical Medication 34 [place] carvedilol 2020-0 Yes 37.5mg Take 37.[address] [facility] (COREG) 25 3-10 mg by [facility] MG tablet 14:15: mouth 2 Medic al 34 (two) Center times daily with breakfast and dinner. letrozole 2020-0 Yes 2.5mg QD Take 2.[address] [facility] (FEMARA) 3-10 mg by [facility] 2.5 mg 14:15: mouth Medical tablet 34 daily. [facility] furosemide 2020-0 Yes 20mg Q.5D Take [address] (LASIX) 20 3-10 by mouth 2 [facility] MG tablet 14:15: (two) Medical 34 times Center daily. gabapentin 2020-0 Yes 300mg Q.[id number] Take [address] [facility] (NEURONTIN) 3-10 [id number] mg by L ukes 300 MG 14:15: 3D mouth 3 Medical capsule 34 (three) Center times daily. carvedilol 2020-0 Yes 37.5mg Take 37.[address] (COREG) 25 3-10 mg by [facility] MG tablet 14:15: mouth 2 Medic al 34 (two) Center times daily with breakfast and dinner. QUINACRINE 2020-0 Yes 100mg Take [address] HCL 3-10 mg by [facility] (QUINACRINE 14:15: mouth Medic al , BULK, 34 once. [facility]) letrozole 2020-0 Yes 2.5mg QD Take 2.[address] [facility] (FEMARA) 3-10 mg by [facility] 2.5 mg 14:15: mouth Medical tablet 34 daily. Center furosemide 2020-0 Yes 20mg Q.5D Take [address] (LASIX) 20 3-10 by mouth 2 [facility] MG tablet 14:15: (two) Medical 34 times Center daily. gabapentin 2020-0 Yes 300mg Q.[id number] Take [address] (NEURONTIN) 3-10 [id number] mg by L ukes 300 MG 14:15: 3D mouth 3 Medical capsule 34 (three) Center times daily. QUINACRINE 2020-0 Yes 100mg Take [address] HCL 3-10 mg by [facility] (QUINACRINE 14:15: mouth Medic al , BULK, 34 once. [facility]) FOLIC 2020-0 Yes Take by [facility] ACID/MULTIV 3-10 mouth. [facility]LUTE 14:15: Medica l IN (CENTR [facility] SILVER ORAL) Missing or 2020-[address] [facility] Non-Formula 3-10 [facility] 14:15: Medical Medication [address] [place] [address] FOLIC 2020-0 Yes Take by [facility] ACID/MULTIV 3-10 mouth. [facility]LUTE 14:15: Medica l IN (CENTRUM [address] [place] [address] SILVER ORAL) Missing or 2020-[address] [facility] Non-Formula 3-10 [facility] 14:15: Medical Medication [address] [place] [address] carvedilol 2020-0 Yes 37.5mg Take 37.5 [facility] [...] times Center daily. gabapentin 2020-0 Yes 300mg Q.[id number] Take [address] (NEURONTIN) 3-10 [id number] mg by L ukes 300 MG 14:15: 3D mouth 3 Medical capsule 34 (three) Center times daily. QUINACRINE 2020-0 Yes 100mg Take [address] HCL 3-10 mg by [facility] (QUINACRINE 14:15: mouth Medic al , BULK, 34 once. [facility]) FOLIC 2020-0 Yes Take by [facility] ACID/MULTIV 3-10 mouth. [facility]LUTE 14:15: Medica l IN ([address] SILVER ORAL) Missing or 2020-[address] [facility] Non-Formula 3-10 [facility] 14:15: Medical Medication 34 [place] carvedilol 2020-0 Yes 37.5mg Take 37.[address] [facility] [address] (COREG) 25 3-10 mg by [facility] MG tablet 14:15: mouth 2 Medic al 34 (two) Center times daily with breakfast and dinner. carvedilol 2020-0 Yes 37.5mg Take 37.[address] (COREG) 25 3-10 mg by [facility] MG tablet 14:15: mouth 2 Medic al 34 (two) Center times daily with breakfast and dinner. letrozole 2020-0 Yes 2.5mg QD Take 2.[address] [facility] (FEMARA) 3-10 mg by [facility] 2.5 mg 14:15: mouth Medical tablet 34 daily. [facility] furosemide 2020-0 Yes 20mg Q.5D Take [address] (LASIX) 20 3-10 by mouth 2 [facility] MG tablet 14:15: (two) Medical 34 times Center daily. gabapentin 2020-0 Yes 300mg Q.[id number] Take [address] [facility] (NEURONTIN) 3-10 [id number] mg by L ukes 300 MG 14:15: 3D mouth 3 Medical capsule 34 (three) Center times daily. QUINACRINE 2020-0 Yes 100mg Take [address] HCL 3-10 mg by [facility] (QUINACRINE 14:15: mouth Medic al , BULK, 34 once. [facility]) FOLIC 2020-0 Yes Take by [facility] ACID/MULTIV 3-10 mouth. [facility]/LUTE 14:15: Medica l IN ([address] SILVER ORAL) Missing or 2020-[address] [facility] Non-Formula 3-10 [facility] 14:15: Medical Medication 34 [place] letrozole 2020-0 Yes 2.5mg QD Take 2.[address] [facility] (FEMARA) 3-10 mg by [facility] 2.5 mg 14:15: mouth Medical tablet 34 daily. Center carvedilol 2020-0 Yes 37.5mg Take 37.5 [facility] [...] 14:15: (two) Medical 34 times Center daily. furosemide 2020-0 Yes 20mg Q.5D Take [address] (LASIX) 20 3-10 by mouth 2 [place] MG tablet 14:15: (two) Medical 34 times Center daily. gabapentin 2020-0 Yes 300mg Q.[id number] Take [address] [facility] [facility] (NEURONTIN) 3-10 [id number] mg by L u[facility] 300 MG 14:15: 3D mouth 3 Medical capsule 34 (three) Center times daily. QUINACRINE 2020-0 Yes 100mg Take [address] HCL 3-10 mg by [facility] (QUINACRINE 14:15: mouth Medic al , BULK, 34 once. [facility]) FOLIC 2020-0 Yes Take by [facility] ACID/MULTIV 3-10 mouth. [facility] IT-[facility]/LUTE 14:15: Medica l IN ([facility] [address] [place] SILVER ORAL) Missing or 2020-[address] [facility] Non-Formula 3-10 [facility] 14:15: Medical Medication 34 [place] gabapentin 2020-0 Yes 300mg Q.[id number] Take [address] [facility] (NEURONTIN) 3-10 [id number] mg by L u[facility] 300 MG 14:15: 3D mouth 3 Medical capsule 34 (three) Center times daily. QUINACRINE 2020-0 Yes 100mg Take [address] HCL 3-10 mg by [facility] (QUINACRINE 14:15: mouth Medic al , BULK, 34 once. [facility]) FOLIC 2020-0 Yes Take by [facility] ACID/MULTIV 3-10 mouth. [facility]LUTE 14:15: Medica l IN ([address] SILVER ORAL) Missing or 2020-[address] [facility] Non-Formula 3-10 [facility] 14:15: Medical Medication 34 [place] carvedilol 2020-0 Yes 37.5mg Take 37.5 [facility] [...] times Center daily. gabapentin 2020-0 Yes 300mg Q.[id number] Take [address] [facility] [facility] (NEURONTIN) 3-10 [id number] mg by L u[facility] 300 MG 14:15: 3D mouth 3 Medical capsule 34 (three) Center times daily. QUINACRINE 2020-0 Yes 100mg Take [address] HCL 3-10 mg by [facility] (QUINACRINE 14:15: mouth Medic al , BULK, 34 once. [facility]) FOLIC 2020-0 Yes Take by [facility] ACID/MULTIV 3-10 mouth. [facility] IT-[facility]/LUTE 14:15: Medica l IN (CENTRUM 34 Center SILVER ORAL) Missing or 2020-[address] [facility] Non-Formula 3-10 [facility] 14:15: Medical Medication 34 [place] carvedilol 2020-0 Yes 37.5mg Take 37.5 [facility] [...] times Center daily. gabapentin 2020-0 Yes 300mg Q.[id number] Take [address] [facility] (NEURONTIN) 3-10 [id number] mg by L ukes 300 MG 14:15: 3D mouth 3 Medical capsule 34 (three) Center times daily. QUINACRINE 2020-0 Yes 100mg Take [address] HCL 3-10 mg by [facility] (QUINACRINE 14:15: mouth Medic al , BULK, 34 once. [facility]) FOLIC 2020-0 Yes Take by [facility] ACID/MULTIV 3-10 mouth. [facility]/LUTE 14:15: Medica l IN ([address] SILVER ORAL) Missing or 2020-[address] [facility] Non-Formula 3-10 [facility] 14:15: Medical Medication [address] [place] [address] carvedilol 2020-0 Yes 37.5mg Take 37.[address] [facility] (COREG) 25 3-10 mg by [facility] MG tablet 14:15: mouth 2 Medic al 34 (two) Center times daily with breakfast and dinner. letrozole 2020-0 Yes 2.5mg QD Take 2.[address] [facility] (FEMARA) 3-10 mg by [facility] 2.5 mg 14:15: mouth Medical tablet 34 daily. [facility] furosemide 2020-0 Yes 20mg Q.5D Take [address] (LASIX) 20 3-10 by mouth 2 [place] MG tablet 14:15: (two) Medical 34 times Center daily. gabapentin 2020-0 Yes 300mg Q.[id number] Take [address] [facility] (NEURONTIN) 3-10 [id number] mg by [facility] 300 MG 14:15: 3D mouth 3 Medical capsule 34 (three) Center times daily. QUINACRINE 2020-0 Yes 100mg Take [address] HCL 3-10 mg by [facility] (QUINACRINE 14:15: mouth Medic al , BULK, 34 once. [facility]) FOLIC 2020-0 Yes Take by [facility] ACID/MULTIV 3-10 mouth. [facility]/LUTE 14:15: Medica l IN ([address] SILVER ORAL) Missing or 2020-[address] [facility] Non-Formula 3-10 [facility] 14:15: Medical Medication [address] [place] [address] carvedilol 2020-0 Yes 37.5mg Take 37.[address] (COREG) 25 3-10 mg by [facility] MG tablet 14:15: mouth 2 Medic al 34 (two) Center times daily with breakfast and dinner. letrozole 2020-0 Yes 2.5mg QD Take 2.[address] [facility] (FEMARA) 3-10 mg by [facility] 2.5 mg 14:15: mouth Medical tablet 34 daily. [facility] furosemide 2020-0 Yes 20mg Q.5D Take [address] (LASIX) 20 3-10 by mouth 2 [place] [facility] MG tablet 14:15: (two) Medical 34 times Center daily. gabapentin 2020-0 Yes 300mg Q.[id number] Take [address] [facility] (NEURONTIN) 3-10 [id number] mg by L u[facility] 300 MG 14:15: 3D mouth 3 Medical capsule 34 (three) Center times daily. QUINACRINE 2020-0 Yes 100mg Take [address] HCL 3-10 mg by [facility] (QUINACRINE 14:15: mouth Medic al , BULK, 34 once. Center [facility]) Multiple 2020-0 Yes Take by [facility] Vitamins-Mi 3-02 mouth. [facility] 21:03: of (CENTRUM 37 Medicin SILVER) e TABS alclomethas 2020-0 Yes alclometas [facility] one - one 0.05 % [facility] (ACLOVATE) 21:03: topical of 0.05 % 37 [...] Take 81 mg B [facility]or MG tablet -02 by mouth. Colle ge 21:03: of 37 Medicin e triamcinolo 2020-0 Yes triamcinol [facility] ne 3-02 one [facility] (KENALOG) 21:03: acetonide of 0.1 % cream 37 0.1 % Medicin topical e cream APPLY AA BID FOR 7 TO 14 DAYS PRN RASH Multiple 2020-0 Yes Take by [facility] Vitamins-Mi 3-02 mouth. [facility] 21:03: of (CENTRUM 37 Medicin SILVER) e TABS alclomethas 2020-0 Yes alclometas [facility] one 3-02 one 0.05 % [facility] (ACLOVATE) [...] 37 Medicin e triamcinolo 2020-0 Yes triamcinol [facility] ne 3-02 one [facility] ([facility]) 21:03: acetonide of 0.1 % cream 37 0.1 % Medicin topical e cream APPLY AA BID FOR 7 TO 14 DAYS PRN RASH Multiple 2020-0 Yes Take by [facility] Vitamins-Mi 3-02 mouth. [facility] 21:03: of (CENTRUM 37 Medicin SILVER) e TABS alclomethas 2020-0 Yes alclometas [facility] one 3- one 0.05 % [facility] (ACLOVATE) 21:03: topical of 0.05 % 37 cream Medicin cream e aspirin EC 2020-0 Yes 81mg Take 81 mg [facility] 81 MG 3-02 by mouth. [facility] tablet 21:03: of 37 Medicin e furosemide 2020-0 Yes furosemide [facility] (LASIX) 20 3-02 20 mg [facility] MG tablet 21:03: tablet TK of 37 1 T PO QD Medicin PRN e SWELLING aspirin 81 2020-0 Yes 81mg Take 81 mg B [facility] MG tablet 3-02 by mouth. Colle ge 21:03: of 37 Medicin e triamcinolo 2020-0 Yes triamcinol [facility] ne 3- one [facility] ([facility]) 21:03: acetonide of 0.1 % cream 37 0.1 % Medicin topical e cream APPLY AA BID FOR 7 TO 14 DAYS PRN RASH Multiple 2020-0 Yes Take by [facility] Vitamins-Mi 3-02 mouth. [facility] 21:03: of (CENTRUM 37 Medicin SILVER) e TABS alclomethas 2020-0 Yes alclometas [facility]rav one 3-02 one 0.05 % [facility] (ACLOVATE) 21:03: topical of 0.05 % 37 cream Medicin cream e aspirin EC 2020-0 Yes 81mg Take 81 mg [facility] 81 MG 3-02 by mouth. [facility] tablet 21:03: of 37 Medicin e furosemide 2020-0 Yes furosemide [facility] (LASIX) 20 3-02 20 mg [facility] MG tablet 21:03: tablet TK of 37 1 T PO QD Medicin PRN e SWELLING aspirin 81 2020-0 Yes 81mg Take 81 mg [facility] MG tablet -02 by mouth. Colle ge 21:03: of 37 Medicin e triamcinolo 2020-0 Yes triamcinol [facility] ne 3- one [facility] (KENALOG) 21:03: acetonide of 0.1 % cream 37 0.1 % Medicin topical e cream APPLY AA BID FOR 7 TO 14 DAYS PRN RASH Multiple 2020-0 Yes Take by [facility] Vitamins-Mi 3- mouth. [facility] 21:03: of (CENTRUM 37 Medicin SILVER) e TABS alclomethas 2020-0 [address] alclometas [facility] - one 0.05 % [facility] (ACLOVATE) 21:03: topical of 0.05 % 37 cream Medicin cream e aspirin EC 2020-0 Yes 81mg Take 81 mg [facility] 81 MG 3- by mouth. College tablet 21:03: of 37 Medicin e furosemide 2020-0 Yes furosemide [facility] (LASIX) 20 3-02 20 mg [facility] MG tablet 21:03: tablet TK of 37 1 T PO QD Medicin PRN e SWELLING aspirin 81 2020-0 Yes 81mg Take 81 mg B [facility] MG tablet - by mouth. Colle ge 21:03: of 37 Medicin e triamcinolo 2020-0 Yes triamcinol [facility] ne 10-11 one [facility] (KENALOG) 21:03: acetonide of 0.1 % cream 37 0.1 % Medicin topical e cream APPLY AA BID FOR 7 TO 14 DAYS PRN RASH gabapentin 2018-08 Yes TK 1 C PO [facility] (NEURONTIN) 08-25 [facility] [place] 300 MG 00:00: of capsule 00 Medicin e gabapentin 2018-08 Yes TK 1 C PO [facility] (NEURONTIN) 08-25 [facility] [place] 300 MG 00:00: of capsule 00 Medicin e gabapentin 2018-08 Yes TK 1 C [facility] (NEURONTIN) 08-25 [facility] [place] 300 MG 00:00: of capsule 00 Medicin e gabapentin 2018-08 Yes TK 1 C PO [facility] (NEURONTIN) 08-25 [facility] [place] 300 MG 00:00: of capsule 00 Medicin [...] Medicin e mometasone 2018-08 Yes APPLY AA [place] [facility] (ELOCON) 0-30 BID PRN [facility] 0.1 % cream 00:00: of 00 Medicin e mometasone 2018-08 Yes APPLY AA [place] [facility] (ELOCON) 0-30 BID PRN [facility] 0.1 % cream 00:00: of 00 Medicin e mometasone 2018-08 Yes APPLY AA [place] [facility] (ELOCON) 0-30 BID PRN [facility] 0.1 % cream 00:00: of 00 Medicin e mometasone 2018-08 Yes APPLY AA [place] [facility] (ELOCON) 0-30 BID PRN [facility] 0.1 % cream 00:00: of 00 Medicin e mometasone 2018-08 Yes APPLY AA [place] [facility] (ELOCON) 0-30 BID PRN [facility] 0.1 % cream 00:00: of 00 Medicin e mometasone 2018-08 Yes APPLY AA [place] [facility] (ELOCON) 0-30 BID PRN [facility] 0.1 % cream 00:00: of Medicin e mometasone 2018-08 Yes APPLY AA [place] [facility] (ELOCON) 0-30 BID PRN [facility] 0.1 % cream 00:00: of Medicin e mometasone 2018-08 Yes APPLY AA [place] [facility] (ELOCON) 0-30 BID PRN [facility] 0.1 % cream 00:00: of 00 Medicin e mometasone 2018-08 Yes APPLY AA [place] [facility] (ELOCON) 0-30 BID PRN College 0.1 [...] of external 00 Medicin solution e clobetasol 2019-1 Yes GENNY TO [facility] (TEMOVATE) 0-02 SCALP BID [facility] 0.05 % 00:00: PRF RASH of external 00 Medicin solution e clobetasol 2019-1 Yes GENNY TO [facility] (TEMOVATE) 0-02 SCALP BID [facility] 0.05 % 00:00: PRF RASH of external 00 Medicin solution e duloxetine 2019-0 Yes TK ONE C [place] [facility] (CYMBALTA) 9-29 PO QD. TK [facility] 30 MG 00:00: WITH of capsule 00 CYMBALTA Medicin 60 MG QD e duloxetine 2019-0 Yes TK ONE [facility] [place] [facility] (CYMBALTA) 9-29 PO QD. TK [facility] 30 MG 00:00: WITH of capsule 00 CYMBALTA Medicin 60 MG QD e duloxetine 2019-0 Yes TK ONE [facility] [place] [facility] (CYMBALTA) 9-29 PO QD. TK [facility] 30 MG 00:00: WITH of capsule 00 CYMBALTA Medicin 60 MG QD e duloxetine 2019-0 Yes TK ONE [facility] [place] [facility] (CYMBALTA) 9-29 PO QD. TK [facility] 30 MG 00:00: WITH of capsule 00 CYMBALTA Medicin 60 MG QD e duloxetine 2019-0 Yes TK ONE [facility] [place] [facility] (CYMBALTA) 9-29 PO QD. TK [facility] 30 MG 00:00: WITH of capsule 00 CYMBALTA Medicin 60 MG QD e duloxetine 2019-0 Yes TK ONE [facility] [place] [facility] (CYMBALTA) 9-29 PO QD. TK [facility] 30 MG 00:00: WITH of capsule 00 CYMBALTA Medicin 60 MG QD e duloxetine 2019-0 Yes TK ONE [facility] [place] [facility] (CYMBALTA) 9-29 PO QD. TK [facility] 30 MG 00:00: WITH of capsule 00 CYMBALTA Medicin 60 MG QD e duloxetine 2019-0 Yes TK ONE C [place] (CYMBALTA) 9-29 PO QD. TK [facility] 30 MG 00:00: WITH of capsule 00 CYMBALTA Medicin 60 MG QD e duloxetine 2019-0 Yes TK ONE C [place] (CYMBALTA) 9-29 PO QD. TK [facility] 30 MG 00:00: WITH of capsule 00 CYMBALTA Medicin 60 MG QD e diflupredna 2018-0 Yes 1[drp] Place 1 B [...] e emulsion daily. losartan Yes [facility] (COZAAR) 5-09 [facility] 100 MG 00:00: of tablet 00 Medicin e furosemide 2019-0 Yes [facility] (LASIX) 20 5-09 [facility] MG tablet 00:00: of 00 Medicin e losartan 2019-0 Yes [facility] (COZAAR) 5-09 [facility] 100 MG 00:00: of tablet 00 Medicin e furosemide 2019-0 Yes [facility] (LASIX) 20 5-09 College MG tablet 00:00: [...] tablet 00 Medicin e losartan 2019-0 Yes [facility] (COZAAR) 5-09 College 100 MG 00:00: of tablet 00 Medicin e losartan 2019-0 Yes [facility] (COZAAR) 5-09 College 100 MG 00:00: of tablet 00 Medicin e furosemide 2019-0 Yes [facility] (LASIX) 20 5-09 College MG tablet 00:00: of 00 Medicin e losartan 2019-0 Yes [facility] (COZAAR) 5-09 College 100 MG 00:00: of tablet 00 Medicin e furosemide 2019-0 Yes [facility] (LASIX) 20 5-09 College MG tablet 00:00: of 00 Medicin e furosemide 2019-0 2020- No [facility] (LASIX) 20 5-09 07-08 College MG tablet 00:00: 00:00 of 00 :00 Medicin e levothyroxi 2019-0 Yes TK 1 T PO B [facility] ne 11-13 QA [facility]ES [facility] (SYNTHROID) 00:00: of 25 MCG 00 Medicin tablet e levothyroxi 2019-0 Yes TK 1 T PO B ayl[facility] ne 11-13 QA OES [facility] (SYNTHROID) 00:00: of 25 MCG 00 Medicin tablet e levothyroxi 2019-0 Yes TK 1 T PO B [facility] ne 11-13 QAM [facility] (SYNTHROID) 00:00: of 25 MCG 00 Medicin tablet e levothyroxi 2019-0 Yes TK 1 T PO B aylor ne 11-13 [facility] (SYNTHROID) 00:00: of 25 MCG 00 Medicin tablet e levothyroxi 2019-0 Yes TK 1 T PO B [facility] ne 11-13 [facility] (SYNTHROID) 00:00: of 25 MCG 00 Medicin tablet e levothyroxi 2019-0 2020- No TK 1 T PO [facility] ne 11-13 [facility] (SYNTHROID) 00:00: 00:00 of 25 MCG 00 :00 Medicin tablet e BYSTOLIC 10 2018-0 Yes TK 1 [...] of 00 Medicin e Letrozole 2019-0 Yes [facility] 2.5 MG TABS 3-05 College 00:00: of 00 Medicin e Letrozole 2019-0 Yes [facility] 2.5 MG TABS 3-05 College 00:00: of 00 Medicin e Letrozole 2019-0 Yes [facility] 2.5 MG TABS 3-05 College 00:00: of 00 Medicin e Letrozole 2019-0 Yes [facility] 2.5 MG TABS 3-05 College 00:00: of 00 Medicin e Letrozole 2019-0 Yes [facility] 2.5 MG TABS 3-05 [facility] 00:00: of Medicin e Letrozole 2019-0 2020- No [facility] 2.5 MG TABS 3-02-16 [facility] 00:00: 00:00 of 00 :00 Medicin e L-Methylfol 2019-0 Yes TK 1 C PO B [facility] ate-Algae-B -18 [facility] College - 00:00: of (METANX) 00 Medicin 3-90.314-2- e 35 MG CAPS L-Methylfol 2019-0 Yes TK 1 C PO B aylor ate-Algae-B 18 [facility] - 00:00: of (METANX) 00 Medicin 3-90.314-2- e 35 MG CAPS L-Methylfol 2019-0 Yes TK 1 C PO B ayl[facility] ate-Algae-B -18 [facility] College -B6 00:00: of (METANX) 00 Medicin 3-90.314-2- e 35 MG CAPS L-Methylfol 2019-0 Yes TK 1 C PO B a[facility] ate-Algae-B -18 [facility] College -B6 00:00: of (METANX) 00 Medicin 3-90.314-2- e [...] PO B ayl[facility] ate-Algae-B -18 [facility] -B6 00:00: of (METANX) 00 Medicin 3-90.314-2- e [...] PO D WF levothyroxi 2017-0 Yes levothyrox [facility] ne 7-20 ine 25 mcg [facility] (SYNTHROID) 00:00: tablet of 25 MCG 00 Medicin tablet e levothyroxi 2018-0 Yes levothyrox [facility] ne 7-20 ine 25 mcg [facility] (SYNTHROID) 00:00: tablet of 25 MCG 00 Medicin tablet e levothyroxi 2018-0 Yes levothyrox [facility] ne 7-20 ine 25 mcg [facility] (SYNTHROID) 00:00: tablet of 25 MCG 00 Medicin tablet e levothyroxi 2018-0 Yes levothyrox [facility] ne 7-20 ine 25 mcg [facility] (SYNTHROID) 00:00: tablet of 25 MCG 00 Medicin tablet e levothyroxi 2018-0 Yes levothyrox [facility] ne 7-20 ine 25 mcg [facility] (SYNTHROID) 00:00: tablet of 25 MCG 00 Medicin tablet e levothyroxi 2018-0 Yes levothyrox [facility] ne 7-20 ine 25 mcg [facility] (SYNTHROID) 00:00: tablet of 25 MCG 00 Medicin tablet e levothyroxi 2018-0 Yes levothyrox [facility] ne 7-20 ine 25 mcg [facility] (SYNTHROID) 00:00: tablet of 25 MCG 00 Medicin tablet e levothyroxi 2018-0 Yes levothyrox [facility] ne 7-20 ine 25 mcg [facility] (SYNTHROID) 00:00: tablet of 25 MCG 00 Medicin tablet e levothyroxi 2018-0 Yes levothyrox [facility] ne 7-20 ine 25 mcg [facility] (SYNTHROID) 00:00: tablet of 25 MCG 00 Medicin tablet e levothyroxi 2018-0 Yes [facility]ROID, [facility]: Hospit [facility] LEVOXYL) 25 00 l mcg tablet levothyroxi 2018-0 Yes [facility] (SYNTHROID, 00:00: Hospit a LEVOXYL) 25 00 l mcg tablet levothyroxi 2018-0 Yes [facility] (SYNTHROID, 00:00: Hospit a LEVOXYL) 25 00 l mcg tablet levothyroxi 2018-0 Yes [facility] (SYNTHROID, 00:00: Hospit a LEVOXYL) 25 00 l mcg tablet levothyroxi 2018-0 Yes [facility]SYNTHROID, 00:00: Hospit a LEVOXYL) 25 00 l mcg tablet levothyroxi 2018-0 Yes [facility] (SYNTHROID, 00:00: Hospit a LEVOXYL) 25 00 l mcg tablet levothyroxi 2018-0 Yes [facility]SYNTHROID, 00:00: Hospit a LEVOXYL) 25 00 l mcg tablet levothyroxi 2018-0 Yes [facility]SY[facility]THROID, 00:00: Hospit a LEVOXYL) 25 00 l mcg tablet levothyroxi 2018-0 Yes [facility]SYNTHROID, 00:00: Hospit a LEVOXYL) 25 00 l mcg tablet levothyroxi 2018-0 Yes [facility]SYNTHROID, 00:00: Hospit a LEVOXYL) 25 00 l mcg tablet levothyroxi 2017-0 Yes [facility] (SYNTHROID, 00:00: Hospit a LEVOXYL) 25 00 l mcg tablet levothyroxi 2018-0 Yes [facility] (SYNTHROID, 00:00: Hospit a LEVOXYL) 25 00 l mcg tablet levothyroxi 2018-0 Yes [facility] (SYNTHROID, 00:00: Hospit a LEVOXYL) 25 00 l mcg tablet levothyroxi 2018-0 Yes [facility] (SYNTHROID, 00:00: Hospit a LEVOXYL) 25 00 l mcg tablet levothyroxi 2018-0 Yes [facility] (SYNTHROID, 00:00: Hospit a LEVOXYL) 25 00 l mcg tablet levothyroxi 2018-0 Yes [facility] (SYNTHROID, 00:00: Hospit a LEVOXYL) 25 00 l mcg tablet levothyroxi 2018-0 Yes [facility] (SY[facility]THROID, 00:00: Hospit a LEVOXYL) 25 00 l mcg tablet Letrozole 2014- Yes letrozole [place] [facility] 2.5 MG TABS 1-28 2.5 mg [facility] e 00:00: tablet of 00 Medicin e Letrozole 2014-0 Yes letrozole [place] [facility] 2.5 MG TABS 1-28 2.5 mg [facility] e 00:00: tablet of 00 Medicin e Letrozole 2014-0 Yes letrozole [place] [facility] 2.5 MG TABS 1-28 2.5 mg [facility] 00:00: tablet of 00 Medicin e Letrozole 2014-0 Yes letrozole [place] [facility] 2.5 MG TABS 1-28 2.5 mg [facility] e 00:00: tablet of 00 Medicin e Letrozole 2014-0 Yes letrozole [place] [facility] 2.5 MG TABS 1-28 2.5 mg [facility] 00:00: tablet of Medicin e Letrozole 2014-0 Yes letrozole [place] [facility] 2.5 MG TABS 1-28 2.5 mg [facility] 00:[facility]: tablet of Medicin e Letrozole 2014-0 Yes letrozole [place] [facility] 2.5 MG TABS 1-28 2.5 mg [facility] 00:00: tablet of Medicin e Letrozole 2014-0 Yes letrozole [place] [facility] 2.5 MG TABS 1-28 2.5 mg [facility] 00:00: tablet of Medicin e Letrozole 2014-0 Yes letrozole [place] [facility] 2.5 MG TABS 1-28 2.5 mg [facility] 00:[facility]: tablet of 00 Medicin e letrozole 2014-0 Yes 1{tbl} QD Take 1 [facility] (FEMARA) 1-[address] 2.5 mg 00:[facility] daily. l tablet letrozole 2014-0 Yes 1{tbl} QD Take 1 [facility] (FEMARA) 1-[address] 2.5 mg 00:00: [facility] 00 daily. l tablet letrozole 2014-0 Yes 1{tbl} QD Take 1 [facility] (FEMARA) 1-[address] 2.5 mg 00:00: [facility] 00 daily. l tablet letrozole 2014-0 Yes 1{tbl} QD Take 1 [facility] (FEMARA) 1-[address] 2.5 mg 00:00: [facility] 00 daily. l tablet letrozole 2014-0 Yes 1{tbl} QD Take 1 [facility] (FEMARA) 1-[address] 2.5 mg 00:00: [facility] 00 daily. l tablet letrozole 2014-0 Yes 1{tbl} QD Take 1 [facility] (FEMARA) 1-[address] 2.5 mg 00:00: [facility] 00 daily. l tablet letrozole 2014-0 Yes 1{tbl} QD Take 1 [facility] (FEMARA) 1-[address] 2.5 mg 00:00: [facility] 00 daily. l tablet letrozole 2014-0 Yes 1{tbl} QD Take 1 [facility] (FEMARA) 1-[address] 2.5 mg 00:00: [facility] 00 daily. l tablet letrozole 2014-0 Yes 1{tbl} QD Take 1 [facility] (FEMARA) 1-[address] 2.5 mg 00:00: [facility] 00 daily. l tablet letrozole 2014-0 Yes 1{tbl} QD Take 1 [facility] (FEMARA) 1-[address] 2.5 mg 00:00: [facility] 00 daily. l tablet letrozole 2014-0 Yes 1{tbl} QD Take 1 [facility] (FEMARA) 1-[address] 2.5 mg 00:00: [facility] 00 daily. l tablet letrozole 2014-0 Yes 1{tbl} QD Take 1 [facility] (FEMARA) 1-[address] 2.5 mg 00:00: [facility] 00 daily. l tablet letrozole 2014-0 Yes 1{tbl} QD Take 1 [facility] (FEMARA) 1-[address] 2.5 mg 00:00: [facility] 00 daily. l tablet letrozole 2014-0 Yes 1{tbl} QD Take 1 [facility] (FEMARA) 1-[address] 2.5 mg 00:00: [facility] 00 daily. l tablet letrozole 2014-0 Yes 1{tbl} QD Take 1 [facility] (FEMARA) 1-[address] 2.5 mg 00:00: [facility] 00 daily. l tablet letrozole 2014-0 Yes 1{tbl} QD Take 1 [facility] ([facility]EMARA) 1-[address] 2.5 mg 00:00: [facility] 00 daily. l tablet letrozole 2014-0 Yes 1{tbl} QD Take 1 [facility] (FEMARA) 1-[address] 2.5 mg 00:00: [facility] 00 daily. l tablet Immunizations Ordered Immunization Filled Immunization Date Status Commen ts Source Name Name PFIZER COVID-19 MRNA 2021-05-12 Completed [facility]:00:00 [facility] PFIZER COVID-19 MRNA 2021-05-12 Completed [facility] VACCINATION 00:00:00 [facility] PFIZER COVID-19 MRNA 2021-05-12 Completed [facility] VACCINATION 00:00:00 [facility] PFIZER COVID-19 MRNA 2021-05-12 Completed [facility] VACCINATION 00:00:00 [facility] PFIZER COVID-19 MRNA 2021-05-12 Completed [facility] VACCINATION 00:00:00 [facility] PFIZER COVID-19 MRNA 2021-05-12 Completed [facility] VACCINATION 00:00:00 [facility] PFIZER COVID-19 MRNA 2021-05-12 Completed [facility] VACCINATION 00:00:00 [facility] PFIZER COVID-19 MRNA 2021-05-12 Completed [facility] VACCINATION 00:00:00 [facility] PFIZER COVID-19 MRNA 2021-05-12 Completed [facility] VACCINATION 00:00:00 [facility] PFIZER COVID-19 MRNA 2021-05-12 Completed [facility] VACCINATION 00:00:00 [facility] PFIZER COVID-19 MRNA 2021-05-12 Completed [facility] VACCINATION 00:00:00 [facility] PFIZER COVID-19 MRNA 2021-05-12 Completed [facility] VACCINATION 00:00:00 [facility] PFIZER COVID-19 MRNA 2021-05-12 Completed [facility] VACCINATION 00:00:00 [facility] PFIZER COVID-19 MRNA 2021-05-12 Completed [facility] VACCINATION 00:00:00 [facility] PFIZER COVID-19 MRNA 2021-05-12 Completed [facility] VACCINATION 00:00:00 [facility] PFIZER COVID-19 MRNA 2021-05-12 Completed [facility] VACCINATION 00:00:00 [facility] PFIZER COVID-19 MRNA 2021-05-12 Completed [facility] VACCINATION 00:00:00 [facility] PFIZER COVID-19 MRNA 2020-10-05 Completed [facility] VACCINATION 00:00:00 [facility] PFIZER COVID-19 MRNA 2020-10-05 Completed [facility] VACCINATION 00:00:00 [facility] PFIZER COVID-19 MRNA 2020-10-05 Completed [facility] VACCINATION 00:00:00 [facility] PFIZER COVID-19 MRNA 2020-10-05 Completed [facility] VACCINATION 00:00:00 [facility] PFIZER COVID-19 MRNA 2020-10-05 Completed [facility] VACCINATION 00:00:00 [facility] PFIZER COVID-19 MRNA 2020-10-05 Completed [facility] VACCINATION 00:00:00 [facility] PFIZER COVID-19 MRNA 2020-10-05 Completed [facility] VACCINATION 00:00:00 [facility] PFIZER COVID-19 MRNA 2020-10-05 Completed [facility] VACCINATION 00:00:00 [facility] PFIZER COVID-19 MRNA 2020-10-05 Completed [facility] VACCINATION 00:00:00 [facility] PFIZER COVID-19 MRNA 2020-10-05 Completed [facility] VACCINATION 00:00:00 [facility] PFIZER COVID-19 MRNA 2020-10-05 Completed [facility] VACCINATION 00:00:00 [facility] PFIZER COVID-19 MRNA 2020-10-05 Completed [facility] VACCINATION 00:00:00 [facility] PFIZER COVID-19 MRNA 2020-10-05 Completed [facility] VACCINATION 00:00:00 [facility] PFIZER COVID-19 MRNA 2020-10-05 Completed [facility] VACCINATION 00:00:00 [facility] PFIZER COVID-19 MRNA 2020-10-05 Completed [facility] VACCINATION 00:00:00 [facility] PFIZER COVID-19 MRNA 2020-10-05 Completed [facility] VACCINATION 00:00:00 [facility] PFIZER COVID-19 MRNA 2020-10-05 Completed [facility] VACCINATION 00:00:00 [facility] PFIZER COVID-19 MRNA 2020-09-14 Completed [facility] VACCINATION 00:00:00 [facility] PFIZER COVID-19 MRNA 2020-09-14 Completed [facility] VACCINATION 00:00:00 [facility] PFIZER COVID-19 MRNA 2020-09-14 Completed [facility] VACCINATION 00:00:00 [facility] PFIZER COVID-19 MRNA 2020-09-14 Completed [facility] VACCINATION 00:00:00 [facility] PFIZER COVID-19 MRNA 2020-09-14 Completed [facility] VACCINATION 00:00:00 [facility] PFIZER COVID-19 MRNA 2020-09-14 Completed [facility] VACCINATION 00:00:00 [facility] PFIZER COVID-19 MRNA 2020-09-14 Completed [facility] VACCINATION 00:00:00 [facility] PFIZER COVID-19 MRNA 2020-09-14 Completed [facility] VACCINATION 00:00:00 [facility] PFIZER COVID-19 MRNA 2020-09-14 Completed [facility] VACCINATION 00:00:00 [facility] PFIZER COVID-19 MRNA 2020-09-14 Completed [facility] VACCINATION 00:00:00 [facility] PFIZER COVID-19 MRNA 2020-09-14 Completed [facility] VACCINATION 00:00:00 [facility] PFIZER COVID-19 MRNA 2020-09-14 Completed [facility] VACCINATION 00:00:00 [facility] PFIZER COVID-19 MRNA 2020-09-14 Completed [facility] VACCINATION 00:00:00 [facility] PFIZER COVID-19 MRNA 2020-09-14 Completed [facility] VACCINATION 00:00:00 [facility] PFIZER COVID-19 MRNA 2020-09-14 Completed [facility] VACCINATION 00:00:00 [facility] PFIZER COVID-19 MRNA 2020-09-14 Completed [facility] VACCINATION 00:00:00 [facility] PFIZER COVID-19 MRNA 2020-09-14 Completed [facility] VACC[facility]ATION 00:00:00 [facility] Vital Signs Vital Name Observation Time Observation Value Comments Source Systolic blood 2022-03-20 18:28:00 118 mm[Hg] [facility] pressure Diastolic blood 2022-03-20 18:28:00 78 mm[Hg] [facility] pressure Heart rate 2022-03-20 18:28:00 77 /min [facility] Body height 2022-03-20 18:28:00 160 cm [facility] Body weight 2022-03-20 18:28:00 70.308 kg [facility] BMI 2022-03-20 18:28:00 27.46 kg/m2 [facility] Body temperature 2021-08-30 19:26:00 35.94 [facility] Procedures Procedure Date / Time Performed Performing Clinician [facility] e ZAMUDIO VISUAL FIELD 2022-01-10 13:20:20 [facility] OU - BOTH EYES Medicine AUTOMATED VISUAL 2021-04-12 16:42:57 Melissa Kelsie [facility], EXTENDED - OU - BOTH EYES AUTOMATED VISUAL 2021-04-12 16:42:57 Melissa Kelsie [facility], EXTENDED - OU - BOTH EYES Plan of Care Planned Activity Planned Date Details Comments Source Future Scheduled 2022-07-10 HEPATITIS B VACCINES Met [facility] Test 01:10:54 (1 of 3 - 3-dose series) [code = HEPATITIS B VACCINES (1 of 3 - 3-dose series)] Future Scheduled 2022-07-10 [facility] 01:10:54 (procedure) [code = 827896646] Future Scheduled 2022-07-10 SHINGLES VACCINES (1 [facility] Test 01:10:54 of 2) [code = SHINGLES VACCINES (1 of 2)] Future Scheduled 2022-07-10 65+ [facility]AL [facility] 01:10:54 VACCINE (1 - PCV) [code = 65+ PNEUMOCOCCAL VACCINE (1 - PCV)] Future Scheduled 2022-07-10 COVID-19 VACCINE (4 - [facility] Test 01:10:54 Booster for Pfizer series) [code = COVID-19 VACCINE (4 - Booster for Pfizer series)] Future Scheduled 2022-07-10 INFLUENZA VACCINE [facility] Test 01:10:54 [code = INFLUENZA VACCINE] Future Scheduled 2022-07-10 HEPATITIS B VACCINES [facility] Test 01:10:54 (1 of 3 - 3-dose series) [code = HEPATITIS B VACCINES (1 of 3 - 3-dose series)] Future Scheduled 2022-07-10 Hepatitis C screening [facility] Test 01:10:54 (procedure) [code = [id number]] Future Scheduled 2022-07-10 SHINGLES VACCINES (1 [facility] Test 01:10:54 of 2) [code = SHINGLES VACCINES (1 of 2)] Future Scheduled 2022-07-10 65+ [facility]OCOCCAL [facility] Test 01:10:54 VACCINE (1 - PCV) [code = 65+ PNEUMOCOCCAL VACCINE (1 - PCV)] Future Scheduled 2022-07-10 COVID-19 VACCINE (4 - [facility] Test 01:10:54 Booster for Pfizer series) [code = COVID-19 VACCINE (4 - Booster for Pfizer series)] Future Scheduled 2022-07-10 INFLUENZA VACCINE [facility] Test 01:10:54 [code = INFLUENZA VACCINE] Future Scheduled 2022-07-10 HEPATITIS B VACCINES [facility] Test 01:10:54 (1 of 3 - 3-dose series) [code = HEPATITIS B VACCINES (1 of 3 - 3-dose series)] Future Scheduled 2022-07-10 Hepatitis C screening [facility] Test 01:10:54 (procedure) [code = [id number]] Future Scheduled 2022-07-10 SHINGLES VACCINES (1 [facility] Test 01:10:54 of 2) [code = SHINGLES VACCINES (1 of 2)] Future Scheduled 2022-07-10 65+ [facility]AL [facility] 01:10:54 VACCINE (1 - PCV) [code = 65+ PNEUMOCOCCAL VACCINE (1 - PCV)] Future Scheduled 2022-07-10 COVID-19 VACCINE (4 - [facility] Test 01:10:54 Booster for Pfizer series) [code = COVID-19 VACCINE (4 - Booster for Pfizer series)] Future Scheduled 2022-07-10 INFLUENZA VACCINE [facility] Test 01:10:54 [code = INFLUENZA VACCINE] Future Scheduled 2022-06-15 HEPATITIS B VACCINES [facility] Test 06:52:47 (1 of 3 - 3-dose series) [code = HEPATITIS B VACCINES (1 of 3 - 3-dose series)] Future Scheduled 2022-06-15 Hepatitis C screening [facility] Test 06:52:47 (procedure) [code = [id number]] Future Scheduled 2022-06-15 SHINGLES VACCINES (1 [facility] Test 06:52:47 of 2) [code = SHINGLES VACCINES (1 of 2)] Future Scheduled 2022-06-15 65+ [facility] 06:52:47 VACCINE (1 - PCV) [code = 65+ PNEUMOCOCCAL VACCINE (1 - PCV)] Future Scheduled 2022-06-15 COVID-19 VACCINE (4 - [facility] Test 06:52:47 Booster for Pfizer series) [code = COVID-19 VACCINE (4 - Booster for Pfizer series)] Future Scheduled 2022-06-15 INFLUENZA VACCINE [facility] Test 06:52:47 [code = INFLUENZA VACCINE] Future Scheduled 2022-06-15 HEPATITIS B VACCINES [facility] Test 06:52:47 (1 of 3 - 3-dose series) [code = HEPATITIS B VACCINES (1 of 3 - 3-dose series)] Future Scheduled 2022-06-15 Hepatitis C screening [facility] Test 06:52:47 (procedure) [code = [id number]] Future Scheduled 2022-06-15 SHINGLES VACCINES (1 [facility] Test 06:52:47 of 2) [code = SHINGLES VACCINES (1 of 2)] Future Scheduled 2022-06-15 65+ [facility]OCOCCAL [facility] Test 06:52:47 VACCINE (1 - PCV) [code = 65+ PNEUMOCOCCAL VACCINE (1 - PCV)] Future Scheduled 2022-06-15 COVID-19 VACCINE (4 - [facility] 06:52:47 Booster for Pfizer series) [code = COVID-19 VACCINE (4 - Booster for Pfizer series)] Future Scheduled 2022-06-15 INFLUENZA VACCINE [facility] Test 06:52:47 [code = INFLUENZA VACCINE] Future Scheduled 2022-06-15 HEPATITIS B VACCINES [facility] Test 06:52:47 (1 of 3 - 3-dose series) [code = HEPATITIS B VACCINES (1 of 3 - 3-dose series)] Future Scheduled 2022-06-15 Hepatitis C screening [facility] Test 06:52:47 (procedure) [code = [id number]] Future Scheduled 2022-06-15 SHINGLES VACCINES (1 [facility] Test 06:52:47 of 2) [code = [...] 06:52:47 [code = INFLUENZA VACCINE] Future Scheduled 2022-06-15 HEPATITIS B VACCINES [facility] Test 06:52:47 (1 of 3 - 3-dose series) [code = HEPATITIS B VACCINES (1 of 3 - 3-dose series)] Future Scheduled 2022-06-15 Hepatitis C screening [facility] Test 06:52:47 (procedure) [code = [id number]] Future Scheduled 2022-06-15 SHINGLES VACCINES (1 [facility] Test 06:52:47 of 2) [code = SHINGLES VACCINES (1 of 2)] Future Scheduled 2022-06-15 65+ [facility]UMOCOCCAL [facility] Test 06:52:47 VACCINE (1 - PCV) [code = 65+ PNEUMOCOCCAL VACCINE (1 - PCV)] Future Scheduled 2022-06-15 COVID-19 VACCINE (4 - [facility] Test 06:52:47 Booster for Pfizer series) [code = COVID-19 VACCINE (4 - Booster for Pfizer series)] Future Scheduled 2022-06-15 INFLUENZA VACCINE [facility] Test 06:52:47 [code = INFLUENZA VACCINE] Future Scheduled 2022-06-15 HEPATITIS B VACCINES [facility] Test 06:52:47 (1 of 3 - 3-dose series) [code = HEPATITIS B VACCINES (1 of 3 - 3-dose series)] Future Scheduled 2022-06-15 [facility] Test 06:52:47 (procedure) [code = [id number]] Future Scheduled 2022-06-15 SHINGLES VACCINES (1 [facility] Test 06:52:47 of 2) [code = [...] 06:52:47 [code = INFLUENZA VACCINE] Future Scheduled 2022-06-15 HEPATITIS B VACCINES [facility] Test 06:52:47 (1 of 3 - 3-dose series) [code = HEPATITIS B VACCINES (1 of 3 - 3-dose series)] Future Scheduled 2022-06-15 Hepatitis C screening [facility] Test 06:52:47 (procedure) [code = [id number]] Future Scheduled 2022-06-15 SHINGLES VACCINES (1 [facility] Test 06:52:47 of 2) [code = SHINGLES VACCINES (1 of 2)] Future Scheduled 2022-06-15 65+ P[facility]UMOCOCCAL [facility] Test 06:52:47 VACCINE (1 - PCV) [code = 65+ PNEUMOCOCCAL VACCINE (1 - PCV)] Future Scheduled 2022-06-15 COVID-19 VACCINE (4 - [facility] Test 06:52:47 Booster for Pfizer series) [code = COVID-19 VACCINE (4 - Booster for Pfizer series)] Future Scheduled 2022-06-15 INFLUENZA VACCINE [facility] Test 06:52:47 [code = INFLUENZA VACCINE] Future Scheduled 2022-06-15 HEPATITIS B VACCINES [facility] Test 06:52:47 (1 of 3 - 3-dose series) [code = HEPATITIS B VACCINES (1 of 3 - 3-dose series)] Future Scheduled 2022-06-15 Hepatitis C screening [facility] Test 06:52:47 (procedure) [code = [id number]] Future Scheduled 2022-06-15 SHINGLES VACCINES (1 [facility] Test 06:52:47 of 2) [code = SHINGLES VACCINES (1 of 2)] Future Scheduled 2022-06-15 65+ [facility]CCAL [facility] Test 06:52:47 VACCINE (1 - PCV) [code = 65+ PNEUMOCOCCAL VACCINE (1 - PCV)] Future Scheduled 2022-06-15 COVID-19 VACCINE (4 - [facility] Test 06:52:47 Booster for Pfizer series) [code = COVID-19 VACCINE (4 - Booster for Pfizer series)] Future Scheduled 2022-06-15 INFLUENZA VACCINE [facility] Test 06:52:47 [code = INFLUENZA VACCINE] Future Scheduled 2022-06-15 HEPATITIS B VACCINES [facility] Test 06:52:47 (1 of 3 - 3-dose series) [code = HEPATITIS B VACCINES (1 of 3 - 3-dose series)] Future Scheduled 2022-06-15 Hepatitis C screening [facility] Test 06:52:47 (procedure) [code = [id number]] Future Scheduled 2022-06-15 SHINGLES VACCINES (1 [facility] [facility] Test 06:52:47 of 2) [code = SHINGLES VACCINES (1 of 2)] Future Scheduled 2022-06-15 65+ [facility]CCAL [facility] 06:52:47 VACCINE (1 - PCV) [code = 65+ PNEUMOCOCCAL VACCINE (1 - PCV)] Future Scheduled 2022-06-15 COVID-19 VACCINE (4 - [facility] Hospital Test 06:52:47 Booster for Pfizer series) [code = COVID-19 VACCINE (4 - Booster for Pfizer series)] Future Scheduled 2022-06-15 INFLUENZA VACCINE Method is Hospital Test 06:52:47 [code = INFLUENZA VACCINE] Future Scheduled 2022-06-15 HEPATITIS B VACCINES [facility] Hospital Test 06:52:47 (1 of 3 - 3-dose series) [code = HEPATITIS B VACCINES (1 of 3 - 3-dose series)] Future Scheduled 2022-06-15 Hepatitis C screening [facility] Hospital Test 06:52:47 (procedure) [code = [id number]] Future Scheduled 2022-06-15 SHINGLES VACCINES (1 [facility] Hospital Test 06:52:47 of 2) [code = [...] series)] Future Scheduled 2022-06-15 INFLUENZA VACCINE Method [facility] Hospital Test 06:52:47 [code = INFLUENZA VACCINE] Future Scheduled 2022-06-15 HEPATITIS B VACCINES [facility] Hospital Test 06:52:47 (1 of 3 - 3-dose series) [code = HEPATITIS B VACCINES (1 of 3 - 3-dose series)] Future Scheduled 2022-06-15 Hepatitis C screening [facility] Hospital Test 06:52:47 (procedure) [code = [id number]] Future Scheduled 2022-06-15 SHINGLES VACCINES (1 [facility] Hospital Test 06:52:47 of 2) [code = [...] 06:52:47 [code = INFLUENZA VACCINE] Future Scheduled 2022-06-15 HEPATITIS B VACCINES [facility] Hospital Test 06:52:47 (1 of 3 - 3-dose series) [code = HEPATITIS B VACCINES (1 of 3 - 3-dose series)] Future Scheduled 2022-06-15 Hepatitis C screening [facility] Hospital Test 06:52:47 (procedure) [code = [id number]] Future Scheduled 2022-06-15 SHINGLES VACCINES (1 [facility] Hospital Test 06:52:47 of 2) [code = SHINGLES VACCINES (1 of 2)] Future Scheduled 2022-06-15 65+ PNEUMOCOCCAL Methodi Hospital Test 06:52:47 VACCINE (1 - PCV) [code = 65+ PNEUMOCOCCAL VACCINE (1 - PCV)] Future Scheduled 2022-06-15 COVID-19 VACCINE (4 - [facility] Hospital Test 06:52:47 Booster for Pfizer series) [code = COVID-19 VACCINE (4 - Booster for Pfizer series)] Future Scheduled 2022-06-15 INFLUENZA VACCINE Method [facility] Hospital Test 06:52:47 [code = INFLUENZA VACCINE] Future Scheduled 2022-06-15 HEPATITIS B VACCINES [facility] Hospital Test 06:52:47 (1 of 3 - 3-dose series) [code = HEPATITIS B VACCINES (1 of 3 - 3-dose series)] Future Scheduled 2022-06-15 Hepatitis C screening [facility] Hospital Test 06:52:47 (procedure) [code = [id number]] Future Scheduled 2022-06-15 SHINGLES VACCINES (1 [facility] Hospital Test 06:52:47 of 2) [code = [...] 06:52:47 [code = INFLUENZA VACCINE] Future Scheduled 2022-06-15 HEPATITIS B VACCINES [facility] Hospital Test 06:52:47 (1 of 3 - 3-dose series) [code = HEPATITIS B VACCINES (1 of 3 - 3-dose series)] Future Scheduled 2022-06-15 [facility] C screening [facility] 06:52:47 (procedure) [code = [id number]] Future Scheduled 2022-06-15 SHINGLES VACCINES (1 [facility] Hospital Test 06:52:47 of 2) [code = SHINGLES VACCINES (1 of 2)] Future Scheduled 2022-06-15 65+ PNEUMOCOCCAL Methodi Hospital Test 06:52:47 VACCINE (1 - PCV) [code = 65+ PNEUMOCOCCAL VACCINE (1 - PCV)] Future Scheduled 2022-06-15 COVID-19 [facility] ([facility] 06:52:47 Booster for Pfizer series) [code = COVID-19 VACCINE (4 - Booster for Pfizer series)] Future Scheduled 2022-06-15 INFLUENZA VACCINE Method [facility] Hospital Test 06:52:47 [code = INFLUENZA VACCINE] Future Scheduled 2022-04-27 HEPATITIS B VACCINES [facility] Hospital Test 00:29:28 (1 of 3 - 3-dose series) [code = HEPATITIS B VACCINES (1 of 3 - 3-dose series)] Future Scheduled 2022-04-27 Hepatitis C screening [facility] Hospital Test 00:29:28 (procedure) [code = [id number]] Future Scheduled 2022-04-27 SHINGLES VACCINES (1 [facility] Hospital Test 00:29:28 of 2) [code = [...] Center DEPRESSION SCREENING (12+)] Future Scheduled 2021-08-[address] [facility] Test 00:00:00 (12+) [code = Medical Center DEPRESSION SCREENING (12+)] Future Scheduled 2021-08-12 FALLS RISK SCREENING [facility] Test 00:00:00 [code = FALLS RISK Medical C enter SCREENING] Future Scheduled 2021-08-12 FALLS RISK SCREENING CHI [...] RISK Medical C enter SCREENING] Future Scheduled 2020-10-[address] [facility] Test 00:00:00 [facility] r Screening (12+) [code = Tobacco Cessation Counseling and Screening (12+)] Future Scheduled 2020-10-[address] [facility] Test 00:00:00 [facility] Screening (12+) [code = Tobacco Cessation Counseling and Screening (12+)] Future Scheduled 2020-10-[address] [facility] Test 00:00:00 [facility] Scre[facility] (12+) [code = Tobacco Cessation Counseling and Screening (12+)] Future Scheduled 2017-08-[address] [...] Cessation Counseling and Screening (12+)] Future Scheduled [address] [facility] Test 00:00:00 [facility] Screening (12+) [code = Tobacco Cessation Counseling and Screening (12+)] Future Scheduled [address] [facility] Test 00:00:00 [facility] r Screening (12+) [code = Tobacco Cessation Counseling and Screening (12+)] Future Scheduled [address] [facility] Test 00:00:00 [facility] Cent[facility] r Screening (12+) [code = Tobacco Cessation Counseling and Screening (12+)] Future Scheduled [address] [facility] Test 00:00:00 [facility] Cent[facility] r Screening (12+) [code = Tobacco Cessation Counseling and Screening (12+)] Future Scheduled [address] [facility] Test 00:00:00 [facility] Cent[facility] r Screening (12+) [code = Tobacco Cessation Counseling and Screening (12+)] Future Scheduled [address] [facility] Test 00:00:00 [facility] Cent[facility] r Screening (12+) [code = Tobacco Cessation Counseling and Screening (12+)] Future Scheduled [address] [facility] Test 00:00:00 [facility] Cent[facility] r Screening (12+) [code = Tobacco Cessation Counseling and Screening (12+)] Future Scheduled [address] [facility] Test 00:00:00 [facility] Cent[facility] r Screening (12+) [code = Tobacco Cessation Counseling and Screening (12+)] Future Scheduled [address] [facility] Test 00:00:00 [facility] Medical Cent[facility] r Screening (12+) [code = Tobacco Cessation Counseling and Screening (12+)] Future Scheduled [address] [facility] Test 00:00:00 [facility] Medical Cent[facility] r Screening (12+) [code = Tobacco Cessation Counseling and Screening (12+)] Future Scheduled [address] [...] DXA [facility] Test 00:00:00 SCAN] [facility] Future Scheduled 1945 DXA SCAN [code = DXA [facility] Test 00:00:00 SCAN] Medical Center Future Scheduled 1945 DXA SCAN [code = DXA [facility] Test 00:00:00 SCAN] Medical Center Future Scheduled 1945 DXA SCAN [code = DXA [facility] Test 00:00:00 SCAN] Medical Center Future Scheduled 1945 DXA SCAN [code = DXA [facility] Test 00:00:00 SCAN] [facility] Future Scheduled 1945 DXA SCAN [code [...] Medical Center Future Scheduled COLON CANCER [facility] ege of Test SCREENING: COLONOSCOPY Medic ine [code = COLON CANCER SCREENING: COLONOSCOPY] Future Scheduled MAMMOGRAM ANNUAL [code [employer] [facility] = MAMMOGRAM ANNUAL] Medicine Future Scheduled TETANUS SHOT (ADULT) [facility] of Test [code = TETANUS SHOT Medicin e (ADULT)] Future Scheduled HEPATITIS C SCREENING [employer] [facility] [code = HEPATITIS C Medicine SCREENING] Future Scheduled FALL SCREEN [code = [employer] FALL SCREEN] Medicine Future Scheduled OSTEOPOROSIS SCREENING B [facility] of Test [code = OSTEOPOROSIS Medicin e SCREENING] Future Scheduled PNEUMOVAX >=65 [facility] l[facility] of Test (PPSV23) [code = Medicine PNEUMOVAX >=65 (PPSV23)] Future Scheduled PREVNAR >= 65 (PCV13) Ba [facility] of Test [code = PREVNAR >= 65 Medici ne (PCV13)] Future Scheduled MEDICARE AWV (Initial) B [facility] Test [code = MEDICARE AWV Medicin e (Initial)] Future Scheduled FLU VACCINE > 6 MONTHS B [facility] of Test [code = FLU VACCINE > Medici ne 6 MONTHS] Future Scheduled COLON CANCER [facility] [employer] of Test SCREENING: COLONOSCOPY Medic ine [code = COLON CANCER SCREENING: COLONOSCOPY] Future Scheduled MAMMOGRAM ANNUAL [code B [facility] Test = MAMMOGRAM ANNUAL] Medicine Future Scheduled TETANUS SHOT (ADULT) [facility] of Test [code = TETANUS SHOT Medicin e (ADULT)] Future Scheduled HEPATITIS C SCREENING [facility] [employer] of Test [code = HEPATITIS C Medicine SCREENING] Future Scheduled FALL SCREEN [code = [facility] or College of Test FALL SCREEN] Medicine Future Scheduled OSTEOPOROSIS SCREENING B [facility] of Test [code = OSTEOPOROSIS Medicin e SCREENING] Future Scheduled PNEUMOVAX >=65 [facility] of Test (PPSV23) [code = Medicine PNEUMOVAX >=65 (PPSV23)] Future Scheduled PREVNAR >= 65 (PCV13) Ba [facility] Test [code = PREVNAR >= 65 Medici ne (PCV13)] Future Scheduled [facility]Initial[facility] [code = [facility]IC[facility] AWV Medicin e (Initial)] Future Scheduled FLU VACCINE > 6 MONTHS [facility] [code = FLU VACCINE > Medici ne 6 MONTHS] Future Scheduled COLON CANCER [facility] [employer] of Test SCREENING: COLONOSCOPY Medic ine [code = COLON CANCER SCREENING: COLONOSCOPY] Future Scheduled MAMMOGRAM ANNUAL [code B [facility] Test = MAMMOGRAM ANNUAL] Medicine Future Scheduled TETANUS SHOT (ADULT) [facility] Test [code = TETANUS SHOT Medicin e (ADULT)] Future Scheduled HEPATITIS C SCREENING [facility] [employer] [facility] Test [code = HEPATITIS C Medicine SCREENING] Future Scheduled FALL SCREEN [code = [employer] FALL SCREEN] Medicine Future Scheduled OSTEOPOROSIS SCREENING B [facility] of Test [code = OSTEOPOROSIS Medicin e SCREENING] Future Scheduled PNEUMOVAX >=65 [facility] of Test (PPSV23) [code = Medicine PNEUMOVAX >=65 (PPSV23)] Future Scheduled PREVNAR >= 65 (PCV13) Ba [facility] Test [code = PREVNAR >= 65 Medici ne (PCV13)] Future Scheduled [facility] (Initial[facility] [code = MEDICARE AWV Medicin e (Initial)] Future Scheduled FLU V[facility]INE > [facility] MONTH[facility] = FLU VACCINE > Medici ne 6 MONTHS] Future Scheduled COLON CANCER [facility] [employer] of Test SCREENING: COLONOSCOPY Medic ine [code = COLON CANCER SCREENING: COLONOSCOPY] Future Scheduled MAMMOGRAM ANNUAL [code B [facility] Test = MAMMOGRAM ANNUAL] Medicine Future Scheduled TETANUS SHOT (ADULT) [facility] Test [code = TETANUS SHOT Medicin e (ADULT)] Future Scheduled HEPATITIS C SCREENING Ba [facility] of Test [code = HEPATITIS C Medicine SCREENING] Future Scheduled FALL SCREEN [code = [employer] FALL SCREEN] Medicine Future Scheduled OSTEOPOROSIS SCREENING B [facility] of Test [code = OSTEOPOROSIS Medicin e SCREENING] Future Scheduled PNEUMOVAX >=65 [facility] l[facility] of Test (PPSV23) [code = Medicine PNEUMOVAX >=65 (PPSV23)] Future Scheduled MEDICARE AWV (Initial) [facility] [code = MEDICARE AWV Medicin e (Initial)] Future Scheduled FLU VACCINE > 6 MONTHS [facility] [code = FLU VACCINE > Medici ne 6 MONTHS] Future Scheduled COLON CANCER [facility] of Test SCREENING: COLONOSCOPY Medic ine [code = COLON CANCER SCREENING: COLONOSCOPY] Future Scheduled MAMMOGRAM ANNUAL [code [facility] = MAMMOGRAM ANNUAL] Medicine Future Scheduled TETANUS SHOT (ADULT) [facility] [employer] [facility] [code = TETANUS SHOT Medicin e (ADULT)] Future Scheduled HEPATITIS C SCREENING Ba or [facility] of Test [code = HEPATITIS C Medicine SCREENING] Future Scheduled ZOSTER VACCINE (1 of [facility] Test 2) [code = ZOSTER Medicine VACCINE (1 of 2)] Future Scheduled OSTEOPOROSIS SCREENING B [facility] of Test [code = OSTEOPOROSIS Medicin e SCREENING] Future Scheduled PNEUMOVAX >=65 [facility] of Test (PPSV23) [code = Medicine PNEUMOVAX >=65 (PPSV23)] Future Scheduled MEDICARE AWV (Initial) B [facility] of Test [code = MEDICARE AWV Medicin e (Initial)] Future Scheduled FLU VACCINE > 6 MONTHS B [facility] of Test [code = FLU VACCINE > Medici ne 6 MONTHS] Future Scheduled FALL SCREEN [code = [facility] or College of Test FALL SCREEN] Medicine Future Scheduled COLON CANCER [facility] ege of Test SCREENING: COLONOSCOPY Medic ine [code = COLON CANCER SCREENING: COLONOSCOPY] Future Scheduled MAMMOGRAM ANNUAL [code B [facility] of Test = MAMMOGRAM ANNUAL] Medicine Future Scheduled TETANUS SHOT (ADULT) [facility] Test [code = TETANUS SHOT Medicin e (ADULT)] Future Scheduled HEPATITIS C SCREENING [facility] of Test [code = HEPATITIS C Medicine SCREENING] Future Scheduled ZOSTER VACCINE (1 of [facility] of Test 2) [code = ZOSTER Medicine VACCINE (1 of 2)] Future Scheduled OSTEOPOROSIS SCREENING B [facility] of Test [code = OSTEOPOROSIS Medicin e SCREENING] Future Scheduled PNEUMOVAX >=65 [facility] l[facility] of Test (PPSV23) [code = Medicine PNEUMOVAX >=65 (PPSV23)] Future Scheduled MEDICARE AWV (Initial) B [facility] of Test [code = MEDICARE AWV Medicin e (Initial)] Future Scheduled FLU VACCINE > 6 MONTHS B [facility] of Test [code = FLU VACCINE > Medici ne 6 MONTHS] Future Scheduled FALL SCREEN [code = [facility] or [facility] of Test FALL SCREEN] Medicine Future Scheduled COLON CANCER [facility] ege of Test SCREENING: COLONOSCOPY Medic ine [code = COLON CANCER SCREENING: COLONOSCOPY] Future Scheduled COLON CANCER [facility] of Test SCREENING: COLONOSCOPY Medic ine [code = COLON CANCER SCREENING: COLONOSCOPY] Future Scheduled MAMMOGRAM ANNUAL [code B [facility] of Test = MAMMOGRAM ANNUAL] Medicine Future Scheduled TETANUS SHOT (ADULT) [facility] Test [code = TETANUS SHOT Medicin e (ADULT)] Future Scheduled HEPATITIS C SCREENING [facility] of Test [code = HEPATITIS C Medicine SCREENING] Future Scheduled ZOSTER VACCINE (1 of [facility] Test 2) [code = ZOSTER Medicine VACCINE (1 of 2)] Future Scheduled OSTEOPOROSIS SCREENING B [facility] of Test [code = OSTEOPOROSIS Medicin e SCREENING] Future Scheduled PNEUMOVAX >=65 [facility] of Test (PPSV23) [code = Medicine PNEUMOVAX >=65 (PPSV23)] Future Scheduled MEDICARE AWV (Initial) B [facility] of Test [code = MEDICARE AWV Medicin e (Initial)] Future Scheduled FLU VACCINE > 6 MONTHS B [facility] of Test [code = FLU VACCINE > Medici ne 6 MONTHS] Future Scheduled FALL SCREEN [code = [facility] or [employer] of Test FALL SCREEN] Medicine Future Scheduled MAMMOGRAM ANNUAL [code B [facility] of Test = MAMMOGRAM ANNUAL] Medicine Future Scheduled TETANUS SHOT (ADULT) [facility] Test [code = TETANUS SHOT Medicin e (ADULT)] Future Scheduled HEPATITIS C SCREENING [facility] of Test [code = HEPATITIS C Medicine SCREENING] Future Scheduled FALL SCREEN [code = [facility] or [employer] of Test FALL SCREEN] Medicine Future Scheduled OSTEOPOROSIS SCREENING B [facility] of Test [code = OSTEOPOROSIS Medicin e SCREENING] Future Scheduled PNEUMOVAX >=65 [facility] of Test (PPSV23) [code = Medicine PNEUMOVAX >=65 (PPSV23)] Future Scheduled PREVNAR >= 65 (PCV13) [facility] of Test [code = PREVNAR >= 65 Medici ne (PCV13)] Future Scheduled MEDICARE AWV (Initial) B [facility] of Test [code = MEDICARE AWV Medicin e (Initial)] Future Scheduled FLU VACCINE > 6 MONTHS B [facility] of Test [code = FLU VACCINE > Medici ne 6 MONTHS] Future Scheduled COLON CANCER [facility] of Test SCREENING: COLONOSCOPY Medic ine [code = COLON CANCER SCREENING: COLONOSCOPY] Future Scheduled MAMMOGRAM ANNUAL [code B [facility] of Test = MAMMOGRAM ANNUAL] Medicine Future Scheduled TETANUS SHOT (ADULT) [facility] Test [code = TETANUS SHOT Medicin e (ADULT)] Future Scheduled HEPATITIS C SCREENING Ba [facility] of Test [code = HEPATITIS C Medicine SCREENING] Future Scheduled FALL SCREEN [code = [facility] or [employer] of Test FALL SCREEN] Medicine Future Scheduled OSTEOPOROSIS SCREENING B [facility] of Test [code = OSTEOPOROSIS Medicin e SCREENING] [facility] [code = Medicine PNEUMOVAX >=65 (PPSV23)] Future Scheduled PREVNAR >= 65 (PCV13) Ba [facility] of Test [code = PREVNAR >= 65 Medici ne (PCV13)] Future Scheduled MEDICARE AWV (Initial) B [facility] of Test [code = MEDICARE AWV Medicin e (Initial)] Future Scheduled FLU VACCINE > 6 MONTHS B [facility] of Test [code = FLU VACCINE > Medici ne 6 MONTHS] Encounters Start End Encounter Admission Attending Care Care Encounter Source Date/Time Date/Time Type Type Clinicians Facility Department ID 2021-12-14 Outpatient [facility] [id number] [facility] 09:27:02 [facility] 2022-03-21 2022-03-21 Outpatient [facility] [id number] [facility] 08:56:39 10:31:50 AM[facility] Medicin e 2022-03-20 2022-03-20 Office Navid Lehman 1.2.840.1 [id number] Methodi 13:45:00 14:14:[address] 3.430.2.7 Hospit a .3.468323 l .8 2022-03-20 2022-03-20 Office Navid Lehman 1.2.840.1 [id number] Methodi 13:45:00 14:14:[address] 3.430.2.7 Hospit a .3.725777 l .8 2022-03-20 2022-03-20 Travel 1.2.840.1 1.2.467.242 2239 [id number] Methodi 00:00:00 00:00:[address] 3.430.2.7 0.2.7.3.698 Ho spita .3.778512 084.8 l .8 2022-03-20 2022-03-20 Travel 1.2.840.1 1.2.437.499 1754 [id number] Methodi 00:00:00 00:00:[address] 3.430.2.7 0.2.7.3.698 Ho spita .3.709504 084.8 l .8 2022-02-04 2022-02-04 Refill Navid Lehman 1.2.840.1 [id number] 21 [id number] Methodi 00:00:00 00:00:[address] 3.430.2.7 Hospit a .3.975387 l .8 2022-02-04 2022-02-04 Refill Navid Lehman 1.2.840.1 [id number] 21 [id number] Methodi 00:00:00 00:00:[address] 3.430.2.7 Hospit a .3.131567 l .8 2022-01-22 2022-01-22 [facility] [id number] [facility] 13:09:28 14:31:30 AM[facility] of Medicin e 2022-01-15 2022-01-15 Refill Spencer Lehamny 1.2.840.1 [id number] 21 [id number] Methodi 00:00:00 00:00:[address] 3.430.2.7 Hospit a .3.223432 l .8 2022-01-15 2022-01-15 Refill Navid Lehman 1.2.840.1 [id number] 21 [id number] Methodi 00:00:00 00:00:[address] 3.430.2.7 Hospit a .3.552223 l .8 2022-01-12 2022-01-12 Veronica Hernandez.2.840.1 [id number] Methodi 00:00:00 00:00:[address] 3.430.2.7 Hospit a .3.189785 l .8 2022-01-12 2022-01-12 Maricarmen Landry 1.2.840.1 [id number] Methodi 00:00:00 00:00:00 Only [place] [address]09.1.[address] 3.430.2.7 Hospit a .3.442125 l .8 2022-01-12 2022-01-12 Telephone Frantz, 1.2.840.1 [id number] Methodi 00:00:00 00:00:[address] 3.430.2.7 Hospit a .3.713540 l .8 2022-01-12 2022-01-12 Orders Frantz, 1.2.840.1 [id number] Methodi 00:00:00 00:00:00 [address] [place] [address]265.1.[address] 3.430.2.7 Hospit a .3.193912 l .8 2022-01-10 2022-01-10 Outpatient [facility] [id number] [facility] 12:59:46 14:31:29 [facility] Medicin e 2021-12-06 2021-12-06 Outpatient DELMY [facility] [id number] [facility] 15:36:16 16:35:47 AMMON [facility] Medicin e 2021-11-08 2021-11-08 Outpatient DELMY [facility] [id number] [facility] 12:32:23 13:58:40 AMMON [facility] [employer] [facility] Medicin e 2021-10-16 2021-10-16 Outpatient [facility] DEVON LA0 [id number] [facility] 12:00:00 12:00:00 Rupinder Stephens [facility] 2021-09-25 2021-09-25 Outpatient DELMY [facility] [id number] [facility] 12:55:29 13:36:59 AMMON [facility] e 2021-09-20 2021-09-20 Procedure Navid Lehman 1.2.840.1 [id number] Methodi 15:00:00 15:45:[address] 3.430.2.7 Hospit a .3.916020 l .8 2021-09-20 2021-09-20 Procedure Navid Lehman 1.2.840.1 [id number] Methodi 15:00:00 15:45:[address] 3.430.2.7 Hospit a .3.024280 l .8 2021-09-20 2021-09-20 Travel 1.2.840.1 1.2.193.814 2038 [id number] Methodi 00:00:00 00:00:[address] 3.430.2.7 0.2.7.3.698 Ho spita .3.878528 084.8 l .8 2021-09-20 2021-09-20 Travel 1.2.840.1 1.2.184.990 2500 [id number] Methodi 00:00:00 00:00:[address] 3.430.2.7 0.2.7.3.698 Ho spita .3.473507 084.8 l .8 2021-09-08 2021-09-08 Outpatient DEL[facility] [id number] [facility] 14:42:14 15:43:42 AMMON Whitaker e of Medicin e 2021-09-06 2021-09-06 Outpatient LYN [facility] [id number] [facility] 13:51:24 16:54:19 SHIKHA Whitaker e of Medicin e 2021-08-30 2021-08-30 Office Navid Lehman 1.2.840.1 [id number] 21 [id number] Methodi 12:55:00 15:06:[address] 3.430.2.7 Hospit a .3.805723 l .8 2021-08-30 2021-08-30 Office Navid Lehman 1.2.840.1 [id number] 21 [id number] Methodi 12:55:00 15:06:[address] 3.430.2.7 Hospit a .3.866644 l .8 2021-08-30 2021-08-30 Travel 1.2.840.1 1.2.854.205 2033 [id number] Methodi 00:00:00 00:00:[address] 3.430.2.7 0.2.7.3.698 Ho spita .3.956376 084.8 l .8 2021-08-30 2021-08-30 Travel 1.2.840.1 1.2.466.869 5923 [id number] Methodi 00:00:00 00:00:[address] 3.430.2.7 0.2.7.3.698 Ho spita .3.047550 084.8 l .8 2021-05-12 2021-05-12 Clinical 1.2.840.1 [id number] Methodi 11:25:00 12:19:[address] 3.430.2.7 Hospit a .3.117838 l .8 2021-05-12 2021-05-12 Travel 1.2.840.1 1.2.931.610 1497 [id number] Methodi 00:00:00 00:00:[address] 3.430.2.7 0.2.7.3.698 Ho spita .3.904958 084.8 l .8 2021-05-03 2021-05-03 Outpatient [facility] [id number] [facility] 13:51:15 15:35:54 AMMON Whitaker e of Medicin e 2021-05-03 2021-05-03 Outpatient LYN [facility] [id number] [facility] 12:42:15 15:25:35 SHIKHA Whitaker e of Medicin e 2021-04-12 2021-04-12 Office ENDER Torres 6400 1.2.840.114 [id number] [place] 09:50:15 10:50:[address] 350.1.13.58 Health 9.2.7.2.686 [id number] 4 2021-04-12 2021-04-12 Office ENDER TORRES 6400 1.2.840.114 [id number] 0529 [place] 09:50:15 10:50:[address] 350.1.13.58 Health 9.2.7.2.686 [id number] 2021-02-08 2021-02-08 Outpatient DELMY [facility] [id number] [facility] 13:21:26 14:12:33 [facility] [employer] 2021-02-08 2021-02-08 Outpatient LYN [facility] [id number] [facility] 10:53:28 13:16:24 [employer]IKHA [employer] 2020-12-27 2020-12-27 Outpatient NAVID LEHMAN [facility] [id number] [place] 00:00:00 00:00:[address] 2020-10-05 2020-10-05 Outpatient FRED [facility] [id number] [place] 00:00:00 00:00:00 TOMER [address] 2020-09-14 2020-09-14 Outpatient [facility] [id number] 499 [place] 00:00:00 00:00:[address] 2020-08-23 2020-08-23 Outpatient [facility] DEVON F45 7247-20 [facility] 12:00:00 12:00:00 Rupinder [id number] [facility] 2020-05-11 2020-05-11 Office MORIAH Brock 1.2.840.114 [id number] [facility] 13:16:34 14:28:34 Visit Ammon S. AMBULATOR 350.1.13.21 College Y 0.2.7.2.686 of [id number] Medi yuliana 300 e 2020-05-11 2020-05-11 Office JJ Brock 1.2.840.114 77 [id number] 13:16:34 14:28:34 Visit Ammon S. AMBULATOR 350.1.13.21 Y 0.2.7.2.686 [id number] 300 2020-04-20 2020-04-20 Office Delmy, BCM 1.2.840.114 77 [id number] [facility] 10:32:24 11:49:24 Visit Ammon S. AMBULATOR 350.1.13.21 College Y 0.2.7.2.686 of [id number] Medi yuliana 300 e 2020-04-20 2020-04-20 Office Delmy, BCM 1.2.840.114 77 [id number] 10:32:24 11:49:24 Visit Ammon S. AMBULATOR 350.1.13.21 Y 0.2.7.2.686 [id number] 300 2020-04-11 2020-04-11 Office Delmy, BCM 1.2.840.114 77 [id number] [facility] 15:14:36 15:44:36 Visit Ammon S. AMBULATOR 350.1.13.21 College Y 0.2.7.2.686 of [id number] Medi yuliana 300 e 2020-04-11 2020-04-11 Office Delmy, BCM 1.2.840.114 77 [id number] 15:14:36 15:44:36 Visit Ammon S. AMBULATOR 350.1.13.21 Y 0.2.7.2.686 [id number] 300 2020-02-17 2020-02-17 Office Delmy, BCM 1.2.840.114 75 [id number] [facility] 14:27:49 15:39:40 Visit Ammon S. AMBULATOR 350.1.13.21 College Y 0.2.7.2.686 of [id number] Medi yuliana 300 e 2020-02-17 2020-02-17 Office Delmy, BCM 1.2.840.114 75 [id number] 14:27:49 15:39:40 Visit Ammon S. AMBULATOR 350.1.13.21 Y 0.2.7.2.686 [id number] 300 2019-12-28 2019-12-28 Outpatient NAVID LEHMAN [facility] [id number] [place] 00:00:00 00:00:[address] 2019-12-18 2019-12-18 Office JJ Brock 1.2.840.114 75 [id number] [facility] 09:24:19 09:57:43 Visit Ammon S. AMBULATOR 350.1.13.21 College Y 0.2.7.2.686 of [id number] Medi yuliana 300 e 2019-12-18 2019-12-18 Office JJ Brock 1.2.840.114 75 [id number] 09:24:19 09:57:43 Visit Ammon S. AMBULATOR 350.1.13.21 Y 0.2.7.2.686 [id number] 300 2019-11-25 2019-11-25 Office JJ Nugyen 1.2.840.114 [id number] 23 [facility] 12:45:00 13:45:37 Visit Pasquale AMBULATOR 350.1.13.21 College Y 0.2.7.2.686 of [id number] Medi yuliana 300 e 2019-11-25 2019-11-25 Office JJ Nguyen 1.2.840.114 [id number] 12:45:00 13:45:37 Visit Pasquale AMBULATOR 350.1.13.21 Y 0.2.7.2.686 [id number] [facility] 2019-11-09 2019-11-09 [facility], [facility] [id number] [place] [address] 00:00:00 00:00:00 LALO Sorto Method i 2019-10-28 2019-10-28 Office JJ Brock 1.2.840.114 74 [id number] [facility] 10:31:04 11:54:28 Visit Ammon S. AMBULATOR 350.1.13.21 College Y 0.2.7.2.686 of [id number] Medi yuliana 300 e 2019-10-28 2019-10-28 Office JJ Brock 1.2.840.114 74 [id number] 10:31:04 11:54:28 Visit Ammon S. AMBULATOR 350.1.13.21 Y 0.2.7.2.686 [id number] 300 2019-10-21 2019-10-21 Office JJ Brock 1.2.840.114 74 [id number] [facility] 09:10:20 11:15:40 Visit Ammon S. AMBULATOR 350.1.13.21 College Y 0.2.7.2.686 of [id number] [facility] yuliana 300 e 2019-10-21 2019-10-21 Office JJ Brock 1.2.840.114 74 [id number] 09:10:20 11:15:40 Visit Ammon S. AMBULATOR 350.1.13.21 Y 0.2.7.2.686 [id number] 300 2019-10-20 2019-10-20 Outpatient [facility] [id number] 3-2 [facility] 09:55:00 09:55:00 [id number] 2019-10-19 2019-10-19 Outpatient SLE SLE [id number] 3-2 [facility] 00:00:00 00:00:00 [id number] 2019-10-12 2019-10-12 Office DelmyJJ 1.2.840.114 74 [id number] [facility] 14:44:27 16:45:19 Visit Ammon S. AMBULATOR 350.1.13.21 College Y 0.2.7.2.686 of [id number] [facility] 300 e 2019-10-12 2019-10-12 Office JJ Brock 1.2.840.114 74 [id number] 14:44:27 16:45:19 Visit Ammon S. AMBULATOR 350.1.13.21 Y 0.2.7.2.686 [id number] [facility] 2019-07-28 2019-07-28 Outpatient [facility] F45 7247-20 [facility] 12:00:00 12:00:00 Rupinder [id number] [facility] Results Test Description Test Time Test Comments [...] RUN USER: INTERFACE ----PATIENT: JEANNETTE BOYER LOC: [facility] U #: [id number] AGE/SX: 73/F ROOM: [facility] RE01/08/19REG DR: Adrienne Andrade MD : 45 BED: A DIS: 01/09/19 STATUS: DIS Vira TLOC: ---- SPEC #: [id number] RECD: 01/08/19 STATUS: [place] REQ #: [id number] CHUN: 01/08/19- SUBM DR: Adrienne Andrade MD ENTERED: 01/08/19 SP TYPE: OVAWWOTNEO BRAD DR: Lesly Rose MD ORDERED: LEVEL V SURGICA/2, FROZEN SECTION CODES: [id number] - OVARY, NOS COPIES TO: Lesly Rose MD [address] [place] [address] [email or web address] Adrienne Andrade MD [address] [place], [place] [address] PROCEDURES: LEVEL V SURGICA (Incomplete) FROZEN SECTION [...] be sent to Mj Cisse M.D., at [facility] for an expert opinion, see results in Addendum Report. Permanent sections correlate with frozen section diagnosis. However, some of CONTINUED ON NEXT PAGE ----RUN DATE: 01/15/19 [facility] PAGE 2 RUN TIME: 1227 Specimen Inquiry RUN USER: INTERFACE ----SPEC #: [id number] PATIENT: JEANNETTE BOYER #[id number] (Continued) FINAL DIAGNOSIS (Continued) the cysts are lined by serous epithelium with tubal metaplasia. The following technical components [facility] performed [email or web address], [address] [place] [address], [address], [place] [address]. The interpretation is provided by [facility], [address] [place] [address]. Positive and/or negative controls received from [employer] stained appropriately. RESULTS: Cytokeratin 7 (block A4) - strongly and diffusely positive. Cytokeratin 20 (block A4) - negative. The results of the immunostains support ovarian origin. ADDENDUM PENDING, SPECIMEN IS BEING SENT TO DR. CISSE AT [facility] Tissue code 1 CPT code(s): 33839, 72829, 02388 pkg/kr dt: 01/13/19 pkmorena/wpblair 01/14/19 GROSS DESCRIPTION ANATOMIC SOURCE OF TISSUE [...] thin and clear and slightly viscid fluid. Musical String Maker sections are submitted labeled FS and the [...] submitted in toto labeled B1 through B3. nargis 01/09/19 @ 0944 CONTINUED ON NEXT PAGE ----RUN DATE: 01/15/19 [facility] PAGE 3 RUN TIME: 1227 Specimen Inquiry RUN USER: INTERFACE ----SPEC #: [id number] PATIENT: JEANNETTE BOYER #[id number] (Continued) MICROSCOPIC DESCRIPTION Specimen #1 consists of [...] New 01/13/19 1310 ---- END OF REPORT BARRERA W/WO 2019-01-13 ALEKSANDRA WEEMS 13:10:00 ----RUN DATE: 01/20/19 [facility] PAGE 1 RUN TIME: 1529 Specimen Inquiry RUN USER: INTERFACE ----PATIENT: JEANNETTE BOYER LOC: [facility] U #: [id number] AGE/SX: 73/F ROOM: [facility] RE01/08/19REG DR: Adrienne Andrade MD : 45 BED: A DIS: 01/09/19 STATUS: DIS Vira TLOC: ---- SPEC #: [id number] RECD: 01/08/19 STATUS: AUGUSTA SIMON #: [id number] CHUN: 01/08/19- SUBM DR: Adrienne Andrade MD ENTERED: 01/08/19 SP TYPE: OVAWWOTNEO OTHR DR: Lesly Rose MD ORDERED: LEVEL V SURGICA/2, FROZEN SECTION ADDENDUM FINDINGS Addendum #1 Entered: 01/20/19 The following is the final extradepartmental consultation diagnosis received from Mj Cisse M.D., at [facility], [place], [place], on January 19, 2019. ADDENDUM FINAL DIAGNOSIS: Fourteen outside slides ([id number] FS, A1 - A7, IHC x 2, [...] Specimen Inquiry RUN USER: INTERFACE ----SPEC #: [id number] PATIENT: JEANNETTE BOYER #[id number] (Continued) ADDENDUM FINDINGS (Continued) Addendum Signed Deanna New 01/20/19 1529 (prelim) Deanna New 01/20/19 1529 ---- CODES: [id number] - OVARY, NOS COPIES TO: Lesly Rose MD [address] [place] [address] [email or web address] Adrienne Andrade MD [address] [place], [place] [address] PROCEDURES: LEVEL V SURGICA (Incomplete) FROZEN SECTION [...] be sent to Mj Cisse M.D., at [facility] for an expert opinion, see results in Addendum Report. Permanent sections correlate with frozen section diagnosis. However, some of CONTINUED ON NEXT PAGE ----RUN DATE: 01/20/19 [facility] PAGE 3 RUN TIME: 1529 Specimen Inquiry RUN USER: INTERFACE ----SPEC #: [id number] PATIENT: JEANNETTE BOYER #[id number] (Continued) FINAL DIAGNOSIS (Continued) the cysts are lined by serous epithelium with tubal metaplasia. The following technical components were performed at [email or web address], [address], [place] [address]. The interpretation is provided by [facility], [address] [place] [address]. Positive and/or negative controls received from [email or web address] stained appropriately. RESULTS: Cytokeratin 7 (block A4) - strongly and diffusely positive. Cytokeratin 20 (block A4) - negative. The results of the immunostains support ovarian origin. ADDENDUM PENDING, SPECIMEN IS BEING SENT TO DR. CISSE AT [facility] Tissue code 1 CPT code(s): 19775, 95224, 40291 pkg/alex dt: 01/13/19 moni/gustavo 01/14/19 GROSS DESCRIPTION ANATOMIC [...] thin and clear and slightly viscid fluid. Musical String Maker sections are submitted labeled FS and the [...] Specimen Inquiry RUN USER: INTERFACE ----SPEC #: [id number] PATIENT: OJJEANNETTE JANIEKWASI #[id number] (Continued) MICROSCOPIC DESCRIPTION Specimen #1 consists of [...] and fallopian tube. moni/alex dt: 01/13/19 Signed Deanna New 01/13/19 1310 ---- END OF REPORT PELVIC WASHING 2019-01-13 12:51:00 ----RUN DATE: 01/13/19 [facility] PAGE 1 RUN TIME: 1707 Specimen Inquiry RUN USER: INTERFACE ----PATIENT: JEANNETTE BOYER LOC: [facility] #: [id number] AGE/SX: 73/F ROOM: [facility] RE01/08/19REG DR: Adrienne Andrade MD : 45 BED: A DIS: 01/09/19 STATUS: DIS Vira TLOC: ---- SPEC #: [id number] RECD: 01/09/19-1110 STATUS: [facility] [facility] #: [id number] CHUN: 01/09/19- SUBM DR: Adrienne Andrade MD ENTERED: 01/09/19-1111 SP TYPE: PELVIC WAS OTHR DR: ORDERED: CYTOLOGY/SACCOM CODES: [id number] - PELVIC GENITAL PROCEDURES: CYTOLOGY/SACCOM (Incomplete) TISSUES: PELVIC GENITAL STRUCTURES, NOS - PELVIC WASHINGS CLINICAL HISTORY 73 year old, breast cancer, vaginal prolapse, cystocele, rectocele, stress urinary incontinence (kr) FINAL DIAGNOSIS Pelvic washings (cytospins): - no malignant cells identified Tissue code 1 CPT code(s): 45918 pkg/alex dt: 01/13/19 GROSS DESCRIPTION The specimen is received in a container, labeled with the patient's name and designated "pelvic washings" and consists of mcxbqynwyqdlv55 cc of light red fluid. Two cytospins are made. No cell block is prepared. hj/alex 01/09/19 @ 1127 MICROSCOPIC DESCRIPTION The specimen consists of a few sheets of reactive mesothelial cells and unremarkable hematopoietic cells. cds/kr dt: 01/13/19 COMMENT: The corresponding surgical pathology [id number] showed: Left fallopian tube and ovary, salpingo-oophorectomy: [...] Specimen Inquiry RUN USER: INTERFACE ----SPEC #: [id number] PATIENT: OJJEANNETTEBRENTON GALLAGHER #[id number] (Continued) MICROSCOPIC DESCRIPTION (Continued) Addendum Report - ovary and fallopian tube with fibrous adhesion pkmorena/kr dt: 01/13/19 Signed Gabbie Newy 01/13/19 1251 ---- END OF REPORT HGB HCT 2019-01-09 06:06:00 Test Item Value Reference Range Interpretation Comme nts HEMOGLOBIN (test code = HGB) 10.8 g/dL 10.7-13.9 N HEMATOCRIT (test code = HCT) 33.3 % 32.1-42.1 N URINALYSIS [id number] 16:40:00 Test Item Value Reference Range Interpretation [...] SEEN MUCU) URINE SAMPLE: CLEAN CATCHCOMPREHENSIVE METABOLIC [id number] 16:15:00 Test Item Value Reference Range Interpretation [...] units/L 46-116 N code = ALKP) URINALYSIS [id number] 16:09:00 Test Item Value Reference Range Interpretation [...] SEEN YEASTU) URINE SAMPLE: CLEAN CATCHCBC W/AUTO [id number] 15:49:00 Test Item Value Reference Range Interpretation [...] NORMAL code = PLTMR) - US TRANSVAGINAL W/[id number] 16:09:00 Patient Name: JEANNETTE BOYER Unit No: [id number] EXAMS: CPT CODE: [id number] US TRANSVAGINAL W/PELVIS 57836 PELVIC ULTRASOUND, 10/13/2018: COMPARISON: None CLINICAL HISTORY: [...] of the right ovary. Prior hysterectomy. at 1603 Reported and signed by: Al Eisenberg MD CC: Wm Velasco MD Technologist: Millicent Watson RDMS Probe: [id number] Trnscrbd D/ (5167) [email or web address] Orig Print D/T: S: 10/13/2018 (2007) [facility] NAME: JEANNETTE BOYER Radiology Department PHYS: CYDNEY.05 - Wm Velasco [address] : 1945 AGE: 73 SEX: F [place], [place] [address] LOC: [facility] PHONE #: [phone] EXAM DATE: 10/13/2018 STATUS: REG CLI FAX #: [phone] RAD NO: [id number] Page 1 Signed Report Patient Name: JEANNETTE BOYER Unit No: [id number] EXAMS: CPT CODE: [id number] US TRANSVAGINAL W/PELVIS 09617 (Continued) [facility] NAME: JEANNETTE BOYER Radiology Department PHYS: COOJA. - KristaWm falcon [address] : 1945 AGE: 73 SEX: F [place], [place] [address] LOC: [facility] PHONE #: [phone] EXAM DATE:10/13/2018 STATUS: REG CLI FAX #: [phone] RAD NO: [id number] Page 2 Signed Report- US PELVIS COMPLETE 2018-10-13 16:09:00 Patient Name: JEANNETTE BOYER Unit No: [id number] EXAMS: CPT CODE: [id number] US PELVIS COMPLETE 91966 PELVIC ULTRASOUND, 10/13/2018: COMPARISON: None CLINICAL HISTORY: [...] and signed by: Al Eisenberg MD CC: mW Velasco MD Technologist: Millicent Watson RDMS Probe: Trnscrbd D/ (1606) [email or web address] Orig Print D/T: S: 10/13/2018 (1616) [facility] NAME: JEANNETTE BOYER Radiology Department PHYS: Wm Smith AM [address] : 1945 AGE: 73 SEX: F [place] [address] LOC: [facility] PHONE #: [phone] EXAM DATE: 10/13/2018 STATUS: REG CLI FAX #: [phone] RAD NO: [id number] Page 1 S igned Report Patient Name: JEANNETTE BOYER Unit No: [id number] EXAMS: CPT CODE: [id number] US PELVIS COMPLETE 43708 (Continued) [facility] NAME: JEANNETTE BOYER RadiologyDepartment PHYS: Wm Smith M [address] : 1945 AGE: 73 SEX: F [place] [address] LOC: [facility] PHONE #: [phone] EXAM DATE: 10/13/2018 STATUS: REG CLI FAX #: [phone] RAD NO: [id number] Page 2 Signed ReportBASI METABOLIC [id number] 06:23:00 Test Item Value Reference Range Interpretation [...] NOT APPLICABLE FOR DIALYSIS PATIEN TS. PROTHROMBIN TIME/[id number] 06:05:00 Test Item Value Reference Range Interpretation Comments PROTIME (BEAKER) (test code = 13.0 seconds 11.7-14.7 759) INR (BEAKER) (test code = 370) 1.0 <=5.9 RECOMMENDED COUMADIN/WARFARIN INR THERAPY RANGESSTANDARD DOSE: 2.0 - 3.0 Includes: PROPHYLAXIS for venous thrombosis, systemic embolization; TREATMENT for venous thrombosis and/or pulmonary embolus.HIGH RISK: Target INR is 2.5-3.5 for patients with mechanical heart valves.CBC W/PLT COUNT & AUTO [id number] 05:56:00 Test Item Value Reference Range Interpretation [...]
[2022-07-13] MEDS: carvediloL 25 MG TAB PO SCH (19:32)
[2022-07-13] MEDS: ATORVASTATIN 10 MG TAB PO SCH (19:33)
[2022-07-13] MEDS: POLYETHYL GLY 3350 17 GM/DOSE PO SCH (19:33)
[2022-07-13] MEDS: DOCUSATE NA 100 MG CAP PO SCH (19:33)
[2022-07-13] MEDS: DOCUSATE NA/SENNA CONC 1 TAB PO SCH (19:33)
[2022-07-13] MEDS: DEXAMETH OTIC SCH (19:34)
[2022-07-13] MEDS: HOME MED [LATANOPROST 0.005% 2.5ML OPTH] OPTH SCH (19:34)
[2022-07-13] MEDS: CIPROFLOXACIN OTIC SCH (19:34)
[2022-07-13] MEDS ORDERED: D50W 25 GM/50 ML SYRINGE IV PRN (19:57)
[2022-07-13] MEDS ORDERED: GLUCAGON 1 MG/VIAL IM PRN (19:57)
[2022-07-13] MEDS: INSULIN -REGULAR HUMAN 50 UNIT/0.5 ML ML SQ SCH (19:58)
[2022-07-13] MEDS ORDERED: IPRATROPIUM BROM 0.5MG/2.5ML NEB SCH (20:00)
[2022-07-13] MEDS ORDERED: ALBUTEROL 2.5 MG/3 ML NEB SOL NEB SCH (20:00)
[2022-07-13] MEDS ORDERED: D10W 125 ML IV PRN (20:03)
[2022-07-14] MEDS ORDERED: ALBUTEROL 2.5 MG/3 ML NEB SOL NEB SCH ×2 (01:00)
[2022-07-14] MEDS: ALBUTEROL 2.5 MG/3 ML NEB SOL NEB SCH ×4 (04:00→12:00)
[2022-07-14] MEDS: IPRATROPIUM BROM 0.5MG/2.5ML NEB SCH ×4 (04:00→12:00)
[2022-07-14] MEDS: carvediloL 25 MG TAB PO SCH ×2 (05:12→17:48)
[2022-07-14] MEDS: LIOTHYRONINE SOD 5 MCG TAB PO SCH (05:12)
[2022-07-14] MEDS: LEVOTHYROXINE SOD 0.05 MG TABLET PO SCH (05:19)
[2022-07-14 05:42] LABS: Absolute Lymphocytes (CBC) 1.3 K/uL (0.7-4.9); Hematocrit 33.7 % (36.0-45.0); MCV 99.2 fL (80-100); MPV 7.2 fL (7.6-11.3)
[2022-07-14 06:31] LABS: Albumin 2.9 g/dL (3.4-5.0); Potassium 3.3 mmol/L (3.5-5.1); Prealbumin 13.1 mg/dL (20-40)
[2022-07-14 07:03] LABS: Specific Gravity 1.017 (1.005-1.030); Urine Bacteria <20 /HPF (<20); Urine Bilirubin NEGATIVE (Negative); Urine Blood 1+ (Negative); Urine Clarity Turbid (Clear); Urine Color Yellow (Yellow); Urine Crystals Unidentified Few /HPF (None Seen); Urine Glucose NEGATIVE (Negative); Urine Mucus Slight /HPF (None Seen); Urine Protein NEGATIVE (Negative); Urine RBC 21-50 /HPF (None Seen); Urine Urobilinogen Normal (Normal); Urine WBC Clump Rare /HPF (None Seen); Urine pH 5.5 (5.0-7.0)
[2022-07-14] MEDS: INSULIN -REGULAR HUMAN 50 UNIT/0.5 ML ML SQ SCH ×4 (07:19→20:04)
[2022-07-14] MEDS ORDERED: AMLODIPINE 10 MG TAB PO SCH (08:00)
[2022-07-14] MEDS: CIPROFLOXACIN OTIC SCH ×2 (08:00→20:00)
[2022-07-14] MEDS: DEXAMETH OTIC SCH ×2 (08:00→20:00)
[2022-07-14] MEDS ORDERED: ASPIRIN 325 MG TAB PO SCH (08:00)
[2022-07-14] MEDS: POLYETHYL GLY 3350 17 GM/DOSE PO SCH ×2 (08:00→10:08)
[2022-07-14 09:50] VITALS: BMI 27.2
[2022-07-14] MEDS: predniSONE 20 MG TAB PO SCH (10:09)
[2022-07-14] MEDS: MONTELUKAST 10 MG TAB PO SCH (10:09)
[2022-07-14] MEDS: DOCUSATE NA 100 MG CAP PO SCH (10:09)
[2022-07-14] MEDS: FAMOTIDINE 20 MG TAB PO SCH (10:09)
[2022-07-14] MEDS: CETIRIZINE HCL 5 MG TABLET PO SCH (10:10)
[2022-07-14] MEDS: DOCUSATE NA/SENNA CONC 1 TAB PO SCH ×2 (10:11→20:03)
[2022-07-14] MEDS: predniSONE 10 MG TAB PO SCH (10:11)
[2022-07-14] MEDS: LETROZOLE 2.5 MG TAB PO SCH (10:12)
--- NOTE | 2022-07-14 11:38 | P.HP ---
Certification for Inpatient Patient admitted to: Inpatient With expected LOS: >2 Midnights Practitioner: I am a practitioner with admitting privileges, knowledge of patient current condition, hospital course, and medical plan of care. Services: Services provided to patient in accordance with Admission requirements found in Title 42 Section 412.3 of the Code of Federal Regulations Patient History Date of Service: 07/14/22 History of Present Illness: SP FALL AT HOME, SUBDURAL HEMATOMA, WAS SENT TO [place] AND RETURNED TO REHAB NOW. 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 SHE SEEMS CONFUSED AND DISOR IENTED. I WAS TOLD SHE HAD SUBDURAL HEMATOMA AND SO I ORDERED STAT CT TO CHECK ON THE STATUS. I WILL CALL FAMILY ONCE I HAVE REPORTS. I TALKED TO DR YANG TO GET REPORT. PATIENT FELL A FEW STEPS BUT HAS LOT OF FRACTURES, BASE OF SKULL, AUDITORY CANAL, RIBS ETC. HE TALKED TO FAMILY YESTERDAY WHEN SHE ARRIVED. Allergies methocarbamol [From Robaxin] Allergy (Verified 12/13/12 19:55) Hives/Rash Penicillins Allergy (Verified 12/13/12 19:54) Shortness of breath Home medications list reviewed: Yes Home Medications: Acetaminophen 650 mg PO Q4HP PRN 07/13/22 Amlodipine [Norvasc] 10 mg PO DAILY 07/13/22 Aspirin [Aspirin EC 325 MG] 325 mg PO DAILY 07/13/22 Atorvastatin Calcium [Lipitor] 10 mg PO BEDTIME 07/13/22 Carvedilol [Coreg] 25 mg PO BID 07/13/22 Cetirizine HCl [Zyrtec] 5 mg PO DAILY 07/13/22 Ciprofloxacin /Dexameth Otic [Ciprodex Otic Suspension] 4 drops LEFT EAR Q12H 07/13/22 Docusate [Colace Cap] 100 mg PO BID 07/13/22 Dronabinol [Marinol] 2.5 mg PO BID 07/13/22 Famotidine 40 mg PO DAILY 07/13/22 Ipratropium/Albuterol Sulfate [Iprat-Albut 0.5-3(2.5) mg/3 ml] 3 ml IH Q4HP PRN 07/13/22 Latanoprost/Pf [Latanoprost 0.005% Eye Drop] 1 drop OPTH BEDTIME 07/13/22 Letrozole [Femara] 2.5 mg PO DAILY 07/13/22 Levothyroxine [Synthroid] 50 mcg PO ETXUB1IH 07/13/22 Liothyronine Sodium [Cytomel] 5 mcg PO DAILY 07/13/22 Montelukast [Singulair*] 1 tab PO DAILY 07/13/22 Nf 1 LEFT EYE TID* 07/13/22 Polyethylene Glycol 3350 [Miralax] 17 gm PO BID 07/13/22 Sennosides [Senna] 8.6 mg PO Q12H 07/13/22 predniSONE [Deltasone*] 1 tab PO DAILY 07/13/22 predniSONE [Deltasone] 20 mg PO DAILY 07/13/22 - Past Medical/Surgical History Has patient received pneumonia vaccine in the past: Yes Diabetic: No -: HTN -: Lupus -: Neuropathy -: Breast Cancer R -: Pacemaker -: R Mastectomy - Family History Father History Unknown: Yes -: Heart disease - Social History Smoking Status: Never smoker Alcohol use: No CD- Drugs: No Caffeine use: No Place of Residence: Home Review of Systems 10-point ROS is otherwise unremarkable General: Weakness, Malaise Eyes: As per HPI (R SIDE FOREHEAD SMALL HEMATOMA) Physical Examination - Vital Signs Temperature: 96.6 F Blood Pressure: 115/59 Pulse: 85 Respirations: 18 Pulse Ox (%): 99 - Physical Exam General: Oriented x3, Mild distress, Confused HEENT: Atraumatic, PERRLA, Mucous membr. moist/pink, EOMI, Sclerae nonicteric Neck: Supple, 2+ carotid pulse no bruit, No LAD, Without JVD or thyroid abnormality Respiratory: Clear to auscultation bilaterally, Normal air movement Cardiovascular: Regular rate/rhythm, Normal S1 S2 Gastrointestinal: Normal bowel sounds, No tenderness Musculoskeletal: No tenderness Integumentary: No rashes Neurological: Normal strength at 5/5 x4 extr, Abnormal speech (SLOW WITH CONFUSION.) Lymphatics: No axilla or inguinal lymphadenopathy - Studies Laboratory Data (last 24 hrs) 07/14/22 05:19: Sodium 137, Potassium 3.3 L, BUN 32 H, Creatinine 0.92, Glucose 99, Magnesium 2.0 07/14/22 05:14: WBC 14.90 H, Hgb 11.4 L, Hct 33.7 L, Plt Count 472 H Assessment and Plan - Problems (Diagnosis) (1) Subdural hematoma Current Visit: Yes Status: Acute Plan: MEDICAL MANAGEMENT. PER DR. ZEPEDA. CT TODAY. (2) Basal skull fracture Current Visit: Yes Status: Acute Plan: NOT SURGICAL CASE. DR. YANG DID EVAL. Qualifiers: Encounter type: initial encounter Fracture type: closed (3) Altered mental state Current Visit: Yes Status: Acute Plan: DR. YANG SAYS STEROIDS CAN BE TAPERED. SHOULD GRADUALLY IMPROVE. - Advance Directives Does patient have a Living Will: No Does patient have a Durable POA for Healthcare: No
--- NOTE | 2022-07-14 11:53 | RAD REPORT ---
EXAM DESCRIPTION: CT - Head Brain Wo Cont - 07/14/2022 10:09 am CLINICAL HISTORY: Fall with subdural hematoma COMPARISON: June TECHNIQUE: Computed axial tomography of the head was obtained. IV contrast was not requested. All CT scans are performed using dose optimization technique as appropriate and may include automated exposure control or mA/KV adjustment according to patient size. FINDINGS: Progression in a left frontal lobe intraparenchymal hematoma. It measures 3.4 centimeters with surrounding edema. No change in a very small left temporal intraparenchymal hematoma. The left subarachnoid blood has diminished. Small left subdural bleed has diminished Development of a moderate right subdural low-density fluid collection which extends along the right f rontal, right temporal and right parietal convexities. It measures up to 2 centimeters in width. The sulci are compressed. There is also some compression of the right lateral ventricle. Shift of midline structures 2 millimeters to the right. Right cerebellar hematoma has mildly diminished. Small amount of blood has developed within the left lateral ventricle. No change in the right occipital nondisplaced fracture which extends into the left temporal bone. Flu id in the left mastoid again demonstrated. IMPRESSION: Enlargement of a 3.4 centimeter left frontal lobe intraparenchymal hematoma with surroun ding edema. Development of a moderate low-density subdural effusion along the right cerebral convexity Development of a small amount of intraparenchymal blood. Examination was discussed with Dr. Spann
[2022-07-14] MEDS ORDERED: POLYETHYL GLY 3350 17 GM/DOSE PO PRN (13:30)
[2022-07-14] MEDS: POTASSIUM 25 MEQ EFFERV TAB PO SCH (14:27)
[2022-07-14] MEDS ORDERED: ALBUTEROL 2.5 MG/3 ML NEB SOL NEB PRN (15:36)
[2022-07-14] MEDS ORDERED: IPRATROPIUM BROM 0.5MG/2.5ML NEB PRN (15:37)
--- NOTE | 2022-07-14 15:49 | RAD REPORT ---
EXAM DESCRIPTION: Juditht Single View07/14/2022 3:40 pm CLINICAL HISTORY: Cough COMPARISON: April 2022 FINDINGS: The lungs appear clear of acute infiltrate. The heart is probably mildly enlarged. Pacema ker leads in place.
[2022-07-14] MEDS: DRONABINOL 2.5 MG PO SCH (20:00)
[2022-07-14] MEDS ORDERED: AMLODIPINE 5 MG TAB PO SCH (20:00)
[2022-07-14] MEDS ORDERED: APIXABAN 2.5 MG TABLET PO SCH (20:00)
[2022-07-14] MEDS: ATORVASTATIN 10 MG TAB PO SCH (20:04)
[2022-07-14] MEDS: CIPROFLOXACIN HCL 500 MG TAB PO SCH (20:04)
[2022-07-14] MEDS: HOME MED [LATANOPROST 0.005% 2.5ML OPTH] OPTH SCH (20:04)
[2022-07-15] MEDS: LIOTHYRONINE SOD 5 MCG TAB PO SCH (05:00)
[2022-07-15] MEDS: carvediloL 25 MG TAB PO SCH ×2 (05:00→17:08)
[2022-07-15] MEDS: LEVOTHYROXINE SOD 0.05 MG TABLET PO SCH (05:00)
[2022-07-15 05:59] LABS: Absolute Lymphocytes (CBC) 1.2 K/uL (0.7-4.9); Hematocrit 35.5 % (36.0-45.0); MPV 7.2 fL (7.6-11.3); RBC Red Blood Cell Count 3.55 M/uL (3.86-4.86)
[2022-07-15 06:05] LABS: Potassium 3.7 mmol/L (3.5-5.1)
[2022-07-15] MEDS: INSULIN -REGULAR HUMAN 50 UNIT/0.5 ML ML SQ SCH ×4 (06:55→20:13)
[2022-07-15] MEDS: CIPROFLOXACIN OTIC SCH (08:00)
[2022-07-15] MEDS: DRONABINOL 2.5 MG PO SCH (08:00)
[2022-07-15] MEDS ORDERED: POTASSIUM CL SA 10 MEQ TAB PO SCH (08:00)
[2022-07-15] MEDS: DEXAMETH OTIC SCH (08:00)
--- NOTE | 2022-07-15 08:32 | RAD REPORT ---
EXAM DESCRIPTION: CT - Head Brain Wo Cont - 07/15/2022 8:18 am CLINICAL HISTORY: Fall, head injury, subdural hematoma st COMPARISON: <Comparisons> TECHNIQUE: Axial 5 mm thick images of the head were obtained without IV contrast. All CT scans are performed using dose optimization technique as appropriate and may include automated exposure control or mA/KV adjustment according to patient size. FINDINGS: Left frontal lobe intraparenchymal hemorrhage with surrounding edema has not changed since prior day imaging. The adjacent subdural hematoma component also seen as stable. Small amount of hem orrhage within the occipital horn left lateral ventricle has not changed. Patient has a small amount of subdural hematoma along the posterior occipital and parietal lobes on the left. The posterior interhemispheric subdural hematoma seen posteriorly has not changed. The subd ural hematoma along the right side of the tentorium has not changed. Ventricles are prominent but in proportion to volume loss. Increased CSF attenuation along the right cerebral hemisphere is again not ed. Patient has underlying atrophy and chronic ischemic change. Mastoid air cells are clear. Sphenoid sinus opacification is present. Left globe prosthesis in place. No acute bony findings. IMPRESSION: The intraparenchymal, subdural and intraventricular hemorrhages are stable from prior da y imaging. No new or progressive intracranial finding.
[2022-07-15] MEDS: APIXABAN 2.5 MG TABLET PO SCH ×2 (08:57→19:52)
[2022-07-15] MEDS: POTASSIUM 25 MEQ EFFERV TAB PO SCH (09:30)
[2022-07-15] MEDS: ASPIRIN 81 MG CHEWABLE TABLET PO SCH (09:31)
[2022-07-15] MEDS: predniSONE 10 MG TAB PO SCH (09:31)
[2022-07-15] MEDS: DOCUSATE NA/SENNA CONC 1 TAB PO SCH ×2 (09:31→19:52)
[2022-07-15] MEDS: CETIRIZINE HCL 5 MG TABLET PO SCH (09:31)
[2022-07-15] MEDS: predniSONE 20 MG TAB PO SCH (09:32)
[2022-07-15] MEDS: AMLODIPINE 5 MG TAB PO SCH (09:32)
[2022-07-15] MEDS: FAMOTIDINE 20 MG TAB PO SCH (09:33)
[2022-07-15] MEDS: CIPROFLOXACIN HCL 500 MG TAB PO SCH ×2 (09:33→19:52)
[2022-07-15] MEDS: MONTELUKAST 10 MG TAB PO SCH (09:33)
[2022-07-15] MEDS: LETROZOLE 2.5 MG TAB PO SCH (09:36)
--- NOTE | 2022-07-15 09:52 | P.PN ---
Subjective Date of Service: 07/15/22 Chief Complaint: CONFUSION Subjective: No new changes SHE IS SAME YESTERDAY. SHE RESPONDS TO SIMPLE COMMANDS LIKE MOVING HANDS AND LEGS. Review of Systems 10-point ROS is otherwise unremarkable General: Weakness Neurological: Weakness, Change in Speech, Confusion Physical Examination - Vital Signs Temperature: 96.9 F Blood Pressure: 137/61 Pulse: 83 Respirations: 18 Pulse Ox (%): 97 - Physical Exam General: In no apparent distress, Confused HEENT: Atraumatic, PERRLA, EOMI Neck: Supple, JVD not distended Respiratory: Clear to auscultation bilaterally, Normal air movement Cardiovascular: Regular rate/rhythm, Normal S1 S2 Gastrointestinal: Normal bowel sounds, No tenderness Musculoskeletal: No tenderness Integumentary: No rashes Neurological: Abnormal speech (APHASIA, GLOBAL AND DENSE. NOT ABLE TO CONVERS COGNITIVELY.) Lymphatics: No axilla or inguinal lymphadenopathy - Studies Laboratory Data (last 24 hrs) 07/15/22 05:11: Sodium 135 L, Potassium 3.7, BUN 24 H, Creatinine 0.86, Glucose 106 07/15/22 05:11: WBC 14.90 H, Hgb 11.8 L, Hct 35.5 L, Plt Count 479 H Medications List Reviewed: Yes Assessment And Plan - Current Problems (Diagnosis) (1) Subdural hematoma Current Visit: Yes Status: Acute Plan: MEDICAL MANAGEMENT. PER DR. ZEPEDA. CT TODAY. I HAD A LONG TALK WITH DR. YANG. WE DON'T KNOW IF CT SHOWS STABLE OR IMPROVED FINDINGS FROM [facility]. WILL DO SERIAL CT SCAN HERE TO DECIDE STABILITY FOR HEMATOMA AND PARENCHYMAL HEMORRHAGE. HE IS IN CONTACT WITH [facility] DOCTORS. (2) Basal skull fracture Current Visit: Yes Status: Acute Plan: NOT SURGICAL CASE. DR. YANG DID EVAL. Qualifiers: Encounter type: initial encounter Fracture type: closed (3) Altered mental state Current Visit: Yes Status: Acute Plan: DR. YANG SAYS STEROIDS CAN BE TAPERED. SHOULD GRADUALLY IMPROVE.
[2022-07-15] MEDS: ATORVASTATIN 10 MG TAB PO SCH (19:52)
[2022-07-16] MEDS: carvediloL 25 MG TAB PO SCH ×2 (05:28→17:23)
[2022-07-16] MEDS: LEVOTHYROXINE SOD 0.05 MG TABLET PO SCH (05:28)
[2022-07-16] MEDS: LIOTHYRONINE SOD 5 MCG TAB PO SCH (05:28)
[2022-07-16] MEDS: INSULIN -REGULAR HUMAN 50 UNIT/0.5 ML ML SQ SCH ×4 (07:21→20:05)
[2022-07-16] MEDS: POTASSIUM 25 MEQ EFFERV TAB PO SCH (07:37)
[2022-07-16] MEDS: LETROZOLE 2.5 MG TAB PO SCH (07:37)
[2022-07-16] MEDS: predniSONE 20 MG TAB PO SCH (07:38)
[2022-07-16] MEDS: CETIRIZINE HCL 5 MG TABLET PO SCH (07:38)
[2022-07-16] MEDS: DOCUSATE NA/SENNA CONC 1 TAB PO SCH ×2 (07:38→20:05)
[2022-07-16] MEDS: APIXABAN 2.5 MG TABLET PO SCH ×2 (07:38→20:05)
[2022-07-16] MEDS: ASPIRIN 81 MG CHEWABLE TABLET PO SCH (07:38)
[2022-07-16] MEDS: CIPROFLOXACIN HCL 500 MG TAB PO SCH ×2 (07:38→20:04)
[2022-07-16] MEDS: MONTELUKAST 10 MG TAB PO SCH (07:38)
[2022-07-16] MEDS: FAMOTIDINE 20 MG TAB PO SCH (07:38)
[2022-07-16] MEDS: predniSONE 10 MG TAB PO SCH (07:39)
[2022-07-16] MEDS: AMLODIPINE 5 MG TAB PO SCH (07:39)
[2022-07-16] MEDS ORDERED: LATANOPROST OPTH OPTH SCH (08:00)
--- NOTE | 2022-07-16 12:45 | HP ---
Date of Admission: 07/13/2022 Time Of Service: 07/13/2022 at 3:30 p.m. Chief Complaint: "Fell down steps, hit my head." History Of Present Illness: Ms. Boyer is a 77-year-old, right-handed, patient who was at home going up steps on the July 05 when she fell backwards hitting the back of her head with loss of consciousness. She suffered a skull laceration, skull fracture, rib fracture, and subdural hematoma. She was found to have a 2 mm focal pseudoaneurysm arising from the posterior wall of the left proximal supraclinoid intracerebral artery segment. There is a 6 mm pseudoaneurysm arising from the posterior wall of the left cerebral artery. There was spondylosis with mild degeneration and anterolisthesis noted with broad-based slipping at C3-4, with left neural foraminal narrowing. Imaging of the chest identified fractures of the left fifth, sixth, and seventh intercostal regions. She was admitted to the ICU at the [facility]. She had NG tube placed on the and had physical, occupational, and speech therapy. NG tube was removed on . While in ICU she had difficulty with comprehension and expression. Past Medical History: Includes peripheral neuropathy, hypertension, lupus, breast cancer, and she has a pacemaker placed. X-ray and imaging on the at 3:00 p.m. chest view showed NG tube was in place, coursing below the diaphragm. The thoracic aorta is noted to be tortuous with mildly increased bilateral retrocardiac and infrahilar opacities and trace right pleural effusion without pneumothorax. CT scan on the and abdominal x-ray showed NG tube in positioned as above. Bowel gas pattern was nonobstructive. No free air seen. A CT of the temporal bone without contrast on 07/05/2022 showed an acute transverse fracture of the mastoid segment of the left temporal bone with associated hemomastoid and hemotympanum. She had an acute oblique fracture in the central skull base, left side of the clivus and the right occipital squamous. No evidence of violation of the otic capsule and there was adequate positioning of the ossicular chain. CT without contrast done on the of the brain showed an interval worsening of the left anterior subdural hematoma and a left frontal hemorrhagic contusion. There was mild interval enlargement in the isodense subdural hematoma along the right cerebral convexity. There was a new small volume intraventricular blood product in the occipital horns. No significant interval change in the remaining multicompartment intracranial blood products, unchanged midline shift. Chest x-ray, 1 view, done on the at 2:00 p.m. showed underinflated lungs, scattered subsegmental atelectasis, infrahilar opacities may represent subsegmental atelectasis, although aspiration may not be excluded. Left rib fractures better seen on CT of the chest. Repeat chest CT without contrast and CT of the abdomen and pelvis with contrast dated on 07/05 showed mildly displaced left fifth and sixth anterior rib fractures, anterior subluxation of the right glenohumeral joint, likely chronic appearing osseous fracture seen along the posterior inferior rim of the left glenoid. There is a diffuse hepatic steatosis, subcentimeter hypodensity in the posterior right hepatic lobe that is too small to characterize. There is a mild appearance of soft tissue thickening along the urinary bladder base noted. Correlation with pelvic exam and urinalysis was recommended. Cystoscope also may be indicated. A CT scan of the brain without contrast showed mild interval worsening with increase in subdural hematoma along the left frontal convexity and hemorrhagic contusion in the left frontal lobe, interval small isodense subdural hematoma along the right convexity. There is a sub 5 mm midline shift to the right with minimal progression. There is a stable right cerebellar hemorrhagic contusion with calvarial fracture extending in the clivus, left skull base fractures involving the temporal bone adjacent floor of the middle fossa are noted. Another CT scan showed small 2 mm focal pseudoaneurysm arising from the posterior wall of the left proximal supraclinoid intracerebral artery. There is no posterior communicating artery. There is a 6 mm pseudoaneurysm arising from the posterior wall of the left cervical vertebral artery. 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 While at [facility], the patient was seen by Neurosurgery, Physical, Occupational, Speech Therapy, Trauma Surgery, ENT, and Otolaryngology. Medications: Reviewed. She is not placed on anticoagulation. She has SCDs for DVT prophylaxis. Reflux medication in place. Pain medication in place. Medication for insomnia and constipation is also in place. Social History: Patient lives with at home. Two-jose house. She was actually going up steps at least 10 steps to the 2nd floor. She felt no alcohol, tobacco, or IV drug use. Allergies: METHOCARBAMOL AND PENICILLIN. Laboratory Studies: White blood cell count 16.2, hemoglobin 12, hematocrit 37, platelets 468. Chemistries: Sodium 135, potassium 3.6, creatinine 1.01, BUN 43, calcium 9.1. Magnesium 2.1. X-ray imaging as noted above. Review of Systems: She has mild pain in her right posterior head and rib fractures in the chest. Physical Examination: General: Stable vital signs. HEENT: Anicteric sclera. Oropharynx moist. Neck: Mildly restricted movement due to pain. Chest: Good air movement. Abdomen: Soft. Extremities: No significant edema or cyanosis. Neurological: She is alert and oriented to situation and place. She is in slight pain, but otherwise is doing pretty well. Motor exam: No significant focal weakness in the arms and legs and -4/5 proximal and distal upper and lower extremities. Sensation intact in stocking-glove loss. Coordination intact. Gait: She does require moderate assistance, began to ambulate. She did 30 feet with a rolling walker. Current Level Of Functioning,: Currently with moderate assistance for ambulation. Transfers from bed to chair and toilet. At least mod assistance with upper and lower body dressing and donning and doffing of her footwear. Rehabilitation Assessment And Plan: Ms. Boyer is a 77-year-old patient with a moderate right subdural hematoma with skull base and anterior chest fractures after falling down 3 steps. She has mild right to left cerebral midline shift. She has a fracture in the right mastoid segment of the temporal bone. There is an acute transverse fracture and hemo mastoid and hemotympanum. She has reduced right sided hearing. She has a central skull fracture at the base on the left side of the clivus and the right occipital region. She has comorbid peripheral neuropathy and a pacemaker. She is debilitated after being hospitalized for 9 days. Plan: 1. Aggressive physical, occupational, and speech therapy. 2. Interval head CT scan to be compared with out side study. 3. She will have SCDs for DVT prophylaxis since she has subdural hematoma. 4. Hypertension addressed by continuing her antihypertensive. 5. Neuropathy medications continued. 6. Continue treatment for insomnia, constipation, anemia and mild malnutrition. Active comorbid conditions present on admission: As noted above. Active conditions to include the hypertension, significant pain, risk of aspiration, worsening pneumonia, risk of worsening intracerebral hemorrhage. She does have intraventricular hemorrhage and could potentially develop hydrocephalus. We will watch for in terms of changes in vision and diplopia especially. In addition, nausea and vomiting may be signs of increased intracranial pressure and this will be watched for. She may have autoregulation with very elevated blood pressures, which may again signal issues in the intracerebral region. Otherwise, her debility will be addressed with physical therapy and there is risk of myocardial infarction and stroke sitting at rest. There is also a risk of seizures given blood in the brain and antiepileptics may be added as needed. Impact of comorbidities: As noted above. She does have significant comorbid conditions need to be addressed carefully and they will be addressed on a daily basis and medications change appropriately. Rehab plan: She will have 3.5 hours of therapy 5/7 days to include speech, physical, and occupational therapy. She will benefit from the multidisciplinary approach. In addition, she may require ongoing respiratory, nutritional, wound care, and psychological assistance as she improves and does physical therapy. Given her complex condition, it is not safe for her to be admitted to a lower level of care. Inpatient rehabilitation is more appropriate. Barriers To Discharge: As noted, she has multiple fractures in both skull, skull base, temporal region, temporal bone, and the rib region. She has hypertension and risk of pain, risk of deep vein thrombosis. Estimated Length Of Stay: Around 14 days. Disposition: She would like to be able to go home with family. She has a very supportive family. Prognosis: Fair. Rehabilitation Goals: She should become independent with transfers and bed shower, followed a chair showering, independent upper and lower body dressing and shoes donning and doffing should be independent and at least household distances around 250 feet with independence. I acknowledge I have personally evaluated Ms. Boyer within 2 hours of her arrival on the unit and have determined her to be able to tolerate the above course of treatment at an intensive level for a period of time as stated. This was discussed with the patient and her family. A detailed individualized plan of her care will be completed by hospital day 4 based on the pre-admission screen, the admission history and physical and ongoing therapy evaluations. JEFFERY/MARIO Voice ID: [id number] MTDD
--- NOTE | 2022-07-16 17:46 | P.PN ---
Subjective Date of Service: 07/16/22 Chief Complaint: CONFUSION Subjective: No new changes SHE IS SAME YESTERDAY. SHE RESPONDS TO SIMPLE COMMANDS LIKE MOVING HANDS AND LEGS. SHE IS ABOUT THE SAME. SLOW TO RESPOND AND LIMITED RESPONSE TO VERBAL COMMAND. Physical Examination - Vital Signs Temperature: 96.6 F Blood Pressure: 116/64 Pulse: 92 Respirations: 18 Pulse Ox (%): 97 - Physical Exam General: Oriented x1, Mild distress, Confused HEENT: Atraumatic, PERRLA, EOMI Neck: Supple, JVD not distended Respiratory: Clear to auscultation bilaterally, Normal air movement Cardiovascular: Regular rate/rhythm, Normal S1 S2 Gastrointestinal: Normal bowel sounds, No tenderness Musculoskeletal: No tenderness Integumentary: No rashes Neurological: Abnormal speech (GLOBAL APHASIA, PARTIAL. ), Abnormal strength (GEN WEAK.) Lymphatics: No axilla or inguinal lymphadenopathy - Studies Microbiology Data (last 24 hrs): 07/14/22 04:30 Clean Catch Urine [place] Count - Final >100,000 CFU/ML. 07/14/22 04:30 Clean Catch Urine - Final Pseudomonas Aeruginosa Medications List Reviewed: Yes Assessment And Plan - Current Problems (Diagnosis) (1) Subdural hematoma Current Visit: Yes Status: Acute Plan: MEDICAL MANAGEMENT. PER DR. ZEPEDA. CT TODAY. I HAD A LONG TALK WITH DR. YANG. WE DON'T KNOW IF CT SHOWS STABLE OR IMPROVED FINDINGS FROM [place]. WILL DO SERIAL CT SCAN HERE TO DECIDE STABILITY FOR HEMATOMA AND PARENCHYMAL HEMORRHAGE. HE IS IN CONTACT WITH [place] DOCTORS. REPEAT CT SHOWS NO NEW CHANGES. THIS IS A GOOD SIGN. (2) Basal skull fracture Current Visit: Yes Status: Acute Plan: NOT SURGICAL CASE. DR. YANG DID EVAL. Qualifiers: Encounter type: initial encounter Fracture type: closed (3) Altered mental state Current Visit: Yes Status: Acute Plan: DR. YANG SAYS STEROIDS CAN BE TAPERED. SHOULD GRADUALLY IMPROVE.
[2022-07-16] MEDS: LATANOPROST OPTH OPTH SCH (20:04)
[2022-07-16] MEDS: ATORVASTATIN 10 MG TAB PO SCH (20:05)
[2022-07-16] MEDS: ACETAMINOPHEN 325 MG TABLET PO PRN (20:05)
[2022-07-16] MEDS: CRANBERRY FRUIT EXTRACT 200 MG CAP PO SCH (20:05)
--- NOTE | 2022-07-16 23:06 | PN ---
Date of Progress Note: 07/16/2022 Evzc-[id number]-ynvm progress visit Time Of Service: 12:30 p.m. Subjective: Ms. Boyer has no new complaints. She reports mild pain at the right posterior head whe re she had sutures. She has some pain at the skull base and in her anterior chest. Her pain is vlad ged adequately by medications. Review of Systems: She has no fevers or chills. Mild myalgias and arthralgias. Mild chest pain on deep breathing. Jeannette n in the back. She has otherwise no nausea, no vomiting, and no psychiatric issues. No gastrointest inal or genitourinary issues. Physical Examination: Vital Signs: Blood pressure ranged from 98 to 116/50 to 64, pulse up to 92, temperature 97.6, and ox ygen saturation 97%. Weight 158 pounds, height 5 feet 4 inches, BMI 27.2. General: Ms. Boyer is in the gym, bouncing a balloon back and forth with the therapist. Lungs: Clear to auscultation. Heart: Regular. Abdomen: Soft. Extremities: No significant edema or cyanosis. Laboratory Data: White blood cell count 14.9, hemoglobin 11.8, hematocrit 35.5, and platelets 479. Chemistry: Blood sugars ranged from 98 to 115, sodium 135, potassium 3.7, chloride 103, BUN 24, calc ium 9.0, prealbumin 13.1, and albumin 2.9. Urinalysis shows 500 esterase, 20 to 50 red blood cells, 20 to 50 white blood cells, and turbid clarity. COVID-19 test is negative. Her cultures from the 3r d did grow Pseudomonas aeruginosa. She is followed by her primary care physician, Dr. Spann who star galina Cipro 500 mg twice daily for urinary tract infection. X-ray/Imaging: She had a head CT scan on the 3rd and a repeat on the 4th. The studies showed a smal l amount of subdural hematoma in the posterior occipital and parietal lobes on the left. Posterior i nterhemispheric subdural hematoma has not changed over the interval studies. A subdural hematoma williams ng the right side has not changed. There is increased CSF attenuation along the right cerebral hemis phere again noted and is unchanged. There is a small amount of hemorrhage in the left lateral ventri jose and occipital horn that was not changed. Medications: Tylenol 650 mg every 4 hours, albuterol nebulizer 2.5 mg every 4 hours, Norvasc 5 mg da yaneli, Eliquis 2.5 mg twice daily, aspirin 5 mg daily, Lipitor 10 mg at bedtime, Coreg 25 mg twice shelby y, Zyrtec 5 mg daily, ciprofloxacin 500 mg twice daily, Pepcid 40 mg daily, Femara 2.5 mg daily, Synt hroid 0.05 mg daily, Cytomel 5 mcg daily, Singulair 10 mg daily, K-Lyte 25 mEq daily, Deltasone 10 mg daily, and Senokot-S 1 twice daily. Current Level Of Functioning: Currently, she ambulated 250 and another 150 feet 4 times with contact guard assistance using a rolling walker. She ascended and descended 10 steps twice with contact gua rd assistance using bilateral handrails. She did multiple jgo-mj-dugsw transfers with contact guard assistance using a rolling walker. She performed mlqnxn-lt-zai transfers with standby assistance and verbal cues. She did functional ambulation with a rolling walker to the bathroom, did independent t oilet hygiene. There was standby assistance for balance. Progress towards rehabilitation goals: Despite her multiple fractures and fairly moderate size right -sided subdural hematoma, she is making very good progress towards physical and occupational therapy goals of becoming independent with her transfers from tub, toilet, chair, and back and forth to the ed with upper and lower body dressing and donning and doffing of shoes and also with ambulating over 250 feet and going up and down 10 to 15 steps. Assessment: Ms. Boyer is a 77-year-old patient with a moderate right subdural hematoma and multiple fractures including the right mastoid segment of the temporal bone, transverse fracture with hemo ma stoid and hemotympanum, fracture of the left clivus and right occipital region. She is debilitated a s well. She is well nourished with hypertension and has peripheral neuropathy. Plan: 1.Continue aggressive physical and occupational along with speech therapy. 2.She does have urinary tract infection and is on ciprofloxacin. 3.She had [address] scans that show stable findings, but her prior CT scan from [facility] will be evaluated and the report of her last inhouse CT scan amended to reflect any potential c hanges. Comorbidities That Continue To Impact Rehabilitation Process: At this point, she has had subdural he matomas that are improving, but she is at risk for worsening bleeding. She is currently on Eliquis a nd aspirin. Only continue the Eliquis and discontinue aspirin given the higher risk of bleeding. Al so she is malnourished and has mild anemia and those can impact her ability to recover. JEFFERY/MODL Voice ID: [id number] Report ID: [id number]
[2022-07-17] MEDS: carvediloL 25 MG TAB PO SCH ×2 (05:09→17:06)
[2022-07-17] MEDS: LIOTHYRONINE SOD 5 MCG TAB PO SCH (05:09)
[2022-07-17] MEDS: LEVOTHYROXINE SOD 0.05 MG TABLET PO SCH (05:09)
[2022-07-17] MEDS: INSULIN -REGULAR HUMAN 50 UNIT/0.5 ML ML SQ SCH ×4 (07:30→20:00)
[2022-07-17] MEDS: LETROZOLE 2.5 MG TAB PO SCH (07:41)
[2022-07-17] MEDS: DOCUSATE NA/SENNA CONC 1 TAB PO SCH ×2 (07:41→19:40)
[2022-07-17] MEDS: POTASSIUM 25 MEQ EFFERV TAB PO SCH (07:41)
[2022-07-17] MEDS: CETIRIZINE HCL 5 MG TABLET PO SCH (07:41)
[2022-07-17] MEDS: APIXABAN 2.5 MG TABLET PO SCH ×2 (07:42→19:39)
[2022-07-17] MEDS: predniSONE 10 MG TAB PO SCH (07:42)
[2022-07-17] MEDS: predniSONE 20 MG TAB PO SCH (07:42)
[2022-07-17] MEDS: CIPROFLOXACIN HCL 500 MG TAB PO SCH ×2 (07:42→19:39)
[2022-07-17] MEDS: CRANBERRY FRUIT EXTRACT 200 MG CAP PO SCH ×2 (07:43→19:40)
[2022-07-17] MEDS: MONTELUKAST 10 MG TAB PO SCH (07:43)
[2022-07-17] MEDS: FAMOTIDINE 20 MG TAB PO SCH (07:44)
[2022-07-17] MEDS: AMLODIPINE 5 MG TAB PO SCH (07:45)
[2022-07-17] MEDS: ACETAMINOPHEN 325 MG TABLET PO PRN ×2 (08:09→19:40)
[2022-07-17] MEDS: LATANOPROST OPTH OPTH SCH (19:39)
[2022-07-17] MEDS: ATORVASTATIN 10 MG TAB PO SCH (19:39)
--- NOTE | 2022-07-17 21:23 | P.PN ---
Subjective Date of Service: 07/17/22 Chief Complaint: CONFUSION Subjective: Improving SHE IS SAME YESTERDAY. SHE RESPONDS TO SIMPLE COMMANDS LIKE MOVING HANDS AND LEGS. SHE IS ABOUT THE SAME. SLOW TO RESPOND AND LIMITED RESPONSE TO VERBAL COMMAND. SHE IS SITING IN CHAIR TODAY ALMOST FULLY AWAKE. Physical Examination - Vital Signs Temperature: 97.2 F Blood Pressure: 103/58 Pulse: 83 Respirations: 18 Pulse Ox (%): 97 - Physical Exam General: Oriented x3, Mild distress HEENT: Atraumatic, PERRLA, EOMI Neck: Supple, JVD not distended Respiratory: Clear to auscultation bilaterally, Normal air movement Cardiovascular: Regular rate/rhythm, Normal S1 S2 Gastrointestinal: Normal bowel sounds, No tenderness Musculoskeletal: No tenderness Integumentary: No rashes Neurological: Normal speech, Normal tone, Normal affect Lymphatics: No axilla or inguinal lymphadenopathy - Studies Medications List Reviewed: Yes Assessment And Plan - Current Problems (Diagnosis) (1) Subdural hematoma Current Visit: Yes Status: Acute Plan: MEDICAL MANAGEMENT. PER DR. ZEPEDA. CT TODAY. I HAD A LONG TALK WITH DR. YANG. WE DON'T KNOW IF CT SHOWS STABLE OR IMPROVED FINDINGS FROM [place]. WILL DO SERIAL CT SCAN HERE TO DECIDE STABILITY FOR HEMATOMA AND PARENCHYMAL HEMORRHAGE. HE IS IN CONTACT WITH [place] DOCTORS. REPEAT CT SHOWS NO NEW CHANGES. THIS IS A GOOD SIGN. CONT PT. STABLE FOR NOW. (2) Basal skull fracture Current Visit: Yes Status: Acute Plan: NOT SURGICAL CASE. DR. YANG DID EVAL. Qualifiers: Encounter type: initial encounter Fracture type: closed (3) Altered mental state Current Visit: Yes Status: Acute Plan: DR. YANG SAYS STEROIDS CAN BE TAPERED. SHOULD GRADUALLY IMPROVE.
--- NOTE | 2022-07-18 01:04 | PN ---
Date of Progress Note: 07/17/2022 [facility] Visit Progress Note Time Of Service: 12:30 p.m. Subjective: Ms. Boyer is doing better. She denies any significant pain. She has mild pain at the scalp at the right head where she has laceration and some in the neck area. She has no other complai nts. Review of Systems: No fevers or chills. Mild myalgias and arthralgias. No GI issues. No genitourinary issues. Physical Examination: Vital Signs: Reviewed and stable. Neurologic: She does not have any change in cranial nerve 7 where there is some difficulty blinking the left eye. Otherwise, some mild right facial drooping with good excursions and mild weakness in t he right lower extremity. She is otherwise unremarkable. Laboratory Studies: No new laboratory studies except glucose ranged from 117 to 157. X-ray Imaging: She had head CT scan done 2 days ago on the and that study was compared to the on e done on July 07 from [facility]. This study showed compared to and one from the mild incre ase in size of the right convexity subdural effusion. There were otherwise no significant difference s in the studies. It should be noted from the and 15 of July, those 2 scans were unremarkab le. There is a plan to repeat a CT scan with no contrast in 2 days. Medications: Her medications are unchanged and as yesterday. She continues to have Eliquis 2.5 mg t wice daily without aspirin for DVT prophylaxis. She is on Lipitor, Norvasc, Coreg, Cipro, Synthroid, Cytomel, Singulair, Femara, Atrovent nebulizer, prednisone 20 mg daily, and Senokot. Current Functional Status: Currently she did ambulate with a rolling walker covering 500 feet, 300 f eet, and another 150 feet 4 times with contact guard assistance. She ascended and descended 2 sets 1 0 steps with contact guard assistance and bilateral hand rails. In terms of her speech therapy, she completed coordinated lingual lateralization exercises 10 repetitions and lingual circles 10 repetiti ons and alternating jaw position 20 repetitions and doing that very well. The patient demonstrated 1 00% temporal orientation with verbal cues. Spatial orientation was 100%. Progress towards rehabilitation goals: She is making excellent progress towards her rehabilitation. Assessment: Ms. Boyer is a 77-year-old patient in the rehabilitation unit with traumatic moderate-s ize left hemispheric subdural hematoma, which is now with appearance of an effusion, so subacute. Th ere is a left frontal lobe intraparenchymal hematoma, left subarachnoid blood, and small amount of bl ood in the left lateral ventricle. Plan: 1.She will continue physical, occupational, and speech therapy. 2.There will be a repeat head CT scan to evaluate her multiple areas of fluid collection and hemorrh age in the brain. 3.Continue management of her hypertension with medications as listed. 4.Continue steroid course. 5.Continue with Synthroid for hypothyroidism. 6.Continue Eliquis for her DVT prophylaxis. Comorbidities That Continue To Impact Rehabilitation Process: As noted she has subdural fluid collec tion, intraparenchymal hemorrhage, and intraventricular hemorrhage. There is a possibility of hydroc ephalus. She will be evaluated with a repeat head CT scan on . Her blood pressures are well managed. Her cognitive issues are being addressed and there is not a significant impediment to her rehabilitation. JEFFERY/MARIO Voice ID: [id number] Report ID: [id number]
[2022-07-18] MEDS: carvediloL 25 MG TAB PO SCH ×2 (05:11→17:18)
[2022-07-18] MEDS: LEVOTHYROXINE SOD 0.05 MG TABLET PO SCH (05:11)
[2022-07-18] MEDS: LIOTHYRONINE SOD 5 MCG TAB PO SCH (05:11)
[2022-07-18] MEDS: INSULIN -REGULAR HUMAN 50 UNIT/0.5 ML ML SQ SCH ×4 (07:30→20:02)
[2022-07-18] MEDS: FAMOTIDINE 20 MG TAB PO SCH (08:00)
[2022-07-18] MEDS: AMLODIPINE 5 MG TAB PO SCH (08:00)
[2022-07-18] MEDS: CETIRIZINE HCL 5 MG TABLET PO SCH (08:01)
[2022-07-18] MEDS: APIXABAN 2.5 MG TABLET PO SCH ×2 (08:01→20:00)
[2022-07-18] MEDS: MONTELUKAST 10 MG TAB PO SCH (08:03)
[2022-07-18] MEDS: predniSONE 20 MG TAB PO SCH (08:04)
[2022-07-18] MEDS: CIPROFLOXACIN HCL 500 MG TAB PO SCH ×2 (08:04→20:00)
[2022-07-18] MEDS: DOCUSATE NA/SENNA CONC 1 TAB PO SCH ×2 (08:04→19:59)
[2022-07-18] MEDS: POTASSIUM 25 MEQ EFFERV TAB PO SCH (08:04)
[2022-07-18] MEDS: CRANBERRY FRUIT EXTRACT 200 MG CAP PO SCH ×2 (08:04→19:59)
[2022-07-18] MEDS: predniSONE 10 MG TAB PO SCH (08:04)
[2022-07-18] MEDS: LETROZOLE 2.5 MG TAB PO SCH (08:05)
[2022-07-18] MEDS: ACETAMINOPHEN 325 MG TABLET PO PRN (13:42)
--- NOTE | 2022-07-18 18:02 | P.PN ---
Subjective Date of Service: 07/18/22 Chief Complaint: CONFUSION Subjective: Improving SHE IS SAME YESTERDAY. SHE RESPONDS TO SIMPLE COMMANDS LIKE MOVING HANDS AND LEGS. SHE IS ABOUT THE SAME. SLOW TO RESPOND AND LIMITED RESPONSE TO VERBAL COMMAND. SHE IS SITING IN CHAIR TODAY ALMOST FULLY AWAKE. STABLE STRONGER TALKING AND RESPONDING WELL TODAY. Physical Examination - Vital Signs Temperature: 97.5 F Blood Pressure: 155/75 Pulse: 84 Respirations: 17 Pulse Ox (%): 95 - Physical Exam General: Oriented x3, Mild distress HEENT: Atraumatic, PERRLA, EOMI Neck: Supple, JVD not distended Respiratory: Clear to auscultation bilaterally, Normal air movement Cardiovascular: Regular rate/rhythm, Normal S1 S2 Gastrointestinal: Normal bowel sounds, No tenderness Musculoskeletal: No tenderness Integumentary: No rashes Neurological: Normal speech, Normal tone, Normal affect Lymphatics: No axilla or inguinal lymphadenopathy - Studies Medications List Reviewed: Yes Assessment And Plan - Current Problems (Diagnosis) (1) Subdural hematoma Current Visit: Yes Status: Acute Plan: MEDICAL MANAGEMENT. PER DR. ZEPEDA. CT TODAY. I HAD A LONG TALK WITH DR. YANG. WE DON'T KNOW IF CT SHOWS STABLE OR IMPROVED FINDINGS FROM [place]. WILL DO SERIAL CT SCAN HERE TO DECIDE STABILITY FOR HEMATOMA AND PARENCHYMAL HEMORRHAGE. HE IS IN CONTACT WITH [facility] DOCTORS. REPEAT CT SHOWS NO NEW CHANGES. THIS IS A GOOD SIGN. CONT PT. STABLE FOR NOW. MUCH MORE RESPONSIVE, SITTING, TALKING TODAY. CONTINUE PT. (2) Basal skull fracture Current Visit: Yes Status: Acute Plan: NOT SURGICAL CASE. DR. YANG DID EVAL. Qualifiers: Encounter type: initial encounter Fracture type: closed (3) Altered mental state Current Visit: Yes Status: Acute Plan: DR. YANG SAYS STEROIDS CAN BE TAPERED. SHOULD GRADUALLY IMPROVE.
[2022-07-18] MEDS: ATORVASTATIN 10 MG TAB PO SCH (20:00)
[2022-07-18] MEDS: LATANOPROST OPTH OPTH SCH (20:01)
--- NOTE | 2022-07-18 21:55 | PN ---
Date of Progress Note: 07/18/2022 Time Of Service: 12:30 p.m. Subjective: Ms. Boyer is doing much better today and every day she keeps doing better and better. She denies any significant complaints. Review of Systems: She has some difficulty with the closure of the left eye which is subacute related to her injury and subdural hematoma and intraparenchymal hemorrhage. She reports mild pain in the top of her head, mil d pain in her neck, and mild myalgias and arthralgias. No other positives. Physical Examination: Vital Signs: Blood pressure 155/75, pulse 84, respirations 17, temperature 97.5, oxygen saturation 9 5%. Neurological: As noted, mild diffuse weakness, more on the right than left, but she does have bilate ral weakness in upper and lower extremities. She is cognitively intact, appropriate in her responses . Laboratory Studies: No new laboratory studies since the except blood glucose ranged from 101 to 182. X-ray imaging: No new x-rays imaging. She will have her repeat CT scan on , that is tomorrow. Medications: Have not been adjusted. She is on DVT prophylaxis as well as her medications for hyper tension, dyslipidemia, urinary tract infection, GE reflux, hypothyroidism are all continued. Current Functional Status: Currently, she did ambulate 15 feet repeatedly with turns from one to ano ther and did very well. Also ambulated about 350 feet with standby assistance using a rolling walker . Did stand and pivot transfers with standby assistance using a rolling walker. With Speech Therapy , she completed oral motor exercises to address issues related to her lingual and jaw range of motion , coordination and endurance. Progress towards rehabilitation goals: She is making excellent progress toward rehabilitation. Assessment: Ms. Boyer is admitted to the inpatient rehabilitation unit with multiple fractures, sub dural hematoma, intraparenchymal hemorrhage, intraventricular hemorrhage, and she has comorbid hypert ension, dyslipidemia, hypothyroidism, malnutrition, and is doing very well with regard to her comorbi d conditions and her primary rehabilitation admission of multiple fractures that are traumatic with s ubdural hematoma. Plan: Continue with all therapy as noted. Continue all medications as indicated above. Comorbidities That Continue To Impact Rehabilitation Process: At this point, her comorbid conditions are stably managed. She does have urinary tract infection. She is on ciprofloxacin. Her hypertens ion, dyslipidemia, hypothyroidism are now stable and she is on Eliquis for DVT prophylaxis. DANYA Voice ID: [id number] Report ID: [id number]
[2022-07-19 04:41] LABS: Absolute Lymphocytes (CBC) 1.4 K/uL (0.7-4.9); Hematocrit 31.1 % (36.0-45.0); Lymphocytes % 10.3 % (15.3-44.8); MCV 99.6 fL (80-100); MPV 6.9 fL (7.6-11.3); RBC Red Blood Cell Count 3.12 M/uL (3.86-4.86)
[2022-07-19 05:05] LABS: Albumin 2.7 g/dL (3.4-5.0); Magnesium 1.8 mg/dL (1.8-2.4); Potassium 3.7 mmol/L (3.5-5.1); Prealbumin 16.9 mg/dL (20-40)
[2022-07-19] MEDS: LEVOTHYROXINE SOD 0.05 MG TABLET PO SCH (05:23)
[2022-07-19] MEDS: LIOTHYRONINE SOD 5 MCG TAB PO SCH (05:23)
[2022-07-19] MEDS: carvediloL 25 MG TAB PO SCH ×2 (05:23→17:27)
[2022-07-19] MEDS: INSULIN -REGULAR HUMAN 50 UNIT/0.5 ML ML SQ SCH ×3 (07:15→19:51)
[2022-07-19] MEDS: predniSONE 10 MG TAB PO SCH (08:00)
[2022-07-19] MEDS: AMLODIPINE 5 MG TAB PO SCH (08:00)
[2022-07-19] MEDS: CRANBERRY FRUIT EXTRACT 200 MG CAP PO SCH ×3 (08:00→19:50)
[2022-07-19] MEDS: POTASSIUM 25 MEQ EFFERV TAB PO SCH (08:15)
[2022-07-19] MEDS: predniSONE 20 MG TAB PO SCH (08:17)
[2022-07-19] MEDS: MONTELUKAST 10 MG TAB PO SCH (08:17)
[2022-07-19] MEDS: APIXABAN 2.5 MG TABLET PO SCH ×2 (08:17→19:50)
[2022-07-19] MEDS: CETIRIZINE HCL 5 MG TABLET PO SCH (08:17)
[2022-07-19] MEDS: DOCUSATE NA/SENNA CONC 1 TAB PO SCH (08:18)
[2022-07-19] MEDS: CIPROFLOXACIN HCL 500 MG TAB PO SCH (08:26)
[2022-07-19] MEDS: LETROZOLE 2.5 MG TAB PO SCH (08:30)
[2022-07-19] MEDS: FAMOTIDINE 20 MG TAB PO SCH (09:21)
--- NOTE | 2022-07-19 13:01 | P.PN ---
Subjective Date of Service: 07/19/22 Chief Complaint: CONFUSION Subjective: Improving SHE IS SAME YESTERDAY. SHE RESPONDS TO SIMPLE COMMANDS LIKE MOVING HANDS AND LEGS. SHE IS ABOUT THE SAME. SLOW TO RESPOND AND LIMITED RESPONSE TO VERBAL COMMAND. SHE IS SITING IN CHAIR TODAY ALMOST FULLY AWAKE. STABLE STRONGER TALKING AND RESPONDING WELL TODAY. SHE IS QUITE MORE TALKATIVE TODAY. ASKED ABOUT HOME. Review of Systems 10-point ROS is otherwise unremarkable General: Weakness, Malaise Physical Examination - Vital Signs Temperature: 96.6 F Blood Pressure: 94/52 Pulse: 97 Respirations: 18 Pulse Ox (%): 94 - Physical Exam General: Oriented x3, Mild distress HEENT: Atraumatic, PERRLA, EOMI Neck: Supple, JVD not distended Respiratory: Diminished Cardiovascular: Regular rate/rhythm, Normal S1 S2 Gastrointestinal: Normal bowel sounds, No tenderness Musculoskeletal: No tenderness Integumentary: No rashes Neurological: Normal speech, Abnormal strength (GEN WEAK. NEEDS PT.) Lymphatics: No axilla or inguinal lymphadenopathy - Studies Laboratory Data (last 24 hrs) 07/19/22 04:17: Sodium 134 L, Potassium 3.7, BUN 20 H, Creatinine 1.01, Glucose 110 H, Magnesium 1.8 07/19/22 04:17: WBC 13.40 H, Hgb 10.6 L, Hct 31.1 L, Plt Count 446 H Medications List Reviewed: Yes Assessment And Plan - Current Problems (Diagnosis) (1) Subdural hematoma Current Visit: Yes Status: Acute Plan: MEDICAL MANAGEMENT. PER DR. ZEPEDA. CT TODAY. I HAD A LONG TALK WITH DR. YANG. WE DON'T KNOW IF CT SHOWS STABLE OR IMPROVED FINDINGS FROM [place]. WILL DO SERIAL CT SCAN HERE TO DECIDE STABILITY FOR HEMATOMA AND PARENCHYMAL HEMORRHAGE. HE IS IN CONTACT WITH [place] DOCTORS. REPEAT CT SHOWS NO NEW CHANGES. THIS IS A GOOD SIGN. CONT PT. STABLE FOR NOW. MUCH MORE RESPONSIVE, SITTING, TALKING TODAY. CONTINUE PT. REDUCE STEROIDS DOING LOT BETTER. CONT PT. (2) Basal skull fracture Current Visit: Yes Status: Acute Plan: NOT SURGICAL CASE. DR. YANG DID EVAL. Qualifiers: Encounter type: initial encounter Fracture type: closed (3) Altered mental state Current Visit: Yes Status: Acute Plan: DR. YANG SAYS STEROIDS CAN BE TAPERED. SHOULD GRADUALLY IMPROVE.
[2022-07-19] MEDS ORDERED: DOCUSATE NA/SENNA CONC 1 TAB PO PRN (13:57)
--- NOTE | 2022-07-19 15:01 | RAD REPORT ---
EXAM DESCRIPTION: CT - Head Brain Wo Cont - 07/19/2022 2:48 pm CLINICAL HISTORY: to compare with previous test Headache, drowsiness, history of hemorrhage COMPARISON: Head Brain Wo Cont dated 07/15/2022; Head Brain Wo Cont dated 07/14/2022 TECHNIQUE: All CT scans are performed using dose optimization technique as appropriate and may inclu de automated exposure control or mA/KV adjustment according to patient size. FINDINGS: Intraparenchymal hemorrhage in the right cerebellar hemisphere appears improved mildly sin ce comparative study. Hemorrhage along the posterior falx and within the left occipital horn also mil dly improved. Left frontal intraparenchymal and subdural hemorrhage and adjacent vasogenic edema appe ars mildly improved. Right-sided subdural effusion has significantly improved and partially appears r esolved since prior study.Currently, there is 5 mm of [id number] midline shift, which is new since prior study. IMPRESSION: Right-sided subdural effusion has completely resolved since prior study and likely contr ibutes to the development of 5 mm [id number] midline shift on today's examination. Areas of intracranial, subdural and intraventricular hemorrhage appear mildly improved since the prio r study.
[2022-07-19] MEDS: LATANOPROST OPTH OPTH SCH (19:49)
[2022-07-19] MEDS: ATORVASTATIN 10 MG TAB PO SCH (19:50)
[2022-07-19 21:07] VITALS: O2SAT 98
--- NOTE | 2022-07-19 23:51 | PN ---
Date of Progress Note: 07/19/2022 [id number] Followup Visit Time Of Service: 12:30 p.m. Subjective: Ms. Boyer is doing much better today, more alert. Eyes are opening nicely and closing much better. Her weakness in the upper and lower extremities the patient states has improved. She d enies any significant pain. Review of Systems: Mild pain in the back of the head on the top where she has a suture. Otherwise, some pain in her nec k as she turns her head [id number]. Mild arthralgias and myalgias. Otherwise, no rash. No active psychiatric issues. No genitourinary or dermatological issues. Physical Examination: Vital Signs: Blood pressure 119/61, pulse up to 97, respiratory rate 16, temperature 97.6, oxygen sa turation 94% on room air. Weight 158 pounds, height 5 feet 4 inches, BMI 27.2. General: Ms. Boyer is going to the gym, doing therapy. HEENT: She is having more equal eye blinking. In terms of her face there is more symmetry noted. A little swelling if any on the head where she has laceration sutures. Lungs: Good air movement bilaterally. Abdomen: Soft. Extremities: No significant edema or cyanosis. Laboratory Studies: White blood cell count slightly decreased at 13.4 from 14.9 on the 4th, today is the 8th. Hemoglobin slightly low at 10.6, platelets 446. Chemistries: Sodium 134, potassium 3.7, chloride 103, carbon dioxide 26, BUN 20, creatinine 1.01, and glucose ranged from 101 to 182, calcium 8.4, magnesium 1.8. Prealbumin 2.7, albumin 16.9. X-ray Imaging: She had a repeat head CT scan done today. This was compared to one on the and on the 14 of July. The current study shows the right-sided subdural effusion has completely resol jasiel, and it contributed to a 5 mm [id number] midline shift on the exam. The areas of intracranial , subdural and intraventricular hemorrhage appear mildly improved since prior study. Current Functional Status: Currently, she is able to ambulate with a rolling walker covering 350 fee t, 400 feet, 150, and 250 feet with standby assistance. She also ascended and descended 20 steps wit h standby assistance using bilateral handrails. She did stand pivot transfers with standby assistanc e to independence using a rolling walker. With Speech, she did exercises to improve strength, range of motion, coordination of the lips and jaw, completed 3 sets of 10 repetitions for lingual lateraliz ation, 2 sets of 20 and 1 set of 10 lingual circles. Three sets of 15 repetitions of rapid opening a nd closing of the jaws. Note, she is still on soft foods, bite sizes portions, and on thin liquids. Progress toward rehabilitation goals. She is making excellent progress towards rehabilitation goals of becoming independent with upper and lower body dressing, donning and doffing shoes, transferring f rom bed to chair, to toilet and to shower, and ambulate over 550 feet with modified independence to i ndependence, and up and down 20 steps with independence of modified independence. Assessment: Ms. Boyer is a 77-year-old patient admitted to rehabilitation after traumatic subdural hematoma, intraparenchymal hemorrhage, intraventricular hemorrhage, in addition to comorbid hypertens ion, dyslipidemia, hypothyroidism, and malnutrition, anemia, and risk of deep vein thrombosis. Plan: 1.Continue with Physical, Occupational, and Speech Therapy as noted. 2.Continue with aggressive management of her comorbid conditions that are listed above including Lisa carly for DVT prophylaxis, which is low dose given that she has a history of bleeding. 3.Continue again management of hypertension, dyslipidemia, hypothyroidism, with medications as liste d above. Comorbidities That Continue To Impact Rehabilitation Process: At this point, her comorbid conditions are being very well managed and not making a negative impact on her rehabilitation process. JEFFERY/MARIO Voice ID: [id number] Report ID: [id number]
[2022-07-20] MEDS: LIOTHYRONINE SOD 5 MCG TAB PO SCH (05:18)
[2022-07-20] MEDS: LEVOTHYROXINE SOD 0.05 MG TABLET PO SCH (05:18)
[2022-07-20] MEDS: carvediloL 25 MG TAB PO SCH ×2 (05:18→17:27)
[2022-07-20] MEDS: LETROZOLE 2.5 MG TAB PO SCH (07:50)
[2022-07-20] MEDS: POTASSIUM 25 MEQ EFFERV TAB PO SCH (07:50)
[2022-07-20] MEDS: FAMOTIDINE 20 MG TAB PO SCH (07:51)
[2022-07-20] MEDS: APIXABAN 2.5 MG TABLET PO SCH ×2 (07:52→20:28)
[2022-07-20] MEDS: CRANBERRY FRUIT EXTRACT 200 MG CAP PO SCH ×2 (07:52→20:28)
[2022-07-20] MEDS: CETIRIZINE HCL 5 MG TABLET PO SCH (07:52)
[2022-07-20] MEDS: MONTELUKAST 10 MG TAB PO SCH (07:52)
[2022-07-20] MEDS: predniSONE 20 MG TAB PO SCH (07:52)
[2022-07-20] MEDS: INSULIN -REGULAR HUMAN 50 UNIT/0.5 ML ML SQ SCH ×2 (07:53→20:00)
--- NOTE | 2022-07-20 08:35 | P.RH.PN ---
Estimated Length of Stay: 13 Expected Discharge Date: 07/25/22 Discharge Disposition Plan: Home Family Support: Yes Alf Goal: Mobility, Transfers, Self Care Vital Signs: Last Vital Signs Temp 97.6 F 07/20/22 07:50 Pulse 86 07/20/22 07:50 Resp 16 07/20/22 07:50 BP 122/69 07/20/22 07:50 Pulse Ox 96 07/20/22 07:50 Laboratory: Laboratory Last Values WBC 13.40 K/uL (4.3-10.9) H 07/19/22 04:17 RBC 3.12 M/uL (3.86-4.86) L 07/19/22 04:17 Hgb 10.6 g/dL (12.0-15.0) L 07/19/22 04:17 Hct 31.1 % (36.0-45.0) L 07/19/22 04:17 MCV 99.6 fL (80-100) 07/19/22 04:17 MCH 34.0 pg (27.0-35.0) 07/19/22 04:17 MCHC 34.2 g/dL (32.0-36.0) 07/19/22 04:17 RDW 13.8 % (12.1-15.2) 07/19/22 04:17 Plt Count 446 K/uL (152-406) H 07/19/22 04:17 MPV 6.9 fL (7.6-11.3) L 07/19/22 04:17 Neutrophils % 80.9 % (41.7-73.7) H 07/19/22 04:17 Lymphocytes % 10.3 % (15.3-44.8) L 07/19/22 04:17 Monocytes % 7.6 % (3.3-12.3) 07/19/22 04:17 Eosinophils % 0.7 % (0-4.4) 07/19/22 04:17 Basophils % 0.5 % (0-1.3) 07/19/22 04:17 Absolute Neutrophils 10.8 K/uL (1.8-8.0) H 07/19/22 04:17 Absolute Lymphocytes 1.4 K/uL (0.7-4.9) 07/19/22 04:17 Absolute Monocytes 1.0 K/uL (0.1-1.3) 07/19/22 04:17 Absolute Eosinophils 0.1 K/uL (0-0.5) 07/19/22 04:17 Absolute Basophils 0.1 K/uL (0-0.5) 07/19/22 04:17 Sodium 134 mmol/L (136-145) L 07/19/22 04:17 Potassium 3.7 mmol/L (3.5-5.1) 07/19/22 04:17 Chloride 103 mmol/L (98-107) 07/19/22 04:17 Carbon Dioxide 26 mmol/L (21-32) 07/19/22 04:17 Anion Gap 8.7 mEq/L (5.0-15.0) 07/19/22 04:17 BUN 20 mg/dL (7-18) H 07/19/22 04:17 Creatinine 1.01 mg/dL (0.55-1.3) 07/19/22 04:17 Est GFR (CKD-EPI) 57 ml/min (=/>90) L 07/19/22 04:17 Glucose 110 mg/dL (74-106) H 07/19/22 04:17 POC Glucose 87 mg/dL (65-120) 07/20/22 07:09 Calcium 8.4 mg/dL (8.5-10.1) L 07/19/22 04:17 Magnesium 1.8 mg/dL (1.8-2.4) 07/19/22 04:17 Albumin 2.7 g/dL (3.4-5.0) L 07/19/22 04:17 Prealbumin 16.9 mg/dL (20-40) L 07/19/22 04:17 Urine Color Yellow (Yellow) 07/14/22 04:30 Urine Clarity Turbid (Clear) H 07/14/22 04:30 Urine pH 5.5 (5.0-7.0) 07/14/22 04:30 Ur Specific [place] 1.017 (1.005-1.030) 07/14/22 04:30 Glucose (UA)(Auto) Negative (Negative) 07/14/22 04:30 Urine Ketones Negative (Negative) 07/14/22 04:30 Urine Blood 1+ (Negative) H 07/14/22 04:30 Urine Nitrite Negative (Negative) 07/14/22 04:30 Urine Bilirubin Negative (Negative) 07/14/22 04:30 Urine Urobilinogen Normal (Normal) 07/14/22 04:30 Ur Leukocyte Esterase 500 Yana/uL (Negative) H 07/14/22 04:30 Urine RBC 21-50 /HPF (None Seen) H 07/14/22 04:30 Urine WBC 20-50 /HPF (<5) H 07/14/22 04:30 Urine WBC Clumps Rare /HPF (None Seen) 07/14/22 04:30 Ur Squamous Epith Cells 10-20 /HPF (None Seen) 07/14/22 04:30 U Non-Squamous Epi Cells <5 /HPF (None Seen) 07/14/22 04:30 Unidentified Crystals Few /HPF (None Seen) 07/14/22 04:30 Urine Bacteria <20 /HPF (<20) 07/14/22 04:30 Hyaline Casts 0-5 /LPF (None Seen) 07/14/22 04:30 Urine Mucus Slight /HPF (None Seen) 07/14/22 04:30 Urine Total Protein Negative (Negative) 07/14/22 04:30 SARS-CoV-2 Rap RNA(RT-PCR) Cancelled 07/13/22 Unknown Weight: 158 lb 9.6 oz Wound Present: No Closed Surgical Incision Present: Yes Negative Pressure Wound Therapy Present: No Physician Update: Labs reviewed and are stable. She is treated for a UTI. Making very good progress with all therapy. She has mild to moderate expressive aphasia with right hand weekness. Ambulating 400' plus 20 steps with standby assistance. 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 Please see the Rehabilitation Signature page for all necessary signatures.
[2022-07-20] MEDS: ACETAMINOPHEN 325 MG TABLET PO PRN (11:02)
[2022-07-20] MEDS: LATANOPROST OPTH OPTH SCH (20:29)
[2022-07-20] MEDS: ATORVASTATIN 10 MG TAB PO SCH (20:29)
[2022-07-21] MEDS: carvediloL 25 MG TAB PO SCH ×2 (05:22→17:17)
[2022-07-21] MEDS: LIOTHYRONINE SOD 5 MCG TAB PO SCH (05:22)
[2022-07-21] MEDS: LEVOTHYROXINE SOD 0.05 MG TABLET PO SCH (05:23)
[2022-07-21] MEDS: INSULIN -REGULAR HUMAN 50 UNIT/0.5 ML ML SQ SCH ×2 (07:02→19:59)
[2022-07-21] MEDS: POTASSIUM 25 MEQ EFFERV TAB PO SCH (07:26)
[2022-07-21] MEDS: APIXABAN 2.5 MG TABLET PO SCH ×2 (07:27→19:58)
[2022-07-21] MEDS: predniSONE 20 MG TAB PO SCH ×2 (07:27→08:59)
[2022-07-21] MEDS: CRANBERRY FRUIT EXTRACT 200 MG CAP PO SCH ×2 (07:29→19:59)
[2022-07-21] MEDS: CETIRIZINE HCL 5 MG TABLET PO SCH (07:29)
[2022-07-21] MEDS: FAMOTIDINE 20 MG TAB PO SCH (07:29)
[2022-07-21] MEDS: LETROZOLE 2.5 MG TAB PO SCH (07:30)
[2022-07-21] MEDS: MONTELUKAST 10 MG TAB PO SCH (07:32)
[2022-07-21] MEDS: LATANOPROST OPTH OPTH SCH (19:58)
[2022-07-21] MEDS: ATORVASTATIN 10 MG TAB PO SCH (19:58)
[2022-07-22 04:31] LABS: Absolute Lymphocytes (CBC) 1.6 K/uL (0.7-4.9); Hematocrit 31.9 % (36.0-45.0); Lymphocytes % 13.5 % (15.3-44.8); MCV 99.7 fL (80-100); MPV 6.7 fL (7.6-11.3)
[2022-07-22 04:47] LABS: Potassium 3.7 mmol/L (3.5-5.1)
[2022-07-22] MEDS: carvediloL 25 MG TAB PO SCH ×2 (05:10→17:23)
[2022-07-22] MEDS: LEVOTHYROXINE SOD 0.05 MG TABLET PO SCH (05:10)
[2022-07-22] MEDS: LIOTHYRONINE SOD 5 MCG TAB PO SCH (05:10)
[2022-07-22] MEDS: INSULIN -REGULAR HUMAN 50 UNIT/0.5 ML ML SQ SCH ×2 (07:17→20:00)
[2022-07-22] MEDS: POTASSIUM 25 MEQ EFFERV TAB PO SCH (07:47)
[2022-07-22] MEDS: CETIRIZINE HCL 5 MG TABLET PO SCH (07:47)
[2022-07-22] MEDS: LETROZOLE 2.5 MG TAB PO SCH (07:47)
[2022-07-22] MEDS: FAMOTIDINE 20 MG TAB PO SCH (07:48)
[2022-07-22] MEDS: MONTELUKAST 10 MG TAB PO SCH (07:48)
[2022-07-22] MEDS: CRANBERRY FRUIT EXTRACT 200 MG CAP PO SCH ×2 (07:48→20:34)
[2022-07-22] MEDS: predniSONE 20 MG TAB PO SCH (07:48)
[2022-07-22] MEDS: APIXABAN 2.5 MG TABLET PO SCH ×2 (07:48→20:34)
--- NOTE | 2022-07-22 10:36 | P.PN ---
Subjective Date of Service: 07/22/22 Chief Complaint: CONFUSION Subjective: Improving SHE IS SAME YESTERDAY. SHE RESPONDS TO SIMPLE COMMANDS LIKE MOVING HANDS AND LEGS. SHE IS ABOUT THE SAME. SLOW TO RESPOND AND LIMITED RESPONSE TO VERBAL COMMAND. SHE IS SITING IN CHAIR TODAY ALMOST FULLY AWAKE. STABLE STRONGER TALKING AND RESPONDING WELL TODAY. SHE IS QUITE MORE TALKATIVE TODAY. ASKED ABOUT HOME. NO CHANGES. Review of Systems 10-point ROS is otherwise unremarkable General: Weakness Physical Examination - Vital Signs Temperature: 97.0 F Blood Pressure: 126/66 Pulse: 75 Respirations: 18 Pulse Ox (%): 97 - Physical Exam General: Oriented x2, Mild distress HEENT: Atraumatic, PERRLA, EOMI Neck: Supple, JVD not distended Respiratory: Clear to auscultation bilaterally, Normal air movement Cardiovascular: Regular rate/rhythm, Normal S1 S2 Gastrointestinal: Normal bowel sounds, No tenderness Musculoskeletal: No tenderness Integumentary: No rashes Neurological: Abnormal speech (SLOW BUT STARTING TO GET BETTER FROM APHASIA. ), Abnormal strength (GEN WEAK) Lymphatics: No axilla or inguinal lymphadenopathy - Studies Laboratory Data (last 24 hrs) 07/22/22 04:07: Sodium 135 L, Potassium 3.7, BUN 19 H, Creatinine 0.87, Glucose 88 07/22/22 04:07: WBC 12.00 H, Hgb 10.7 L, Hct 31.9 L, Plt Count 420 H Medications List Reviewed: Yes Assessment And Plan - Current Problems (Diagnosis) (1) Subdural hematoma Current Visit: Yes Status: Acute Plan: MEDICAL MANAGEMENT. PER DR. ZEPEDA. CT TODAY. I HAD A LONG TALK WITH DR. YANG. WE DON'T KNOW IF CT SHOWS STABLE OR IMPROVED FINDINGS FROM [place]. WILL DO SERIAL CT SCAN HERE TO DECIDE STABILITY FOR HEMATOMA AND PARENCHYMAL HEMORRHAGE. HE IS IN CONTACT WITH [facility] DOCTORS. REPEAT CT SHOWS NO NEW CHANGES. THIS IS A GOOD SIGN. CONT PT. STABLE FOR NOW. MUCH MORE RESPONSIVE, SITTING, TALKING TODAY. CONTINUE PT. REDUCE STEROIDS DOING LOT BETTER. CONT PT. (2) Basal skull fracture Current Visit: Yes Status: Acute Plan: NOT SURGICAL CASE. DR. YANG DID EVAL. Qualifiers: Encounter type: initial encounter Fracture type: closed (3) Altered mental state Current Visit: Yes Status: Acute Plan: DR. YANG SAYS STEROIDS CAN BE TAPERED. SHOULD GRADUALLY IMPROVE.
[2022-07-22] MEDS: ATORVASTATIN 10 MG TAB PO SCH (20:34)
[2022-07-22] MEDS: LATANOPROST OPTH OPTH SCH (20:34)
[2022-07-23] MEDS: LEVOTHYROXINE SOD 0.05 MG TABLET PO SCH (05:15)
[2022-07-23] MEDS: LIOTHYRONINE SOD 5 MCG TAB PO SCH (05:15)
[2022-07-23] MEDS: carvediloL 25 MG TAB PO SCH ×2 (05:15→17:12)
[2022-07-23] MEDS: APIXABAN 2.5 MG TABLET PO SCH ×2 (07:42→19:50)
[2022-07-23] MEDS: INSULIN -REGULAR HUMAN 50 UNIT/0.5 ML ML SQ SCH ×2 (08:00→19:50)
--- NOTE | 2022-07-23 08:10 | RAD REPORT ---
EXAM DESCRIPTION: CT - Head Brain Wo Cont - 07/23/2022 7:52 am CLINICAL HISTORY: Intracranial bleed COMPARISON: July 19, 2022 TECHNIQUE: Computed axial tomography of the head was obtained. IV contrast was not requested. All CT scans are performed using dose optimization technique as appropriate and may include automated exposure control or mA/KV adjustment according to patient size. FINDINGS: Right subdural effusion has not recurred. Small left subacute hematoma unchanged. Right cerebellar and left cerebral bleed continues to diminish. Shift of the midline structures 4 millimeters to the right mildly diminished No significant hydrocephalus IMPRESSION: Overall improvement as described above.
[2022-07-23] MEDS: CRANBERRY FRUIT EXTRACT 200 MG CAP PO SCH ×2 (08:56→19:50)
[2022-07-23] MEDS: FAMOTIDINE 20 MG TAB PO SCH (08:57)
[2022-07-23] MEDS: MONTELUKAST 10 MG TAB PO SCH (08:57)
[2022-07-23] MEDS: CETIRIZINE HCL 5 MG TABLET PO SCH (08:57)
[2022-07-23] MEDS: POTASSIUM 25 MEQ EFFERV TAB PO SCH (08:57)
[2022-07-23] MEDS: predniSONE 20 MG TAB PO SCH (08:58)
[2022-07-23] MEDS: LETROZOLE 2.5 MG TAB PO SCH (09:00)
--- NOTE | 2022-07-23 13:05 | P.PN ---
Subjective Date of Service: 07/23/22 Chief Complaint: CONFUSION Subjective: Improving SHE IS SAME YESTERDAY. SHE RESPONDS TO SIMPLE COMMANDS LIKE MOVING HANDS AND LEGS. SHE IS ABOUT THE SAME. SLOW TO RESPOND AND LIMITED RESPONSE TO VERBAL COMMAND. SHE IS SITING IN CHAIR TODAY ALMOST FULLY AWAKE. STABLE STRONGER TALKING AND RESPONDING WELL TODAY. SHE IS QUITE MORE TALKATIVE TODAY. ASKED ABOUT HOME. NO CHANGES. SHE IS STABLE. FEELS BETTER. Review of Systems 10-point ROS is otherwise unremarkable General: Weakness, As per HPI Physical Examination - Vital Signs Temperature: 97.7 F Blood Pressure: 132/76 Pulse: 77 Respirations: 18 Pulse Ox (%): 99 - Physical Exam General: Oriented x3, Mild distress HEENT: Atraumatic, PERRLA, EOMI Neck: Supple, JVD not distended Respiratory: Clear to auscultation bilaterally, Normal air movement Cardiovascular: Regular rate/rhythm, Normal S1 S2 Gastrointestinal: Normal bowel sounds, No tenderness Musculoskeletal: No tenderness Integumentary: No rashes Neurological: Abnormal speech (SOME APHASIA. R EAR HEARING LOSS. PT CONTINUE.), Abnormal strength Lymphatics: No axilla or inguinal lymphadenopathy - Studies Medications List Reviewed: Yes Assessment And Plan - Current Problems (Diagnosis) (1) Subdural hematoma Current Visit: Yes Status: Acute Plan: MEDICAL MANAGEMENT. PER DR. ZEPEDA. CT TODAY. I HAD A LONG TALK WITH DR. YANG. WE DON'T KNOW IF CT SHOWS STABLE OR IMPROVED FINDINGS FROM [place]. WILL DO SERIAL CT SCAN HERE TO DECIDE STABILITY FOR HEMATOMA AND PARENCHYMAL HEMORRHAGE. HE IS IN CONTACT WITH [place] DOCTORS. REPEAT CT SHOWS NO NEW CHANGES. THIS IS A GOOD SIGN. CONT PT. STABLE FOR NOW. MUCH MORE RESPONSIVE, SITTING, TALKING TODAY. CONTINUE PT. REDUCE STEROIDS DOING LOT BETTER. CONT PT. (2) Basal skull fracture Current Visit: Yes Status: Acute Plan: NOT SURGICAL CASE. DR. YANG DID EVAL. Qualifiers: Encounter type: initial encounter Fracture type: closed (3) Altered mental state Current Visit: Yes Status: Acute Plan: DR. YANG SAYS STEROIDS CAN BE TAPERED. SHOULD GRADUALLY IMPROVE.
[2022-07-23] MEDS: LATANOPROST OPTH OPTH SCH (19:50)
[2022-07-23] MEDS: ATORVASTATIN 10 MG TAB PO SCH (19:50)
[2022-07-24] MEDS: carvediloL 25 MG TAB PO SCH ×2 (05:16→18:29)
[2022-07-24] MEDS: LIOTHYRONINE SOD 5 MCG TAB PO SCH (05:16)
[2022-07-24] MEDS: LEVOTHYROXINE SOD 0.05 MG TABLET PO SCH (05:16)
[2022-07-24] MEDS: FAMOTIDINE 20 MG TAB PO SCH (07:38)
[2022-07-24] MEDS: CRANBERRY FRUIT EXTRACT 200 MG CAP PO SCH ×2 (07:38→19:58)
[2022-07-24] MEDS: CETIRIZINE HCL 5 MG TABLET PO SCH (07:38)
[2022-07-24] MEDS: INSULIN -REGULAR HUMAN 50 UNIT/0.5 ML ML SQ SCH ×2 (07:39→20:00)
[2022-07-24] MEDS: POTASSIUM 25 MEQ EFFERV TAB PO SCH (07:39)
[2022-07-24] MEDS: MONTELUKAST 10 MG TAB PO SCH (07:39)
[2022-07-24] MEDS: APIXABAN 2.5 MG TABLET PO SCH ×2 (07:39→19:58)
[2022-07-24] MEDS: predniSONE 20 MG TAB PO SCH (07:39)
[2022-07-24] MEDS: LETROZOLE 2.5 MG TAB PO SCH (07:43)
--- NOTE | 2022-07-24 09:43 | RAD REPORT ---
EXAM DESCRIPTION: RAD - Chest Pa And Lat (2 Views) - 07/24/2022 9:22 am CLINICAL HISTORY: physical exam COMPARISON: CT chest imaging 07/04/2022, portable chest 07/14/2022 TECHNIQUE: Frontal and lateral views of the chest were obtained. FINDINGS: The lungs are underinflated. Right hemidiaphragm elevation is again noted. Pacemaker/ defi brillator is in place. No focal lung parenchymal mass or consolidations seen. Rounded density in the lower right lung field is believed to be vigorous callus formation around a posterior rib fracture. L ess vigorous callus is seen around and adjacent posterior rib fracture. June CT imaging demonstra galina multiple right-sided rib fractures. No lung mass was seen on the 06/2023 CT imaging. Trachea is midline. Heart size is normal and central vasculature is within normal limits. No pleural effusion or pneumothorax seen. No aortic abnormality. IMPRESSION: No acute cardiopulmonary process. Patient has callus formation around multiple right rib fractures.
--- NOTE | 2022-07-24 14:22 | PN ---
Date of Progress Note: 07/23/2022 [id number] progress note visit. Time Of Visit: 12:30 p.m. Subjective: Ms. Boyer continues to do well. She denies any pain. She does have some difficulty wi th the slow opening of the left eye. However, upper and lower body coordination strength, she says a re doing well. Review of Systems: No fevers or chills. No significant myalgias or arthralgias. No rash. No headache. No gastrointes tinal or genitourinary complaints. Physical Examination: Vital Signs: Blood pressure 112/67, pulse 76, respiratory rate 18, temperature 97.9, oxygen saturati on 96%. Weight 154 pounds. Height 5 feet 4 inches. BMI 26. General: Ms. Boyer is lying in bed in between therapy sessions. She has a healing wound on the top of her head where she has otherwise. Heart: Regular. Abdomen: Soft. Extremities: Show no significant edema or cyanosis. 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 Laboratory Studies: Complete blood count: White blood cell count 12.0, down from 13.4 on the . Hemoglobin 10.7, platelets 420. Chemistry: Sodium 135, potassium 3.7, chloride 104, carbon dioxide 25, BUN 19, creatinine 0.87. Glucose ranged from 81 to 175, calcium 8.8. X-ray imaging: She had CT scan, not x-ray, on the , today, the study was done at 7:54 a.m., was compared to the prior study done on July 19, which showed overall improvement. There is no evid ence of the recurrence of a right subdural effusion. There is a small left subacute hematoma unchang ed in the front. There is a right cerebellar and left cerebral bleeding, appears much less. The alida ft of the midline structures from 5 mm up to 4 mm, improving. No hydrocephalus seen and overall impr ovement. Medications: Tylenol 650 mg every 4 hours. Albuterol nebulizer 2.5 mg every 4 hours as needed. Lisa carly 2.5 mg twice daily. Lipitor 10 mg at bedtime. Coreg 25 mg twice daily. Zyrtec 5 mg daily. Pe pcid 40 mg daily. Femara 2.5 mg daily. Atrovent 0.5 mg nebulizer every 4 hours as needed. Cytomel 5 mcg daily. Singulair 10 mg daily. Potassium that is K-Lyte 25 mEq daily. Deltasone 10 mg daily. Senokot S one tablet twice daily. Current Level Of Functioning: She is able to ambulate with a rolling walker and level of surface is inside 600 feet, 400 feet, and 200 feet with standby assistance. She did have improved heel strike. She performed multiple [id number] transfers independently using a rolling walker. She did tolerat e transfers with good safety and standby assistance and safety awareness. She did ambulate to the gy m and back with a rolling walker with the supervision. She even did shower and follow transfers, kasia bal cues, and revision. Progress Towards Rehabilitation Goals: She is making excellent progress toward the rehabilitation go als of becoming independent with upper and lower body dressing, donning and doffing shoes, transfers from bed, toilet, shower, and to chair as required and ambulate over 500 feet with independence. Assessment And Plan: Ms. Boyer is a 77-year-old patient who suffered a fall with intracerebral hemo rrhage, subdural hematoma. Multiple fractures with both intraparenchymal and intraventricular hemorr ruiz, who is doing excellent regarding the physical and occupational therapy as she recovers from her multiple areas of bleed and brain injury. CT scan does show significant improvement and clinically she is improving in parallel. She has comorbid hypertension, dyslipidemia, hypothyroidism, malnutrit ion and anemia and risk for deep vein thrombosis. Those are addressed adequately with the medication s listed above. Comorbidities That Continue To Impact Rehabilitation Progress: At this point, she has comorbidities that are managed appropriately. She does not have significant pain. No significant risk of any hemo rrhagic worsening in the brain as all CT scans have shown significant improvement. Her risk of deep venous thrombosis is mitigated by medication. Hypertension addressed with medications as needed and they are not negatively impacting her rehabilitation recovery. JEFFERY/MARIO Voice ID: [id number] Report ID: [id number]
[2022-07-24] MEDS: ATORVASTATIN 10 MG TAB PO SCH (19:58)
[2022-07-24] MEDS: LATANOPROST OPTH OPTH SCH (19:59)
--- NOTE | 2022-07-24 21:54 | P.PN ---
Subjective Date of Service: 07/24/22 Chief Complaint: CONFUSION Subjective: Improving SHE IS SAME YESTERDAY. SHE RESPONDS TO SIMPLE COMMANDS LIKE MOVING HANDS AND LEGS. SHE IS ABOUT THE SAME. SLOW TO RESPOND AND LIMITED RESPONSE TO VERBAL COMMAND. SHE IS SITING IN CHAIR TODAY ALMOST FULLY AWAKE. STABLE STRONGER TALKING AND RESPONDING WELL TODAY. SHE IS QUITE MORE TALKATIVE TODAY. ASKED ABOUT HOME. NO CHANGES. SHE IS STABLE. FEELS BETTER. Physical Examination - Vital Signs Temperature: 97.2 F Blood Pressure: 114/60 Pulse: 90 Respirations: 18 Pulse Ox (%): 99 - Physical Exam General: Oriented x3, Mild distress HEENT: Atraumatic, PERRLA, EOMI Neck: Supple, JVD not distended Respiratory: Clear to auscultation bilaterally, Normal air movement Cardiovascular: Regular rate/rhythm, Normal S1 S2 Gastrointestinal: Normal bowel sounds, No tenderness Musculoskeletal: No tenderness Integumentary: No rashes Neurological: Normal speech, Normal tone, Normal affect Lymphatics: No axilla or inguinal lymphadenopathy - Studies Medications List Reviewed: Yes Assessment And Plan - Current Problems (Diagnosis) (1) Subdural hematoma Current Visit: Yes Status: Acute Plan: MEDICAL MANAGEMENT. PER DR. ZEPEDA. CT TODAY. I HAD A LONG TALK WITH DR. YANG. WE DON'T KNOW IF CT SHOWS STABLE OR IMPROVED FINDINGS FROM [facility]. WILL DO SERIAL CT SCAN HERE TO DECIDE STABILITY FOR HEMATOMA AND PARENCHYMAL HEMORRHAGE. HE IS IN CONTACT WITH [facility]CT[facility]. REPEAT CT SHOWS NO NEW CHANGES. THIS IS A GOOD SIGN. CONT PT. STABLE FOR NOW. MUCH MORE RESPONSIVE, SITTING, TALKING TODAY. CONTINUE PT. REDUCE STEROIDS DOING LOT BETTER. CONT PT. GOING TO [facility] IN AM. (2) Basal skull fracture Current Visit: Yes Status: Acute Plan: NOT SURGICAL CASE. DR. YANG DID EVAL. Qualifiers: Encounter type: initial encounter Fracture type: closed (3) Altered mental state Current Visit: Yes Status: Acute Plan: DR. YANG SAYS STEROIDS CAN BE TAPERED. SHOULD GRADUALLY IMPROVE.
[2022-07-25] MEDS: LEVOTHYROXINE SOD 0.05 MG TABLET PO SCH (05:18)
[2022-07-25] MEDS: carvediloL 25 MG TAB PO SCH (05:18)
[2022-07-25] MEDS: LIOTHYRONINE SOD 5 MCG TAB PO SCH (05:18)
[2022-07-25 07:27] VITALS: BP 114/55; TEMP 96.8
[2022-07-25] MEDS: INSULIN -REGULAR HUMAN 50 UNIT/0.5 ML ML SQ SCH (07:36)
[2022-07-25] MEDS: APIXABAN 2.5 MG TABLET PO SCH (07:54)
[2022-07-25] MEDS: POTASSIUM 25 MEQ EFFERV TAB PO SCH (07:54)
[2022-07-25] MEDS: CRANBERRY FRUIT EXTRACT 200 MG CAP PO SCH (07:54)
[2022-07-25] MEDS: CETIRIZINE HCL 5 MG TABLET PO SCH (07:55)
[2022-07-25] MEDS: FAMOTIDINE 20 MG TAB PO SCH (07:55)
[2022-07-25] MEDS: MONTELUKAST 10 MG TAB PO SCH (07:55)
[2022-07-25] MEDS: LETROZOLE 2.5 MG TAB PO SCH (07:55)
[2022-07-25] MEDS ORDERED: predniSONE 10 MG TAB PO SCH (08:00)
--- NOTE | 2022-07-25 15:04 | PN ---
Date of Progress Note: 07/24/2022 Time Of Service: 12:30 p.m. Subjective: Ms. Boyer has no new complaints. She is doing very well. She has some improvement in the left eye blinking rate. She denies any significant pain in the neck, back, arms, legs. Physical Examination: Vital Signs: Blood pressure 114/55, pulse 80, respiratory rate 18, temperature 97.2, oxygen saturati on 98%. Weight 154 pounds, height 5 feet 4 inches, BMI 26. General: Ms. Boyer is lying in bed in between therapy sessions. She is in no acute distress. HEENT: She is normocephalic, atraumatic. She does have healing cut with deanna on the right back o f her head and some increase in the left eye palpebra fissure from a hemorrhagic stroke, which was a traumatic event after her fall. Extremities: Otherwise, upper extremity strength is now symmetric. Sensations are symmetric in uppe r and lower extremities. Coordination good and much better. Laboratory Studies: No new laboratory studies from day 11, except blood sugars ranged from 81 to 110 . X-ray Imaging: Earlier today, she had a chest x-ray, which showed no acute cardiopulmonary processes . There was callus formation, multiple right rib fractures as noted. She did have a pacemaker, defi brillator in place. There was no lung mass seen on CT imaging and as noted in the x-ray. Medications: Currently Tylenol 650 mg every 6 hours as needed, Eliquis 2.5 mg twice daily, Lipitor 1 0 mg at bedtime, Coreg 25 mg twice daily. Zyrtec 5 mg daily. Pepcid 40 mg daily, Femara 2.5 mg shelby y, ipratropium bromide 0.5 mg nebulizer every 4 hours as needed, Synthroid 0.05 mg daily, Cytomel 5 m cg daily, Singulair 10 mg daily, K-Lyte daily, Deltasone 10 mg daily, and Senokot-S 1 at b edtime. Current Functional Status: Currently with a rolling walker inside on level surface. She was able to cover 700 feet, 500 feet and 200 feet with standby assistance using a rolling walker. With Speech T herapy, with verbal and visual cues required, she did complete oral motor exercises. Completed 2 set s of 14 repetitions of lingual circles, 2 sets of 20 repetitions of lingual lateralization resistant, 2 sets of 15 repetitions of oral opening. There was rapid fatigue observed. Progress Towards Rehabilitation Goals: She is making excellent progress towards her goals of returni ng to full functional mobility of her oropharyngeal region for chewing, swallowing, speaking with no significant pain, limitations in addition her ability to take care activities of daily living includi ng upper and lower body dressing, toileting, transfers, shower as well and she is also making great p rogress with her mobilization and became independent now. Goals will be set over around 750 to 1000 feet with modified independence. Assessment And Plan: Ms. Boyer is a 77-year-old patient, who has had significant trauma after falli ng down 3 flights of steps and trauma caused subdural hematoma, intraparenchymal hemorrhage, intraven tricular hemorrhage in addition to multiple rib fractures and weakness on the right upper and lower e xtremity, dysarthria, dysphagia. She is recovering well from her injuries and is doing excellent wit h her therapy. She has comorbid hypertension, dyslipidemia, hypothyroidism, malnutrition, anemia, an d risk for deep vein thrombosis. Those conditions are addressed by continuing medications as listed above. Comorbidities That Continue To Impact Rehabilitation Progress: At this stage, her comorbidities are very well managed and do not hamper or hinder her rehabilitation. The last CT scan as noted previous ly resolution of subdural hematoma much improvement in the left frontal hemorrhagic stroke and much l ess intraparenchymal blood and intraventricular blood also noted and as noted on the x-ray, healing c allus like formation seen on her rib fractures. She is close to being ready for discharge and will c ontinue with home health doing physical, occupational and speech therapy in addition to having follow up with her neurosurgeons, [facility] physician. JEFFERY/MARIO Voice ID: [id number] Report ID: [id number]
== END 2022-07-25 15:20 | DRG 949 ==
LOC: 5TH 07-13 13:29
PROVIDERS: ADMIT Psychiatry & Neurology Neurology with Special Qualifications in Child Neurology; ATTEND Psychiatry & Neurology Neurology with Special Qualifications in Child Neurology
DX: S06.5XAD Traumatic subdural hemorrhage with loss of consciousness status unknown, subsequent encounter (principal); E44.1 Mild protein-calorie malnutrition; N39.0 Urinary tract infection, site not specified; R47.01 Aphasia; S22.41XD Multiple fractures of ribs, right side, subsequent encounter for fracture with routine healing; S02.109D Fracture of base of skull, unspecified side, subsequent encounter for fracture with routine healing; S00.83XD Contusion of other part of head, subsequent encounter; I10 Essential (primary) hypertension; D64.9 Anemia, unspecified; E03.9 Hypothyroidism, unspecified; E78.5 Hyperlipidemia, unspecified; G47.00 Insomnia, unspecified; K59.00 Constipation, unspecified; R53.81 Other malaise; Z95.0 Presence of cardiac pacemaker; Z88.0 Allergy status to penicillin; Z88.8 Allergy status to other drugs, medicaments and biological substances; Z85.3 Personal history of malignant neoplasm of breast; Z79.82 Long term (current) use of aspirin; Z79.52 Long term (current) use of systemic steroids; Z90.11 Acquired absence of right breast and nipple; Z79.899 Other long term (current) drug therapy; Z79.890 Hormone replacement therapy; Z20.822 Contact with and (suspected) exposure to COVID-19
CPT/HCPCS: 36415; 70450; 71045; 71046; 80048; 81001; 82040; 82947; 83735; 84134; 85025; 87077; 87086; 87088; 87186; 92507; 92523; 92526; 94760; 97110; 97112; 97116; 97129; 97161; 97530; J7512; U0003